=== PATIENT | female | born 1980 | race Caucasian/White ===

== ENCOUNTER 2017-05-11 12:26 | Emergency (ER) | payer OTHER ==
[~2017-05-11] VITALS: Ht 165.1 cm; Wt 47.6 kg
[~2017-05-11 12:26] MED LIST: ACHD5005 PO; AMIT25TA9 PO; CYCL10TA9 PO; DIVA500T PO; FLUO40CA PO; IBP800T PO; LORA0.5T PO; PRD50T PO; PRM25T PO
--- OUTSIDE RECORDS SUMMARY | 2017-05-11 12:32 | XMS REPORT | CCD ---
Author Author JAMES TEE Organization Unknown Address [address] [place] [address] Care Team Providers Care Wellness Guide Name Role Phone [facility], LILY DO Attphys [facility], LILY DO Prisurg Allergies Allergy Code Allergy Type Reaction Status No Known Drug Allergies 0 Drug allergy Active Active Medications Medication Code Dose Units Frequency Route Modification Start Date/Time busPIRone 10MG Oral Tablet 459977 10 MILLIGRAMS THREE TIMES A DAY ORAL 05/04/2014 10:54 Prescription Detail 10 MILLIGRAMS ORAL THREE TIMES A DAY CeleXA 40MG Oral Tablet [id number] 40 MILLIGRAMS DAILY ORAL 05/04/2014 10:54 Prescription Detail 40 MILLIGRAMS ORAL DAILY Coumadin 5MG Oral Tablet [id number] 5 MILLIGRAMS COUMADIN AT 5:00 PM BY MOUTH 05/04/2014 10:54 Prescription Detail 5 MILLIGRAMS BY MOUTH COUMADIN AT 5:00 PM Dicyclomine HCl 10MG Oral Capsule [id number] 10 MILLIGRAMS THREE TIMES A DAY ORAL 05/04/2014 10:54 Prescription Detail 10 MILLIGRAMS ORAL THREE TIMES A DAY HYDROcodone bitartrate-acetaminophen 5MG-325MG Oral Tablet 355550 1 EACH NEEDED EVERY 6 HR BY MOUTH 10:54 Prescription Detail 1 EACH BY MOUTH NEEDED EVERY 6 HR HydrOXYzine HCl 25MG Oral Tablet [id number] 25 MILLIGRAMS FOUR TIMES A DAY ORAL 05/04/2014 10:54 Prescription Detail 25 MILLIGRAMS ORAL FOUR TIMES A DAY Lovenox 60MG/0.6ML Injection Solution 370884 60 MILLIGRAMS EVERY 12 HOURS SUB Q 05/04/2014 10:54 Prescription Detail 60 MILLIGRAMS SUB Q EVERY 12 HOURS Problems Problem Code Start Date Resolved Date Status DVT of leg 779713187 05/03/2014 Active Procedures Unknown or Not Available. Results Unknown or Not Available. 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 History of Immunizations Unknown or Not Available. Social History Smoking Status Code Start Date End Date Current every day smoker [id number] Vital Signs Unknown or Not Available. Function Status Unknown or Not Available. Goals Unknown or Not Available. ASSESSMENTS Unknown or Not Available. Health Concerns Section Unknown or Not Available.
--- OUTSIDE RECORDS SUMMARY | 2017-05-11 12:35 | XMS REPORT ---
Author Author Francisco Javier Patricio [facility] Address [address] [place], [place] [id number] Care Team Providers Care Director Of Sales Name Role Phone Francisco Javier Patricio PCP Unavailable FRANCISCO JAVIER ESPINAL PreferredProvider Unavailable Allergies and Adverse Reactions Name Reaction Notes No known drug allergy Plan of Treatment Not available. Medications Active Name Start Date Estimated Completion Date SIG Comments citalopram 20 mg oral tablet 03/30/2014 take 2 tablets (40 mg) by oral route once daily citalopram 20 mg oral tablet 06/07/2014 take 2 tablets (40 mg) by oral route once daily cyclobenzaprine 10 mg oral tablet 04/14/2015 take 1 tablet (10 mg) by oral route 3 times per day for 30 days citalopram 20 mg oral tablet 05/01/2015 take 2 tablets (40 mg) by oral route once daily hydroxyzine HCl 25 mg oral tablet 05/15/2015 take 1to 2 tablet by oral route QID PRN Xarelto 20 mg oral tablet 05/29/2015 take 1 tablet (20 mg) by oral route once daily with the evening meal hydroxyzine HCl 25 mg oral tablet 06/16/2015 TAKE ONE OR TWO TABLETS BY MOUTH UP TO FOUR TIMES A DAY IF NEEDED Lasix 20 mg oral tablet 07/07/2015 take 1 tablet (20 mg) by oral route once daily atenolol 25 mg oral tablet 07/28/2015 take 1 tablet (25 mg) by oral route 2 times per day for 30 days cyclobenzaprine 10 mg oral tablet 09/19/2015 TAKE ONE TABLET BY MOUTH THREE TIMES DAILY hydroxyzine HCl 25 mg oral tablet 01/08/2016 TAKE ONE OR TWO TABLETS BY MOUTH UP TO FOUR TIMES A DAY IF NEEDED baclofen 10 mg oral tablet 01/08/2016 take 1 tablet (10 mg) by oral route 3 times per day PRN muscle spasm atenolol 25 mg oral tablet 02/09/2016 TAKE ONE TABLET BY MOUTH TWICE DAILY Xarelto 20 mg oral tablet 03/10/2016 TAKE ONE TABLET BY MOUTH ONCE DAILY WITH EVENING MEAL baclofen 10 mg oral tablet 04/06/2016 take 1 tablet (10 mg) by oral route 3 times per day PRN muscle spasm dicyclomine 10 mg oral capsule 04/15/2016 take 1 capsule (10 mg) by oral route 3 times per day for 30 days pantoprazole 40 mg oral tablet,delayed release (DR/EC) 04/30/2016 TAKE ONE TABLET BY MOUTH ONCE DAILY hydroxyzine HCl 25 mg oral tablet 04/30/2016 TAKE ONE OR TWO TABLETS BY MOUTH UP TO FOUR TIMES A DAY IF NEEDED tramadol 50 mg oral tablet 05/24/2016 take 1 tablet by oral route 4 times a day as needed buspirone 10 mg oral tablet 05/25/2016 take 1 tablet (10 mg) by oral route 3 times per day buspirone 10 mg oral tablet 05/25/2016 TAKE ONE TABLET BY MOUTH THREE TIMES DAILY trazodone 100 mg oral tablet take 1.5 tablets by oral route daily Name Start Date Expiration Date SIG Comments Vistaril 25 mg oral capsule 02/26/2009 02/26/2009 take 1 capsule (25 mg) by oral route 3 times per day Zoloft 50 mg oral tablet 03/17/2009 07/15/2009 take 1 tablet (50 mg) by oral route once daily for 30 days Cipro 500 mg oral tablet 04/16/2009 take 1 tablet (500 mg) by oral route 2 times per day Medrol (Vivek) 4 mg oral tablets,dose pack 04/16/2009 take as directed Sprintec (28) 0.25-35 mg-mcg oral tablet 04/01/2014 03/03/2015 take 1 tablet by oral route once daily for 28 days Bentyl 10 mg oral capsule 06/07/2014 10/05/2014 take 1 capsule (10 mg) by oral route 3 times per day for 30 days alprazolam 0.5 mg oral tablet 08/07/2014 1/2 to 1 TID PRN panic attack Cipro 500 mg oral tablet 12/03/2014 1 tablet (500 mg) twice a day for 15 days promethazine-codeine 6.25-10 mg/5 mL oral syrup 12/03/2014 take 5 milliliters by oral route every 4-6 hours as needed, not to exceed 30 mL in 24 hours cyclobenzaprine 10 mg oral tablet 03/17/2015 04/16/2015 take 1 tablet (10 mg) by oral route 3 times per day for 30 days prednisone 20 mg oral tablet 05/08/2015 05/16/2015 4x2 days 3x2 days 2x2 days 1x2 days atenolol 25 mg oral tablet 05/23/2015 07/22/2015 take 1 tablet (25 mg) by oral route 2 times per day for 30 days Macrobid 100 mg oral capsule 11/25/2015 12/02/2015 take 1 capsule (100 mg) by oral route every 12 hours with food for 7 days citalopram 40 mg oral tablet 01/08/2016 06/06/2016 take 1 tablet (40 mg) by oral route once daily for 30 days dicyclomine 10 mg oral capsule 01/08/2016 04/07/2016 take 1 capsule (10 mg) by oral route 3 times per day for 30 days pantoprazole 40 mg oral tablet,delayed release (DR/EC) 01/26/2016 03/26/2016 take 1 tablet (40 mg) by oral route once daily for 30 days Bactrim DS 800-160 mg oral tablet 02/18/2016 02/28/2016 take 1 tablet by oral route 2 times a day for 10 days Cipro 500 mg oral tablet 03/30/2016 04/09/2016 take 1 tablet (500 mg) by oral route 2 times per day for 10 days amoxicillin 500 mg oral capsule 06/02/2016 06/09/2016 take 1 capsule (500 mg) by oral route 3 times per day for 7 days Medrol (Vivek) 4 mg oral tablets,dose pack 06/02/2016 06/07/2016 take as directed for 5 days Discontinued Name Start Date Discontinued Date SIG Comments diclofenac sodium 75 mg oral tablet,delayed release (DR/EC) 03/30/20142014 take 1 tablet (75 mg) by oral route 2 times per day warfarin 5 mg oral tablet 06/05/2014 06/30/2015 one daily as directed ibuprofen 800 mg oral tablet 12/31/2014 06/30/2015 take 1 tablet by oral route Q8H while on your cycle warfarin 4 mg oral tablet 02/24/2015 06/30/2015 take 2 tablet (4 mg) by oral route once daily Keflex 500 mg oral capsule 04/14/2015 05/24/2015 Take one capsule 3 times a day promethazine-codeine 6.25-10 mg/5 mL oral syrup 05/24/2015 06/21/2016 take 5 milliliters by oral route every 4-6 hours as needed, not to exceed 30 mL in 24 hours Lasix 20 mg oral tablet 10/06/2015 06/21/2016 take 1 tablet (20 mg) by oral route once daily cyclobenzaprine 10 mg oral tablet 11/17/2015 01/08/2016 TAKE ONE TABLET BY MOUTH THREE TIMES DAILY Conway 5-325 mg oral tablet 02/20/2016 05/15/2016 take 1 tablet by oral route every 6 hours as needed for pain amoxicillin 500 mg oral capsule 06/03/2016 06/21/2016 take 1 capsule (500 mg) by oral route 3 times per day for 7 days Problem List Description Status Onset Panic attack as reaction to stress Active 02/26/2014 Depressive Disorder Active 02/26/2014 Anxiety Disorder Active 02/26/2014 Mental retardation Active 02/26/2014 Tremor, essential Active 03/30/2014 Urticaria Active 03/30/2014 Hyperlipidemia, unspecified Active 03/30/2014 Restless leg syndrome Active 03/30/2014 DVT (deep venous thrombosis), left Active 05/07/2014 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 06/13/2014 History of DVT (deep vein thrombosis) Active 09/17/2014 Smoker Active 09/04/2015 Gastroesophageal reflux disease without esophagitis Active 01/31/2016 Uses marijuana Active 04/17/2016 Low self esteem Active 05/15/2016 Marijuana smoker, continuous Active 05/15/2016 Stress at home Active 05/15/2016 Thoracic Back Pain Active 05/24/2016 Vital Signs Date Time BP-Sys(mm[Hg] BP-Diana(mm[Hg]) HR(bpm) RR(rpm) Temp WT HT HC BMI BSA BMI Percentile O2 Sat(%) 06/22/2016 3:16:00 PM 132 mmHg 80 mmHg 92 bpm 18 rpm 97.7 F 136 lbs 63 in 24.09 kg/m2 1.66 m2 100 % 06/21/2016 11:11:00 AM 132 mmHg 80 mmHg 92 bpm 18 rpm 97.7 F 136 lbs 64 in 23.3441 kg/m 1.669 m 100 % 06/08/2016 1:11:00 PM 108 mmHg 72 mmHg 70 bpm 18 rpm 97.4 F 146 lbs 64 in 25.06 kg/m2 1.73 m2 96 % 05/24/2016 3:31:00 PM 100 mmHg 72 mmHg 68 bpm 18 rpm 97 F 137 lbs 65 in 22.7978 kg/m 1.6882 m 97 % 05/05/2016 2:40:00 PM 110 mmHg 70 mmHg 76 bpm 16 rpm 98.2 F 146 lbs 62 in 26.70 kg/m2 1.70 m2 98 % 04/14/2016 2:06:00 PM 110 mmHg 78 mmHg 102 bpm 16 rpm 97.4 F 138 lbs 97 % 03/30/2016 11:50:00 AM 110 mmHg 65 mmHg 74 bpm 16 rpm 97.6 F 142 lbs 64 in 24.37 kg/m2 1.71 m2 98 % 03/25/2016 4:07:00 PM 118 mmHg 68 mmHg 77 bpm 16 rpm 98.1 F 143 lbs 64 in 24.5456 kg/m 1.7114 m 99 % 02/24/2016 2:05:00 PM 110 mmHg 70 mmHg 60 bpm 16 rpm 98.2 F 141 lbs 64 in 24.20 kg/m2 1.70 m2 98 % 02/20/2016 11:01:00 AM 120 mmHg 60 mmHg 92 bpm 16 rpm 98.2 F 142 lbs 64 in 24.374 kg/m 1.7054 m 95 % 02/10/2016 11:19:00 AM 126 mmHg 82 mmHg 71 bpm 16 rpm 98.1 F 144 lbs 64 in 24.72 kg/m2 1.72 m2 98 % 01/26/2016 2:19:00 PM 110 mmHg 70 mmHg 70 bpm 16 rpm 97.5 F 144 lbs 64 in 24.7173 kg/m 1.7174 m 98 % 01/08/2016 2:52:00 PM 110 mmHg 70 mmHg 102 bpm 18 rpm 98.3 F 146 lbs 65 in 24.30 kg/m2 1.74 m2 98 % 11/25/2015 3:47:00 PM 110 mmHg 78 mmHg 96 bpm 16 rpm 98.5 F 141 lbs 64 in 24.2023 kg/m 1.6994 m 98 % 10/21/2015 6:44:00 AM 115 mmHg 68 mmHg 96 bpm 18 rpm 98.4 F 141 lbs 65 in 23.46 kg/m2 1.71 m2 96 % 10/17/2015 9:33:00 AM 115 mmHg 68 mmHg 96 bpm 18 rpm 98.4 F 141 lbs 65 in 23.4634 kg/m 1.7126 m 96 % 09/26/2015 9:22:00 AM 98 mmHg 65 mmHg 80 bpm 16 rpm 97.4 F 143 lbs 65 in 23.80 kg/m2 1.72 m2 97 % 09/02/2015 10:44:00 AM 112 mmHg 74 mmHg 135 bpm 18 rpm 98.4 F 142 lbs 64 in 24.374 kg/m 1.7054 m 96 % 07/25/2015 11:53:00 AM 120 mmHg 75 mmHg 96 bpm 16 rpm 98.2 F 141 lbs 64 in 24.20 kg/m2 1.70 m2 97 % 06/27/2015 9:08:00 AM 128 mmHg 70 mmHg 104 bpm 18 rpm 145 lbs 96 % 06/10/2015 11:11:00 AM 128 mmHg 78 mmHg 78 bpm 18 rpm 98.2 F 143 lbs 64 in 24.55 kg/m2 1.71 m2 97 % 05/23/2015 10:50:00 AM 110 mmHg 80 mmHg 94 bpm 97.9 F 143 lbs 64 in 24.5456 kg/m 1.7114 m 97 % 04/23/2015 1:32:00 PM 125 mmHg 80 mmHg 138 bpm 18 rpm 97 F 138 lbs 64 in 23.69 kg/m2 1.68 m2 98 % 04/14/2015 2:02:00 PM 128 mmHg 70 mmHg 128 bpm 18 rpm 98.7 F 146 lbs 64 in 25.0606 kg/m 1.7293 m 98 % 04/09/2015 11:37:00 AM 118 mmHg 70 mmHg 124 bpm 18 rpm 98.6 F 142 lbs 64 in 24.37 kg/m2 1.71 m2 97 % 01/27/2015 10:43:00 AM 130 mmHg 75 mmHg 110 bpm 18 rpm 98.3 F 136 lbs 64 in 23.3441 kg/m 1.669 m 96 % 01/09/2015 11:26:00 AM 109 mmHg 70 mmHg 122 bpm 98.8 F 135 lbs 64 in 23.17 kg/m2 1.66 m2 12/30/2014 9:34:00 AM 12 mmHg 81 mmHg 114 bpm 97.2 F 134.25 lbs 64 in 23.0437 kg/m 1.6582 m 12/27/2014 9:25:00 AM 120 mmHg 80 mmHg 142 bpm 96.8 F 134 lbs 64 in 23.00 kg/m2 1.66 m2 12/27/2014 9:03:00 AM 110 mmHg 68 mmHg 146 bpm 16 rpm 98 F 134 lbs 64 in 23.0008 kg/m 1.6567 m 98 % 12/06/2014 11:20:00 AM 140 mmHg 80 mmHg 130 bpm 16 rpm 98.3 F 134 lbs 64 in 23.00 kg/m2 1.66 m2 99 % 12/02/2014 11:36:00 AM 110 mmHg 70 mmHg 146 bpm 16 rpm 98.8 F 129 lbs 64 in 22.1426 kg/m 1.6255 m 98 % 10/09/2014 8:35:00 AM 110 mmHg 70 mmHg 84 bpm 18 rpm 97.5 F 116 lbs 64 in 19.91 kg/m2 1.54 m2 98 % 09/05/2014 1:06:00 PM 120 mmHg 70 mmHg 92 bpm 18 rpm 97.8 F 123 lbs 64 in 21.1127 kg/m 1.5872 m 98 % 08/06/2014 8:50:00 AM 110 mmHg 64 mmHg 80 bpm 18 rpm 97 F 120 lbs 64 in 20.60 kg/m2 1.57 m2 99 % 07/23/2014 9:44:00 AM 105 mmHg 60 mmHg 90 bpm 18 rpm 97.6 F 122 lbs 64 in 20.941 kg/m 1.5808 m 99 % 06/12/2014 8:29:00 AM 110 mmHg 60 mmHg 80 bpm 18 rpm 98.7 F 121 lbs 64 in 20.77 kg/m2 1.57 m2 98 % 05/20/2014 11:13:00 AM 100 mmHg 60 mmHg 70 bpm 18 rpm 98.6 F 122 lbs 64 in 20.941 kg/m 1.5808 m 98 % 05/16/2014 10:57:00 AM 105 mmHg 60 mmHg 81 bpm 18 rpm 98.6 F 121 lbs 64 in 20.77 kg/m2 1.57 m2 100 % 05/06/2014 1:03:00 PM 110 mmHg 60 mmHg 116 bpm 18 rpm 97.9 F 121 lbs 64 in 20.7694 kg/m 1.5743 m 99 % 04/25/2014 1:05:00 PM 105 mmHg 65 mmHg 97 bpm 18 rpm 97 F 122 lbs 63 in 21.61 kg/m2 1.57 m2 99 % 04/01/2014 1:23:00 PM 101 mmHg 67 mmHg 83 bpm 18 rpm 97.4 F 121 lbs 64 in 20.7694 kg/m 1.5743 m 03/28/2014 10:09:00 AM 108 mmHg 68 mmHg 86 bpm 18 rpm 97.6 F 120.187 lbs 63.75 in 20.79 kg/m2 1.57 m2 98 % 02/26/2014 10:46:00 AM 120 mmHg 60 mmHg 98 bpm 22 rpm 97.9 F 118 lbs 63 in 20.9025 kg/m 1.5425 m 100 % 05/20/2010 9:42:00 AM 116 mmHg 72 mmHg 76 bpm 106 lbs 04/16/2009 10:49:00 AM 104 mmHg 70 mmHg 97.8 F 114 lbs Social History Name Description Comments Tobacco Current every day smoker Alcohol Never Marijuana History of Procedures Date Ordered Description Order Status 10/18/2014 12:00 AM CAPILLARY BLOOD DRAW Reviewed 12/12/2014 12:00 AM CAPILLARY BLOOD DRAW Reviewed 12/27/2014 12:00 AM CHORIONIC GONADOTROPIN TEST Reviewed 12/27/2014 12:00 AM COMPLETE CBC W/AUTO DIFF WBC Reviewed 12/27/2014 12:00 AM COMPREHEN METABOLIC PANEL Reviewed 12/27/2014 12:00 AM ASSAY THYROID STIM HORMONE Reviewed 12/27/2014 12:00 AM Type & Screen Reviewed 12/27/2014 12:00 AM ASSAY OF GONADOTROPIN (FSH) Reviewed 12/27/2014 12:00 AM ASSAY OF GONADOTROPIN (LH) Reviewed 12/27/2014 12:00 AM ASSAY OF PROLACTIN Reviewed 12/27/2014 12:00 AM PROTHROMBIN TIME Reviewed 12/27/2014 12:00 AM THROMBOPLASTIN TIME PARTIAL Reviewed 12/27/2014 12:00 AM SELF-MGMT EDUC & TRAIN 1 PT Reviewed 01/03/2015 12:00 AM US EXAM PELVIC COMPLETE Reviewed 01/03/2015 12:00 AM TRANSVAGINAL US NON-OB Reviewed 12/30/2014 12:00 AM COMPLETE CBC W/AUTO DIFF WBC Reviewed 12/30/2014 12:00 AM US EXAM PELVIC COMPLETE Reviewed 12/30/2014 12:00 AM US EXAM PELVIC LIMITED Reviewed 01/13/2015 12:00 AM CAPILLARY BLOOD DRAW Reviewed 02/03/2015 12:00 AM CAPILLARY BLOOD DRAW Reviewed 04/12/2015 12:00 AM Decadron, Per 1 Mg [facility]# [id number] Reviewed 05/01/2015 12:00 AM CAPILLARY BLOOD DRAW Reviewed 03/06/2015 12:00 AM CAPILLARY BLOOD DRAW Reviewed 05/07/2015 12:00 AM CAPILLARY BLOOD DRAW Reviewed 05/23/2015 12:00 AM Decadron, Per 1 Mg [facility]# [id number] Reviewed 05/29/2015 12:00 AM CAPILLARY BLOOD DRAW Reviewed 06/17/2015 12:00 AM EXTREMITY STUDY Returned 09/02/2015 12:00 AM Decadron, Per 1 Mg [facility]# [id number] Reviewed 09/02/2015 12:00 AM Rocephin 1 gram [facility]#[id number] Reviewed 09/02/2015 12:00 AM Toradol 60 Mg [facility]#[id number] Reviewed 09/26/2015 12:00 AM Decadron, Per 1 Mg [facility]# [id number] Reviewed 09/26/2015 12:00 AM Phenergan, Up to 50 Mg [facility]#[id number] Reviewed 02/20/2016 12:00 AM DRAINAGE OF SKIN ABSCESS Reviewed 02/10/2016 12:00 AM Phenergan 50mg Injection Reviewed 02/10/2016 12:00 AM THER/PROPH/DIAG INJ SC/IM Reviewed 03/25/2016 12:00 AM THERAPEUTIC PROPHYLACTIC/DX INJECTION SUBQ/IM Reviewed 03/25/2016 12:00 AM Decadron 8mg Injection, [facility] Medicaid Reviewed 03/25/2016 12:00 AM Depo-Medrol 80 Mg Injection, [facility] Medicaid Reviewed 03/25/2016 12:00 AM Rocephin 1 gram Injection, [facility] Medicaid Reviewed 03/29/2016 12:00 AM THER/PROPH/DIAG INJ SC/IM Reviewed 03/29/2016 12:00 AM Decadron 8mg Injection Reviewed 03/29/2016 12:00 AM Depo-Medrol 80mg Injection Reviewed 03/29/2016 12:00 AM Rocephin 1 gram Injection Reviewed 03/27/2016 12:00 AM BEHAV CHNG SMOKING 3-10 MIN Reviewed 03/30/2016 12:00 AM Toradol 60 Mg Injection, [facility] Medicaid Reviewed 03/30/2016 12:00 AM Phenergan 50mg Injection, [facility] Medicaid Reviewed 04/17/2016 12:00 AM THERAPEUTIC PROPHYLACTIC/DX INJECTION SUBQ/IM Reviewed 04/20/2016 12:00 AM X-RAY EXAM NECK SPINE 2-3 VW Returned 04/20/2016 12:00 AM X-RAY EXAM L-S SPINE 2/3 VWS Returned 05/05/2016 12:00 AM THER/PROPH/DIAG INJ SC/IM Reviewed 05/05/2016 12:00 AM Decadron 8mg Injection Reviewed 05/15/2016 12:00 AM BEHAV CHNG SMOKING 3-10 MIN Reviewed 05/24/2016 12:00 AM THER/PROPH/DIAG INJ SC/IM Reviewed 05/24/2016 12:00 AM Decadron 8mg Injection Reviewed 05/24/2016 12:00 AM Depo-Medrol 80mg Injection Reviewed 05/24/2016 12:00 AM Rocephin 1 gram Injection Reviewed 05/24/2016 12:00 AM Toradol 60 Mg Injection Reviewed 05/24/2016 12:00 AM BEHAV CHNG SMOKING 3-10 MIN Reviewed 06/21/2016 12:[address] ABD & PELV W/CONTRAST Reviewed 03/28/2014 12:00 AM COMPLETE CBC W/AUTO DIFF WBC Reviewed 03/28/2014 12:00 AM COMPREHEN METABOLIC PANEL Reviewed 03/28/2014 12:00 AM LIPID PANEL Reviewed 04/01/2014 12:00 AM SPECIMEN HANDLING OFFICE-LAB Reviewed 04/01/2014 12:00 AM CHLAMYDIA CULTURE Reviewed 04/01/2014 12:00 AM N.GONORRHOEAE DNA AMP PROB Reviewed 04/01/2014 12:00 AM CYTOPATH C/V THIN LAYER Reviewed 05/27/2014 12:00 AM CAPILLARY BLOOD DRAW Reviewed 06/10/2014 12:00 AM CAPILLARY BLOOD DRAW Reviewed 07/23/2014 12:00 AM THER/PROPH/DIAG INJ SC/IM Reviewed 07/23/2014 12:00 AM Decadron, Per 1 Mg [facility]# [id number] Reviewed 07/23/2014 12:00 AM Depo-Medrol, Per 80 Mg [facility]#[id number] Reviewed 07/23/2014 12:00 AM Rocephin 1 gram [facility]#[id number] Reviewed 08/20/2014 12:00 AM CAPILLARY BLOOD DRAW Reviewed 08/29/2014 12:00 AM CAPILLARY BLOOD DRAW Reviewed 09/05/2014 12:00 AM CAPILLARY BLOOD DRAW Reviewed 09/13/2014 12:00 AM CAPILLARY BLOOD DRAW Reviewed 10/09/2014 12:00 AM Decadron, Per 1 Mg [facility]# [id number] Reviewed 10/09/2014 12:00 AM Toradol 60 Mg [facility]#[id number] Reviewed 10/09/2014 12:00 AM Phenergan, Up to 50 Mg [facility]#[id number] Reviewed 10/30/2014 12:00 AM CAPILLARY BLOOD DRAW Reviewed Results Summary Data and Description Results 03/28/2014 3:47 PM GLUCOSE 76.0 mg/dLSODIUM 145.0 mmol/LPOTASSIUM 4.80 mmol/ LCHLORIDE 105.0 mmol/LCO2 25.0 mmol/LBUN 13.0 mg/dLCREATININE 0.70 mg/dLSGOT/ AST 14.0 IU/LSGPT/ALT 12.0 IU/LALK PHOS 72.0 IU/LTOTAL PROTEIN 7.60 g/dLALBUMIN 4.40 g/dLTOTAL BILI 0.20 mg/dLCALCIUM 10.0 mg/dLAGE 33 GFR NonAA 98 GFR AA 119 eGFR >60 mL/min/1.73 m2eGFR AA* >60 TRIGLYCERIDES 241.0 mg/dLCHOLESTEROL 248.0 mg/dLHDL 51.0 mg/dLTOT CHOL/HDL 4.9 LDL (CALC) 149.0 mg/dLWBC 9.1 RBC 5.46 HGB 16.50 g/dLHCT 49.20 %MCV 90.0 fLMCH 30.20 pgMCHC 33.50 g/dLRDW SD 52 RDW CV 15.90 %MPV 10.60 fLPLT 317 PLTS PLTS CHECKD NRBC# 0.00 NRBC% 0.0 %NEUT 58.60 %%LYMP 35.10 %%MONO 5.10 %%EOS 1.0 %%BASO 0.20 %#NEUT 5.32 #LYMP 3.18 # MONO 0.46 #EOS 0.09 #BASO 0.02 MANUAL DIFF NOT IND 12/27/2014 11:10 AM WBC 10.8 RBC 4.57 HGB 14.40 g/dLHCT 42.60 %MCV 93.0 fLMCH 31.50 pgMCHC 33.80 g/dLRDW SD 54 RDW CV 15.70 %MPV 9.50 fLPLT 337 NRBC# 0.00 NRBC% 0.0 %NEUT 63.70 %%LYMP 30.20 %%MONO 4.80 %%EOS 1.10 %%BASO 0.20 %#NEUT 6.88 #LYMP 3.27 #MONO 0.52 #EOS 0.12 #BASO 0.02 MANUAL DIFF NOT IND GLUCOSE 96.0 mg/dLSODIUM 139.0 mmol/LPOTASSIUM 3.80 mmol/LCHLORIDE 105.0 mmol/LCO2 24.0 mmol/LBUN 11.0 mg/dLCREATININE 0.70 mg/dLSGOT/AST 18.0 IU/LSGPT/ALT 15.0 IU/ LALK PHOS 76.0 IU/LTOTAL PROTEIN 7.40 g/dLALBUMIN 4.40 g/dLTOTAL BILI 0.30 mg/ dLCALCIUM 10.20 mg/dLAGE 34 GFR NonAA 97 GFR AA 118 eGFR >60 mL/min/1.73meGFR AA* >60 TSH 0.880 uIU/mLFSH 7.60 mIU/mLLH 9.60 mIU/mLBETA HCG QUANT <1 mIU/ mLProlactin 5.90 ng/mL 12/27/2014 11:30 AM PROTIME 19.50 secsINR 1.9 PTT 36.80 secsCALLED TO/BY ARUNA [facility] 12/30/2014 10:57 AM WBC 9.4 RBC 4.41 HGB 13.60 g/dLHCT 41.40 %MCV 94.0 fLMCH 30.80 pgMCHC 32.90 g/dLRDW SD 53 RDW CV 15.50 %MPV 9.50 fLPLT 334 NRBC# 0.00 NRBC% 0.0 %NEUT 59.40 %%LYMP 34.40 %%MONO 4.60 %%EOS 1.40 %%BASO 0.20 %#NEUT 5.57 #LYMP 3.22 #MONO 0.43 #EOS 0.13 #BASO 0.02 MANUAL DIFF NOT IND 04/23/2015 12:10 PM WBC 10.2 RBC 5.41 HGB 14.70 g/dLHCT 45.20 %MCV 84.0 fLMCH 27.20 pgMCHC 32.50 g/dLRDW SD 51 RDW CV 16.90 %MPV 10.0 fLPLT 228 NRBC# 0.00 NRBC% 0.0 GLUCOSE 82.0 mg/dLSODIUM 140.0 mmol/LPOTASSIUM 3.80 mmol/LCHLORIDE 109.0 mmol/LCO2 20.0 mmol/LBUN 5.0 mg/dLCREATININE 0.60 mg/dLSGOT/AST 18.0 IU/ LSGPT/ALT 13.0 IU/LALK PHOS 94.0 IU/LTOTAL PROTEIN 6.80 g/dLALBUMIN 4.0 g/ dLTOTAL BILI 0.30 mg/dLCALCIUM 9.40 mg/dLAGE 34 GFR NonAA 116 GFR AA 141 eGFR > 60 mL/min/1.73meGFR AA* >60 FREE T4 1.05 TSH 0.380 uIU/mL History Of Immunizations Not available. 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 06/13/2014 History of DVT (deep vein thrombosis) 09/17/2014 Sebaceous Cyst May 20 2010 9:43AM Smoker 09/04/2015 Gastroesophageal reflux disease without esophagitis 01/31/2016 Uses marijuana 04/17/2016 Low self esteem 05/15/2016 Marijuana smoker, continuous 05/15/2016 Stress at home 05/15/2016 Thoracic Back Pain 05/24/2016 Anxiety Disorder Feb 26 2014 10:47AM Depressive Disorder Feb 26 2014 10:47AM Panic attack as reaction to stress Feb 26 2014 10:47AM Mental retardation Feb 26 2014 10:47AM Anger Feb 26 2014 10:47AM Anxiety Mar 28 2014 10:10AM FPC use of drug Mar 28 2014 10:10AM Tremor, essential Mar 28 2014 10:10AM Mental retardation Mar 28 2014 10:10AM Hyperlipidemia, unspecified Mar 28 2014 10:10AM Panic attack as reaction to stress Mar 28 2014 10:10AM Urticaria Mar 28 2014 10:10AM Restless leg syndrome Mar 28 2014 10:10AM Routine gynecological examination Apr 01 2014 1:34PM Contraceptive management Apr 01 2014 1:34PM Tobacco Abuse Apr 01 2014 1:34PM Vaginal Discharge Apr 01 2014 1:34PM Gastroesophageal Reflux Apr 25 2014 1:05PM Bloating Apr 25 2014 1:05PM DVT (deep venous thrombosis), left May 06 2014 1:03PM DVT (deep venous thrombosis), left May 16 2014 10:57AM Thigh pain May 16 2014 10:57AM Anticoagulation goal of INR 2 to 3 May 16 2014 10:57AM 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 May 20 2014 11:14AM DVT (deep venous thrombosis), left May 20 2014 11:14AM 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 May 30 2014 7:44AM Atrial Fibrillation May 30 2014 7:44AM Deep vein thrombosis:history of May 30 2014 7:44AM FPC 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 Jun 10 2014 9:18AM Atrial Fibrillation Jun 10 2014 9:18AM Deep vein thrombosis:history of Jun 10 2014 9:18AM FPC 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 Jun 12 2014 8:29AM Panic attack as reaction to stress Jun 12 2014 8:29AM History of DVT (deep vein thrombosis) Jun 12 2014 8:29AM 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 Jun 12 2014 8:29AM Cough Jul 23 2014 9:44AM Pharyngitis, Acute Jul 23 2014 9:44AM Post-nasal drainage Jul 23 2014 9:44AM Panic attack as reaction to stress Aug 06 2014 2:55PM Intellectual disability Aug 06 2014 2:55PM FPC 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 Aug 20 2014 1:24PM Atrial Fibrillation Aug 20 2014 1:24PM Deep vein thrombosis:history of Aug 20 2014 1:24PM FPC 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 Aug 29 2014 3:30PM Atrial Fibrillation Aug 29 2014 3:30PM Deep vein thrombosis:history of Aug 29 2014 3:30PM 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 Sep 05 2014 1:08PM Atrial Fibrillation Sep 05 2014 1:08PM Deep vein thrombosis:history of Sep 05 2014 1:08PM FPC 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 Sep 13 2014 12:03PM Atrial Fibrillation Sep 13 2014 12:03PM Deep vein thrombosis:history of Sep 13 2014 12:03PM FPC 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 Sep 05 2014 1:06PM Hip pain Sep 05 2014 1:06PM Neck pain Sep 05 2014 1:06PM History of DVT (deep vein thrombosis) Sep 05 2014 1:06PM Low Back Pain Oct 09 2014 8:35AM Migraine Oct 09 2014 8:35AM Depressive Disorder Oct 09 2014 8:35AM Nausea Oct 09 2014 8:35AM Cervicalgia Oct 09 2014 8:35AM 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 Oct 30 2014 3:06PM Atrial Fibrillation Oct 30 2014 3:06PM Deep vein thrombosis:history of Oct 30 2014 3:06PM 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 Nov 07 2014 3:54PM Atrial Fibrillation Nov 07 2014 3:54PM Deep vein thrombosis:history of Nov 07 2014 3:54PM Cough Dec 02 2014 11:37AM Bronchitis, Acute Dec 02 2014 11:37AM Abdominal Pain, Generalized Dec 06 2014 11:21AM Constipation Dec 06 2014 11:21AM [facility] 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 Dec 12 2014 9:25AM Atrial Fibrillation Dec 12 2014 9:25AM Deep vein thrombosis:history of Dec 12 2014 9:25AM Menorrhagia Dec 27 2014 10:50AM Menorrhagia Dec 27 2014 9:34AM Dysmenorrhea Dec 27 2014 9:34AM Menorrhagia Dec 30 2014 10:23AM Menorrhagia Dec 30 2014 9:38AM 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 Dec 27 2014 9:04AM Menorrhagia Dec 27 2014 9:04AM Dysmenorrhea Dec 27 2014 9:04AM Menorrhagia Jan 09 2015 11:30AM 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 Jan 13 2015 11:28AM Atrial Fibrillation Jan 13 2015 11:28AM Deep vein thrombosis:history of Jan 13 2015 11:28AM Menorrhagia with regular cycle Jan 27 2015 10:44AM Moderate Female pelvic pain Jan 27 2015 10:44AM Moderate Dysmenorrhea Jan 27 2015 10:44AM 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 Feb 03 2015 1:34PM Atrial Fibrillation Feb 03 2015 1:34PM Deep vein thrombosis:history of Feb 03 2015 1:34PM Mild Acute Sprain/Strain Apr 09 2015 11:39AM Hip joint painful on movement, left Apr 09 2015 11:39AM Mild Chronic Cognitive impairment Stable Apr 09 2015 11:39AM Moderate Chronic Periodontal Disease Apr 14 2015 2:02PM Moderate Acute Toothache Apr 14 2015 2:02PM Moderate Chronic Depressive Disorder Apr 23 2015 1:32PM Moderate Chronic Tobacco Abuse Apr 23 2015 1:32PM Fatigue due to depression Apr 23 2015 1:32PM Tachycardia Apr 23 2015 1:32PM 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 Apr 23 2015 1:32PM [facility] 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 May 01 2015 2:57PM Atrial Fibrillation May 01 2015 2:57PM Deep vein thrombosis:history of May 01 2015 2:57PM 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 May 06 2015 3:28PM Atrial Fibrillation May 06 2015 3:28PM Deep vein thrombosis:history of May 06 2015 3:28PM [facility] 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 May 07 2015 9:50AM Atrial Fibrillation May 07 2015 9:50AM Deep vein thrombosis:history of May 07 2015 9:50AM Cough May 23 2015 10:51AM Bronchitis, Acute May 23 2015 10:51AM Post-nasal drainage May 23 2015 10:51AM Smoker unmotivated to quit May 23 2015 10:51AM 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 May 29 2015 2:16PM Atrial Fibrillation May 29 2015 2:16PM Deep vein thrombosis:history of May 29 2015 2:16PM Bilateral low back pain with sciatica, sciatica laterality unspecified Jun 10 2015 11:11AM History of DVT (deep vein thrombosis) Jun 10 2015 11:11AM 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 Jun 10 2015 11:11AM Leg pain Jun 17 2015 1:36PM Edema leg Jun 17 2015 1:36PM History of DVT (deep vein thrombosis) Jun 17 2015 1:36PM Pain of left thigh Jun 27 2015 9:09AM History of DVT (deep vein thrombosis) Jun 27 2015 9:09AM 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 Jun 27 2015 9:09AM Restless leg syndrome Jun 27 2015 9:09AM Edema of left lower extremity Jul 25 2015 11:54AM History of DVT of lower extremity Jul 25 2015 11:54AM Moderate Acute Cough Sep 02 2015 10:44AM Mild Acute Post-nasal drainage Sep 02 2015 10:44AM Upper respiratory tract infection, unspecified type Sep 02 2015 10:44AM Respiratory System And Chest Symptoms Sep 02 2015 10:44AM Nasal congestion Sep 02 2015 10:44AM Anxiety disorder Sep 02 2015 10:44AM Depressive Disorder Sep 02 2015 10:44AM 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 Sep 02 2015 10:44AM Smoker Sep 02 2015 10:44AM Mild Acute Muscle spasm of back Sep 02 2015 10:44AM Mild Respiratory System And Chest Symptoms Sep 26 2015 9:23AM Fever, unspecified fever cause Sep 26 2015 9:23AM Non-intractable vomiting with nausea, vomiting of unspecified type Sep 26 2015 9:23AM Mild Acute Gastroenteritis Sep 26 2015 9:23AM Mild Acute Bartholin's Gland Cyst Improving Oct 21 2015 6:44AM Moderate Acute Gastroenteritis, Viral Improving Nov 25 2015 3:47PM Diarrhea, unspecified type Nov 25 2015 3:47PM Non-intractable cyclical vomiting with nausea Nov 25 2015 3:47PM 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 Nov 25 2015 3:47PM Anxiety Disorder Jan 08 2016 2:59PM Depressive Disorder Jan 08 2016 2:59PM Major depressive disorder, single episode, unspecified Jan 08 2016 2:59PM Other fatigue Jan 08 2016 2:59PM Primary insomnia Jan 08 2016 2:59PM 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 Jan 08 2016 2:59PM Gastroesophageal reflux disease without esophagitis Jan 26 2016 2:19PM Bloating Jan 26 2016 2:19PM 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 Jan 26 2016 2:19PM Smoker Jan 26 2016 2:19PM Anxiety Jan 26 2016 2:19PM Abscess Feb 20 2016 11:02AM Cellulitis of other specified site Feb 20 2016 11:02AM Cellulitis of other specified site Feb 20 2016 11:02AM Moderate Acute Nausea Feb 10 2016 11:23AM Non-intractable cyclical vomiting with nausea Feb 10 2016 11:23AM Stomach flu Feb 10 2016 11:23AM Cellulitis of other specified site Feb 24 2016 2:06PM Moderate Acute Hidradenitis Improving Feb 24 2016 2:06PM Acute pharyngitis, unspecified etiology Mar 25 2016 4:08PM Mild Acute Purulent postnasal drainage Mar 25 2016 4:08PM Smoker Mar 25 2016 4:08PM Moderate Acute Viral gastroenteritis Mar 30 2016 11:51AM Generalized anxiety disorder Mar 30 2016 11:51AM Tobacco Abuse Mar 30 2016 11:51AM Mild Acute Nausea Mar 30 2016 11:51AM Non-intractable cyclical vomiting with nausea Mar 30 2016 11:51AM Resolved Abdominal Pain, Generalized Apr 14 2016 2:09PM Resolved Viral gastroenteritis Apr 14 2016 2:09PM Chronic Recurrent Uses marijuana Apr 14 2016 2:09PM Neck pain Apr 20 2016 4:19PM Lumbar back pain Apr 20 2016 4:19PM Low back pain May 05 2016 2:42PM Other chronic pain May 05 2016 2:42PM Back strain, initial encounter May 05 2016 2:42PM Muscle spasm of back May 05 2016 2:42PM Pain in right hip May 05 2016 2:42PM Pain in left hip May 05 2016 2:42PM Smoker May 05 2016 2:42PM Recurrent major depressive disorder, in partial remission May 05 2016 2:42PM Stress at home May 05 2016 2:42PM 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 May 05 2016 2:42PM Marijuana smoker, continuous May 05 2016 2:42PM Low self esteem May 05 2016 2:42PM History of DVT (deep vein thrombosis) May 05 2016 2:42PM Panic disorder [episodic paroxysmal anxiety] without agoraphobia May 05 2016 2:42PM Acute stress reaction May 05 2016 2:42PM Restless leg syndrome May 05 2016 2:42PM Medication management May 05 2016 2:42PM Chest congestion May 24 2016 3:32PM Smoker May 24 2016 3:32PM Moderate Chronic Thoracic Back Pain Unresponsive to treatment May 24 2016 3: 32PM Depressive Disorder May 24 2016 3:32PM 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 May 24 2016 3:32PM Restless leg syndrome May 24 2016 3:32PM Gastroenteritis, acute May 24 2016 3:32PM Leg pain, anterior, right Jun 08 2016 1:11PM Bruise Jun 08 2016 1:11PM FPC current use of anticoagulant Jun 08 2016 1:11PM Anxiety about health Jun 08 2016 1:11PM Pelvic pain in female Jun 21 2016 11:44AM Incisional hernia without mention of obstruction or gangrene Jun 21 2016 11: 44AM Payers Insurance Name Company Name Plan Name Plan Number Policy Number Policy Group Number Start Date [facility] [id number] N/A History of Encounters Visit Date Visit Type Provider 06/21/2016 Office visit Francisco Javier Patricio MD 06/21/2016 Office visit FRANCISCO JAVIER MORAN 06/08/2016 Office visit FRANCISCO JAVIER MORAN 05/24/2016 Office visit FRANCISCO JAVIER MORAN 05/05/2016 Office visit FRANCISCO JAVIER MORAN 04/13/2016 Office visit FRANCISCO JAVIER MORAN 03/30/2016 Office visit FRANCISCO JAVIER MORAN 03/25/2016 Office visit FRANCISCO JAVIER ESPINAL PA 02/24/2016 Office visit FRANCISCO JAVIER ESPINAL PA 02/20/2016 Office visit FRANCISCO JAVIER ESPINAL PA 02/10/2016 Office visit FRANCISCO JAVIER ESPINAL PA 01/26/2016 Office visit FRANCISCO JAVIER ESPINAL PA 01/08/2016 Office visit FRANCISCO JAVIER ESPINAL PA 11/25/2015 Office visit FRANCISCO JAVIER ESPINAL PA 10/17/2015 Office visit FRANCISCO JAVIER ESPINAL PA 09/26/2015 Office visit FRANCISCO JAVIER ESPINAL PA 09/02/2015 Office visit FRANCISCO JAVIER ESPINAL PA 06/27/2015 Office visit FRANCISCO JAVIER ESPINAL PA 06/17/2015 Office visit FRANCISCO JAVIER ESPINAL PA 06/10/2015 Office visit FRANCISCO JAVIER ESPINAL PA 05/29/2015 Office visit FRANCISCO JAVIER ESPINAL PA 05/23/2015 Office visit FRANCISCO JAVIER ESPINAL PA 05/01/2015 Office visit FRANCISCO JAVIER ESPINAL PA 04/25/2015 Voided FRANCISCO JAVIER ESPINAL PA 04/23/2015 Akosua Chappell MD 04/23/2015 Office visit FRANCISCO JAVIER MORAN 04/14/2015 Office visit FRANCISCO JAVIER ESPINAL PA 04/09/2015 Office visit FRANCISCO JAVIER ESPINAL PA 04/03/2015 Office visit FRANCISCO JAVIER MORAN 03/06/2015 Office visit FRANCISCO JAVIER MORAN 02/03/2015 Office visit FRANCISCO JAVIER ESPINAL PA 01/27/2015 Office visit FRANCISCO JAVIER ESPINAL PA 01/13/2015 Office visit FRANCISCO JAVIER MORAN 01/09/[address] Marielos Rosa MD 12/30/[address] Marielos Rosa MD 12/27/2014 Office visit 12/27/2014 Office visit 12/27/2014 Office visit Aruna Albert APRN 12/27/2014 Office visit FRANCISCO JAVIER MORAN 12/12/2014 Office visit FRANCISCO JAVIER ESPINAL PA 12/06/2014 Office visit FRANCISCO JAVIER ESPINAL PA 12/02/2014 Office visit FRANCISCO JAVIER ESPINAL PA 10/30/2014 Office visit FRANCISCO JAVIER ESPINAL PA 10/18/2014 Office visit FRANCISCO JAVIER ESPINAL PA 10/09/2014 Office visit FRANCISCO JAVIER ESPINAL PA 10/04/2014 Voided FRANCISCO JAVIER ESPINAL PA 09/20/2014 Voided FRANCISCO JAVIER ESPINAL PA 09/13/2014 Office visit FRANCISCO JAVIER ESPINAL PA 09/05/2014 Office visit 09/05/2014 Office visit FRANCISCO JAVIER ESPINAL PA 08/06/2014 Office visit FRANCISCO JAVIER ESPINAL PA 08/03/2014 [facility] Jermaine Chappell MD 07/23/2014 Office visit 07/23/2014 Office visit FRANCISCO JAVIER ESPINAL PA 07/08/2014 Office visit FRANCISCO JAVIER ESPINAL PA 06/24/2014 Office visit FRANCISCO JAVIER ESPINAL PA 06/12/2014 Office visit FRANCISCO JAVIER ESPINAL PA 06/10/2014 Office visit FRANCISCO JAVIER ESPINAL PA 05/27/2014 Office visit FRANCISCO JAVIER ESPINAL PA 05/20/2014 Office visit FRANCISCO JAVIER ESPINAL PA 05/16/2014 Office visit FRANCISCO JAVIER ESPINAL PA 05/13/2014 Voided FRANCISCO JAVIER ESPINAL PA 05/06/2014 Office visit FRANCISCO JAVIER ESPINAL PA 05/03/2014 [facility] Aruna Koehler MD 04/25/2014 Office visit FRANCISCO JAVIER ESPINAL PA 04/01/2014 Office visit Aruna Albert APRN 03/28/2014 Office visit RFANCISCO JAVIER ESPINAL PA 02/26/2014 Office visit FRANCISCO JAVIER ESPINAL PA 05/20/2010 Office visit Francisco Javier Espinal PA-C 04/16/2009 Office visit Francisco Javier Espinal PA-C 01/24/2009 Office visit Tian Basilio MD 12/31/2008 Office visit Tian Basilio MD 12/23/2008 Office visit Tian Basilio MD 12/17/2008 [facility] Tian Basilio MD 12/13/2008 Office visit Tian Basilio MD 12/06/2008 Office visit Tian Basilio MD 11/29/2008 Office visit Tian Basilio MD 11/15/2008 Office visit Tian Basilio MD 11/01/2008 Office visit Tian Basilio MD 10/18/2008 Office visit Tian Basilio MD
--- OUTSIDE RECORDS SUMMARY | 2017-05-11 12:36 | XMS REPORT ---
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 Medications Active Name Start Date Estimated Completion Date SIG Comments citalopram 20 mg oral tablet 03/30/2014 take 2 tablets (40 mg) by oral route once daily hydroxyzine HCl 25 mg oral tablet 03/30/2014 take 1 tablet by oral route 4 times a day as needed diclofenac sodium 75 mg oral tablet,delayed release (DR/EC) 03/30/2014 take 1 tablet (75 mg) by oral route 2 times per day Sprintec (28) 0.25-35 mg-mcg oral tablet 04/01/2014 03/03/2015 take 1 tablet by oral route once daily for 28 days warfarin 5 mg oral tablet 06/05/2014 one daily as directed citalopram 20 mg oral tablet 06/07/2014 take 2 tablets (40 mg) by oral route once daily alprazolam 0.5 mg oral tablet 08/07/2014 1/2 to 1 TID PRN panic attack buspirone 10 mg oral tablet 08/12/2014 take 1 tablet (10 mg) by oral route 3 times per day warfarin 4 mg oral tablet 09/13/2014 take 1 tablet (4 mg) by oral route once daily citalopram 20 mg oral tablet 10/21/2014 take 2 tablets (40 mg) by oral route once daily Name Start Date Expiration Date SIG [...] oral tablets,dose pack 04/16/2009 take as directed Bentyl 10 mg oral capsule 06/07/2014 10/05/2014 take 1 capsule (10 mg) by oral route 3 times per day for 30 days Problem List Description Status Onset Panic [...] of DVT (deep vein thrombosis) Active 09/17/2014 Vital Signs Date Time BP-Sys(mm[Hg] BP-Diana(mm[Hg]) HR(bpm) RR(rpm) Temp WT HT HC BMI BSA BMI Percentile O2 Sat(%) 10/09/2014 8:35:00 AM 110 mmHg 70 mmHg [...] Tobacco Current every day smoker Alcohol Never pot History of Procedures Date Ordered Description Order Status 03/28/2014 12:00 AM COMPLETE CBC W/AUTO DIFF WBC Returned 03/28/2014 12:00 AM COMPREHEN METABOLIC PANEL Returned 03/28/2014 12:00 AM LIPID PANEL Returned 04/01/2014 12:00 AM SPECIMEN HANDLING OFFICE-LAB Reviewed 04/01/2014 12:00 AM CHLAMYDIA CULTURE Returned 04/01/2014 12:00 AM N.GONORRHOEAE DNA AMP PROB Returned 04/01/2014 12:00 AM CYTOPATH C/V THIN LAYER Returned 05/27/2014 12:00 AM CAPILLARY BLOOD DRAW Reviewed 06/10/2014 12:00 AM CAPILLARY BLOOD DRAW Reviewed 07/23/2014 12:00 AM THER/PROPH/DIAG INJ SC/IM Reviewed 07/23/2014 12:00 AM Decadron, Per 1 Mg [facility] [place]# [address]-64 Reviewed 07/23/2014 12:00 AM Depo-Medrol, Per 80 Mg [facility] [place]#5520-7030-80 Reviewed 07/23/2014 12:00 AM Rocephin 1 gram [facility] [place]#6415-3392-80 Reviewed 08/20/2014 12:00 AM CAPILLARY BLOOD DRAW Reviewed 08/29/2014 12:00 AM CAPILLARY BLOOD DRAW Reviewed 09/05/2014 12:00 AM CAPILLARY BLOOD DRAW Reviewed 09/13/2014 12:00 AM CAPILLARY BLOOD DRAW Reviewed 10/09/2014 12:00 AM Decadron, Per 1 Mg [facility] [place]# [address]-00 Reviewed 10/09/2014 12:00 AM Toradol 60 Mg [facility] [place]#5630-8424-65 Reviewed 10/09/2014 12:00 AM Phenergan, Up to 50 Mg [facility] [place]#2147-1572-40 Reviewed 10/30/2014 12:00 AM CAPILLARY BLOOD DRAW Reviewed Results Summary Data and Description Results 03/28/2014 3:47 PM GLUCOSE 76.0 mg/dLSODIUM 145.0 mmol/LPOTASSIUM 4.80 mmol/ LCHLORIDE 105.0 mmol/LCO2 25.0 mmol/LBUN 13.0 mg/dLCREATININE 0.70 mg/dLSGOT/ AST 14.0 IU/LSGPT/ALT 12.0 IU/LALK PHOS 72.0 IU/LTOTAL PROTEIN 7.60 g/dLALBUMIN 4.40 g/dLTOTAL BILI 0.20 mg/dLCALCIUM 10.0 mg/dLeGFR >60 mL/min/1.73 [id number] 241.0 mg/dLCHOLESTEROL 248.0 mg/dLHDL 51.0 mg/dLLDL (CALC) 149.0 mg/dLWBC 9.1 RBC 5.46 HGB 16.50 g/dLHCT 49.20 %MCV 90.0 fLMCH 30.20 pgMCHC 33.50 g/dLRDW CV 15.90 %MPV 10.60 fLPLT 317 %NEUT 58.60 %%LYMP 35.10 %% MONO 5.10 %%EOS 1.0 %%BASO 0.20 %#NEUT 5.32 #LYMP 3.18 #MONO 0.46 #EOS 0.09 # BASO 0.02 History Of Immunizations Not available. 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 Mar 28 2014 10:10AM [...] 2 to 3 May 16 2014 10:57AM prison 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 May 20 2014 11:14AM DVT (deep venous thrombosis), left May 20 2014 11:14AM prison 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 May 30 2014 7:44AM Atrial Fibrillation May 30 2014 7:44AM Deep vein thrombosis:history of May 30 2014 7:44AM prison 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 Jun 10 2014 9:18AM Atrial Fibrillation Jun 10 2014 9:18AM Deep vein thrombosis:history of Jun 10 2014 9:18AM 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 Jun 12 2014 8:29AM [...] 2:55PM Intellectual disability Aug 06 2014 2:55PM 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 Aug 20 2014 1:24PM Atrial Fibrillation Aug 20 2014 1:24PM Deep vein thrombosis:history of Aug 20 2014 1:24PM 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 Aug 29 2014 3:30PM Atrial Fibrillation Aug 29 2014 3:30PM Deep vein thrombosis:history of Aug 29 2014 3:30PM prison 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 Sep 05 2014 1:08PM Atrial Fibrillation Sep 05 2014 1:08PM Deep vein thrombosis:history of Sep 05 2014 1:08PM prison 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 Sep 13 2014 12:03PM Atrial Fibrillation Sep 13 2014 12:03PM Deep vein thrombosis:history of Sep 13 2014 12:03PM prison 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 Sep 05 2014 1:06PM Hip pain Sep 05 2014 1:06PM Neck pain Sep 05 2014 1:06PM History of DVT (deep vein thrombosis) Sep 05 2014 1:06PM Low Back Pain Oct 09 2014 8:35AM Migraine Oct 09 2014 8:35AM Depressive Disorder Oct 09 2014 8:35AM Nausea Oct 09 2014 8:35AM Cervicalgia Oct 09 2014 8:35AM 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 History of Encounters Visit Date Visit Type Provider 10/30/2014 Office visit FRANCISCO JAVIER MORAN 10/18/2014 Office visit FRANCISCO JAVIER MORAN 10/09/2014 Office visit FRANCISCO JAVIER MORAN 10/04/2014 Office visit FRANCISCO JAVIER MORAN 09/20/2014 Office visit FRANCISCO JAVIER MORAN 09/13/2014 Office visit FRANCISCO JAVIER MORAN 09/05/2014 Office visit FRANCISCO JAVIER MORAN 08/06/2014 Office visit FRANCISCO JAVIER MORAN 07/23/2014 Office visit FRANCISCO JAVIER MORAN 07/08/2014 Office visit FRANCISCO JAVIER MORAN 06/24/2014 Office visit FRANCISCO JAVIER MORAN 06/12/2014 Office visit FRANCISCO JAVIER MORAN 06/10/2014 Office visit FRANCISCO JAVIER ESPINAL PA 05/27/2014 Office visit FRANCISCO JAVIER ESPINAL PA 05/20/2014 Office visit FRANCISCO JAVIER ESPINAL PA 05/16/2014 Office visit FRANCISCO JAVIER ESPINAL PA 05/13/2014 Voided FRANCISCO JAVIER ESPINAL PA 05/06/2014 Office visit FRANCISCO JAVIER ESPINAL PA 05/03/2014 [facility] Jessi Koehler MD 04/25/2014 Office visit FRANCISCO JAVIER ESPINAL PA 04/01/2014 Office visit Jessi Blake APRN 03/28/2014 Office visit FRANCISCO JAVIER ESPINAL PA 02/26/2014 Office visit FRANCISCO JAVIER ESPINAL PA 05/20/2010 Office visit Francisco Javier Espinal PA-C 04/16/2009 Office visit Francisco Javier Espinal PA-C 01/24/2009 Office visit Tian Basilio MD 12/31/2008 Office visit Tian Basliio MD 12/23/2008 Office visit Tian Basilio MD 12/17/2008 [facility] Tian Basilio MD 12/13/2008 Office visit Tian Basilio MD 12/06/2008 Office visit Tian Basilio MD 11/29/2008 Office visit Tian Basilio MD 11/15/2008 Office visit Tian Basilio MD 11/01/2008 Office visit Tian Basilio MD 10/18/2008 Office visit Tian Basilio MD
--- OUTSIDE RECORDS SUMMARY | 2017-05-11 12:38 | XMS REPORT ---
Author Author FRANCISCO JAVIER ESPINAL [facility] Address [address] [place], [place] [id number] Care Team Providers Care Boom Supervisor Name Role Phone FRANCISCO JAVIER ESPINAL PCP FRANCISCO JAVIER ESPINAL PreferredProvider Allergies and Adverse Reactions Name Reaction Notes [...] 3 times per day PRN muscle spasm baclofen 10 mg oral tablet 04/06/2016 take 1 tablet (10 mg) by oral route 3 times per day PRN muscle spasm hydroxyzine HCl 25 mg oral tablet 04/30/2016 TAKE ONE OR TWO TABLETS BY MOUTH UP TO FOUR TIMES A DAY IF NEEDED tramadol 50 mg oral tablet 05/24/2016 take 1 tablet by oral route 4 times a day as needed buspirone 10 mg oral tablet 05/25/2016 take 1 tablet (10 mg) by oral route 3 times per day atenolol 25 mg oral tablet 07/22/2016 TAKE ONE TABLET BY MOUTH TWICE DAILY atenolol 25 mg oral tablet 07/22/2016 TAKE ONE TABLET BY MOUTH TWICE DAILY Dulcolax Stool Softener (dss) 100 mg oral capsule 07/28/2016 take 1 capsule (100 mg) by oral route 2 times per day PRN trazodone 300 mg oral tablet 09/08/2016 take 1/2 to 1 tablet at bedtime dicyclomine 10 mg oral capsule 09/27/2016 take 1 capsule (10 mg) by oral route 3 times per day for 30 days trazodone 300 mg oral tablet 10/14/2016 take 1/2 to 1 tablet at bedtime Xanax 0.5 mg oral tablet 12/16/2016 take 1 tablet (0.5 mg) by oral route 3 times per day Bactrim DS 800-160 mg oral tablet 01/31/2017 take 1 tablet by oral route every 12 hours for 10 days triamcinolone acetonide 0.1 % topical cream 01/31/2017 apply a thin layer to the affected area(s) by topical route 2 times per day Name Start Date Expiration Date SIG Comments [...] 12 hours with food for 7 days dicyclomine 10 mg oral capsule 01/08/2016 [...] 06/07/2016 take as directed for 5 days Tylenol-Codeine #3 300-30 mg oral tablet 07/28/2016 07/29/2016 take 2 tablets by oral route every 6 hours as needed for 1 day pantoprazole 40 mg oral tablet,delayed release (DR/EC) 10/29/2016 10/29/2016 TAKE ONE TABLET BY MOUTH ONCE DAILY Xarelto 20 mg oral tablet 12/01/2016 12/01/2016 TAKE ONE TABLET BY MOUTH ONCE DAILY WITH EVENING MEAL Zofran ODT 4 mg oral tablet,disintegrating 12/16/2016 12/16/2016 1 every 4 hrs as needed for nausea not to exceed 4 in 24 hrs buspirone 10 mg oral tablet 01/03/2017 01/03/2017 TAKE ONE TABLET BY MOUTH THREE TIMES DAILY citalopram 40 mg oral tablet 01/31/2017 01/31/2017 TAKE ONE TABLET BY MOUTH ONCE DAILY hydroxyzine HCl 25 mg oral tablet 01/31/2017 01/31/2017 TAKE ONE OR TWO TABLETS BY MOUTH UP TO FOUR TIMES A DAY IF NEEDED Discontinued Name Start Date Discontinued Date SIG [...] ONE TABLET BY MOUTH THREE TIMES DAILY Gipsy 5-325 mg oral tablet 02/20/2016 05/15/2016 take 1 tablet by oral route every 6 hours as needed for pain amoxicillin 500 mg oral capsule 06/03/2016 06/21/2016 take 1 capsule (500 mg) by oral route 3 times per day for 7 days Xanax 0.5 mg oral tablet 10/21/2016 11/08/2016 1/2 to 1 twice daily as needed for anxiety must last 30 days Problem List Description Status Onset Panic attack as reaction to stress Active 02/26/2014 Depressive Disorder Active 02/26/2014 Anxiety disorder Active 02/26/2014 Mental retardation Active 02/26/2014 Tremor, [...] 05/15/2016 Stress at home Active 05/15/2016 Thoracic back pain Active 05/24/2016 Thrombophlebitis Active 06/26/2016 Obstipation Active 08/16/2016 Irritable bowel syndrome with constipation Active 08/16/2016 Anxiety and depression Active 09/13/2016 Relationship problem between partners Active 09/13/2016 Chronic midline low back pain without sciatica Active 10/04/2016 Vital Signs Date Time BP-Sys(mm[Hg] BP-Diana(mm[Hg]) HR(bpm) RR(rpm) Temp WT HT HC BMI BSA BMI Percentile O2 Sat(%) 01/26/2017 1:14:00 PM 118 mmHg 82 mmHg 64 bpm 16 rpm 98.2 F 116 lbs 64 in 19.91 kg/m2 1.54 m2 98 % 09/27/2016 3:41:00 PM 108 mmHg 70 mmHg 70 bpm 16 rpm 98.2 F 122 lbs 64 in 20.941 kg/m 1.5808 m 98 % 09/02/2016 4:06:00 PM 105 mmHg 68 mmHg 70 bpm 16 rpm 16 F 126 lbs 64 in 21.63 kg/m2 1.61 m2 98 % 08/09/2016 11:12:00 AM 110 mmHg 80 mmHg 68 bpm 16 rpm 98.5 F 129 lbs 64 in 22.1426 kg/m 1.6255 m 98 % 07/28/2016 11:19:00 AM 102 mmHg 64 mmHg 70 bpm 16 rpm 98.2 F 132 lbs 64 in 22.66 kg/m2 1.64 m2 98 % 07/01/2016 4:25:00 PM 105 mmHg 62 mmHg 80 bpm 18 rpm 97.5 F 132 lbs 63 in 23.3825 kg/m 1.6314 m 98 % 06/24/2016 3:50:00 PM 118 mmHg 86 mmHg 66 bpm 16 rpm 98.2 F 134 lbs 63 in 23.74 kg/m2 1.64 m2 95 % 06/22/2016 3:16:00 PM 132 mmHg 80 mmHg 92 bpm 18 rpm 97.7 F 136 lbs 63 in 24.0911 kg/m 1.6559 m 100 % 06/21/2016 11:11:00 AM 132 mmHg 80 mmHg 92 bpm 18 rpm 97.7 F 136 lbs 64 in 23.34 kg/m2 1.67 m2 100 % 06/08/2016 1:11:00 PM 108 mmHg 72 mmHg 70 bpm 18 rpm 97.4 F 146 lbs 64 in 25.0606 kg/m 1.7293 m 96 % 05/24/2016 3:31:00 PM 100 mmHg 72 mmHg 68 bpm 18 rpm 97 F 137 lbs 65 in 22.80 kg/m2 1.69 m2 97 % 05/05/2016 2:40:00 PM 110 mmHg 70 mmHg 76 bpm 16 rpm 98.2 F 146 lbs 62 in 26.7035 kg/m 1.702 m 98 % 04/14/2016 2:06:00 PM 110 mmHg 78 mmHg 102 bpm 16 rpm 97.4 F 138 lbs 97 % 03/30/2016 11:50:00 AM 110 mmHg 65 mmHg 74 bpm 16 rpm 97.6 F 142 lbs 64 in 24.374 kg/m 1.7054 m 98 % 03/25/2016 4:07:00 PM 118 mmHg 68 mmHg 77 bpm 16 rpm 98.1 F 143 lbs 64 in 24.55 kg/m2 1.71 m2 99 % 02/24/2016 2:05:00 PM 110 mmHg 70 mmHg 60 bpm 16 rpm 98.2 F 141 lbs 64 in 24.2023 kg/m 1.6994 m 98 % 02/20/2016 11:01:00 AM 120 mmHg 60 mmHg 92 bpm 16 rpm 98.2 F 142 lbs 64 in 24.37 kg/m2 1.71 m2 95 % 02/10/2016 11:19:00 AM 126 mmHg 82 mmHg 71 bpm 16 rpm 98.1 F 144 lbs 64 in 24.7173 kg/m 1.7174 m 98 % 01/26/2016 2:19:00 PM 110 mmHg 70 mmHg 70 bpm 16 rpm 97.5 F 144 lbs 64 in 24.72 kg/m2 1.72 m2 98 % 01/08/2016 2:52:00 PM 110 mmHg 70 mmHg 102 bpm 18 rpm 98.3 F 146 lbs 65 in 24.2954 kg/m 1.7427 m 98 % 11/25/2015 3:47:00 PM 110 mmHg 78 mmHg 96 bpm 16 rpm 98.5 F 141 lbs 64 in 24.20 kg/m2 1.70 m2 98 % 10/21/2015 6:44:00 AM 115 mmHg 68 mmHg 96 bpm 18 rpm 98.4 F 141 lbs 65 in 23.4634 kg/m 1.7126 m 96 % 10/17/2015 9:33:00 AM 115 mmHg 68 mmHg 96 bpm 18 rpm 98.4 F 141 lbs 65 in 23.46 kg/m2 1.71 m2 96 % 09/26/2015 9:22:00 AM 98 mmHg 65 mmHg 80 bpm 16 rpm 97.4 F 143 lbs 65 in 23.7962 kg/m 1.7247 m 97 % 09/02/2015 10:44:00 AM 112 mmHg 74 mmHg 135 bpm 18 rpm 98.4 F 142 lbs 64 in 24.37 kg/m2 1.71 m2 96 % 07/25/2015 11:53:00 AM 120 mmHg 75 mmHg 96 bpm 16 rpm 98.2 F 141 lbs 64 in 24.2023 kg/m 1.6994 m 97 % 06/27/2015 9:08:00 AM 128 mmHg 70 mmHg 104 bpm 18 rpm 145 lbs 96 % 06/10/2015 11:11:00 AM 128 mmHg 78 mmHg 78 bpm 18 rpm 98.2 F 143 lbs 64 in 24.5456 kg/m 1.7114 m 97 % 05/23/2015 10:50:00 AM 110 mmHg 80 mmHg 94 bpm 97.9 F 143 lbs 64 in 24.55 kg/m2 1.71 m2 97 % 04/23/2015 1:32:00 PM 125 mmHg 80 mmHg 138 bpm 18 rpm 97 F 138 lbs 64 in 23.6874 kg/m 1.6812 m 98 % 04/14/2015 2:02:00 PM 128 mmHg 70 mmHg 128 bpm 18 rpm 98.7 F 146 lbs 64 in 25.06 kg/m2 1.73 m2 98 % 04/09/2015 11:37:00 AM 118 mmHg 70 mmHg 124 bpm 18 rpm 98.6 F 142 lbs 64 in 24.374 kg/m 1.7054 m 97 % 01/27/2015 10:43:00 AM 130 mmHg 75 mmHg 110 bpm 18 rpm 98.3 F 136 lbs 64 in 23.34 kg/m2 1.67 m2 96 % 01/09/2015 11:26:00 AM 109 mmHg 70 mmHg 122 bpm 98.8 F 135 lbs 64 in 23.1725 kg/m 1.6629 m 12/30/2014 9:34:00 AM 12 mmHg 81 mmHg 114 bpm 97.2 F 134.25 lbs 64 in 23.04 kg/m2 1.66 m2 12/27/2014 9:25:00 AM 120 mmHg 80 mmHg 142 bpm 96.8 F 134 lbs 64 in 23.0008 kg/m 1.6567 m 12/27/2014 9:03:00 AM 110 mmHg 68 mmHg 146 bpm 16 rpm 98 F 134 lbs 64 in 23.00 kg/m2 1.66 m2 98 % 12/06/2014 11:20:00 AM 140 mmHg 80 mmHg 130 bpm 16 rpm 98.3 F 134 lbs 64 in 23.0008 kg/m 1.6567 m 99 % 12/02/2014 11:36:00 AM 110 mmHg 70 mmHg 146 bpm 16 rpm 98.8 F 129 lbs 64 in 22.14 kg/m2 1.63 m2 98 % 10/09/2014 8:35:00 AM 110 mmHg 70 mmHg 84 bpm 18 rpm 97.5 F 116 lbs 64 in 19.9112 kg/m 1.5414 m 98 % 09/05/2014 1:06:00 PM 120 mmHg 70 mmHg 92 bpm 18 rpm 97.8 F 123 lbs 64 in 21.11 kg/m2 1.59 m2 98 % 08/06/2014 8:50:00 AM 110 mmHg 64 mmHg 80 bpm 18 rpm 97 F 120 lbs 64 in 20.5977 kg/m 1.5678 m 99 % 07/23/2014 9:44:00 AM 105 mmHg 60 mmHg 90 bpm 18 rpm 97.6 F 122 lbs 64 in 20.94 kg/m2 1.58 m2 99 % 06/12/2014 8:29:00 AM 110 mmHg 60 mmHg 80 bpm 18 rpm 98.7 F 121 lbs 64 in 20.7694 kg/m 1.5743 m 98 % 05/20/2014 11:13:00 AM 100 mmHg 60 mmHg 70 bpm 18 rpm 98.6 F 122 lbs 64 in 20.94 kg/m2 1.58 m2 98 % 05/16/2014 10:57:00 AM 105 mmHg 60 mmHg 81 bpm 18 rpm 98.6 F 121 lbs 64 in 20.7694 kg/m 1.5743 m 100 % 05/06/2014 1:03:00 PM 110 mmHg 60 mmHg 116 bpm 18 rpm 97.9 F 121 lbs 64 in 20.77 kg/m2 1.57 m2 99 % 04/25/2014 1:05:00 PM 105 mmHg 65 mmHg 97 bpm 18 rpm 97 F 122 lbs 63 in 21.6111 kg/m 1.5684 m 99 % 04/01/2014 1:23:00 PM 101 mmHg 67 mmHg 83 bpm 18 rpm 97.4 F 121 lbs 64 in 20.77 kg/m2 1.57 m2 03/28/2014 10:09:00 AM 108 mmHg 68 mmHg 86 bpm 18 rpm 97.6 F 120.187 lbs 63.75 in 20.792 kg/m 1.5659 m 98 % 02/26/2014 10:46:00 AM 120 mmHg 60 mmHg 98 bpm 22 rpm 97.9 F 118 lbs 63 in 20.90 kg/m2 1.54 m2 100 % 05/20/2010 9:42:00 AM 116 mmHg [...] 04/12/2015 12:00 AM Decadron, Per 1 Mg [facility]# [address]-98 Reviewed 05/01/2015 12:00 AM CAPILLARY BLOOD DRAW Reviewed 03/06/2015 12:00 AM CAPILLARY BLOOD DRAW Reviewed 05/07/2015 12:00 AM CAPILLARY BLOOD DRAW Reviewed 05/23/2015 12:00 AM Decadron, Per 1 Mg [facility]# [address]-88 Reviewed 05/29/2015 12:00 AM CAPILLARY BLOOD DRAW Reviewed 06/17/2015 12:00 AM EXTREMITY STUDY Returned 09/02/2015 12:00 AM Decadron, Per 1 Mg [facility]# [address]-51 Reviewed 09/02/2015 12:00 AM Rocephin 1 gram [facility]#8963-1747-45 Reviewed 09/02/2015 12:00 AM Toradol 60 Mg [facility]#5073-9270-78 Reviewed 09/26/2015 12:00 AM Decadron, Per 1 Mg [facility]# [address]-65 Reviewed 09/26/2015 12:00 AM Phenergan, Up to 50 Mg [facility]#2488-0545-49 Reviewed 02/20/2016 12:00 AM DRAINAGE OF SKIN ABSCESS Reviewed 02/10/2016 12:00 AM Phenergan 50mg Injection Reviewed 02/10/2016 12:00 AM THER/PROPH/DIAG INJ SC/IM Reviewed 03/25/2016 12:00 AM THERAPEUTIC PROPHYLACTIC/DX INJECTION SUBQ/IM Reviewed 03/25/2016 12:00 AM Decadron 8mg Injection, [facility] Medicaid Reviewed 03/25/2016 12:00 AM Depo-Medrol 80 Mg Injection, [facility] Medicaid Reviewed 03/25/2016 12:00 AM Rocephin 1 gram Injection, [facility] Medicaid Reviewed 03/29/2016 12:00 AM THER/PROPH/DIAG INJ SC/IM Reviewed 03/29/2016 12:00 AM Decadron 8mg Injection Reviewed 03/29/2016 12:00 AM Depo-Medrol 80mg Injection Reviewed 03/29/2016 12:00 AM Rocephin 1 gram Injection Reviewed 03/27/2016 12:00 AM BEHAV CHNG SMOKING 3-10 MIN Reviewed 03/30/2016 12:00 AM Toradol 60 Mg Injection, [facility] Medicaid Reviewed 03/30/2016 12:00 AM Phenergan 50mg Injection, [facility] Medicaid Reviewed 04/17/2016 12:00 AM THERAPEUTIC PROPHYLACTIC/DX [...] AM CT ABD & PELV W/CONTRAST Reviewed 01/26/2017 12:00 AM THER/PROPH/DIAG INJ SC/IM Reviewed 01/26/2017 12:00 AM Decadron 8mg Injection Reviewed 03/28/2014 12:00 AM COMPLETE CBC W/AUTO [...] 07/23/2014 12:00 AM Decadron, Per 1 Mg [facility]# [address]-72 Reviewed 07/23/2014 12:00 AM Depo-Medrol, Per 80 Mg [facility]#5952-9656-81 Reviewed 07/23/2014 12:00 AM Rocephin 1 gram [facility]#7276-6657-69 Reviewed 08/20/2014 12:00 AM CAPILLARY BLOOD DRAW Reviewed 08/29/2014 12:00 AM CAPILLARY BLOOD DRAW Reviewed 09/05/2014 12:00 AM CAPILLARY BLOOD DRAW Reviewed 09/13/2014 12:00 AM CAPILLARY BLOOD DRAW Reviewed 10/09/2014 12:00 AM Decadron, Per 1 Mg [facility]# [address]-66 Reviewed 10/09/2014 12:00 AM Toradol 60 Mg [facility]#4700-8838-00 Reviewed 10/09/2014 12:00 AM Phenergan, Up to 50 Mg [facility]#1277-0505-25 Reviewed 10/30/2014 12:00 AM CAPILLARY BLOOD DRAW Reviewed Results Summary Date and Description Results 03/28/2014 3:47 PM GLUCOSE [...] secsINR 1.9 PTT 36.80 secsCALLED TO/BY ARUNA ALBERT/[facility] 12/30/2014 10:57 AM WBC 9.4 RBC 4.41 HGB 13.60 g/dLHCT 41.40 %MCV 94.0 fLMCH 30.80 pgMCHC 32.90 g/dLRDW SD 53 RDW CV 15.50 %MPV 9.50 fLPLT 334 NRBC# 0.00 NRBC% 0.0 %NEUT 59.40 %%LYMP 34.40 %%MONO 4.60 %%EOS 1.40 %%BASO 0.20 %#NEUT 5.57 #LYMP 3.22 #MONO 0.43 #EOS 0.13 #BASO 0.02 MANUAL DIFF NOT IND History Of Immunizations Not available. History of Past Illness Name Date of Onset Comments Nasopharyngitis, Acute (Common Cold) Apr 16 2009 10:51AM Eustachian Tube Dysfunction Apr 16 2009 10:51AM Bronchitis, Acute Apr 16 2009 10:51AM Panic attack as reaction to stress 02/26/2014 Depressive Disorder 02/26/2014 Anxiety disorder 02/26/2014 Mental retardation 02/26/2014 Tremor, essential 03/30/2014 [...] continuous 05/15/2016 Stress at home 05/15/2016 Thoracic back pain 05/24/2016 Thrombophlebitis 06/26/2016 Obstipation 08/16/2016 Irritable bowel syndrome with constipation 08/16/2016 Anxiety and depression 09/13/2016 Relationship problem between partners 09/13/2016 Chronic midline low back pain without sciatica 10/04/2016 Anxiety Disorder Feb 26 2014 10:47AM Depressive Disorder Feb 26 2014 10:47AM Panic attack as reaction to stress Feb 26 2014 10:47AM Mental retardation Feb 26 2014 10:47AM Anger Feb 26 2014 10:47AM Anxiety Mar 28 2014 10:10AM senior care use of drug Mar 28 2014 10:10AM [...] 2 to 3 May 16 2014 10:57AM senior care 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 May 20 2014 11:14AM DVT (deep venous thrombosis), left May 20 2014 11:14AM senior care 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 May 30 2014 7:44AM Atrial Fibrillation May 30 2014 7:44AM Deep vein thrombosis:history of May 30 2014 7:44AM 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 Jun 10 2014 9:18AM Atrial Fibrillation Jun 10 2014 9:18AM Deep vein thrombosis:history of Jun 10 2014 9:18AM senior care 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 Jun 12 2014 8:29AM [...] 2:55PM Intellectual disability Aug 06 2014 2:55PM senior care 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 Aug 20 2014 1:24PM Atrial Fibrillation Aug 20 2014 1:24PM Deep vein thrombosis:history of Aug 20 2014 1:24PM 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 Aug 29 2014 3:30PM Atrial Fibrillation Aug 29 2014 3:30PM Deep vein thrombosis:history of Aug 29 2014 3:30PM 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 Sep 05 2014 1:08PM Atrial Fibrillation Sep 05 2014 1:08PM Deep vein thrombosis:history of Sep 05 2014 1:08PM senior care 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 Sep 13 2014 12:03PM Atrial Fibrillation Sep 13 2014 12:03PM Deep vein thrombosis:history of Sep 13 2014 12:03PM senior care 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 Sep 05 2014 1:06PM Hip pain Sep 05 2014 1:06PM Neck pain Sep 05 2014 1:06PM History of DVT (deep vein thrombosis) Sep 05 2014 1:06PM Low Back Pain Oct 09 2014 8:35AM Migraine Oct 09 2014 8:35AM Depressive Disorder Oct 09 2014 8:35AM Nausea Oct 09 2014 8:35AM Cervicalgia Oct 09 2014 8:35AM 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 Oct 30 2014 3:06PM Atrial Fibrillation Oct 30 2014 3:06PM Deep vein thrombosis:history of Oct 30 2014 3:06PM senior care 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 Nov 07 2014 3:54PM Atrial Fibrillation Nov 07 2014 3:54PM Deep vein thrombosis:history of Nov 07 2014 3:54PM Cough Dec 02 2014 11:37AM Bronchitis, Acute Dec 02 2014 11:37AM Abdominal Pain, Generalized Dec 06 2014 11:21AM Constipation Dec 06 2014 11:21AM 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 Dec 12 2014 9:25AM [...] 2014 9:04AM Menorrhagia Jan 09 2015 11:30AM 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 Jan 13 2015 11:28AM Atrial Fibrillation Jan 13 2015 11:28AM Deep vein thrombosis:history of Jan 13 2015 11:28AM Menorrhagia with regular cycle Jan 27 2015 10:44AM Moderate Female pelvic pain Jan 27 2015 10:44AM Moderate Dysmenorrhea Jan 27 2015 10:44AM senior care 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 Feb 03 2015 1:34PM [...] to cognitive limitations Apr 23 2015 1:32PM 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 May 01 2015 2:57PM Atrial Fibrillation May 01 2015 2:57PM Deep vein thrombosis:history of May 01 2015 2:57PM senior care 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 May 06 2015 3:28PM Atrial Fibrillation May 06 2015 3:28PM Deep vein thrombosis:history of May 06 2015 3:28PM senior care 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 May 07 2015 9:50AM Atrial Fibrillation May 07 2015 9:50AM Deep vein thrombosis:history of May 07 2015 9:50AM Cough May 23 2015 10:51AM Bronchitis, Acute May 23 2015 10:51AM Post-nasal drainage May 23 2015 10:51AM Smoker unmotivated to quit May 23 2015 10:51AM senior care 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 May 29 2015 2:16PM [...] 2016 1:11PM Bruise Jun 08 2016 1:11PM oysterman current use of anticoagulant Jun 08 2016 1:11PM Anxiety about health Jun 08 2016 1:11PM Pelvic pain in female Jun 21 2016 11:44AM Incisional hernia without mention of obstruction or gangrene Jun 21 2016 11: 44AM Severe Acute Incisional hernia of anterior abdominal wall without obstruction or gangrene Unresponsive to treatment Jun 22 2016 3:16PM Severe Acute Thrombophlebitis Jun 24 2016 3:51PM Stomach flu Jul 01 2016 4:25PM Non-intractable vomiting with nausea, unspecified vomiting type Jul 01 2016 4 :25PM Drug induced constipation Jul 28 2016 11:20AM Moderate Acute Abdominal pain of unknown cause Unresponsive to treatment Jul 28 2016 11:20AM Panic disorder [episodic paroxysmal anxiety] without agoraphobia Jul 28 2016 11:20AM Acute stress reaction Jul 28 2016 11:20AM Moderate Acute Obstipation Aug 09 2016 11:13AM 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 Aug 09 2016 11:13AM Stress at home Aug 09 2016 11:13AM Irritable bowel syndrome with constipation Aug 09 2016 11:13AM Stress at home Sep 02 2016 4:07PM Relationship problem between partners Sep 02 2016 4:07PM Anxiety disorder, unspecified Sep 02 2016 4:07PM Major depressive disorder, single episode, unspecified Sep 02 2016 4:07PM Insomnia, unspecified type Sep 02 2016 4:07PM Low back pain Sep 27 2016 3:42PM Other chronic pain Sep 27 2016 3:42PM Anxiety disorder, unspecified Sep 27 2016 3:42PM Major depressive disorder, single episode, unspecified Sep 27 2016 3:42PM Panic disorder [episodic paroxysmal anxiety] without agoraphobia Sep 27 2016 3:42PM Acute stress reaction Sep 27 2016 3:42PM Relationship problem between partners Sep 27 2016 3:42PM Smoker Sep 27 2016 3:42PM Stress at home Sep 27 2016 3:42PM Gastroenteritis and colitis, viral Sep 27 2016 3:42PM Non-intractable vomiting with nausea, unspecified vomiting type Sep 27 2016 3 :42PM Purulent postnasal drainage Jan 26 2017 1:17PM Chest congestion Jan 26 2017 1:17PM Upper respiratory tract infection, unspecified type Jan 26 2017 1:17PM Sinus pressure Jan 26 2017 1:17PM Payers Insurance Name Company Name Plan Name Plan Number Policy Number Policy Group Number Start Date [facility] [id number] N/A History of Encounters Visit Date Visit Type Provider 01/26/2017 Office visit FRANCISCO JAVIER MORAN 09/27/2016 Office visit FRANCISCO JAVIER MORAN 09/02/2016 Office visit FRANCISCO JAVIER MORAN 08/09/2016 Office visit FRANCISCO JAVIER MORAN 07/28/2016 Office visit FRANCISCO JAVIER MORAN 07/01/2016 Office visit FRANCISCO JAVIER MORAN 06/24/2016 Office visit FRANCISCO JAVIER MORAN 06/21/2016 Office visit Francisco Javier Patricio MD 06/21/2016 Office visit FRANCISCO JAVIER MORAN 06/08/2016 Office visit FRANCISCO JAVIER MORAN 05/24/2016 Office visit FRANCISCO JAVIER ESPINAL PA 05/05/2016 Office visit FRANCISCO JAVIER ESPINAL PA 04/13/2016 Office visit FRANCISCO JAVIER MORAN 03/30/2016 Office visit FRANCISCO JAVIER ESPINAL PA 03/25/2016 Office visit FRANCISCO JAVIER ESPINAL PA [...] ESPINAL PA 05/01/2015 Office visit FRANCISCO JAVIER MORAN 04/25/2015 Voided FRANCISCO JAVIER MORAN 04/23/2015 Voided Jermaine Chappell MD 04/23/2015 Office visit FRANCISCO JAVIER ESPINAL PA 04/14/2015 Office visit FRANCISCO JAVIER ESPINAL PA 04/09/2015 Office visit FRANCISCO JAVIER ESPINAL PA 04/03/2015 Office visit FRANCISCO JAVIER MORAN 03/06/2015 Office visit FRANCISCO JAVIER MORAN 02/03/2015 Office visit FRANCISCO JAVIER MORAN 01/27/2015 Office visit FRANCISCO JAVIER ESPINAL PA 01/13/2015 Office visit FRANCISCO JAVIER MORAN 01/09/[address] Marielos Rosa MD 12/30/[address] Marielos Rosa MD 12/27/2014 Office visit 12/27/2014 Office visit 12/27/2014 Office visit Aruna Albert APRN 12/27/2014 Office visit FRANCISCO JAVIER ESPINAL PA 12/12/2014 Office visit FRANCISCO JAVIER MORAN 12/06/2014 Office visit FRANCISCO JAVIER MORAN 12/02/2014 Office visit FRANCISCO JAVIER ESPINAL PA [...] Office visit FRANCISCO JAVIER ESPINAL PA 08/03/2014 [facility] Jermaine Chappell MD 07/23/2014 Office visit 07/23/2014 Office visit FRANCISCO JAVIER ESPINAL PA 07/08/2014 Office visit FRANCISCO JAVIER ESPINAL PA 06/24/2014 Office visit FRANCISCO JAVIER ESPINAL PA 06/12/2014 Office visit FRNACISCO JAVIER ESPINAL PA 06/10/2014 Office visit FRANCISCO JAVIER ESPINAL PA 05/27/2014 Office visit FRANCISCO JAVIER ESPINAL PA 05/20/2014 Office visit FRANCISCO JAVIER ESPINAL PA 05/16/2014 Office visit FRANCISCO JAVIER MORAN 05/13/2014 Voided FRANCISCO JAVIER ESPINAL PA 05/06/2014 Office visit FRANCISCO JAVIER ESPINAL PA 05/03/2014 [facility] Aruna Koehler MD 04/25/2014 Office visit FRANCISCO JAVIER ESPINAL PA 04/01/2014 Office visit Aruna Albert APRN 03/28/2014 Office visit FRANCISCO JAVIER ESPINAL PA 02/26/2014 Office visit FRANCISCO JAVIER ESPINAL PA 05/20/2010 Office visit Francisco Javier Espinal PA-C 04/16/2009 Office visit Francisco Javier Espinal PA-C 01/24/2009 Office visit Tian Basilio MD 12/31/2008 Office visit Tian Basilio MD 12/23/2008 Office visit Tian Basilio MD 12/17/2008 [facility] Tian Basilio MD 12/13/2008 Office visit Tian Basilio MD 12/06/2008 Office visit Tian Basilio MD 11/29/2008 Office visit Tian Basilio MD 11/15/2008 Office visit Tian Basilio MD 11/01/2008 Office visit Tian Basilio MD 10/18/2008 Office visit Tian Basilio MD
--- OUTSIDE RECORDS SUMMARY | 2017-05-11 12:39 | XMS REPORT ---
Author Author FRANCISCO JAVIER ESPINAL [facility] Address [address] [place], [place] [id number] Care Team Providers Care Attendant Camp[place] Name Role Phone FRANCISCO JAVIER ESPINAL PCP Unavailable FRANCISCO JAVIER ESPINAL PreferredProvider Unavailable [...] 3 times per day PRN muscle spasm Xarelto 20 mg oral tablet 03/10/2016 TAKE [...] take 1.5 tablets by oral route daily atenolol 25 mg oral tablet 07/22/2016 TAKE ONE TABLET BY MOUTH TWICE DAILY atenolol 25 mg oral tablet 07/22/2016 TAKE ONE TABLET BY MOUTH TWICE DAILY Dulcolax Stool Softener (dss) 100 mg oral capsule 07/28/2016 take 1 capsule (100 mg) by oral route 2 times per day PRN Tylenol-Codeine #3 300-30 mg oral tablet 07/28/2016 07/29/2016 take 2 tablets by oral route every 6 hours as needed for 1 day Name Start Date Expiration Date SIG [...] ONE TABLET BY MOUTH THREE TIMES DAILY [place] 5-325 mg oral tablet 02/20/2016 05/15/2016 take [...] Active 05/15/2016 Thoracic Back Pain Active 05/24/2016 Thrombophlebitis Active 06/26/2016 Vital Signs Date Time BP-Sys(mm[Hg] BP-Diana(mm[Hg]) HR(bpm) RR(rpm) Temp WT HT HC BMI BSA BMI Percentile O2 Sat(%) 07/28/2016 11:19:00 AM 102 mmHg 64 mmHg [...] 04/12/2015 12:00 AM Decadron, Per 1 Mg [facility]# [address]-81 Reviewed 05/01/2015 12:00 AM CAPILLARY BLOOD DRAW Reviewed 03/06/2015 12:00 AM CAPILLARY BLOOD DRAW Reviewed 05/07/2015 12:00 AM CAPILLARY BLOOD DRAW Reviewed 05/23/2015 12:00 AM Decadron, Per 1 Mg [facility]# [address]-37 Reviewed 05/29/2015 12:00 AM CAPILLARY BLOOD DRAW Reviewed 06/17/2015 12:00 AM EXTREMITY STUDY Returned 09/02/2015 12:00 AM Decadron, Per 1 Mg [facility]# [address]-10 Reviewed 09/02/2015 12:00 AM Rocephin 1 gram [facility]#6146-9790-10 Reviewed 09/02/2015 12:00 AM Toradol 60 Mg [facility]#2724-6483-72 Reviewed 09/26/2015 12:00 AM Decadron, Per 1 Mg [facility]# [address]-45 Reviewed 09/26/2015 12:00 AM Phenergan, Up to 50 Mg [facility]#0294-9706-21 Reviewed 02/20/2016 12:00 AM DRAINAGE OF SKIN ABSCESS Reviewed 02/10/2016 12:00 AM Phenergan 50mg Injection Reviewed 02/10/2016 12:00 AM THER/PROPH/DIAG INJ SC/IM Reviewed 03/25/2016 12:00 AM THERAPEUTIC PROPHYLACTIC/DX INJECTION SUBQ/IM Reviewed 03/25/2016 12:00 AM Decadron 8mg Injection, [facility] Medicaid Reviewed 03/25/2016 12:00 AM Depo-Medrol 80 Mg Injection, [facility] Medicaid Reviewed 03/25/2016 12:00 AM Rocephin 1 gram Injection, [facility] Medicaid Reviewed 03/29/2016 12:00 AM THER/PROPH/DIAG INJ SC/IM Reviewed 03/29/2016 12:00 AM Decadron 8mg Injection Reviewed 03/29/2016 12:00 AM Depo-Medrol 80mg Injection Reviewed 03/29/2016 12:00 AM Rocephin 1 gram Injection Reviewed 03/27/2016 12:00 AM BEHAV CHNG SMOKING 3-10 MIN Reviewed 03/30/2016 12:00 AM Toradol 60 Mg Injection, [facility] Medicaid Reviewed 03/30/2016 12:00 AM Phenergan 50mg Injection, [facility] Medicaid Reviewed 04/17/2016 12:00 AM THERAPEUTIC PROPHYLACTIC/DX [...] 07/23/2014 12:00 AM Decadron, Per 1 Mg [facility]# [address]-11 Reviewed 07/23/2014 12:00 AM Depo-Medrol, Per 80 Mg [facility]#7833-9716-33 Reviewed 07/23/2014 12:00 AM Rocephin 1 gram [facility]#7012-0216-98 Reviewed 08/20/2014 12:00 AM CAPILLARY BLOOD DRAW Reviewed 08/29/2014 12:00 AM CAPILLARY BLOOD DRAW Reviewed 09/05/2014 12:00 AM CAPILLARY BLOOD DRAW Reviewed 09/13/2014 12:00 AM CAPILLARY BLOOD DRAW Reviewed 10/09/2014 12:00 AM Decadron, Per 1 Mg [facility]# [address]-01 Reviewed 10/09/2014 12:00 AM Toradol 60 Mg [facility]#2696-8854-79 Reviewed 10/09/2014 12:00 AM Phenergan, Up to 50 Mg [facility]#9053-3037-82 Reviewed 10/30/2014 12:00 AM CAPILLARY BLOOD DRAW [...] secsINR 1.9 PTT 36.80 secsCALLED TO/BY ARUNA ALBERT/[facility] 12/30/2014 10:57 AM WBC 9.4 RBC 4.41 [...] at home 05/15/2016 Thoracic Back Pain 05/24/2016 Thrombophlebitis 06/26/2016 Anxiety Disorder Feb 26 2014 10:47AM Depressive Disorder Feb 26 2014 10:47AM Panic attack as reaction to stress Feb 26 2014 10:47AM Mental retardation Feb 26 2014 10:47AM Anger Feb 26 2014 10:47AM Anxiety Mar 28 2014 10:10AM FDC use of drug Mar 28 2014 10:10AM [...] 2 to 3 May 16 2014 10:57AM 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 May 20 2014 11:14AM DVT (deep venous thrombosis), left May 20 2014 11:14AM FDC 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 May 30 2014 7:44AM Atrial Fibrillation May 30 2014 7:44AM Deep vein thrombosis:history of May 30 2014 7:44AM 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 Jun 10 2014 9:18AM Atrial Fibrillation Jun 10 2014 9:18AM Deep vein thrombosis:history of Jun 10 2014 9:18AM 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 Jun 12 2014 8:29AM [...] 2:55PM Intellectual disability Aug 06 2014 2:55PM 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 Aug 20 2014 1:24PM Atrial Fibrillation Aug 20 2014 1:24PM Deep vein thrombosis:history of Aug 20 2014 1:24PM 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 Aug 29 2014 3:30PM Atrial Fibrillation Aug 29 2014 3:30PM Deep vein thrombosis:history of Aug 29 2014 3:30PM FDC 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 Sep 05 2014 1:08PM Atrial Fibrillation Sep 05 2014 1:08PM Deep vein thrombosis:history of Sep 05 2014 1:08PM FDC 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 Sep 13 2014 12:03PM Atrial Fibrillation Sep 13 2014 12:03PM Deep vein thrombosis:history of Sep 13 2014 12:03PM FDC 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 Sep 05 2014 1:06PM Hip pain Sep 05 2014 1:06PM Neck pain Sep 05 2014 1:06PM History of DVT (deep vein thrombosis) Sep 05 2014 1:06PM Low Back Pain Oct 09 2014 8:35AM Migraine Oct 09 2014 8:35AM Depressive Disorder Oct 09 2014 8:35AM Nausea Oct 09 2014 8:35AM Cervicalgia Oct 09 2014 8:35AM FDC 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 Oct 30 2014 3:06PM Atrial Fibrillation Oct 30 2014 3:06PM Deep vein thrombosis:history of Oct 30 2014 3:06PM FDC 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 Nov 07 2014 3:54PM Atrial Fibrillation Nov 07 2014 3:54PM Deep vein thrombosis:history of Nov 07 2014 3:54PM Cough Dec 02 2014 11:37AM Bronchitis, Acute Dec 02 2014 11:37AM Abdominal Pain, Generalized Dec 06 2014 11:21AM Constipation Dec 06 2014 11:21AM FDC 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 Dec 12 2014 9:25AM [...] 2014 9:04AM Menorrhagia Jan 09 2015 11:30AM FDC 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 Jan 13 2015 11:28AM Atrial Fibrillation Jan 13 2015 11:28AM Deep vein thrombosis:history of Jan 13 2015 11:28AM Menorrhagia with regular cycle Jan 27 2015 10:44AM Moderate Female pelvic pain Jan 27 2015 10:44AM Moderate Dysmenorrhea Jan 27 2015 10:44AM 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 Feb 03 2015 1:34PM [...] to cognitive limitations Apr 23 2015 1:32PM 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 May 01 2015 2:57PM Atrial Fibrillation May 01 2015 2:57PM Deep vein thrombosis:history of May 01 2015 2:57PM 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 May 06 2015 3:28PM Atrial Fibrillation May 06 2015 3:28PM Deep vein thrombosis:history of May 06 2015 3:28PM FDC 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 May 07 2015 9:50AM Atrial Fibrillation May 07 2015 9:50AM Deep vein thrombosis:history of May 07 2015 9:50AM Cough May 23 2015 10:51AM Bronchitis, Acute May 23 2015 10:51AM Post-nasal drainage May 23 2015 10:51AM Smoker unmotivated to quit May 23 2015 10:51AM 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 May 29 2015 2:16PM [...] 2016 1:11PM Bruise Jun 08 2016 1:11PM FDC current use of anticoagulant Jun 08 2016 [...] Acute stress reaction Jul 28 2016 11:20AM Payers Insurance Name Company Name Plan Name Plan Number Policy Number Policy Group Number Start Date [facility] [id number] N/A History of Encounters Visit Date Visit Type Provider 07/28/2016 Office visit FRANCISCO JAVIER MORAN 07/01/2016 [...] JAVIER MORAN 03/25/2016 Office visit FRANCISCO JAVIER MORAN 02/24/2016 Office visit FRANCISCO JAVIER MORAN 02/20/2016 Office visit FRANCISCO JAVIER MORAN 02/10/2016 Office visit FRANCISCO JAVIER MORAN 01/26/2016 Office visit FRANCISCO JAVIER MORAN 01/08/2016 Office visit FRANCISCO JAVIER MORAN 11/25/2015 Office visit FRANCISCO JAVIER MORAN 10/17/2015 Office visit FRANCISCO JAVIER MORAN 09/26/2015 Office visit FRANCISCO JAVIER MORAN 09/02/2015 Office visit FRANCISCO JAVIER ESPINAL PA 06/27/2015 Office visit FRANCISCO JAVIER ESPINAL PA 06/17/2015 Office visit FRANCISCO JAVIER ESPINAL PA 06/10/2015 Office visit FRANCISCO JAVIER ESPINAL PA 05/29/2015 Office visit FRANCISCO JAVIER ESPINAL PA 05/23/2015 Office visit FRANCISCO JAVIER ESPINAL PA 05/01/2015 Office visit FRANCISCO JAVIER MORAN 04/25/2015 Voided FRANCISCO JAVIER MORAN 04/23/2015 Hospital Jermaine Chappell MD 04/23/2015 Office visit FRANCISCO JAVIER MORAN 04/14/2015 Office visit FRANCISCO JAVIER ESPINAL PA 04/09/2015 Office visit FRANCISCO JAVIER MORAN 04/03/2015 Office visit FRANCISCO JAVIER MORAN 03/06/2015 Office visit FRANCISCO JAVIER MORAN 02/03/2015 Office visit FRANCISCO JAVIER MORAN 01/27/2015 Office visit FRANCISCO JAVIER MORAN 01/13/2015 Office visit FRANCISCO JAVIER MORAN 01/09/[address] Marielos Roas MD 12/30/[address] Marielos Rosa MD 12/27/2014 Office visit 12/27/2014 Office visit 12/27/2014 Office visit Aruna Albert APRN 12/27/2014 Office visit FRANCISCO JAVIER MORAN 12/12/2014 Office visit FRANCISCO JAVIER MORAN 12/06/2014 Office visit FRANCISCO JAVIER MORAN 12/02/2014 Office visit FRANCISCO JAVIER MORAN 10/30/2014 Office visit FRANCISCO JAVIER MORAN 10/18/2014 Office visit FRANCISCO JAVIER MORAN 10/09/2014 Office visit FRANCISCO JAVIER MORAN 10/04/2014 Voided FRANCISCO JAVIER ESPINAL PA 09/20/2014 Voided FRANCISCO JAVIER ESPINAL PA 09/13/2014 Office visit FRANCISCO JAVIER ESPINAL PA 09/05/2014 Office visit 09/05/2014 Office visit FRANCISCO JAVIER ESPINAL PA 08/06/2014 Office visit FRANCISCO JAVIER ESPINAL PA 08/03/2014 [facility] Jermaine Chappell MD 07/23/2014 Office visit 07/23/2014 Office visit FRANCISCO JAVIER ESPINAL PA 07/08/2014 Office visit FRANCISCO JAVIER ESPINAL PA 06/24/2014 Office visit FRANCISCO JAVIER ESPINAL PA 06/12/2014 Office visit FRANCISCO JAVIER ESPINAL PA 06/10/2014 Office visit FRANCISCO JAVIER ESPINAL PA 05/27/2014 Office visit FRANCISCO JAVIER ESPINAL PA 05/20/2014 Office visit FRANCISCO JAVIER ESPIANL PA 05/16/2014 Office visit FRANCISCO JAVIER ESPINAL PA 05/13/2014 Voided FRANCISCO JAVIER ESPINAL PA 05/06/2014 Office visit FRANCISCO JAVIER MORAN 05/03/2014 [facility] Aruna Koehler MD 04/25/2014 Office visit FRANCISCO JAVIER ESPINAL PA 04/01/2014 Office visit Aruna Albert APRN 03/28/2014 Office visit FRANCISCO JAVIER ESPINAL PA 02/26/2014 Office visit FRANCISCO JAVIER ESPINAL PA 05/20/2010 Office visit Francisco Javier Espinal PA-C 04/16/2009 Office visit Francisco Javier Espinal PA-C 01/24/2009 Office visit Tina Basilio MD 12/31/2008 Office visit Tian Basilio MD 12/23/2008 Office visit Tian Basilio MD 12/17/2008 [facility] Tian Basilio MD 12/13/2008 Office visit Tian Basilio MD 12/06/2008 Office visit Tian Basilio MD 11/29/2008 Office visit Tian Basilio MD 11/15/2008 Office visit Tian Basilio MD 11/01/2008 Office visit Tian Basilio MD 10/18/2008 Office visit Tian Basilio MD
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
--- OUTSIDE RECORDS SUMMARY | 2017-05-11 12:41 | XMS REPORT ---
Author Author [facility] Organization [facility] Address [address] [place], [place] [address] Care Team Providers Care Freelance Court Reporter Name Role Phone PCP Unavailable Allergies and Adverse Reactions Name Reaction Notes codeine sulfate Plan of Treatment Not available. Medications Active Name Start Date Estimated Completion Date SIG Comments citalopram oral tablet 20 mg 03/30/2014 take 2 tablets (40 mg) by oral route once daily hydroxyzine HCl oral tablet 25 mg 03/30/2014 take 1 tablet by oral route 4 times a day as needed diclofenac sodium oral tablet,delayed release (DR/EC) 75 mg 03/30/2014 take 1 tablet (75 mg) by oral route 2 times per day Sprintec (28) oral tablet 0.25-35 mg-mcg 04/01/2014 03/03/2015 take 1 tablet by oral route once daily for 28 days warfarin oral tablet 5 mg 06/05/2014 one daily as directed citalopram oral tablet 20 mg 06/07/2014 take 2 tablets (40 mg) by oral route once daily citalopram oral tablet 20 mg 06/07/2014 take 2 tablets (40 mg) by oral route once daily Bentyl oral capsule 10 mg 06/07/2014 10/05/2014 take 1 capsule (10 mg) by oral route 3 times per day for 30 days alprazolam oral tablet 0.5 mg 08/07/2014 1/2 to 1 TID PRN panic attack buspirone oral tablet 10 mg 08/12/2014 take 1 tablet (10 mg) by oral route 3 times per day warfarin oral tablet 4 mg 09/13/2014 take 1 tablet (4 mg) by oral route once daily Name Start Date Expiration Date SIG Comments Vistaril Oral Capsule 25 mg 02/26/2009 02/26/2009 take 1 capsule (25 mg) by oral route 3 times per day Zoloft Oral Tablet 50 mg 03/17/2009 07/15/2009 take 1 tablet (50 mg) by oral route once daily for 30 days Cipro Oral Tablet 500 mg 04/16/2009 take 1 tablet (500 mg) by oral route 2 times per day Medrol (Vivek) Oral Tablets, Dose Pack 4 mg 04/16/2009 take as directed Problem List Description Status Onset Panic attack as reaction to stress Active 02/26/2014 Depressive Disorder Active 02/26/2014 Anxiety Disorder Active 02/26/2014 Mental retardation Active 02/26/2014 Tremor, essential Active 03/30/2014 Urticaria Active 03/30/2014 Hyperlipidemia, unspecified Active 03/30/2014 Restless leg syndrome Active 03/30/2014 DVT (deep venous thrombosis), left Active 05/07/2014 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 06/13/2014 Vital Signs Date Time BP-Sys(mm[Hg] BP-Diana(mm[Hg]) HR(bpm) RR(rpm) Temp WT HT HC BMI BSA BMI Percentile O2 Sat(%) 09/05/2014 1:06:00 PM 120 mmHg 70 mmHg [...] Comments Tobacco Current every day smoker Alcohol pot History of Procedures Date Ordered Description [...] 07/23/2014 12:00 AM THER/PROPH/DIAG INJ SC/IM Reviewed 08/20/2014 12:00 AM CAPILLARY BLOOD DRAW Reviewed 08/29/2014 12:00 AM CAPILLARY BLOOD DRAW Reviewed 09/05/2014 12:00 AM CAPILLARY BLOOD DRAW Reviewed 09/13/2014 12:00 AM CAPILLARY BLOOD DRAW Reviewed Results Summary Data and Description Results 03/28/2014 3:47 PM GLUCOSE 76.0 mg/dLSODIUM 145.0 mmol/LPOTASSIUM 4.80 mmol/ LCHLORIDE 105.0 mmol/LCO2 25.0 mmol/LBUN 13.0 mg/dLCREATININE 0.70 mg/dLSGOT/ AST 14.0 IU/LSGPT/ALT 12.0 IU/LALK PHOS 72.0 IU/LTOTAL PROTEIN 7.60 g/dLALBUMIN 4.40 g/dLTOTAL BILI 0.20 mg/dLCALCIUM 10.0 mg/dLeGFR >60 mL/min/1.73 [id number] 241.0 mg/dLCHOLESTEROL 248.0 mg/dLHDL 51.0 mg/dLLDL (CALC) [...] 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 06/13/2014 Sebaceous Cyst May 20 2010 9:43AM Anxiety Disorder Feb 26 2014 10:47AM Depressive Disorder Feb 26 2014 10:47AM Panic attack as reaction to stress Feb 26 2014 10:47AM Mental retardation Feb 26 2014 10:47AM Anger Feb 26 2014 10:47AM Anxiety Mar 28 2014 10:10AM long-term use of drug Mar 28 2014 10:10AM [...] 2 to 3 May 16 2014 10:57AM long-term 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 May 20 2014 11:14AM DVT (deep venous thrombosis), left May 20 2014 11:14AM 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 May 30 2014 7:44AM Atrial Fibrillation May 30 2014 7:44AM Deep vein thrombosis:history of May 30 2014 7:44AM 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 Jun 10 2014 9:18AM Atrial Fibrillation Jun 10 2014 9:18AM Deep vein thrombosis:history of Jun 10 2014 9:18AM 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 Jun 12 2014 [...] 2:55PM Intellectual disability Aug 06 2014 2:55PM 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 History of Encounters Visit Date Visit Type Provider 09/13/2014 Office visit FRANCISCO JAVIER MORAN 09/05/2014 Office visit FRANCISCO JAVIER MORAN 08/06/2014 Office visit FRANCISCO JAVIER ESPINAL PA 07/23/2014 Office visit FRANCISCO JAVIER ESPINAL PA [...] Office visit FRANCISCO JAVIER ESPINAL PA 05/03/2014 [facility] Jessi Koehler MD 04/25/2014 Office visit FRANCISCO JAVIER ESPINAL PA 04/01/2014 Office visit Jessi Blake APRN 03/28/2014 Office visit FRANCISCO JAVIER ESPINAL PA 02/26/2014 Office visit FRANCISCO JAVIER ESPINAL PA 05/20/2010 Office visit Francisco Javier Espinal PA-C 04/16/2009 Office visit Francisco Javier Espinal PA-C 01/24/2009 Office visit Tian Basilio MD 12/31/2008 Office visit Tian Basilio MD 12/23/2008 Office visit Tian Basilio MD 12/17/2008 [facility] Tian Basilio MD 12/13/2008 Office visit Tian Basilio MD 12/06/2008 Office visit Tian Basilio MD 11/29/2008 Office visit Tian Basilio MD 11/15/2008 Office visit Tian Basilio MD 11/01/2008 Office visit Tian Basilio MD 10/18/2008 Office visit Tian Basilio MD
--- OUTSIDE RECORDS SUMMARY | 2017-05-11 12:41 | XMS REPORT ---
Author Author FRANCISCO JAVIER ESPINAL [facility] Address [address] [place], [place] [id number] Care Team Providers Care Supply Controller Name Role Phone FRANCISCO JAVIER ESPINAL PCP [...] 2 tablet by oral route QID PRN promethazine-codeine 6.25-10 mg/5 mL oral syrup 05/24/2015 take 5 milliliters by oral route every 4-6 hours as needed, not to exceed 30 mL in 24 hours Xarelto 20 mg oral tablet 05/29/2015 take [...] 2 times per day for 30 days citalopram 20 mg oral tablet 08/08/2015 TAKE TWO TABLETS BY MOUTH ONCE DAILY buspirone 10 mg oral tablet 08/13/2015 take 1 tablet (10 mg) by oral route 3 times per day [place] 5-325 mg oral tablet 09/02/2015 take 1 tablet by oral route every 6 hours as needed for pain cyclobenzaprine 10 mg oral tablet 09/19/2015 TAKE ONE TABLET BY MOUTH THREE TIMES DAILY Name Start Date Expiration Date SIG Comments [...] 2 times per day for 30 days Discontinued Name Start Date Discontinued Date [...] Take one capsule 3 times a day Problem List Description Status Onset Panic attack [...] vein thrombosis) Active 09/17/2014 Smoker Active 09/04/2015 Vital Signs Date Time BP-Sys(mm[Hg] BP-Diana(mm[Hg]) HR(bpm) RR(rpm) Temp WT HT HC BMI BSA BMI Percentile O2 Sat(%) 09/26/2015 9:22:00 AM 98 mmHg 65 mmHg [...] F 134 lbs 64 in 23.00 kg/m2 1.6567 m 98 % 12/06/2014 11:20:00 AM 140 mmHg 80 mmHg 130 bpm 16 rpm 98.3 F 134 lbs 64 in 23.0008 kg/m 1.66 m2 99 % 12/02/2014 11:36:00 AM 110 mmHg 70 mmHg 146 bpm 16 rpm 98.8 F 129 lbs 64 in 22.14 kg/m2 1.6255 m 98 % 10/09/2014 8:35:00 AM 110 mmHg 70 mmHg 84 bpm 18 rpm 97.5 F 116 lbs 64 in 19.9112 kg/m 1.54 m2 98 % 09/05/2014 1:06:00 PM 120 mmHg 70 mmHg 92 bpm 18 rpm 97.8 F 123 lbs 64 in 21.11 kg/m2 1.5872 m 98 % 08/06/2014 8:50:00 AM 110 mmHg 64 mmHg 80 bpm 18 rpm 97 F 120 lbs 64 in 20.5977 kg/m 1.57 m2 99 % 07/23/2014 9:44:00 AM 105 mmHg 60 mmHg 90 bpm 18 rpm 97.6 F 122 lbs 64 in 20.94 kg/m2 1.5808 m 99 % 06/12/2014 8:29:00 AM 110 mmHg 60 mmHg 80 bpm 18 rpm 98.7 F 121 lbs 64 in 20.7694 kg/m 1.57 m2 98 % 05/20/2014 11:13:00 AM 100 mmHg 60 mmHg 70 bpm 18 rpm 98.6 F 122 lbs 64 in 20.94 kg/m2 1.5808 m 98 % 05/16/2014 10:57:00 AM 105 mmHg 60 mmHg 81 bpm 18 rpm 98.6 F 121 lbs 64 in 20.7694 kg/m 1.57 m2 100 % 05/06/2014 1:03:00 PM 110 mmHg 60 mmHg 116 bpm 18 rpm 97.9 F 121 lbs 64 in 20.77 kg/m2 1.5743 m 99 % 04/25/2014 1:05:00 PM 105 mmHg 65 mmHg 97 bpm 18 rpm 97 F 122 lbs 63 in 21.6111 kg/m 1.57 m2 99 % 04/01/2014 1:23:00 PM 101 mmHg 67 mmHg 83 bpm 18 rpm 97.4 F 121 lbs 64 in 20.77 kg/m2 1.5743 m 03/28/2014 10:09:00 AM 108 mmHg 68 mmHg 86 bpm 18 rpm 97.6 F 120.187 lbs 63.75 in 20.792 kg/m 1.57 m2 98 % 02/26/2014 10:46:00 AM 120 mmHg 60 mmHg 98 bpm 22 rpm 97.9 F 118 lbs 63 in 20.90 kg/m2 1.5425 m 100 % 05/20/2010 9:42:00 AM [...] Reviewed 12/27/2014 12:00 AM CHORIONIC GONADOTROPIN TEST Returned 12/27/2014 12:00 AM COMPLETE CBC W/AUTO DIFF WBC Returned 12/27/2014 12:00 AM COMPREHEN METABOLIC PANEL Returned 12/27/2014 12:00 AM ASSAY THYROID STIM HORMONE Returned 12/27/2014 12:00 AM Type & Screen Returned 12/27/2014 12:00 AM ASSAY OF GONADOTROPIN (FSH) Returned 12/27/2014 12:00 AM ASSAY OF GONADOTROPIN (LH) Reviewed 12/27/2014 12:00 AM ASSAY OF PROLACTIN Returned 12/27/2014 12:00 AM PROTHROMBIN TIME Returned 12/27/2014 12:00 AM THROMBOPLASTIN TIME PARTIAL Returned 12/27/2014 12:00 AM SELF-MGMT EDUC & TRAIN 1 PT Reviewed 01/03/2015 12:00 AM US EXAM PELVIC COMPLETE Returned 01/03/2015 12:00 AM TRANSVAGINAL US NON-OB Returned 12/30/2014 12:00 AM COMPLETE CBC W/AUTO DIFF WBC Returned 12/30/2014 12:00 AM US EXAM PELVIC COMPLETE Reviewed 12/30/2014 12:00 AM US EXAM PELVIC LIMITED Reviewed 01/13/2015 12:00 AM CAPILLARY BLOOD DRAW Reviewed 02/03/2015 12:00 AM CAPILLARY BLOOD DRAW Reviewed 04/12/2015 12:00 AM Decadron, Per 1 Mg [facility]# [address]-83 Reviewed 05/01/2015 12:00 AM CAPILLARY BLOOD DRAW Reviewed 03/06/2015 12:00 AM CAPILLARY BLOOD DRAW Reviewed 05/07/2015 12:00 AM CAPILLARY BLOOD DRAW Reviewed 05/23/2015 12:00 AM Decadron, Per 1 Mg [facility]# [address]-50 Reviewed 05/29/2015 12:00 AM CAPILLARY BLOOD DRAW Reviewed 06/17/2015 12:00 AM EXTREMITY STUDY Returned 09/02/2015 12:00 AM Decadron, Per 1 Mg [facility]# [address]-91 Reviewed 09/02/2015 12:00 AM Rocephin 1 gram [facility]#8643-2491-17 Reviewed 09/02/2015 12:00 AM Toradol 60 Mg [facility]#4339-3450-68 Reviewed 03/28/2014 12:00 AM COMPLETE CBC W/AUTO [...] 07/23/2014 12:00 AM Decadron, Per 1 Mg [facility]# [address]-95 Reviewed 07/23/2014 12:00 AM Depo-Medrol, Per 80 Mg [facility]#6810-5990-13 Reviewed 07/23/2014 12:00 AM Rocephin 1 gram [facility]#5788-3707-96 Reviewed 08/20/2014 12:00 AM CAPILLARY BLOOD DRAW Reviewed 08/29/2014 12:00 AM CAPILLARY BLOOD DRAW Reviewed 09/05/2014 12:00 AM CAPILLARY BLOOD DRAW Reviewed 09/13/2014 12:00 AM CAPILLARY BLOOD DRAW Reviewed 10/09/2014 12:00 AM Decadron, Per 1 Mg [facility]# [address]-91 Reviewed 10/09/2014 12:00 AM Toradol 60 Mg [facility]#6397-4000-64 Reviewed 10/09/2014 12:00 AM Phenergan, Up to 50 Mg [facility]#4200-4067-18 Reviewed 10/30/2014 12:00 AM CAPILLARY BLOOD DRAW Reviewed Results Summary Data and Description Results 03/28/2014 3:47 PM GLUCOSE 76.0 mg/dLSODIUM 145.0 mmol/LPOTASSIUM 4.80 mmol/ LCHLORIDE 105.0 mmol/LCO2 25.0 mmol/LBUN 13.0 mg/dLCREATININE 0.70 mg/dLSGOT/ AST 14.0 IU/LSGPT/ALT 12.0 IU/LALK PHOS 72.0 IU/LTOTAL PROTEIN 7.60 g/dLALBUMIN 4.40 g/dLTOTAL BILI 0.20 mg/dLCALCIUM 10.0 mg/dLeGFR >60 mL/min/1.73 [id number] 241.0 mg/dLCHOLESTEROL 248.0 mg/dLHDL 51.0 mg/dLLDL (CALC) 149.0 mg/dLWBC 9.1 RBC 5.46 HGB 16.50 g/dLHCT 49.20 %MCV 90.0 fLMCH 30.20 pgMCHC 33.50 g/dLRDW CV 15.90 %MPV 10.60 fLPLT 317 %NEUT 58.60 %%LYMP 35.10 %% MONO 5.10 %%EOS 1.0 %%BASO 0.20 %#NEUT 5.32 #LYMP 3.18 #MONO 0.46 #EOS 0.09 # BASO 0.02 12/27/2014 11:10 AM WBC 10.8 RBC 4.57 HGB 14.40 g/dLHCT 42.60 %MCV 93.0 fLMCH 31.50 pgMCHC 33.80 g/dLRDW CV 15.70 %MPV 9.50 fLPLT 337 %NEUT 63.70 %%LYMP 30.20 %%MONO 4.80 %%EOS 1.10 %%BASO 0.20 %#NEUT 6.88 #LYMP 3.27 #MONO 0.52 #EOS 0.12 #BASO 0.02 GLUCOSE 96.0 mg/dLSODIUM 139.0 mmol/LPOTASSIUM 3.80 mmol/ LCHLORIDE 105.0 mmol/LCO2 24.0 mmol/LBUN 11.0 mg/dLCREATININE 0.70 mg/dLSGOT/ AST 18.0 IU/LSGPT/ALT 15.0 IU/LALK PHOS 76.0 IU/LTOTAL PROTEIN 7.40 g/dLALBUMIN 4.40 g/dLTOTAL BILI 0.30 mg/dLCALCIUM 10.20 mg/dLeGFR >60 mL/min/1.73mTSH 0.880 uIU/mLFSH 7.60 mIU/mLLH 9.60 mIU/mLBETA HCG QUANT <1 mIU/mLProlactin 5.90 ng/mL 12/27/2014 11:30 AM PROTIME 19.50 secsINR 1.9 PTT 36.80 secs 12/30/2014 10:57 AM WBC 9.4 RBC 4.41 HGB 13.60 g/dLHCT 41.40 %MCV 94.0 fLMCH 30.80 pgMCHC 32.90 g/dLRDW CV 15.50 %MPV 9.50 fLPLT 334 %NEUT 59.40 %%LYMP 34.40 %%MONO 4.60 %%EOS 1.40 %%BASO 0.20 %#NEUT 5.57 #LYMP 3.22 #MONO 0.43 #EOS 0.13 #BASO 0.02 04/23/2015 12:10 PM WBC 10.2 RBC 5.41 HGB 14.70 g/dLHCT 45.20 %MCV 84.0 fLMCH 27.20 pgMCHC 32.50 g/dLRDW CV 16.90 %MPV 10.0 fLPLT 228 GLUCOSE 82.0 mg/ dLSODIUM 140.0 mmol/LPOTASSIUM 3.80 mmol/LCHLORIDE 109.0 mmol/LCO2 20.0 mmol/ LBUN 5.0 mg/dLCREATININE 0.60 mg/dLSGOT/AST 18.0 IU/LSGPT/ALT 13.0 IU/LALK PHOS 94.0 IU/LTOTAL PROTEIN 6.80 g/dLALBUMIN 4.0 g/dLTOTAL BILI 0.30 mg/dLCALCIUM 9.40 mg/dLeGFR >60 mL/min/1.73mTSH 0.380 uIU/mL History Of Immunizations Not available. 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 May 20 2014 11:14AM DVT (deep venous thrombosis), left May 20 2014 11:14AM retirement 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 May 30 2014 7:44AM Atrial Fibrillation May 30 2014 7:44AM Deep vein thrombosis:history of May 30 2014 7:44AM retirement 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 Jun 10 2014 9:18AM Atrial Fibrillation Jun 10 2014 9:18AM Deep vein thrombosis:history of Jun 10 2014 9:18AM 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 Jun 12 2014 8:29AM [...] disability Aug 06 2014 2:55PM 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 Aug 20 2014 1:24PM Atrial Fibrillation Aug 20 2014 1:24PM Deep vein thrombosis:history of Aug 20 2014 1:24PM 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 Aug 29 2014 3:30PM Atrial Fibrillation Aug 29 2014 3:30PM Deep vein thrombosis:history of Aug 29 2014 3:30PM retirement 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 Sep 05 2014 1:08PM Atrial Fibrillation Sep 05 2014 1:08PM Deep vein thrombosis:history of Sep 05 2014 1:08PM retirement 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 Sep 13 2014 12:03PM Atrial Fibrillation Sep 13 2014 12:03PM Deep vein thrombosis:history of Sep 13 2014 12:03PM retirement 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 Sep 05 2014 1:06PM Hip pain Sep 05 2014 1:06PM Neck pain Sep 05 2014 1:06PM History of DVT (deep vein thrombosis) Sep 05 2014 1:06PM Low Back Pain Oct 09 2014 8:35AM Migraine Oct 09 2014 8:35AM Depressive Disorder Oct 09 2014 8:35AM Nausea Oct 09 2014 8:35AM Cervicalgia Oct 09 2014 8:35AM retirement 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 Oct 30 2014 3:06PM Atrial Fibrillation Oct 30 2014 3:06PM Deep vein thrombosis:history of Oct 30 2014 3:06PM 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 Nov 07 2014 3:54PM Atrial Fibrillation Nov 07 2014 3:54PM Deep vein thrombosis:history of Nov 07 2014 3:54PM Cough Dec 02 2014 11:37AM Bronchitis, Acute Dec 02 2014 11:37AM Abdominal Pain, Generalized Dec 06 2014 11:21AM Constipation Dec 06 2014 11:21AM 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 Dec 12 2014 9:25AM [...] 2014 9:04AM Menorrhagia Jan 09 2015 11:30AM 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 Jan 13 2015 11:28AM Atrial Fibrillation Jan 13 2015 11:28AM Deep vein thrombosis:history of Jan 13 2015 11:28AM Menorrhagia with regular cycle Jan 27 2015 10:44AM Moderate Female pelvic pain Jan 27 2015 10:44AM Moderate Dysmenorrhea Jan 27 2015 10:44AM retirement 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 Feb 03 2015 1:34PM [...] to cognitive limitations Apr 23 2015 1:32PM retirement 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 May 01 2015 2:57PM Atrial Fibrillation May 01 2015 2:57PM Deep vein thrombosis:history of May 01 2015 2:57PM 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 May 06 2015 3:28PM Atrial Fibrillation May 06 2015 3:28PM Deep vein thrombosis:history of May 06 2015 3:28PM retirement 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 May 07 2015 9:50AM Atrial Fibrillation May 07 2015 9:50AM Deep vein thrombosis:history of May 07 2015 9:50AM Cough May 23 2015 10:51AM Bronchitis, Acute May 23 2015 10:51AM Post-nasal drainage May 23 2015 10:51AM Smoker unmotivated to quit May 23 2015 10:51AM retirement 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 May 29 2015 2:16PM [...] Mild Acute Gastroenteritis Sep 26 2015 9:23AM Payers Insurance Name Company Name Plan Name Plan Number Policy Number Policy Group Number Start Date [facility] [id number] N/A History of Encounters Visit Date Visit Type Provider 09/26/2015 Office visit FRANCISCO JAVIER MORAN 09/02/2015 Office visit FRANCISCO JAVIER MORAN 06/27/2015 Office visit FRANCISCO JAVIER MORAN 06/17/2015 Office visit FRANCISCO JAVIER MORAN 06/10/2015 Office visit FRANCISCO JAVIER MORAN 05/29/2015 Office visit FRANCISCO JAVIER MORAN 05/23/2015 Office visit FRANCISCO JAVIER MORAN 05/01/2015 Office visit FRANCISCO JAVIER MORAN 04/25/2015 Voided FRANCISCO JAVIER MORAN 04/23/2015 [facility] Mercedes Chappell MD 04/23/2015 Office visit FRANCISCO JAVIER MORAN 04/14/2015 Office visit FRANCISCO JAVIER MORAN 04/09/2015 Office visit FRANCISCO JAVIER MORAN 04/03/2015 Office visit FRANCISCO JAVIER MORAN 03/06/2015 Office visit FRANCISCO JAVIER MORAN 02/03/2015 Office visit FRANCISCO JAVIER MORAN 01/27/2015 Office visit FRANCISCO JAVIER MORAN 01/13/2015 Office visit FRANCISCO JAVIER MORAN 01/09/[address] Marielos Rosa MD 12/30/[address] Marielos Rosa MD 12/27/2014 Office visit 12/27/2014 Office visit 12/27/2014 Office visit Jessi Blake APRN 12/27/2014 Office visit FRANCISCO JAVIER MORAN 12/12/2014 Office visit FRANCISCO JAVIER MORAN 12/06/2014 Office visit FRANCISCO JAVIER MORAN 12/02/2014 Office visit FRANCISCO JAVIER MORAN 10/30/2014 Office visit FRANCISCO JAVIER MORAN 10/18/2014 Office visit FRANCISCO JAVIER MORAN 10/09/2014 Office visit FRANCISCO JAVIER MORAN 10/04/2014 Voided FRANCISCO JAVIER MORAN 09/20/2014 Voided FRANCISCO JAVIER ESPINAL PA 09/13/2014 Office visit FRANCISCO JAVIER MORAN 09/05/2014 Office visit 09/05/2014 Office visit FRANCISCO JAVIER MORAN 08/06/2014 Office visit FRANCISCO JAVIER ESPINAL PA 08/03/2014 Hospital Jermaine Chappell MD 07/23/2014 Office visit 07/23/2014 Office visit FRANCISCO JAVIER ESPINAL PA 07/08/2014 Office visit FRANCISCO JAVIER ESPINAL PA 06/24/2014 Office visit FRANCISCO JAVIER ESPINAL PA 06/12/2014 Office visit FRANCISCO JAVIER ESPINAL PA 06/10/2014 Office visit FRANCISCO JAVIER MORAN 05/27/2014 Office visit FRANCISCO JAVIER ESPINAL PA 05/20/2014 Office visit FRANCISCO JAVIER ESPINAL PA 05/16/2014 Office visit FRANCISCO JAVIER ESPINAL PA 05/13/2014 Voided FRANCISCO JAVIER ESPINAL PA 05/06/2014 Office visit FRANCISCO JAVIER ESPINAL PA 05/03/2014 [facility] Jessi Koehler MD 04/25/2014 Office visit FRANCISCO JAVIER ESPINAL PA 04/01/2014 Office visit Jessi Blake APRN 03/28/2014 Office visit FRANCISCO JVAIER ESPINAL PA 02/26/2014 Office visit FRANCISCO JAVIER ESPINAL PA 05/20/2010 Office visit Francisco Javier Espinal PA-C 04/16/2009 Office visit Francisco Javier Espinal PA-C 01/24/2009 Office visit Tian Basilio MD 12/31/2008 Office visit Tian Basilio MD 12/23/2008 Office visit Tian Basilio MD 12/17/2008 [facility] Tian Basilio MD 12/13/2008 Office visit Tian Basilio MD 12/06/2008 Office visit Tian Basilio MD 11/29/2008 Office visit Tian Basilio MD 11/15/2008 Office visit Tian Basilio MD 11/01/2008 Office visit Tian Basilio MD 10/18/2008 Office visit Tian Basilio MD
--- OUTSIDE RECORDS SUMMARY | 2017-05-11 12:43 | XMS REPORT ---
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 Name Role Phone FRANCISCO JAVIER ESPINAL PCP [...] ONE TABLET BY MOUTH THREE TIMES DAILY Lasix 20 mg oral tablet 10/06/2015 take 1 tablet (20 mg) by oral route once daily buspirone 10 mg oral tablet 01/08/2016 take 1 tablet (10 mg) by oral route 3 times per day citalopram 40 mg oral tablet 01/08/2016 06/06/2016 take 1 tablet (40 mg) by oral route once daily for 30 days hydroxyzine HCl 25 mg oral tablet 01/08/2016 [...] TO FOUR TIMES A DAY IF NEEDED Name Start Date Expiration Date SIG Comments [...] 2 times per day for 10 days Medrol (Vivek) 4 mg oral tablets,dose pack 05/05/2016 05/10/2016 take as directed for 5 days Discontinued [...] Take one capsule 3 times a day cyclobenzaprine 10 mg oral tablet 11/17/2015 01/08/2016 TAKE ONE TABLET BY MOUTH THREE TIMES DAILY [place] 5-325 mg oral tablet 02/20/2016 05/15/2016 take 1 tablet by oral route every 6 hours as needed for pain Problem List Description Status Onset Panic attack [...] Active 05/15/2016 Stress at home Active 05/15/2016 Vital Signs Date Time BP-Sys(mm[Hg] BP-Diana(mm[Hg]) HR(bpm) RR(rpm) Temp WT HT HC BMI BSA BMI Percentile O2 Sat(%) 05/05/2016 2:40:00 PM 110 mmHg 70 mmHg [...] 04/12/2015 12:00 AM Decadron, Per 1 Mg [facility]# [address]-14 Reviewed 05/01/2015 12:00 AM CAPILLARY BLOOD DRAW Reviewed 03/06/2015 12:00 AM CAPILLARY BLOOD DRAW Reviewed 05/07/2015 12:00 AM CAPILLARY BLOOD DRAW Reviewed 05/23/2015 12:00 AM Decadron, Per 1 Mg [facility]# [address]-61 Reviewed 05/29/2015 12:00 AM CAPILLARY BLOOD DRAW Reviewed 06/17/2015 12:00 AM EXTREMITY STUDY Returned 09/02/2015 12:00 AM Decadron, Per 1 Mg [facility]# [address]-72 Reviewed 09/02/2015 12:00 AM Rocephin 1 gram [facility]#3061-2286-12 Reviewed 09/02/2015 12:00 AM Toradol 60 Mg [facility]#5031-1286-31 Reviewed 09/26/2015 12:00 AM Decadron, Per 1 Mg [facility]# [address]-27 Reviewed 09/26/2015 12:00 AM Phenergan, Up to 50 Mg [facility]#9040-6702-63 Reviewed 02/20/2016 12:00 AM DRAINAGE OF SKIN ABSCESS Reviewed 02/10/2016 12:00 AM Phenergan 50mg Injection Reviewed 02/10/2016 12:00 AM THER/PROPH/DIAG INJ SC/IM Reviewed 03/25/2016 12:00 AM THERAPEUTIC PROPHYLACTIC/DX INJECTION SUBQ/IM Reviewed 03/25/2016 12:00 AM Decadron 8mg Injection, [facility] Medicaid Reviewed 03/25/2016 12:00 AM Depo-Medrol 80 Mg Injection, [facility] Medicaid Reviewed 03/25/2016 12:00 AM Rocephin 1 gram Injection, [facility] Medicaid Reviewed 03/29/2016 12:00 AM THER/PROPH/DIAG INJ SC/IM Reviewed 03/29/2016 12:00 AM Decadron 8mg Injection Reviewed 03/29/2016 12:00 AM Depo-Medrol 80mg Injection Reviewed 03/29/2016 12:00 AM Rocephin 1 gram Injection Reviewed 03/27/2016 12:00 AM BEHAV CHNG SMOKING 3-10 MIN Reviewed 03/30/2016 12:00 AM Toradol 60 Mg Injection, [facility] Medicaid Reviewed 03/30/2016 12:00 AM Phenergan 50mg Injection, [facility] Medicaid Reviewed 04/17/2016 12:00 AM THERAPEUTIC PROPHYLACTIC/DX INJECTION SUBQ/IM Reviewed 04/20/2016 12:00 AM X-RAY EXAM NECK SPINE 2-3 VW Returned 04/20/2016 12:00 AM X-RAY EXAM L-S SPINE 2/3 VWS Returned 05/05/2016 12:00 AM THER/PROPH/DIAG INJ SC/IM Reviewed 05/05/2016 12:00 AM Decadron 8mg Injection Reviewed 03/28/2014 [...] 07/23/2014 12:00 AM Decadron, Per 1 Mg [facility]# [address]-79 Reviewed 07/23/2014 12:00 AM Depo-Medrol, Per 80 Mg [facility]#0866-9039-62 Reviewed 07/23/2014 12:00 AM Rocephin 1 gram [facility]#4901-8003-35 Reviewed 08/20/2014 12:00 AM CAPILLARY BLOOD DRAW Reviewed 08/29/2014 12:00 AM CAPILLARY BLOOD DRAW Reviewed 09/05/2014 12:00 AM CAPILLARY BLOOD DRAW Reviewed 09/13/2014 12:00 AM CAPILLARY BLOOD DRAW Reviewed 10/09/2014 12:00 AM Decadron, Per 1 Mg [facility]# [address]-90 Reviewed 10/09/2014 12:00 AM Toradol 60 Mg [facility]#5385-7938-45 Reviewed 10/09/2014 12:00 AM Phenergan, Up to 50 Mg [facility]#4653-4648-37 Reviewed 10/30/2014 12:00 AM CAPILLARY BLOOD DRAW [...] secsINR 1.9 PTT 36.80 secsCALLED TO/BY ARUNA ALBERT/[facility] 12/30/2014 10:57 AM WBC 9.4 RBC [...] smoker, continuous 05/15/2016 Stress at home 05/15/2016 Anxiety Disorder Feb 26 2014 10:47AM Depressive Disorder Feb 26 2014 10:47AM Panic attack as reaction to stress Feb 26 2014 10:47AM Mental retardation Feb 26 2014 10:47AM Anger Feb 26 2014 10:47AM Anxiety Mar 28 2014 10:10AM 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 Mar 28 2014 10:10AM [...] 2 to 3 May 16 2014 10:57AM 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 May 20 2014 11:14AM DVT (deep venous thrombosis), left May 20 2014 11:14AM 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 May 30 2014 7:44AM Atrial Fibrillation May 30 2014 7:44AM Deep vein thrombosis:history of May 30 2014 7:44AM 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 Jun 10 2014 9:18AM Atrial Fibrillation Jun 10 2014 9:18AM Deep vein thrombosis:history of Jun 10 2014 9:18AM 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 Jun 12 2014 8:29AM [...] 2:55PM Intellectual disability Aug 06 2014 2:55PM half-way 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 Aug 20 2014 1:24PM Atrial Fibrillation Aug 20 2014 1:24PM Deep vein thrombosis:history of Aug 20 2014 1:24PM 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 Aug 29 2014 3:30PM Atrial Fibrillation Aug 29 2014 3:30PM Deep vein thrombosis:history of Aug 29 2014 3:30PM half-way 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 Sep 05 2014 1:08PM Atrial Fibrillation Sep 05 2014 1:08PM Deep vein thrombosis:history of Sep 05 2014 1:08PM half-way 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 Sep 13 2014 12:03PM Atrial Fibrillation Sep 13 2014 12:03PM Deep vein thrombosis:history of Sep 13 2014 12:03PM half-way 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 Sep 05 2014 1:06PM Hip pain Sep 05 2014 1:06PM Neck pain Sep 05 2014 1:06PM History of DVT (deep vein thrombosis) Sep 05 2014 1:06PM Low Back Pain Oct 09 2014 8:35AM Migraine Oct 09 2014 8:35AM Depressive Disorder Oct 09 2014 8:35AM Nausea Oct 09 2014 8:35AM Cervicalgia Oct 09 2014 8:35AM half-way 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 Oct 30 2014 3:06PM Atrial Fibrillation Oct 30 2014 3:06PM Deep vein thrombosis:history of Oct 30 2014 3:06PM half-way 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 Nov 07 2014 3:54PM Atrial Fibrillation Nov 07 2014 3:54PM Deep vein thrombosis:history of Nov 07 2014 3:54PM Cough Dec 02 2014 11:37AM Bronchitis, Acute Dec 02 2014 11:37AM Abdominal Pain, Generalized Dec 06 2014 11:21AM Constipation Dec 06 2014 11:21AM 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 Dec 12 2014 9:25AM [...] 2014 9:04AM Menorrhagia Jan 09 2015 11:30AM 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 Jan 13 2015 11:28AM Atrial Fibrillation Jan 13 2015 11:28AM Deep vein thrombosis:history of Jan 13 2015 11:28AM Menorrhagia with regular cycle Jan 27 2015 10:44AM Moderate Female pelvic pain Jan 27 2015 10:44AM Moderate Dysmenorrhea Jan 27 2015 10:44AM 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 Feb 03 2015 1:34PM [...] to cognitive limitations Apr 23 2015 1:32PM half-way 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 May 01 2015 2:57PM Atrial Fibrillation May 01 2015 2:57PM Deep vein thrombosis:history of May 01 2015 2:57PM half-way 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 May 06 2015 3:28PM Atrial Fibrillation May 06 2015 3:28PM Deep vein thrombosis:history of May 06 2015 3:28PM 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 May 07 2015 9:50AM Atrial Fibrillation May 07 2015 9:50AM Deep vein thrombosis:history of May 07 2015 9:50AM Cough May 23 2015 10:51AM Bronchitis, Acute May 23 2015 10:51AM Post-nasal drainage May 23 2015 10:51AM Smoker unmotivated to quit May 23 2015 10:51AM 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 May 29 2015 2:16PM [...] 2:42PM Medication management May 05 2016 2:42PM Payers Insurance Name Company Name Plan Name Plan Number Policy Number Policy Group Number Start Date [facility] [id number] N/A History of Encounters Visit Date Visit Type Provider 05/05/2016 Office visit FRANCISCO JAVIER MORAN 04/13/2016 Office visit FRANCISCO JAVIER MORAN 03/30/2016 Office visit FRANCISCO JAVIER MORAN 03/25/2016 Office visit FRANCISCO JAVIER MORAN 02/24/2016 Office visit FRANCISCO JAVIER MORAN 02/20/2016 Office visit FRANCISCO JAVIER MORAN 02/10/2016 Office visit FRANCISCO JAVIER MORAN 01/26/2016 Office visit FRANCISCO JAVIER OMRAN 01/08/2016 Office visit FRANCISCO JAVIER MORAN 11/25/2015 Office visit FRANCISCO JAVIER MORAN 10/17/2015 Office visit FRANCISCO JAVIER MORAN 09/26/2015 Office visit FRANCISCO JAVIER MORAN 09/02/2015 Office visit FRANCISCO JAVIER MORAN 06/27/2015 Office visit FRANCISCO JAVIER MORAN 06/17/2015 Office visit FRANCISCO JAVIER MORAN 06/10/2015 Office visit FRANCISCO JAVIER MORAN 05/29/2015 Office visit FRANCISCO JAVIER ESPINAL PA 05/23/2015 Office visit FRANCISCO JAVIER ESPINAL PA 05/01/2015 Office visit FRANCISCO JAVIER ESPINAL PA 04/25/2015 Voided FRANCISCO JAVIER ESPINAL PA 04/23/2015 Hospital Jermaine Chappell MD 04/23/2015 Office visit FRANCISCO JAVIER ESPINAL PA 04/14/2015 Office visit FRANCISCO JAVIER ESPINAL PA 04/09/2015 Office visit FRANCISCO JAVIER ESPINAL PA 04/03/2015 Office visit FRANCISCO JAVIER ESPINAL PA 03/06/2015 Office visit FRANCISCO JAVIER ESPINAL PA 02/03/2015 Office visit FRANCISCO JAVIER MORAN 01/27/2015 Office visit FRANCISCO JAVIER ESPINAL PA 01/13/2015 Office visit FRANCISCO JAVIER MORAN 01/09/[address] Marielos Rosa MD 12/30/[address] Marielos Rosa MD 12/27/2014 Office visit 12/27/2014 Office visit 12/27/2014 Office visit Aruna Albert APRN 12/27/2014 Office visit FRANCISCO JAVIER MORAN 12/12/2014 Office visit FRANCISCO JAVIER MORAN 12/06/2014 Office visit FRANCISCO JAVIER ESPINAL PA 12/02/2014 Office visit FRANCISCO JAVIER ESPINAL PA 10/30/2014 Office visit FRANCISCO JAVIER ESPINAL PA 10/18/2014 Office visit FRANCISCO JAVIER MORAN 10/09/2014 Office visit FRANCISCO JAVIER ESPINAL PA [...] JAVIER ESPINAL PA 05/13/2014 Voided FRANCISCO JAVIER MORAN 05/06/2014 Office visit FRANCISCO JAVIER MORAN 05/03/2014 [facility] Aruna Koehler MD 04/25/2014 Office visit [...] 12/23/2008 Office visit Tian Basilio MD 12/17/2008 [facility] Tian Basilio MD 12/13/2008 Office visit Tian Basilio MD 12/06/2008 Office visit Tian Basilio MD 11/29/2008 Office visit Tian Basilio MD 11/15/2008 Office visit Tian Basilio MD 11/01/2008 Office visit Tian Basilio MD 10/18/2008 Office visit Tian Basilio MD
--- OUTSIDE RECORDS SUMMARY | 2017-05-11 12:44 | XMS REPORT ---
Author Author FRANCISCO JAVIER ESPINAL [facility] Address [address] [place], [place] [id number] Care Team Providers Care Tire Changer Name Role Phone FRANCISCO JAVIER ESPINAL PCP [...] by oral route 3 times per day [place] 5-325 mg oral tablet 09/02/2015 take 1 tablet by oral route every 6 hours as needed for pain cyclobenzaprine 10 mg oral tablet 09/19/2015 TAKE ONE TABLET BY MOUTH THREE TIMES DAILY Lasix 20 mg oral tablet 10/06/2015 take 1 tablet (20 mg) by oral route once daily hydroxyzine HCl 25 mg oral tablet 10/16/2015 TAKE ONE OR TWO TABLETS BY MOUTH UP TO FOUR TIMES A DAY IF NEEDED cyclobenzaprine 10 mg oral tablet 11/17/2015 TAKE ONE TABLET BY MOUTH THREE TIMES DAILY Macrobid 100 mg oral capsule 11/25/2015 12/02/2015 take 1 capsule (100 mg) by oral route every 12 hours with food for 7 days Name Start Date Expiration Date SIG Comments [...] HC BMI BSA BMI Percentile O2 Sat(%) 11/25/2015 3:47:00 PM 110 mmHg 78 mmHg [...] 12:00 AM Decadron, Per 1 Mg [facility]# [address]-07 Reviewed 05/01/2015 12:00 AM CAPILLARY BLOOD DRAW Reviewed 03/06/2015 12:00 AM CAPILLARY BLOOD DRAW Reviewed 05/07/2015 12:00 AM CAPILLARY BLOOD DRAW Reviewed 05/23/2015 12:00 AM Decadron, Per 1 Mg [facility]# [address]-79 Reviewed 05/29/2015 12:00 AM CAPILLARY BLOOD DRAW Reviewed 06/17/2015 12:00 AM EXTREMITY STUDY Returned 09/02/2015 12:00 AM Decadron, Per 1 Mg [place]# [address]-32 Reviewed 09/02/2015 12:00 AM Rocephin 1 gram ND#5698-0970-50 Reviewed 09/02/2015 12:00 AM Toradol 60 Mg ND#7239-4394-98 Reviewed 09/26/2015 12:00 AM Decadron, Per 1 Mg ND# [address]-50 Reviewed 09/26/2015 12:00 AM Phenergan, Up to 50 Mg [facility]#7207-2909-16 Reviewed 03/28/2014 12:00 AM COMPLETE CBC W/AUTO [...] 12:00 AM Decadron, Per 1 Mg [facility]# [address]-93 Reviewed 07/23/2014 12:00 AM Depo-Medrol, Per 80 Mg [facility]#0006[address]-47 Reviewed 07/23/2014 12:00 AM Rocephin 1 gram ND#0909-2891-63 Reviewed 08/20/2014 12:00 AM CAPILLARY BLOOD DRAW Reviewed 08/29/2014 12:00 AM CAPILLARY BLOOD DRAW Reviewed 09/05/2014 12:00 AM CAPILLARY BLOOD DRAW Reviewed 09/13/2014 12:00 AM CAPILLARY BLOOD DRAW Reviewed 10/09/2014 12:00 AM Decadron, Per 1 Mg [place]# [address]-56 Reviewed 10/09/2014 12:00 AM Toradol 60 Mg [facility]#2708-6102-32 Reviewed 10/09/2014 12:00 AM Phenergan, Up to 50 Mg [facility]#0270-5242-27 Reviewed 10/30/2014 12:00 AM CAPILLARY BLOOD DRAW Reviewed Results Summary Data and Description Results 03/28/2014 3:47 PM GLUCOSE 76.0 mg/dLSODIUM 145.0 mmol/LPOTASSIUM 4.80 mmol/ LCHLORIDE 105.0 mmol/LCO2 25.0 mmol/LBUN 13.0 mg/dLCREATININE 0.70 mg/dLSGOT/ AST 14.0 IU/LSGPT/ALT 12.0 IU/LALK PHOS 72.0 IU/LTOTAL PROTEIN 7.60 g/dLALBUMIN 4.40 g/dLTOTAL BILI 0.20 mg/dLCALCIUM 10.0 mg/dLeGFR >60 mL/min/1.73 [id number] 241.0 mg/dLCHOLESTEROL 248.0 mg/dLHDL 51.0 mg/dLLDL (CALC) [...] 2014 10:47AM Anxiety Mar 28 2014 10:10AM 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 Mar 28 2014 10:10AM [...] 2 to 3 May 16 2014 10:57AM custodial 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 May 20 2014 11:14AM DVT (deep venous thrombosis), left May 20 2014 11:14AM custodial 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 May 30 2014 7:44AM Atrial Fibrillation May 30 2014 7:44AM Deep vein thrombosis:history of May 30 2014 7:44AM custodial 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 Jun 10 2014 9:18AM Atrial Fibrillation Jun 10 2014 9:18AM Deep vein thrombosis:history of Jun 10 2014 9:18AM custodial 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 Jun 12 2014 8:29AM [...] 2:55PM Intellectual disability Aug 06 2014 2:55PM custodial 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 Aug 20 2014 1:24PM Atrial Fibrillation Aug 20 2014 1:24PM Deep vein thrombosis:history of Aug 20 2014 1:24PM 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 Aug 29 2014 3:30PM Atrial Fibrillation Aug 29 2014 3:30PM Deep vein thrombosis:history of Aug 29 2014 3:30PM 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 Sep 05 2014 1:08PM Atrial Fibrillation Sep 05 2014 1:08PM Deep vein thrombosis:history of Sep 05 2014 1:08PM custodial 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 Sep 13 2014 12:03PM Atrial Fibrillation Sep 13 2014 12:03PM Deep vein thrombosis:history of Sep 13 2014 12:03PM 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 Sep 05 2014 1:06PM Hip pain Sep 05 2014 1:06PM Neck pain Sep 05 2014 1:06PM History of DVT (deep vein thrombosis) Sep 05 2014 1:06PM Low Back Pain Oct 09 2014 8:35AM Migraine Oct 09 2014 8:35AM Depressive Disorder Oct 09 2014 8:35AM Nausea Oct 09 2014 8:35AM Cervicalgia Oct 09 2014 8:35AM 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 Oct 30 2014 3:06PM Atrial Fibrillation Oct 30 2014 3:06PM Deep vein thrombosis:history of Oct 30 2014 3:06PM custodial 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 Nov 07 2014 3:54PM Atrial Fibrillation Nov 07 2014 3:54PM Deep vein thrombosis:history of Nov 07 2014 3:54PM Cough Dec 02 2014 11:37AM Bronchitis, Acute Dec 02 2014 11:37AM Abdominal Pain, Generalized Dec 06 2014 11:21AM Constipation Dec 06 2014 11:21AM custodial 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 Dec 12 2014 9:25AM [...] 2014 9:04AM Menorrhagia Jan 09 2015 11:30AM custodial 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 Jan 13 2015 11:28AM Atrial Fibrillation Jan 13 2015 11:28AM Deep vein thrombosis:history of Jan 13 2015 11:28AM Menorrhagia with regular cycle Jan 27 2015 10:44AM Moderate Female pelvic pain Jan 27 2015 10:44AM Moderate Dysmenorrhea Jan 27 2015 10:44AM 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 Feb 03 2015 1:34PM [...] to cognitive limitations Apr 23 2015 1:32PM custodial 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 May 01 2015 2:57PM Atrial Fibrillation May 01 2015 2:57PM Deep vein thrombosis:history of May 01 2015 2:57PM 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 May 06 2015 3:28PM Atrial Fibrillation May 06 2015 3:28PM Deep vein thrombosis:history of May 06 2015 3:28PM 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 May 07 2015 9:50AM Atrial Fibrillation May 07 2015 9:50AM Deep vein thrombosis:history of May 07 2015 9:50AM Cough May 23 2015 10:51AM Bronchitis, Acute May 23 2015 10:51AM Post-nasal drainage May 23 2015 10:51AM Smoker unmotivated to quit May 23 2015 10:51AM 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 Marielos Rosa MD 12/30/[address] Marielos Rosa MD 12/27/2014 Office visit 12/27/2014 Office visit 12/27/2014 Office visit Jessi Blake APRN 12/27/2014 Office visit FRANCISCO JAVIER ESPINAL PA 12/12/2014 Office visit FRANCISCO JAVIER MORAN 12/06/2014 Office visit FRANCISCO JAVIER ESPINAL PA 12/02/2014 Office visit FRANCISCO JAVIER ESPINAL PA 10/30/2014 Office visit FRANCISCO JAVIER ESPINAL PA 10/18/2014 Office visit FRANCISCO JAVIER ESPINAL PA 10/09/2014 Office visit FRANCISCO JAVIER MORAN 10/04/2014 Voided FRANCISCO JAVIER ESPINAL PA 09/20/2014 Voided FRANCISCO JAVIER ESPINAL PA 09/13/2014 Office visit FRANCISCO JAVIER ESPINAL PA 09/05/2014 Office visit 09/05/2014 Office visit FRANCISCO JAVIER ESPINAL PA 08/06/2014 Office visit FRANCISCO JAVIER ESPINAL PA 08/03/2014 [facility] Jermaine Chappell MD 07/23/2014 Office visit 07/23/2014 Office visit FRANCISCO JAVIER ESPINAL PA 07/08/2014 Office visit FRANCISCO JAVIER ESPINAL PA 06/24/2014 Office visit FRANCISCO JAVIER ESPINAL PA 06/12/2014 Office visit FRANCISCO JAVIER ESPINAL PA 06/10/2014 Office visit FRANCISCO JAVIER ESPINAL PA 05/27/2014 Office visit FRANCISCO JAVIER ESPINAL PA 05/20/2014 Office visit FRANCISCO JAVIER MORAN 05/16/2014 Office visit FRANCISCO JAVIER MORAN 05/13/2014 Voided FRANCISCO JAVIER MORAN 05/06/2014 Office visit FRANCISCO JAVIER MORAN 05/03/2014 [facility] Jessi Koehler MD 04/25/2014 Office visit FRANCISCO JAVIER MORAN 04/01/2014 Office visit Jessi Blake APRN 03/28/2014 Office visit FRANCISCO JAVIER MORAN 02/26/2014 Office visit FRANCISCO JAVIER MORAN 05/20/2010 Office visit Francisco Javier Espinal PA-C 04/16/2009 Office visit Francisco Javier Espinal PA-C 01/24/2009 Office visit Tian Basilio MD 12/31/2008 Office visit Tian Basiilo MD 12/23/2008 Office visit Tian Basilio MD 12/17/2008 [facility] Tian Basilio MD 12/13/2008 Office visit Tian Basilio MD 12/06/2008 Office visit Tian Basilio MD 11/29/2008 Office visit Tian Basilio MD 11/15/2008 Office visit Tian Basilio MD 11/01/2008 Office visit Tian Basilio MD 10/18/2008 Office visit Tian Basilio MD
[2017-05-11] MEDS ORDERED: fentaNYL INJECTION 100 MCG/2 ML AMP IVP ONE (12:45)
--- OUTSIDE RECORDS SUMMARY | 2017-05-11 12:45 | XMS REPORT ---
Author FRANCISCO JAVIER Bateman [facility] Address [address] [place], [place] [id number] Care Team Providers Care Gasket Former Name Role Phone FRANCISCO JAVIER ESPINAL PCP Unavailable Allergies and Adverse Reactions Name Reaction Notes No known drug allergy Plan of Treatment Planned Activity Comments Planned Date Planned Time Plan/Goal Injection, Subcutaneous/IM 03/29/2016 12:00 AM Injection,Subcutaneous/Intramuscul, [facility] Medicaid 04/17/2016 12:00 AM XR cervical spine, 2-3 views 04/20/2016 12:00 AM Lumbar Spine 2-3 Views - Main 04/20/2016 12:00 AM Medications Active Name Start Date Estimated Completion [...] TAKE ONE TABLET BY MOUTH TWICE DAILY Magness 5-325 mg oral tablet 02/20/2016 take 1 tablet by oral route every 6 hours as needed for pain Xarelto 20 mg oral tablet 03/10/2016 TAKE ONE TABLET BY MOUTH ONCE DAILY WITH EVENING MEAL baclofen 10 mg oral tablet 04/06/2016 take 1 tablet (10 mg) by oral route 3 times per day PRN muscle spasm dicyclomine 10 mg oral capsule 04/15/2016 take 1 capsule (10 mg) by oral route 3 times per day for 30 days Name Start Date Expiration Date SIG [...] 30 days alprazolam 0.5 mg oral tablet 08/07/201402/22 to 1 TID PRN panic attack Cipro [...] 2 times per day for 10 days Discontinued Name Start Date Discontinued Date [...] ONE TABLET BY MOUTH THREE TIMES DAILY Problem List Description Status Onset Panic attack [...] esophagitis Active 01/31/2016 Uses marijuana Active 04/17/2016 Vital Signs Date Time BP-Sys(mm[Hg] BP-Diana(mm[Hg]) HR(bpm) RR(rpm) Temp WT HT HC BMI BSA BMI Percentile O2 Sat(%) 04/14/2016 2:06:00 PM 110 mmHg 78 mmHg [...] 04/12/2015 12:00 AM Decadron, Per 1 Mg [facility]# [address]-76 Reviewed 05/01/2015 12:00 AM CAPILLARY BLOOD DRAW Reviewed 03/06/2015 12:00 AM CAPILLARY BLOOD DRAW Reviewed 05/07/2015 12:00 AM CAPILLARY BLOOD DRAW Reviewed 05/23/2015 12:00 AM Decadron, Per 1 Mg [facility]# [address]-97 Reviewed 05/29/2015 12:00 AM CAPILLARY BLOOD DRAW Reviewed 06/17/2015 12:00 AM EXTREMITY STUDY Returned 09/02/2015 12:00 AM Decadron, Per 1 Mg [facility]# [address]-66 Reviewed 09/02/2015 12:00 AM Rocephin 1 gram [facility]#6536-9327-69 Reviewed 09/02/2015 12:00 AM Toradol 60 Mg [facility]#5947-8292-63 Reviewed 09/26/2015 12:00 AM Decadron, Per 1 Mg [facility]# [address]-30 Reviewed 09/26/2015 12:00 AM Phenergan, Up to 50 Mg [facility]#9208-2846-44 Reviewed 02/20/2016 12:00 AM DRAINAGE OF SKIN ABSCESS Reviewed 02/10/2016 12:00 AM Phenergan 50mg Injection Reviewed 02/10/2016 12:00 AM THER/PROPH/DIAG INJ SC/IM Reviewed 03/25/2016 12:00 AM THERAPEUTIC PROPHYLACTIC/DX INJECTION SUBQ/IM Reviewed 03/25/2016 12:00 AM Decadron 8mg Injection, [facility] Medicaid Reviewed 03/25/2016 12:00 AM Depo-Medrol 80 Mg Injection, [facility] Medicaid Reviewed 03/25/2016 12:00 AM Rocephin 1 gram Injection, [facility] Medicaid Reviewed 03/28/2014 12:00 AM COMPLETE CBC W/AUTO [...] 07/23/2014 12:00 AM Decadron, Per 1 Mg [facility]# [address]-69 Reviewed 07/23/2014 12:00 AM Depo-Medrol, Per 80 Mg [facility]#8422-6104-25 Reviewed 07/23/2014 12:00 AM Rocephin 1 gram [facility]#1476-9418-98 Reviewed 08/20/2014 12:00 AM CAPILLARY BLOOD DRAW Reviewed 08/29/2014 12:00 AM CAPILLARY BLOOD DRAW Reviewed 09/05/2014 12:00 AM CAPILLARY BLOOD DRAW Reviewed 09/13/2014 12:00 AM CAPILLARY BLOOD DRAW Reviewed 10/09/2014 12:00 AM Decadron, Per 1 Mg [facility]# [address]-55 Reviewed 10/09/2014 12:00 AM Toradol 60 Mg [facility]#9095-7510-69 Reviewed 10/09/2014 12:00 AM Phenergan, Up to 50 Mg [facility]#3432-9277-75 Reviewed 10/30/2014 12:00 AM CAPILLARY BLOOD DRAW [...] secsINR 1.9 PTT 36.80 secsCALLED TO/BY ARUNA ALBERT/[facility] 12/30/2014 10:57 AM WBC 9.4 RBC [...] disease without esophagitis 01/31/2016 Uses marijuana 04/17/2016 Anxiety Disorder Feb 26 2014 10:47AM Depressive Disorder Feb 26 2014 10:47AM Panic attack as reaction to stress Feb 26 2014 10:47AM Mental retardation Feb 26 2014 10:47AM Anger Feb 26 2014 10:47AM Anxiety Mar 28 2014 10:10AM manager terminal use of drug Mar 28 2014 10:10AM [...] 2 to 3 May 16 2014 10:57AM manager terminal 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 May 20 2014 11:14AM DVT (deep venous thrombosis), left May 20 2014 11:14AM [facility] 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 May 30 2014 7:44AM Atrial Fibrillation May 30 2014 7:44AM Deep vein thrombosis:history of May 30 2014 7:44AM manager terminal 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 Jun 10 2014 9:18AM Atrial Fibrillation Jun 10 2014 9:18AM Deep vein thrombosis:history of Jun 10 2014 9:18AM manager terminal 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 Jun 12 2014 8:29AM [...] 2:55PM Intellectual disability Aug 06 2014 2:55PM [facility] 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 Aug 20 2014 1:24PM Atrial Fibrillation Aug 20 2014 1:24PM Deep vein thrombosis:history of Aug 20 2014 1:24PM manager terminal 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 Aug 29 2014 3:30PM Atrial Fibrillation Aug 29 2014 3:30PM Deep vein thrombosis:history of Aug 29 2014 3:30PM manager terminal 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 Sep 05 2014 1:08PM Atrial Fibrillation Sep 05 2014 1:08PM Deep vein thrombosis:history of Sep 05 2014 1:08PM [facility] 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 Sep 13 2014 12:03PM Atrial Fibrillation Sep 13 2014 12:03PM Deep vein thrombosis:history of Sep 13 2014 12:03PM manager terminal 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 Sep 05 2014 1:06PM Hip pain Sep 05 2014 1:06PM Neck pain Sep 05 2014 1:06PM History of DVT (deep vein thrombosis) Sep 05 2014 1:06PM Low Back Pain Oct 09 2014 8:35AM Migraine Oct 09 2014 8:35AM Depressive Disorder Oct 09 2014 8:35AM Nausea Oct 09 2014 8:35AM Cervicalgia Oct 09 2014 8:35AM manager terminal 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 Oct 30 2014 3:06PM Atrial Fibrillation Oct 30 2014 3:06PM Deep vein thrombosis:history of Oct 30 2014 3:06PM [facility] 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 Nov 07 2014 3:54PM Atrial Fibrillation Nov 07 2014 3:54PM Deep vein thrombosis:history of Nov 07 2014 3:54PM Cough Dec 02 2014 11:37AM Bronchitis, Acute Dec 02 2014 11:37AM Abdominal Pain, Generalized Dec 06 2014 11:21AM Constipation Dec 06 2014 11:21AM manager terminal 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 Dec 12 2014 9:25AM [...] 2014 9:04AM Menorrhagia Jan 09 2015 11:30AM manager terminal 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 Jan 13 2015 11:28AM Atrial Fibrillation Jan 13 2015 11:28AM Deep vein thrombosis:history of Jan 13 2015 11:28AM Menorrhagia with regular cycle Jan 27 2015 10:44AM Moderate Female pelvic pain Jan 27 2015 10:44AM Moderate Dysmenorrhea Jan 27 2015 10:44AM manager terminal 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 Feb 03 2015 1:34PM [...] to cognitive limitations Apr 23 2015 1:32PM [facility] 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 May 01 2015 2:57PM Atrial Fibrillation May 01 2015 2:57PM Deep vein thrombosis:history of May 01 2015 2:57PM manager terminal 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 May 06 2015 3:28PM Atrial Fibrillation May 06 2015 3:28PM Deep vein thrombosis:history of May 06 2015 3:28PM manager terminal 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 May 07 2015 9:50AM Atrial Fibrillation May 07 2015 9:50AM Deep vein thrombosis:history of May 07 2015 9:50AM Cough May 23 2015 10:51AM Bronchitis, Acute May 23 2015 10:51AM Post-nasal drainage May 23 2015 10:51AM Smoker unmotivated to quit May 23 2015 10:51AM [facility] 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 May 29 2015 2:16PM [...] Lumbar back pain Apr 20 2016 4:19PM Payers Insurance Name Company Name Plan Name Plan Number Policy Number Policy Group Number Start Date [facility] [id number] N/A History of Encounters Visit Date Visit Type Provider 04/13/2016 Office visit FRANCISCO JAVIER MORAN 03/30/2016 [...] FRANCISCO JAVIER MORAN 04/25/2015 Voided FRANCISCO JAVIER ESPINAL PA 04/23/2015 [...] Office visit 09/05/2014 Office visit FRANCISCO JAVIER SEPINAL PA 08/06/2014 Office visit FRANCISCO JAVIER ESPINAL PA 08/03/2014 [facility] Jermaine Chappell MD 07/23/2014 Office visit 07/23/2014 Office visit FRANCISCO JAVIER ESPINAL PA 07/08/2014 Office visit FRANCISCO JAVIER ESPINAL PA 06/24/2014 Office visit FRANCISCO JAVIER ESPINAL PA 06/12/2014 Office visit FRANCISCO JAVIER ESPINLA PA 06/10/2014 Office visit FRANCISCO JAVIER ESPINAL PA 05/27/2014 Office visit FRANCISCO JAVIER ESPINAL PA 05/20/2014 Office visit FRANCISCO JAVIER ESPINAL PA 05/16/2014 Office visit FRANCISCO JAVIER ESPINAL PA 05/13/2014 Voided FRANCISCO JAVIER ESPINAL PA 05/06/2014 Office visit FRANCISCO JAVIER MORAN 05/03/2014 Hospital Aruna Koehler MD 04/25/2014 Office visit FRANCISCO JAVIER ESPINAL PA 04/01/2014 Office visit Aruna Albert APRN 03/28/2014 Office visit FRANCISCO JAVIER MORAN 02/26/2014 Office visit FRANCISCO JAVIER MORAN 05/20/2010 Office visit Francisco Javier Espinal PA-C 04/16/2009 Office visit Francisco Javier Espinal PA-C 01/24/2009 Office visit Tian Basilio MD 12/31/2008 Office visit Tian Basilio MD 12/23/2008 Office visit Tian Basilio MD 12/17/2008 [facility] Tian Basilio MD 12/13/2008 Office visit Tian Basilio MD 12/06/2008 Office visit Tian Basilio MD 11/29/2008 Office visit Tian Basilio MD 11/15/2008 Office visit Tian Basilio MD 11/01/2008 Office visit Tian Basilio MD 10/18/2008 Office visit Tian Basilio MD
--- OUTSIDE RECORDS SUMMARY | 2017-05-11 12:46 | XMS REPORT ---
Author Author Jessi Blake [facility] Address [address] [place], [place] [id number] Care Team Providers Care Dental Aide Name Role Phone Jessi Blake PCP Unavailable Allergies and Adverse Reactions Name Reaction Notes codeine sulfate Plan of Treatment Planned Activity Comments Planned Date Planned Time Plan/Goal ASSAY OF GONADOTROPIN (LH) 12/27/2014 12:00 AM ASSAY OF PROLACTIN 12/27/2014 12:00 AM PROTHROMBIN TIME 12/27/2014 12:00 AM THROMBOPLASTIN TIME PARTIAL 12/27/2014 12:00 AM SELF-MGMT EDUC & TRAIN 1 PT 12/27/2014 12:00 AM Medications Active Name Start Date [...] day warfarin 5 mg oral tablet 06/05/2014 one daily as directed citalopram 20 mg oral tablet 06/07/2014 take 2 tablets (40 mg) by oral route once daily buspirone 10 mg oral tablet 08/12/2014 take 1 tablet (10 mg) by oral route 3 times per day citalopram 20 mg oral tablet 10/21/2014 take 2 tablets (40 mg) by oral route once daily warfarin 4 mg oral tablet 11/25/2014 take 1 tablet (4 mg) by oral route once daily cyclobenzaprine 10 mg oral tablet 12/12/2014 01/11/2015 take 1 tablet (10 mg ) by oral route 3 times per day [...] to exceed 30 mL in 24 hours Problem List Description Status Onset Panic attack [...] HC BMI BSA BMI Percentile O2 Sat(%) 12/27/2014 9:25:00 AM 120 mmHg 80 mmHg [...] THYROID STIM HORMONE Returned 12/27/2014 12:00 AM ASSAY OF GONADOTROPIN ([facility]) Returned 03/28/2014 12:00 AM COMPLETE CBC W/AUTO DIFF [...] 07/23/2014 12:00 AM Decadron, Per 1 Mg [facility]# [address]-35 Reviewed 07/23/2014 12:00 AM Depo-Medrol, Per 80 Mg [facility]#8253-3412-13 Reviewed 07/23/2014 12:00 AM Rocephin 1 gram [facility]#6239-9277-75 Reviewed 08/20/2014 12:00 AM CAPILLARY BLOOD DRAW Reviewed 08/29/2014 12:00 AM CAPILLARY BLOOD DRAW Reviewed 09/05/2014 12:00 AM CAPILLARY BLOOD DRAW Reviewed 09/13/2014 12:00 AM CAPILLARY BLOOD DRAW Reviewed 10/09/2014 12:00 AM Decadron, Per 1 Mg [facility]# [address]-91 Reviewed 10/09/2014 12:00 AM Toradol 60 Mg [facility]#1298-3450-68 Reviewed 10/09/2014 12:00 AM Phenergan, Up to 50 Mg [facility]#2228-7510-79 Reviewed 10/30/2014 12:00 AM CAPILLARY BLOOD DRAW Reviewed Results Summary Data and Description Results 03/28/2014 3:47 PM GLUCOSE 76.0 mg/dLSODIUM 145.0 mmol/LPOTASSIUM 4.80 mmol/ LCHLORIDE 105.0 mmol/LCO2 25.0 mmol/LBUN 13.0 mg/dLCREATININE 0.70 mg/dLSGOT/ AST 14.0 IU/LSGPT/ALT 12.0 IU/LALK PHOS 72.0 IU/LTOTAL PROTEIN 7.60 g/dLALBUMIN 4.40 g/dLTOTAL BILI 0.20 mg/dLCALCIUM 10.0 mg/dLeGFR >60 mL/min/1.73 [id number] 241.0 mg/dLCHOLESTEROL 248.0 mg/dLHDL 51.0 mg/dLLDL (CALC) [...] 2014 10:47AM Anxiety Mar 28 2014 10:10AM rn long term care use of drug Mar 28 2014 [...] 2 to 3 May 16 2014 10:57AM intermediate 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 May 20 2014 11:14AM DVT (deep venous thrombosis), left May 20 2014 11:14AM rn long 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 May 30 2014 7:44AM Atrial Fibrillation May 30 2014 7:44AM Deep vein thrombosis:history of May 30 2014 7:44AM intermediate 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 Jun 10 2014 9:18AM Atrial Fibrillation Jun 10 2014 9:18AM Deep vein thrombosis:history of Jun 10 2014 9:18AM intermediate 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 Jun 12 2014 8:29AM [...] 2:55PM Intellectual disability Aug 06 2014 2:55PM intermediate 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 Aug 20 2014 1:24PM Atrial Fibrillation Aug 20 2014 1:24PM Deep vein thrombosis:history of Aug 20 2014 1:24PM intermediate 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 Aug 29 2014 3:30PM Atrial Fibrillation Aug 29 2014 3:30PM Deep vein thrombosis:history of Aug 29 2014 3:30PM rn long 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 Sep 05 2014 1:08PM Atrial Fibrillation Sep 05 2014 1:08PM Deep vein thrombosis:history of Sep 05 2014 1:08PM intermediate 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 Sep 13 2014 12:03PM Atrial Fibrillation Sep 13 2014 12:03PM Deep vein thrombosis:history of Sep 13 2014 12:03PM intermediate 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 Sep 05 2014 1:06PM Hip pain Sep 05 2014 1:06PM Neck pain Sep 05 2014 1:06PM History of DVT (deep vein thrombosis) Sep 05 2014 1:06PM Low Back Pain Oct 09 2014 8:35AM Migraine Oct 09 2014 8:35AM Depressive Disorder Oct 09 2014 8:35AM Nausea Oct 09 2014 8:35AM Cervicalgia Oct 09 2014 8:35AM rn long 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 Oct 30 2014 3:06PM Atrial Fibrillation Oct 30 2014 3:06PM Deep vein thrombosis:history of Oct 30 2014 3:06PM intermediate 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 Nov 07 2014 3:54PM Atrial Fibrillation Nov 07 2014 3:54PM Deep vein thrombosis:history of Nov 07 2014 3:54PM Cough Dec 02 2014 11:37AM Bronchitis, Acute Dec 02 2014 11:37AM Abdominal Pain, Generalized Dec 06 2014 11:21AM Constipation Dec 06 2014 11:21AM intermediate 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 Dec 12 2014 9:25AM Atrial Fibrillation Dec 12 2014 9:25AM Deep vein thrombosis:history of Dec 12 2014 9:25AM Menorrhagia Dec 27 2014 10:50AM Menorrhagia Dec 27 2014 9:34AM Dysmenorrhea Dec 27 2014 9:34AM Payers Insurance Name Company Name Plan Name Plan Number Policy Number Policy Group Number Start Date [facility] [id number] N/A History of Encounters Visit Date Visit Type Provider 12/27/2014 Office visit Jessi Blake MAIL ORDER BILLER 12/27/2014 Office visit FRANCISCO JAVIER MORAN 12/12/2014 [...] FRANCISCO JAVIER ESPINAL PA 09/05/2014 Office visit FRANCISCO JAVIER ESPINAL PA 08/06/2014 Office visit FRANCISCO JAVIER ESPINAL PA 08/03/2014 [facility] Jermaine Chappell MD 07/23/2014 Office visit FRANCISCO JAVIER ESPINAL PA [...] Office visit FRANCISCO JAVIER ESPINAL PA 05/03/2014 [facility] Jessi Koehler MD 04/25/2014 Office visit FRANCISCO JAVIER ESPINAL PA 04/01/2014 Office visit Jessi Blake APRN 03/28/2014 Office visit FRANCISCO JAVIER ESPINAL PA 02/26/2014 Office visit FRANCISCO JAVIER ESPINAL PA 05/20/2010 Office visit Francisco Javier Espinal PA-C 04/16/2009 Office visit Francisco Javier Espinal PA-C 01/24/2009 Office visit Tian Basilio MD 12/31/2008 Office visit Tian Basilio MD 12/23/2008 Office visit Tian Basilio MD 12/17/2008 [facility] Tian Basilio MD 12/13/2008 Office visit Tian Basilio MD 12/06/2008 Office visit Tian Basilio MD 11/29/2008 Office visit Tian Basilio MD 11/15/2008 Office visit Tian Basilio MD 11/01/2008 Office visit Tian Basilio MD 10/18/2008 Office visit Tian Basilio MD
--- OUTSIDE RECORDS SUMMARY | 2017-05-11 12:46 | XMS REPORT ---
Author LENORE Yu [facility] eClinicalWorks Address Unknown Phone Unavailable Care Team Providers Care Air Liaison And Special Staff Name Role Phone LEONRE ALBERT Unavailable Allergies, Adverse Reactions, Alerts Substance Reaction Event Type N.K.D.A. Info Not Available Non Drug Allergy Problems Problem Type Condition ICD-9 Code Onset Dates Condition Status Problem Dysmenorrhea 625.3 Active Problem Persistent disorder of initiating or maintaining sleep 307.42 Active Problem Excessive or frequent menstruation 626.2 Active Problem Neck sprain and strain 847.[address] of occurrence, home E849.0 Active Problem Lumbago 724.2 Active Problem Abnormal involuntary movements 781.0 Active Problem Leukorrhea, not specified as infective 623.5 Active Problem Diarrhea 787.91 Active Problem Migraine, unspecified without mention of intractable migraine without mention of status migrainosus 346.90 Active Assessment Neck pain 723.1 Active Assessment Sciatica 724.3 Active Problem Unspecified contraceptive management V25.9 Active Medications Medication Code System Code Instructions Start Date End Date Status Dosage Bentyl [facility] [address]-09 10 MG Orally Four times a day 1 capsule Warfarin Sodium [facility] [address]-88 4 MG Orally Once a day 1 tablet Cyclobenzaprine HCl [facility] [address]-44 10 MG Orally Three times a day Oct 24, 2014 Nov 23, 2014 1 tablet HydrOXYzine HCl [facility] [address]-09 25 MG Orally every 8 hrs 1 tablet as needed BusPIRone HCl [facility] [address]-73 10 MG Orally Twice a day 1 tablet Xanax [facility] [address]-58 0.5 MG Orally Three times a day 1 tablet Citalopram Hydrobromide [facility] [address]-89 20 MG Orally Once a day 1 tablet Procedures Procedure Coding System Code Date Office Visit, Est Pt., Level 3 CPT-4 31280 Oct 24, 2014 Vital Signs Date/Time: Oct 24, 2014 Temperature 98.8 F Weight 122.2 lbs Height 65 in BMI 20.33 Index Blood Pressure Diastolic 60 mmHg Blood Pressure Systolic 98 mmHg Cardiac Monitoring Heart Rate 80 bpm Results No Known Results Summary Purpose eClinicalWorks Submission
--- OUTSIDE RECORDS SUMMARY | 2017-05-11 12:46 | XMS REPORT ---
Author Author [employer] [facility] Medical Staff Organization [facility] Address [address] [place], [place] [address] Phone [phone] Summary purpose TRANSITION OF CARE AUTO GENERATION Chief Complaint and Reason for Visit No authorized Reason for Visit (Admitting Diagnosis) is available for this visit. Problem list No authorized problems tracked for continuity of care are available for this visit. Encounters No authorized problems tracked for encounter diagnoses are available for this visit. Medications No medications recorded for this patient visit Allergies, adverse reactions, alerts Allergen Category Ingredient Status Reaction Severity Onset Codeine Drug Allergy Codeine Confirmed or Verified Immunizations No immunizations recorded for this patient visit Relevant diagnostic tests and/or laboratory data RESULTS Reference Lab (Sendout) [id number]:00 Result Normal Range Units Trichomonas NOT DETECTED NOT DETECTED Gardnerella NOT DETECTED NOT DETECTED Vivian NOT DETECTED NOT DETECTED TEST PERFORMED AT: [email or web address] [place] [address] [place] [address] XIMENA MATOS DO,MPH History of procedures Procedure Code Code Type Description Date Performed Performing Physician 09511 CPT-4 VIVIAN, DNA, DIR PROBE 03-03-2015 CANDELARIA CASEY 46453 CPT-4 GUZMAN VAG, DNA, DIR PROBE 03-03-2015 CANDELARIA CASEY 55812 CPT-4 TRICHOMONAS VAGIN, DIR PROBE 03-03-2015 CANDELARIA CASEY Functional status No functional or cognitive status observations are available for this visit. Vital signs No authorized vital signs are available for this visit. Social history No Social History or smoking status observations were recorded for this visit. ( Unknown if ever smoked.) Treatment Plan No treatment plan text is available for this visit. Hospital discharge instructions No discharge instruction text is available for this visit.
--- OUTSIDE RECORDS SUMMARY | 2017-05-11 12:47 | XMS REPORT ---
Author Author [facility] Organization [facility] Address [address] [place], [place] [address] Care Team Providers Care Tubing Supervisor Name Role Phone PCP Unavailable Allergies and [...] oral route once daily for 28 days buspirone oral tablet 10 mg 05/06/2014 take 1 tablet (10 mg) by oral route 3 times per day warfarin oral tablet 5 mg 06/05/2014 one [...] HC BMI BSA BMI Percentile O2 Sat(%) 06/12/2014 8:29:00 AM 110 mmHg 60 mmHg [...] 06/10/2014 12:00 AM CAPILLARY BLOOD DRAW Reviewed Results Summary Data and Description Results 03/28/2014 3:47 PM GLUCOSE 76.0 mg/dLSODIUM 145.0 mmol/LPOTASSIUM 4.80 mmol/ LCHLORIDE 105.0 mmol/LCO2 25.0 mmol/LBUN 13.0 mg/dLCREATININE 0.70 mg/dLSGOT/ AST 14.0 IU/LSGPT/ALT 12.0 IU/LALK PHOS 72.0 IU/LTOTAL PROTEIN 7.60 g/dLALBUMIN 4.40 g/dLTOTAL BILI 0.20 mg/dLCALCIUM 10.0 mg/dLeGFR >60 mL/min/1.73 [id number] 241.0 mg/dLCHOLESTEROL 248.0 mg/dLHDL 51.0 mg/dLLDL (CAL[facility]) [...] 2014 10:47AM Anxiety Mar 28 2014 10:10AM assistant terminal manager use of drug Mar 28 2014 10:10AM [...] 2 to 3 May 16 2014 10:57AM 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 May 20 2014 11:14AM DVT (deep venous thrombosis), left May 20 2014 11:14AM long-term 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 May 30 2014 7:44AM Atrial Fibrillation May 30 2014 7:44AM Deep vein thrombosis:history of May 30 2014 7:44AM 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 Jun 10 2014 9:18AM Atrial Fibrillation Jun 10 2014 9:18AM Deep vein thrombosis:history of Jun 10 2014 9:18AM long-term 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 Jun 12 2014 8:29AM Panic attack as reaction to stress Jun 12 2014 8:29AM History of DVT (deep vein thrombosis) Jun 12 2014 8:29AM 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 History of Encounters Visit Date Visit Type Provider 06/12/2014 Office visit FRANCISCO JAVIER MORAN 06/10/2014 Office visit FRANCISCO JAVIER MORAN 05/27/2014 Office visit FRANCISCO JAVIER MORAN 05/20/2014 Office visit FRANCISCO JAVIER MORAN 05/16/2014 Office visit FRANCISCO JAVIER MORAN 05/13/2014 Voided FRANCISCO JAVIER MORAN 05/06/2014 Office visit FRANCISCO JAVIER MORAN 05/03/2014 [facility] Jessi Koehler MD 04/25/2014 Office visit FRANCISCO JAVIER MORAN 04/01/2014 Office visit Jessi Blake APRN 03/28/2014 Office visit FRANCISCO JAVIER MORAN 02/26/2014 Office visit FRANCISCO JAVIER MORAN 05/20/2010 Office visit Francisco Javier DARLINGC 04/16/2009 Office visit Francisco Javier DARLINGC 01/24/2009 Office visit Tian Basilio MD 12/31/2008 Office visit Tian Basilio MD 12/23/2008 Office visit Tian Basilio MD 12/17/2008 [facility] Tian Basilio MD 12/13/2008 Office visit Tian Basilio MD 12/06/2008 Office visit Tian Basilio MD 11/29/2008 Office visit Tian Basilio MD 11/15/2008 Office visit Tian Basilio MD 11/01/2008 Office visit Tian Basilio MD 10/18/2008 Office visit Tian Basilio MD
--- OUTSIDE RECORDS SUMMARY | 2017-05-11 12:48 | XMS REPORT ---
Author Author FRANCISCO JAVIER ESPINAL [facility] Address [address] [place], [place] [address] Care Team Providers Care Computer Systems Architect Name Role Phone FRANCISCO JAVIER ESPINAL PCP [...] route 4 times a day as needed warfarin 5 mg oral tablet 06/05/2014 one daily as directed citalopram 20 mg oral tablet 06/07/2014 take 2 tablets (40 mg) by oral route once daily buspirone 10 mg oral tablet 08/12/2014 take 1 tablet (10 mg) by oral route 3 times per day ibuprofen 800 mg oral tablet 12/31/2014 take 1 tablet by oral route Q8H while on your cycle warfarin 4 mg oral tablet 02/24/2015 take 2 tablet (4 mg) by oral route once daily [place] 5-325 mg oral tablet 04/14/2015 take 1 tablet by oral route every 6 hours as needed for pain cyclobenzaprine 10 mg oral tablet 04/14/2015 take 1 tablet (10 mg) by oral route 3 times per day for 30 days Keflex 500 mg oral capsule 04/14/2015 Take one capsule 3 times a day atenolol 25 mg oral tablet 04/24/2015 05/24/2015 take 1 tablet (25 mg) by oral [...] 30 days prednisone 20 mg oral tablet 04/09/2015 04/17/2015 4x2 days 3x2 days 2x2 days 1x2 days Discontinued Name Start Date Discontinued Date SIG Comments diclofenac sodium 75 mg oral tablet,delayed release (DR/EC) 03/30/20142014 take 1 tablet (75 mg) by oral route 2 times per day Problem List Description Status Onset Panic [...] HC BMI BSA BMI Percentile O2 Sat(%) 04/23/2015 1:32:00 PM 125 mmHg 80 mmHg [...] 04/12/2015 12:00 AM Decadron, Per 1 Mg ND# [address]-29 Reviewed 05/01/2015 12:00 AM CAPILLARY BLOOD DRAW Reviewed 03/06/2015 12:00 AM CAPILLARY BLOOD DRAW Reviewed 05/07/2015 12:00 AM CAPILLARY BLOOD DRAW Reviewed 03/28/2014 12:00 AM COMPLETE CBC W/AUTO [...] 07/23/2014 12:00 AM Decadron, Per 1 Mg NDC# [address]-44 Reviewed 07/23/2014 12:00 AM Depo-Medrol, Per 80 Mg [facility]#2443-2969-30 Reviewed 07/23/2014 12:00 AM Rocephin 1 gram [facility]#4229-7313-61 Reviewed 08/20/2014 12:00 AM CAPILLARY BLOOD DRAW Reviewed 08/29/2014 12:00 AM CAPILLARY BLOOD DRAW Reviewed 09/05/2014 12:00 AM CAPILLARY BLOOD DRAW Reviewed 09/13/2014 12:00 AM CAPILLARY BLOOD DRAW Reviewed 10/09/2014 12:00 AM Decadron, Per 1 Mg [facility]# [address]-13 Reviewed 10/09/2014 12:00 AM Toradol 60 Mg [facility]#3457-6238-67 Reviewed 10/09/2014 12:00 AM Phenergan, Up to 50 Mg [facility]#8364-0671-74 Reviewed 10/30/2014 12:00 AM CAPILLARY BLOOD DRAW Reviewed Results Summary Data and Description Results 03/28/2014 3:47 PM GLUCOSE 76.0 mg/dLSODIUM 145.0 mmol/LPOTASSIUM 4.80 mmol/ LCHLORIDE 105.0 mmol/LCO2 25.0 mmol/LBUN 13.0 mg/dLCREATININE 0.70 mg/dLSGOT/ AST 14.0 IU/LSGPT/ALT 12.0 IU/LALK PHOS 72.0 IU/LTOTAL PROTEIN 7.60 g/dLALBUMIN 4.40 g/dLTOTAL BILI 0.20 mg/dLCALCIUM 10.0 mg/dLeGFR >60 mL/min/1.73 [id number] 241.0 mg/dLCHOLESTEROL 248.0 mg/dLHDL 51.0 mg/dLLDL (CALC) [...] 2014 10:47AM Anxiety Mar 28 2014 10:10AM 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 Mar 28 2014 10:10AM [...] 2 to 3 May 16 2014 10:57AM [facility] 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 May 20 2014 11:14AM DVT (deep venous thrombosis), left May 20 2014 11:14AM [facility] 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 May 30 2014 7:44AM Atrial Fibrillation May 30 2014 7:44AM Deep vein thrombosis:history of May 30 2014 7:44AM lobsterman 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 Jun 10 2014 9:18AM Atrial Fibrillation Jun 10 2014 9:18AM Deep vein thrombosis:history of Jun 10 2014 9:18AM [facility] 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 Jun 12 2014 8:29AM [...] 2:55PM Intellectual disability Aug 06 2014 2:55PM [facility] 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 Aug 20 2014 1:24PM Atrial Fibrillation Aug 20 2014 1:24PM Deep vein thrombosis:history of Aug 20 2014 1:24PM [facility] 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 Aug 29 2014 3:30PM Atrial Fibrillation Aug 29 2014 3:30PM Deep vein thrombosis:history of Aug 29 2014 3:30PM [facility] 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 Sep 05 2014 1:08PM Atrial Fibrillation Sep 05 2014 1:08PM Deep vein thrombosis:history of Sep 05 2014 1:08PM lobsterman 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 Sep 13 2014 12:03PM Atrial Fibrillation Sep 13 2014 12:03PM Deep vein thrombosis:history of Sep 13 2014 12:03PM lobsterman 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 Sep 05 2014 1:06PM Hip pain Sep 05 2014 1:06PM Neck pain Sep 05 2014 1:06PM History of DVT (deep vein thrombosis) Sep 05 2014 1:06PM Low Back Pain Oct 09 2014 8:35AM Migraine Oct 09 2014 8:35AM Depressive Disorder Oct 09 2014 8:35AM Nausea Oct 09 2014 8:35AM Cervicalgia Oct 09 2014 8:35AM [facility] 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 Oct 30 2014 3:06PM Atrial Fibrillation Oct 30 2014 3:06PM Deep vein thrombosis:history of Oct 30 2014 3:06PM lobsterman 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 Nov 07 2014 3:54PM Atrial Fibrillation Nov 07 2014 3:54PM Deep vein thrombosis:history of Nov 07 2014 3:54PM Cough Dec 02 2014 11:37AM Bronchitis, Acute Dec 02 2014 11:37AM Abdominal Pain, Generalized Dec 06 2014 11:21AM Constipation Dec 06 2014 11:21AM lobsterman 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 Dec 12 2014 9:25AM [...] 2014 9:04AM Menorrhagia Jan 09 2015 11:30AM lobsterman 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 Jan 13 2015 11:28AM Atrial Fibrillation Jan 13 2015 11:28AM Deep vein thrombosis:history of Jan 13 2015 11:28AM Menorrhagia with regular cycle Jan 27 2015 10:44AM Moderate Female pelvic pain Jan 27 2015 10:44AM Moderate Dysmenorrhea Jan 27 2015 10:44AM lobsterman 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 Feb 03 2015 1:34PM [...] to cognitive limitations Apr 23 2015 1:32PM lobsterman 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 May 01 2015 2:57PM Atrial Fibrillation May 01 2015 2:57PM Deep vein thrombosis:history of May 01 2015 2:57PM lobsterman 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 May 06 2015 3:28PM Atrial Fibrillation May 06 2015 3:28PM Deep vein thrombosis:history of May 06 2015 3:28PM lobsterman 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 May 07 2015 9:50AM Atrial Fibrillation May 07 2015 9:50AM Deep vein thrombosis:history of May 07 2015 9:50AM Payers Insurance Name Company Name Plan Name Plan Number Policy Number Policy Group Number Start Date [facility] [id number] N/A History of Encounters Visit Date Visit Type Provider 05/01/2015 Office visit FRANCISCO JAVIER MORAN 04/25/2015 Voided FRANCISCO JAVIER MORAN 04/23/2015 Office visit FRANCISCO JAVIER MORAN 04/14/2015 [...] FRANCISCO JAVIER MORAN 09/20/2014 Voided FRANCISCO JAVIER MORAN 09/13/2014 Office visit FRANCISCO JAVIER MORAN 09/05/2014 Office visit 09/05/2014 Office visit FRANCISCO JAVIER MORAN 08/06/2014 Office visit FRANCISCO JAVIER MORAN 08/03/2014 Akosua Chappell MD 07/23/2014 Office visit 07/23/2014 Office visit FRANCISCO JAVIER MORAN 07/08/2014 [...] Office visit FRANCISCO JAVIER ESPINAL PA 05/03/2014 [facility] Jessi Koehler MD 04/25/2014 Office visit FRANCISCO JAVIER ESPINAL PA 04/01/2014 Office visit Jessi Blkae APRN 03/28/2014 Office visit FRANCISCO JAVIER ESPINAL PA 02/26/2014 Office visit FRANCISCO JAVIER ESPINAL PA 05/20/2010 Office visit Francisco Javier Espinal PA-C 04/16/2009 Office visit Francisco Javier Espinal PA-C 01/24/2009 Office visit Tian Basilio MD 12/31/2008 Office visit Tian Basilio MD 12/23/2008 Office visit Tian Basilio MD 12/17/2008 [facility] Tian Basilio MD 12/13/2008 Office visit Tian Basilio MD 12/06/2008 Office visit Tian Basilio MD 11/29/2008 Office visit Tian Basilio MD 11/15/2008 Office visit Tian Basilio MD 11/01/2008 Office visit Tian Basilio MD 10/18/2008 Office visit Tian Basilio MD
--- OUTSIDE RECORDS SUMMARY | 2017-05-11 12:49 | XMS REPORT ---
Author Author Francisco Javier Patricio [facility] Address [address] [place], [place] [address] Care Team Providers Care Advocacy Director Name Role Phone Francisco Javier Patricio PCP [...] ONE TABLET BY MOUTH THREE TIMES DAILY [place] 5-325 mg oral tablet 02/20/2016 05/15/2016 take [...] 04/12/2015 12:00 AM Decadron, Per 1 Mg [facility]# [address]-55 Reviewed 05/01/2015 12:00 AM CAPILLARY BLOOD DRAW Reviewed 03/06/2015 12:00 AM CAPILLARY BLOOD DRAW Reviewed 05/07/2015 12:00 AM CAPILLARY BLOOD DRAW Reviewed 05/23/2015 12:00 AM Decadron, Per 1 Mg [facility]# [address]-97 Reviewed 05/29/2015 12:00 AM CAPILLARY BLOOD DRAW Reviewed 06/17/2015 12:00 AM EXTREMITY STUDY Returned 09/02/2015 12:00 AM Decadron, Per 1 Mg [facility]# [address]-29 Reviewed 09/02/2015 12:00 AM Rocephin 1 gram [facility]#7191-4063-07 Reviewed 09/02/2015 12:00 AM Toradol 60 Mg [facility]#1430-2600-39 Reviewed 09/26/2015 12:00 AM Decadron, Per 1 Mg [facility]# [address]-94 Reviewed 09/26/2015 12:00 AM Phenergan, Up to 50 Mg [facility]#6754-7569-54 Reviewed 02/20/2016 12:00 AM DRAINAGE OF SKIN ABSCESS Reviewed 02/10/2016 12:00 AM Phenergan 50mg Injection Reviewed 02/10/2016 12:00 AM THER/PROPH/DIAG INJ SC/IM Reviewed 03/25/2016 12:00 AM THERAPEUTIC PROPHYLACTIC/DX INJECTION SUBQ/IM Reviewed 03/25/2016 12:00 AM Decadron 8mg Injection, [facility] Medicaid Reviewed 03/25/2016 12:00 AM Depo-Medrol 80 Mg Injection, [facility] Medicaid Reviewed 03/25/2016 12:00 AM Rocephin 1 gram Injection, [facility] Medicaid Reviewed 03/29/2016 12:00 AM THER/PROPH/DIAG INJ SC/IM Reviewed 03/29/2016 12:00 AM Decadron 8mg Injection Reviewed 03/29/2016 12:00 AM Depo-Medrol 80mg Injection Reviewed 03/29/2016 12:00 AM Rocephin 1 gram Injection Reviewed 03/27/2016 12:00 AM BEHAV CHNG SMOKING 3-10 MIN Reviewed 03/30/2016 12:00 AM Toradol 60 Mg Injection, [facility] Medicaid Reviewed 03/30/2016 12:00 AM Phenergan 50mg Injection, [facility] Medicaid Reviewed 04/17/2016 12:00 AM THERAPEUTIC PROPHYLACTIC/DX [...] 07/23/2014 12:00 AM Decadron, Per 1 Mg [facility]# [address]-52 Reviewed 07/23/2014 12:00 AM Depo-Medrol, Per 80 Mg [facility]#6424-7588-25 Reviewed 07/23/2014 12:00 AM Rocephin 1 gram [facility]#1037-6587-96 Reviewed 08/20/2014 12:00 AM CAPILLARY BLOOD DRAW Reviewed 08/29/2014 12:00 AM CAPILLARY BLOOD DRAW Reviewed 09/05/2014 12:00 AM CAPILLARY BLOOD DRAW Reviewed 09/13/2014 12:00 AM CAPILLARY BLOOD DRAW Reviewed 10/09/2014 12:00 AM Decadron, Per 1 Mg [facility]# [address]-74 Reviewed 10/09/2014 12:00 AM Toradol 60 Mg [facility]#5491-6784-88 Reviewed 10/09/2014 12:00 AM Phenergan, Up to 50 Mg [facility]#8765-0841-83 Reviewed 10/30/2014 12:00 AM CAPILLARY BLOOD DRAW [...] secsINR 1.9 PTT 36.80 secsCALLED TO/BY [facility] 12/30/2014 10:57 AM WBC 9.4 RBC [...] 2014 10:47AM Anxiety Mar 28 2014 10:10AM 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 Mar 28 2014 10:10AM [...] 2 to 3 May 16 2014 10:57AM 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 May 20 2014 11:14AM DVT (deep venous thrombosis), left May 20 2014 11:14AM 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 May 30 2014 7:44AM Atrial Fibrillation May 30 2014 7:44AM Deep vein thrombosis:history of May 30 2014 7:44AM care home 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 Jun 10 2014 9:18AM Atrial Fibrillation Jun 10 2014 9:18AM Deep vein thrombosis:history of Jun 10 2014 9:18AM care home 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 Jun 12 2014 8:29AM [...] 2:55PM Intellectual disability Aug 06 2014 2:55PM care home 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 Aug 20 2014 1:24PM Atrial Fibrillation Aug 20 2014 1:24PM Deep vein thrombosis:history of Aug 20 2014 1:24PM care home 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 Aug 29 2014 3:30PM Atrial Fibrillation Aug 29 2014 3:30PM Deep vein thrombosis:history of Aug 29 2014 3:30PM 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 Sep 05 2014 1:08PM Atrial Fibrillation Sep 05 2014 1:08PM Deep vein thrombosis:history of Sep 05 2014 1:08PM care home 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 Sep 13 2014 12:03PM Atrial Fibrillation Sep 13 2014 12:03PM Deep vein thrombosis:history of Sep 13 2014 12:03PM care home 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 Sep 05 2014 1:06PM Hip pain Sep 05 2014 1:06PM Neck pain Sep 05 2014 1:06PM History of DVT (deep vein thrombosis) Sep 05 2014 1:06PM Low Back Pain Oct 09 2014 8:35AM Migraine Oct 09 2014 8:35AM Depressive Disorder Oct 09 2014 8:35AM Nausea Oct 09 2014 8:35AM Cervicalgia Oct 09 2014 8:35AM 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 Oct 30 2014 3:06PM Atrial Fibrillation Oct 30 2014 3:06PM Deep vein thrombosis:history of Oct 30 2014 3:06PM 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 Nov 07 2014 3:54PM Atrial Fibrillation Nov 07 2014 3:54PM Deep vein thrombosis:history of Nov 07 2014 3:54PM Cough Dec 02 2014 11:37AM Bronchitis, Acute Dec 02 2014 11:37AM Abdominal Pain, Generalized Dec 06 2014 11:21AM Constipation Dec 06 2014 11:21AM care home 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 Dec 12 2014 9:25AM [...] 2014 9:04AM Menorrhagia Jan 09 2015 11:30AM 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 Jan 13 2015 11:28AM Atrial Fibrillation Jan 13 2015 11:28AM Deep vein thrombosis:history of Jan 13 2015 11:28AM Menorrhagia with regular cycle Jan 27 2015 10:44AM Moderate Female pelvic pain Jan 27 2015 10:44AM Moderate Dysmenorrhea Jan 27 2015 10:44AM 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 Feb 03 2015 1:34PM [...] to cognitive limitations Apr 23 2015 1:32PM care home 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 May 01 2015 2:57PM Atrial Fibrillation May 01 2015 2:57PM Deep vein thrombosis:history of May 01 2015 2:57PM 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 May 06 2015 3:28PM Atrial Fibrillation May 06 2015 3:28PM Deep vein thrombosis:history of May 06 2015 3:28PM care home 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 May 07 2015 9:50AM Atrial Fibrillation May 07 2015 9:50AM Deep vein thrombosis:history of May 07 2015 9:50AM Cough May 23 2015 10:51AM Bronchitis, Acute May 23 2015 10:51AM Post-nasal drainage May 23 2015 10:51AM Smoker unmotivated to quit May 23 2015 10:51AM 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 May 29 2015 2:16PM [...] 2016 1:11PM Bruise Jun 08 2016 1:11PM care home current use of anticoagulant Jun 08 2016 1:11PM Anxiety about health Jun 08 2016 1:11PM Pelvic pain in female Jun 21 2016 11:44AM Incisional hernia without mention of obstruction or gangrene Jun 21 2016 11: 44AM Severe Acute Incisional hernia of anterior abdominal wall without obstruction or gangrene Unresponsive to treatment Jun 22 2016 3:16PM Payers Insurance Name Company Name Plan Name Plan Number Policy Number Policy Group Number Start Date [facility] [id number] N/A History of Encounters Visit Date Visit Type Provider 06/21/2016 Office visit Francisco Javier Patricio MD 06/21/2016 Office visit FRANCISCO JAVIER MORAN 06/08/2016 Office visit FRANCISCO JAVIER MORAN 05/24/2016 Office visit FRANCISCO JAVIER MORAN 05/05/2016 Office visit FRANCISCO JAVIER MORAN 04/13/2016 Office visit FRANCISCO JAVIER MOARN 03/30/2016 Office visit FRANCISCO JAVIER ESPINAL PA [...] ESPINAL PA 06/10/2015 Office visit FRANCISCO JAVIER MORAN 05/29/2015 Office visit FRANCISCO JAVIER ESPINAL PA 05/23/2015 Office visit FRANCISCO JAVIER MORAN 05/01/2015 Office visit FRANCISCO JAVIER MORAN 04/25/2015 Voided FRANCISCO JAVIER ESPINAL PA 04/23/2015 [facility] Jermaine Chappell MD 04/23/2015 Office visit FRANCISCO [...] 12/27/2014 Office visit 12/27/2014 Office visit Aruna Alebrt APRN 12/27/2014 Office visit FRANCISCO JAVIER MORAN 12/12/2014 Office visit FRANCISCO JAVIER MORAN 12/06/2014 Office visit FRANCISCO JAVIER MORAN 12/02/2014 Office visit FRANCISCO JAVIER MORAN 10/30/2014 Office visit FRANCISCO JAVIER ESPINAL PA 10/18/2014 Office visit FRANCISCO JAVIER MORAN 10/09/2014 Office visit FRANCISCO JAVIER ESPINAL PA 10/04/2014 Voided FRANCISCO JAVIER ESPINAL PA 09/20/2014 Voided FRANCISCO JAVIER ESPINAL PA 09/13/2014 Office visit FRANCISCO JAVIER ESPINAL PA 09/05/2014 Office visit 09/05/2014 Office visit FRANCISCO JAVIER ESPINAL PA 08/06/2014 Office visit FRANCISCO JAVIER ESPINAL PA 08/03/2014 [facility] Jermaine Chappell MD 07/23/2014 Office visit 07/23/2014 Office visit FRANCISCO JAVIER ESPINAL PA 07/08/2014 Office visit FRANCISCO JAVIER ESPINAL PA 06/24/2014 Office visit FRANCISCO JAVIER ESPINAL PA 06/12/2014 Office visit FRANCISCO JAVIER ESPINAL PA 06/10/2014 Office visit FRANCISCO JAVIER ESPINAL PA 05/27/2014 Office visit FRANCISCO JAVIER ESPINAL PA 05/20/2014 Office visit FRANCISCO JAVIER ESIPNAL PA 05/16/2014 Office visit FRANCISCO JAVIER ESPINAL PA 05/13/2014 Voided FRANCISCO JAVIER ESPINAL PA 05/06/2014 Office visit FRANCISCO JAVIER ESPINAL PA 05/03/2014 [facility] Aruna Koehler MD 04/25/2014 Office visit FRANCISCO JAVIER ESPINAL PA 04/01/2014 Office visit Aruna Albert APRN 03/28/2014 Office visit FRANCISCO JAVIER ESPINAL PA 02/26/2014 Office visit FRANCISCO JAVIER EPSINAL PA 05/20/2010 Office visit Francisco Javier Espinal PA-C 04/16/2009 Office visit Francisco Javier Espinal PA-C 01/24/2009 Office visit Tian Baislio MD 12/31/2008 Office visit Tian Basilio MD [...]
--- OUTSIDE RECORDS SUMMARY | 2017-05-11 12:50 | XMS REPORT ---
Author Author Marielos Rosa Organization [facility] Address [address] [place], [place] [address] Care Team Providers Care Book Binder Name Role Phone Marielos Rosa PCP Unavailable Allergies and Adverse Reactions Name Reaction Notes No known drug allergy Plan of Treatment Planned Activity Comments Planned Date Planned Time Plan/Goal ASSAY OF GONADOTROPIN (LH) 12/27/2014 12:00 AM SELF-MGMT EDUC & TRAIN 1 PT 12/27/2014 12:00 AM US EXAM PELVIC COMPLETE 01/03/2015 12:00 AM TRANSVAGINAL US NON-OB 01/03/2015 12:00 AM Medications Active Name Start Date [...] per day warfarin 4 mg oral tablet 11/25/2014 take 1 tablet (4 mg) by oral route once daily cyclobenzaprine 10 mg oral tablet 12/12/2014 01/11/2015 take 1 tablet (10 mg ) by oral route 3 times per day for 30 days citalopram 20 mg oral tablet 12/30/2014 take 2 tablets (40 mg) by oral [...] to exceed 30 mL in 24 hours Discontinued Name Start Date Discontinued Date SIG [...] HC BMI BSA BMI Percentile O2 Sat(%) 12/30/2014 9:34:00 AM 12 mmHg 81 mmHg [...] (FSH) Returned 12/27/2014 12:00 AM ASSAY OF PROLACTIN Returned 12/27/2014 12:00 AM PROTHROMBIN TIME Returned 12/27/2014 12:00 AM THROMBOPLASTIN TIME PARTIAL Returned 03/28/2014 12:00 AM COMPLETE CBC W/AUTO [...] THER/PROPH/DIAG INJ SC/IM Reviewed 07/23/2014 12:00 AM Decadarmando, Per 1 Mg [facility]# [address]-09 Reviewed 07/23/2014 12:00 AM Depo-Medrol, Per 80 Mg [facility]#6109-9731-18 Reviewed 07/23/2014 12:00 AM Rocephin 1 gram [facility]#1706-6895-78 Reviewed 08/20/2014 12:00 AM CAPILLARY BLOOD DRAW Reviewed 08/29/2014 12:00 AM CAPILLARY BLOOD DRAW Reviewed 09/05/2014 12:00 AM CAPILLARY BLOOD DRAW Reviewed 09/13/2014 12:00 AM CAPILLARY BLOOD DRAW Reviewed 10/09/2014 12:00 AM Decadron, Per 1 Mg [facility]# [address]-60 Reviewed 10/09/2014 12:00 AM Toradol 60 Mg [facility]#7485-5884-58 Reviewed 10/09/2014 12:00 AM Phenergan, Up to 50 Mg [facility]#8968-1085-16 Reviewed 10/30/2014 12:00 AM CAPILLARY BLOOD DRAW Reviewed Results Summary Data and Description Results 03/28/2014 3:47 PM GLUCOSE 76.0 mg/dLSODIUM 145.0 mmol/LPOTASSIUM 4.80 mmol/ LCHLORIDE 105.0 mmol/LCO2 25.0 mmol/LBUN 13.0 mg/dLCREATININE 0.70 mg/dLSGOT/ AST 14.0 IU/LSGPT/ALT 12.0 IU/LALK PHOS 72.0 IU/LTOTAL PROTEIN 7.60 g/dLALBUMIN 4.40 g/dLTOTAL BILI 0.20 mg/dLCALCIUM 10.0 mg/dLeGFR >60 mL/min/1.73 [id number] 241.0 mg/dLCHOLESTEROL 248.0 mg/dLHDL 51.0 mg/dLLDL (CALC) [...] 2014 10:47AM Anxiety Mar 28 2014 10:10AM 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 Mar 28 2014 10:10AM [...] venous thrombosis), left May 20 2014 11:14AM 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 May 30 2014 7:44AM Atrial Fibrillation May 30 2014 7:44AM Deep vein thrombosis:history of May 30 2014 7:44AM [facility] 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 Jun 10 2014 9:18AM [...] 2:55PM Intellectual disability Aug 06 2014 2:55PM 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 Aug 20 2014 1:24PM [...] vein thrombosis:history of Sep 05 2014 1:08PM [facility] 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 Sep 13 2014 12:03PM Atrial Fibrillation Sep 13 2014 12:03PM Deep vein thrombosis:history of Sep 13 2014 12:03PM [facility] use of anticoagulants Sep 05 2014 1:06PM Hip pain Sep 05 2014 1:06PM Neck pain Sep 05 2014 1:06PM History of DVT (deep vein thrombosis) Sep 05 2014 1:06PM Low Back Pain Oct 09 2014 8:35AM Migraine Oct 09 2014 8:35AM Depressive Disorder Oct 09 2014 8:35AM Nausea Oct 09 2014 8:35AM Cervicalgia Oct 09 2014 8:35AM 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 Oct 30 2014 3:06PM Atrial Fibrillation Oct 30 2014 3:06PM Deep vein thrombosis:history of Oct 30 2014 3:06PM 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 Nov 07 2014 3:54PM Atrial Fibrillation Nov 07 2014 3:54PM Deep vein thrombosis:history of Nov 07 2014 3:54PM Cough Dec 02 2014 11:37AM Bronchitis, Acute Dec 02 2014 11:37AM Abdominal Pain, Generalized Dec 06 2014 11:21AM Constipation Dec 06 2014 11:21AM [facility] use of anticoagulants Dec 12 2014 9:25AM Atrial Fibrillation Dec 12 2014 9:25AM Deep vein thrombosis:history of Dec 12 2014 9:25AM Menorrhagia Dec 27 2014 10:50AM Menorrhagia Dec 27 2014 9:34AM Dysmenorrhea Dec 27 2014 9:34AM Menorrhagia Dec 30 2014 10:23AM Payers Insurance Name Company Name Plan Name Plan Number Policy Number Policy Group Number Start Date [facility] [id number] N/A History of Encounters Visit Date Visit Type Provider 12/30/[address] Marielos Rosa MD 12/27/2014 Office visit Jessi Blake DIGITAL IMAGING TECHNICIAN 12/27/2014 Office visit FRANCISCO JAVIER ESPINAL PA [...] 08/06/2014 Office visit FRANCISCO JAVIER MORAN 08/03/2014 [facility] Jermaine Chappell MD 07/23/2014 Office visit FRANCISCO JAVIER MORAN 07/08/2014 Office visit FRANCISCO JAVIER MORAN 06/24/2014 Office visit FRANCISCO JAVIER MORAN 06/12/2014 Office visit FRANCISCO JAVIER MORAN 06/10/2014 Office visit FRANCISCO JAVIER ESPINAL PA 05/27/2014 Office visit FRANCISCO JAVIER ESPINAL PA 05/20/2014 Office visit FRANCISCO JAVIER MORAN 05/16/2014 Office visit FRANCISCO JAVIER ESPINAL PA 05/13/2014 Voided FRANCISCO JAVIER ESPINAL PA 05/06/2014 Office visit FRANCISCO JAVIER ESPINAL PA 05/03/2014 [facility] Jessi Koehler MD 04/25/2014 Office visit FRANCISCO JAVIER ESPINAL PA 04/01/2014 Office visit Jessi Blake DIGITAL IMAGING TECHNICIAN 03/28/2014 Office visit FRANCISCO JAVIER ESPINAL PA 02/26/2014 Office visit FRANCISCO JAVIER ESPINAL PA 05/20/2010 Office visit Francisco Javier Espinal PA-C 04/16/2009 Office visit Francisco Javier Espinal PA-C 01/24/2009 Office visit Tian Basilio MD 12/31/2008 Office visit Tian Basilio MD 12/23/2008 Office visit Tian Basilio MD 12/17/2008 [facility] Tian Basilio MD 12/13/2008 Office visit Tian Basilio MD 12/06/2008 Office visit Tian Basilio MD 11/29/2008 Office visit Tian Basilio MD 11/15/2008 Office visit Tian Basilio MD 11/01/2008 Office visit Tian Basilio MD 10/18/2008 Office visit Tian Basilio MD
--- OUTSIDE RECORDS SUMMARY | 2017-05-11 12:51 | XMS REPORT ---
Author Author [facility] Organization [facility] Address [address] [place], [place] [address] Phone [phone] Summary purpose TRANSITION OF CARE AUTO GENERATION [...] Severity Onset Codeine Drug Allergy Codeine Confirmed but Inactive No known drug allergies No known drug allergies No known drug allergies Confirmed or Verified Immunizations No immunizations recorded for this patient visit Relevant diagnostic tests and/or laboratory data RESULTS Radiology Results [id number] Endovaginal Sono PACs Image DATE OF EXAM: Mar 17 2015 [id number] SONO COMPLETE : HISTORY: \\ IMPRESSION: \\ DATE OF EXAM: Mar 17 2015 [id number] PELVIC SONO : RADIOLOGY REPORT DATE OF SERVICE: 03/17/15 HISTORY: Excessive and frequent menstrual periods. TRANSABDOMINAL PELVIC ULTRASOUND 0945 HOURS Transabdominal imaging shows normal sized uterus. Endometrial echo is normal with bilayer thickness measuring 5 mm. There are no fibroids. There is a small left ovarian cyst. The right ovary appears normal. ENDOVAGINAL PELVIC ULTRASOUND 0945 HOURS The uterus is normal in size. The endometrium shows bilayer thickness of 6 mm. Tiny amount of endometrial fluid content is present. No dominant mass is seen. There are no fibroids. The left ovary is mildly enlarged. It contains an 18 x 24 mm hypoechoic process at its caudal aspect. This shows low level echoes. It is predominantly cystic. The right ovary is normal and contains normal small follicles. IMPRESSION: 1. Atypical left ovarian cyst possibly functional hemorrhagic cyst. Endometrioma is not excluded. 2. Normal uterus. Minimal endometrial fluid content present. No endometrial thickening or mass. 3. Normal right ovary. MD LAURIE Beach/tx03/17/2015 10:14: / 03/17/2015 10:21:16 cc:Dr. Candelaria Baumann This document has been electronically Signed by: On: THIS DOCUMENT CONTAINED ACC-ITN [id number] IN THE IMPRESSION CHRISTIANSON WHICH WAS NOT FOUND TO BELONG TO THIS DOCUMENT.THE FOLLOWING RESULT MAY NOT BE CORRECT FOR THIS PATIENT/EXAM|| Result Amended on 2015-03-17 at 13:25:25. Previous status was [place]. Pelvic Sono Complete PACs Image DATE OF EXAM: Mar 17 2015 [id number] SONO COMPLETE : HISTORY: \\ IMPRESSION: \\ DATE OF EXAM: Mar 17 2015 [id number] PELVIC SONO : RADIOLOGY REPORT DATE OF SERVICE: 03/17/15 HISTORY: Excessive and frequent menstrual periods. TRANSABDOMINAL PELVIC ULTRASOUND 0945 HOURS Transabdominal imaging shows normal sized uterus. Endometrial echo is normal with bilayer thickness measuring 5 mm. There are no fibroids. There is a small left ovarian cyst. The right ovary appears normal. ENDOVAGINAL PELVIC ULTRASOUND 0945 HOURS The uterus is normal in size. The endometrium shows bilayer thickness of 6 mm. Tiny amount of endometrial fluid content is present. No dominant mass is seen. There are no fibroids. The left ovary is mildly enlarged. It contains an 18 x 24 mm hypoechoic process at its caudal aspect. This shows low level echoes. It is predominantly cystic. The right ovary is normal and contains normal small follicles. IMPRESSION: 1. Atypical left ovarian cyst possibly functional hemorrhagic cyst. Endometrioma is not excluded. 2. Normal uterus. Minimal endometrial fluid content present. No endometrial thickening or mass. 3. Normal right ovary. MD LAURIE Beach/tx03/17/2015 10:14:03/17/2015 10:21:16 cc:Dr. Candelaria Baumann This document has been electronically Signed by: On: DATE OF EXAM: Mar 17 2015 [id number] SONO COMPLETE : RADIOLOGY REPORT DATE OF SERVICE: 03/17/15 HISTORY: Excessive and frequent menstrual periods. TRANSABDOMINAL PELVIC ULTRASOUND 0945 HOURS Transabdominal imaging shows normal sized uterus. Endometrial echo is normal with bilayer thickness measuring 5 mm. There are no fibroids. There is a small left ovarian cyst. The right ovary appears normal. ENDOVAGINAL PELVIC ULTRASOUND 0945 HOURS The uterus is normal in size. The endometrium shows bilayer thickness of 6 mm. Tiny amount of endometrial fluid content is present. No dominant mass is seen. There are no fibroids. The left ovary is mildly enlarged. It contains an 18 x 24 mm hypoechoic process at its caudal aspect. This shows low level echoes. It is predominantly cystic. The right ovary is normal and contains normal small follicles. IMPRESSION: 1. Atypical left ovarian cyst possibly functional hemorrhagic cyst. Endometrioma is not excluded. 2. Normal uterus. Minimal endometrial fluid content present. No endometrial thickening or mass. 3. Normal right ovary. MD LAURIE Beach/darrell03/17/2015 10:14:03/17/2015 10:18:56 cc: This document has been electronically Signed by: On: DATE OF EXAM: Mar 17 2015 [id number] SONO COMPLETE : RADIOLOGY REPORT DATE OF SERVICE: 03/17/15 HISTORY: Excessive and frequent menstrual periods. TRANSABDOMINAL PELVIC ULTRASOUND 0945 HOURS Transabdominal imaging shows normal sized uterus. Endometrial echo is normal with bilayer thickness measuring 5 mm. There are no fibroids. There is a small left ovarian cyst. The right ovary appears normal. ENDOVAGINAL PELVIC ULTRASOUND 0945 HOURS The uterus is normal in size. The endometrium shows bilayer thickness of 6 mm. Tiny amount of endometrial fluid content is present. No dominant mass is seen. There are no fibroids. The left ovary is mildly enlarged. It contains an 18 x 24 mm hypoechoic process at its caudal aspect. This shows low level echoes. It is predominantly cystic. The right ovary is normal and contains normal small follicles. IMPRESSION: 1. Atypical left ovarian cyst possibly functional hemorrhagic cyst. Endometrioma is not excluded. 2. Normal uterus. Minimal endometrial fluid content present. No endometrial thickening or mass. 3. Normal right ovary. MD LAURIE Beach/darrell03/17/2015 10:14: / 03/17/2015 10:18:56 cc: This document has been electronically Signed by: NOELLE ZAMORA MD On: Mar 17:25P Result Amended on 2015-03-17 at 10:32:11. Previous status was [place]. Result Amended on 2015-03-17 at 13:25:31. Previous status was [place]. History of procedures Procedure Code Code Type Description Date Performed Performing Physician 96085 CPT-4 TRANSVAGINAL US NON-OB 03-17-2015 CANDELARIA CASEY 48593 CPT-4 US EXAM PELVIC COMPLETE 03-17-2015 CANDELARIA CASEY Functional status No functional or [...] discharge instruction text is available for this visit."
--- OUTSIDE RECORDS SUMMARY | 2017-05-11 12:51 | XMS REPORT ---
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 Medications Active Name Start Date Estimated Completion Date SIG Comments citalopram 20 mg oral tablet 03/30/2014 take 2 tablets (40 mg) by oral route once daily warfarin 5 mg oral tablet 06/05/2014 one [...] (4 mg) by oral route once daily Ruby 5-325 mg oral tablet 04/14/2015 take 1 [...] 2 tablet by oral route QID PRN atenolol 25 mg oral tablet 05/23/2015 07/22/2015 take 1 tablet (25 mg) by oral route 2 times per day for 30 days promethazine-codeine 6.25-10 mg/5 mL oral syrup 05/24/2015 take 5 milliliters by oral route every 4-6 hours as needed, not to exceed 30 mL in 24 hours Name Start Date Expiration Date SIG Comments [...] days alprazolam 0.5 mg oral tablet 08/07/2014 1 to 1 TID PRN panic attack Cipro [...] by oral route 2 times per day Keflex 500 mg oral capsule 04/14/2015 05/24/2015 [...] HC BMI BSA BMI Percentile O2 Sat(%) 05/23/2015 10:50:00 AM 110 mmHg 80 mmHg [...] 04/12/2015 12:00 AM Decadron, Per 1 Mg [facility]# [address]-93 Reviewed 05/01/2015 12:00 AM CAPILLARY BLOOD DRAW [...] 07/23/2014 12:00 AM Decadron, Per 1 Mg [facility]# [address]-84 Reviewed 07/23/2014 12:00 AM Depo-Medrol, Per 80 Mg [facility]#2139-4660-14 Reviewed 07/23/2014 12:00 AM Rocephin 1 gram [facility]#1648-0768-42 Reviewed 08/20/2014 12:00 AM CAPILLARY BLOOD DRAW Reviewed 08/29/2014 12:00 AM CAPILLARY BLOOD DRAW Reviewed 09/05/2014 12:00 AM CAPILLARY BLOOD DRAW Reviewed 09/13/2014 12:00 AM CAPILLARY BLOOD DRAW Reviewed 10/09/2014 12:00 AM Decadron, Per 1 Mg [facility]# [address]-13 Reviewed 10/09/2014 12:00 AM Toradol 60 Mg [facility]#6262-9143-25 Reviewed 10/09/2014 12:00 AM Phenergan, Up to 50 Mg [facility]#0175-5194-62 Reviewed 10/30/2014 12:00 AM CAPILLARY BLOOD DRAW Reviewed Results Summary Data and Description Results 03/28/2014 3:47 PM GLUCOSE 76.0 mg/dLSODIUM 145.0 mmol/LPOTASSIUM 4.80 mmol/ LCHLORIDE 105.0 mmol/LCO2 25.0 mmol/LBUN 13.0 mg/dLCREATININE 0.70 mg/dLSGOT/ AST 14.0 IU/LSGPT/ALT 12.0 IU/LALK PHOS 72.0 IU/LTOTAL PROTEIN 7.60 g/dLALBUMIN 4.40 g/dLTOTAL BILI 0.20 mg/dLCALCIUM 10.0 mg/dLeGFR >60 mL/min/1.73 [id number] 241.0 mg/dLCHOLESTEROL 248.0 mg/dLHDL 51.0 mg/dLLDL (CALC) [...] 2014 10:47AM Anxiety Mar 28 2014 10:10AM residential use of drug Mar 28 2014 10:10AM [...] 2 to 3 May 16 2014 10:57AM residential use of anticoagulants May 20 2014 11:14AM DVT (deep venous thrombosis), left May 20 2014 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 May 30 2014 7:44AM Atrial Fibrillation May 30 2014 7:44AM Deep vein thrombosis:history of May 30 2014 7:44AM 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 Jun 10 2014 9:18AM Atrial Fibrillation Jun 10 2014 9:18AM Deep vein thrombosis:history of Jun 10 2014 9:18AM residential use of anticoagulants Jun 12 2014 8:29AM [...] 2:55PM Intellectual disability Aug 06 2014 2:55PM 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 Aug 20 2014 1:24PM Atrial Fibrillation Aug 20 2014 1:24PM Deep vein thrombosis:history of Aug 20 2014 1:24PM 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 Aug 29 2014 3:30PM Atrial Fibrillation Aug 29 2014 3:30PM Deep vein thrombosis:history of Aug 29 2014 3:30PM residential use of anticoagulants Sep 05 2014 1:08PM Atrial Fibrillation Sep 05 2014 1:08PM Deep vein thrombosis:history of Sep 05 2014 1:08PM residential use of anticoagulants Sep 13 2014 12:03PM Atrial Fibrillation Sep 13 2014 12:03PM Deep vein thrombosis:history of Sep 13 2014 12:03PM residential use of anticoagulants Sep 05 2014 1:06PM Hip pain Sep 05 2014 1:06PM Neck pain Sep 05 2014 1:06PM History of DVT (deep vein thrombosis) Sep 05 2014 1:06PM Low Back Pain Oct 09 2014 8:35AM Migraine Oct 09 2014 8:35AM Depressive Disorder Oct 09 2014 8:35AM Nausea Oct 09 2014 8:35AM Cervicalgia Oct 09 2014 8:35AM residential use of anticoagulants Oct 30 2014 3:06PM Atrial Fibrillation Oct 30 2014 3:06PM Deep vein thrombosis:history of Oct 30 2014 3:06PM residential use of anticoagulants Nov 07 2014 3:54PM Atrial Fibrillation Nov 07 2014 3:54PM Deep vein thrombosis:history of Nov 07 2014 3:54PM Cough Dec 02 2014 11:37AM Bronchitis, Acute Dec 02 2014 11:37AM Abdominal Pain, Generalized Dec 06 2014 11:21AM Constipation Dec 06 2014 11:21AM residential use of anticoagulants Dec 12 2014 9:25AM [...] 2014 9:04AM Menorrhagia Jan 09 2015 11:30AM 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 Jan 13 2015 11:28AM Atrial Fibrillation Jan 13 2015 11:28AM Deep vein thrombosis:history of Jan 13 2015 11:28AM Menorrhagia with regular cycle Jan 27 2015 10:44AM Moderate Female pelvic pain Jan 27 2015 10:44AM Moderate Dysmenorrhea Jan 27 2015 10:44AM 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 Feb 03 2015 1:34PM [...] to cognitive limitations Apr 23 2015 1:32PM residential use of anticoagulants May 01 2015 2:57PM Atrial Fibrillation May 01 2015 2:57PM Deep vein thrombosis:history of May 01 2015 2:57PM residential use of anticoagulants May 06 2015 3:28PM Atrial Fibrillation May 06 2015 3:28PM Deep vein thrombosis:history of May 06 2015 3:28PM 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 May 07 2015 9:50AM Atrial Fibrillation May 07 2015 9:50AM Deep vein thrombosis:history of May 07 2015 9:50AM Cough May 23 2015 10:51AM Bronchitis, Acute May 23 2015 10:51AM Post-nasal drainage May 23 2015 10:51AM Smoker unmotivated to quit May 23 2015 10:51AM Payers Insurance Name Company Name Plan Name Plan Number Policy Number Policy Group Number Start Date [facility] [id number] N/A History of Encounters Visit Date Visit Type Provider 05/23/2015 Office visit FRANCISCO JAVIER MORAN 05/01/2015 Office visit FRANCISCO JAVIER MORAN 04/25/2015 Voided FRANCISCO JAVIER MORAN 04/23/2015 [facility] Jermaine Chappell MD 04/23/2015 Office [...] Office visit FRANCISCO JAVIER ESPINAL PA 08/03/2014 [facility] Jermaine Chappell MD 07/23/2014 Office [...] Office visit FRANCISCO JAVIER ESPINAL PA 05/03/2014 [facility] Jessi Koehler MD 04/25/2014 Office [...] 12/23/2008 Office visit Tian Basilio MD 12/17/2008 [facility] Tian Basilio MD 12/13/2008 Office visit Tian Basilio MD 12/06/2008 Office visit Tian Basilio MD 11/29/2008 Office visit Tian Basilio MD 11/15/2008 Office visit Tian Basilio MD 11/01/2008 Office visit Tian Basilio MD 10/18/2008 Office visit Tian Basilio MD
--- OUTSIDE RECORDS SUMMARY | 2017-05-11 12:52 | XMS REPORT | CCD ---
Author Author JAMES TEE Organization Unknown Address [address] [facility] [address] [place] [address] Care Team Providers Care Head Loft Worker Name Role Phone ADDIS CONTRERAS MD Attphys ADDIS CONTRERAS MD Prisurg Allergies Allergy Code Allergy Type Reaction Status No Known Drug Allergies 0 Drug allergy Active Active Medications Medication Code Dose Units Frequency Route Modification Start Date/Time busPIRone 10MG Oral Tablet 603917 10 MILLIGRAMS THREE TIMES A DAY ORAL 05/04/2014 10:54 Prescription Detail 10 MILLIGRAMS ORAL THREE TIMES A DAY CeleXA 40MG Oral Tablet 680746 40 MILLIGRAMS DAILY ORAL 05/04/2014 10:54 Prescription Detail 40 MILLIGRAMS ORAL DAILY Coumadin 5MG Oral Tablet 840897 5 MILLIGRAMS COUMADIN AT 5:00 PM BY MOUTH 05/04/2014 10:54 Prescription Detail 5 MILLIGRAMS BY MOUTH COUMADIN AT 5:00 PM Dicyclomine HCl 10MG Oral Capsule 223682 10 MILLIGRAMS THREE TIMES A DAY ORAL 05/04/2014 10:54 Prescription Detail 10 MILLIGRAMS ORAL THREE TIMES A DAY HYDROcodone bitartrate-acetaminophen 5MG-325MG Oral Tablet 908687 1 EACH NEEDED EVERY 6 HR BY MOUTH 10:54 Prescription Detail 1 EACH BY MOUTH NEEDED EVERY 6 HR HydrOXYzine HCl 25MG Oral Tablet 357992 25 MILLIGRAMS FOUR TIMES A DAY ORAL 05/04/2014 10:54 Prescription Detail 25 MILLIGRAMS ORAL FOUR TIMES A DAY Lovenox 60MG/0.6ML Injection Solution 723829 60 MILLIGRAMS EVERY 12 HOURS SUB Q 05/04/2014 10:54 Prescription Detail 60 MILLIGRAMS SUB Q EVERY 12 HOURS Problems Problem Code Start Date Resolved Date Status DVT of leg [id number] 05/03/2014 Active Procedures Procedure Code Procedure Type Date ABDOMEN ONE VIEW [id number] [facility] 04/02/2016 CX CHEST 1 VIEW [id number] [facility] 04/02/2016 RAPID DRUG SCREEN [id number] [facility] 04/02/2016 UA ROUTINE C&S IF IND [id number] [facility] 04/02/2016 C REACTIVE PROTEIN [id number] [facility] 04/02/2016 COMPREHENSIVE METABOLIC PANEL [id number] [facility] 2016 CBC W/ AUTO DIFF (RFLX MAN DIFF IF IND) [id number] [facility] 04/02/2016 TEST URINE [id number] [facility] 04/02/2016 ^UA AUTO DIPSTICK ONLY [id number] [facility] 04/02/2016 ^CBC W/AUTO DIFF [id number] [facility] 04/02/2016 Results COMPREHENSIVE METABOLIC PANEL - Collect Date/Time: 04/02/2016 16:04 Test Name Code Test Result Test Units Test Ref Range GLUCOSE 2345-7 89 MG/DL L=70 H=100 SODIUM 2951-2 137 MEQ/L L=135 H=148 POTASSIUM 2823-3 3.6 MEQ/L L=3.5 H=5.3 CHLORIDE 2075-0 108 MEQ/L L=96 H=110 CO2 2028-9 19 MEQ/L L=22 H=29 BUN 3094-0 9 MG/DL L=8 H=22 CREATININE 2160-0 0.7 MG/DL L=0.6 H=1.6 SGOT/AST 1920-8 13 IU/L L=10 H=40 SGPT/ALT 1742-6 10 IU/L L=8 H=54 ALK PHOS 6768-6 69 IU/L L=35 H=115 TOTAL PROTEIN 2885-2 7.0 G/DL L=5.5 H=8.5 ALBUMIN 1751-7 4.1 G/DL L=3.1 H=5.4 TOTAL BILI 1975-2 0.6 MG/DL L=0.0 H=1.5 CALCIUM 85363-9 9.6 MG/DL L=8.2 H=10.6 AGE 35 yrs GFR NonAA 96 GFR AA 116 eGFR >60 N/A eGFR AA* >60 N/A RAPID DRUG SCREEN - Collect Date/Time: 04/02/2016 16:50 Test Name Code Test Result Test Units Test Ref Range Cannabinoids (THC) NON-NEGATIVE N/A NEG: < 50 ng/ml Phencyclidine (PCP) NEGATIVE N/A NEG: < 25 ng/ ml Cocaine NEGATIVE N/A NEG: < 300 ng/ml Methamphetamine NEGATIVE N/A NEG: < 1000 ng/ml Opiates NEGATIVE N/A NEG: < 300 ng/ml Amphetamine NEGATIVE N/A NEG: < 1000 ng/ml Benzodiazepines NON-NEGATIVE N/A NEG: < 300 ng/ ml Tricyclic Antidepres NON-NEGATIVE N/A NEG: < 300 ng/ml Methadone NEGATIVE N/A NEG: < 300 ng/ml Barbiturates NEGATIVE N/A NEG: < 200 ng/ml Oxycodone NEGATIVE N/A NEG: < 100 ng/ml Propoxyphene (PPX) NEGATIVE N/A NEG: < 300 ng/ ml CBC W/ AUTO DIFF (RFLX MAN DIFF IF IND) - Collect Date/Time: 04/02/2016 16:04 Test Name Code Test Result Test Units Test Ref Range WBC 39990-6 7.0 TH/CMM L=4.5 H=10.8 RBC 789-8 4.82 ML/CMM L=4.20 H=5.40 HGB 718-7 14.7 G/DL L=12.0 H=16.0 HCT 4544-3 43.9 % L=37.0 H=47.0 MCV 91 FL L=81 H=99 MCH 30.5 PG L=27.0 H=33.0 MCHC 33.5 G/DL L=31.0 H=36.0 RDW SD 49 FL L=36 H=50 RDW CV 14.6 % L=0.0 H=14.8 MPV 9.1 FL L=9.3 H=12.5 PLT 777-3 276 TH/CMM L=130 H=440 NRBC# 0.00 TH/CMM L=0.00 H=0.00 NRBC% 0.0 /100WBC L=0.0 H=2.0 %NEUT 48.2 % %LYMP 41.5 % %MONO 7.0 % %EOS 2.6 % %BASO 0.6 % #NEUT 3.36 TH/CMM L=2.10 H=8.20 #LYMP 2.89 TH/CMM L=0.90 H=5.20 #MONO 0.49 TH/CMM L=0.16 H=1.00 #EOS 0.18 TH/CMM L=0.00 H=0.80 #BASO 0.04 TH/CMM L=0.00 H=0.20 MANUAL DIFF NOT IND N/A UA ROUTINE C&S IF IND - Collect Date/Time: 04/02/2016 15:55 Test Name Code Test Result Test Units Test Ref Range COLOR YELLOW N/A NL: YELLOW APPEARANCE HAZY N/A NL: CLEAR SPEC GRAV >=1.030 N/A NL: 1.002 - 1.022 pH 5.5 N/A NL: 5 - 9 PROTEIN NEGATIVE N/A NL: NEGATIVE mg/dl GLUCOSE NEGATIVE N/A NL: NEGATIVE mg/dl KETONE NEGATIVE N/A NL: NEGATIVE mg/dl BILIRUBIN NEGATIVE N/A NL: NEGATIVE BLOOD NEGATIVE N/A NL: NEGATIVE NITRITE NEGATIVE N/A NL: NEGATIVE LEUK SCREEN NEGATIVE N/A NL: NEGATIVE MICRO INDICATED? NOT INDICATED N/A C REACTIVE PROTEIN - Collect Date/Time: 04/02/2016 16:04 Test Name Code Test Result Test Units Test Ref Range C REACTIVE PROTEIN 1988-5 0.7 MG/DL L=0.0 H= 1.0 TEST URINE - Collect Date/Time: 04/02/2016 16:50 Test Name Code Test Result Test Units Test Ref Range TEST UR 2106-3 NEGATIVE N/A Function Status Unknown or Not Available. History of Immunizations Unknown or Not Available. Plan of Treatment Unknown or Not Available. Social History Smoking Status Code Start Date End Date Current every day smoker [id number] Vital Signs Unknown or Not Available. Function Status Unknown or Not Available. Goals Unknown or Not Available. ASSESSMENTS Unknown or Not Available. Health Concerns Section Unknown or Not Available.
--- OUTSIDE RECORDS SUMMARY | 2017-05-11 12:52 | XMS REPORT ---
Author Author FRANCISCO JAVIER ESPINAL [facility] Address [address] [place], [place] [address] Care Team Providers Care Field Specialist Name Role Phone FRANCISCO JAVIER ESPINAL PCP [...] (4 mg) by oral route once daily Cipro 500 mg oral tablet 12/03/2014 1 [...] HC BMI BSA BMI Percentile O2 Sat(%) 12/02/2014 11:36:00 AM 110 mmHg 70 mmHg [...] 10/18/2014 12:00 AM CAPILLARY BLOOD DRAW Reviewed 03/28/2014 [...] 12:00 AM Decadron, Per 1 Mg [facility]# [address]-40 Reviewed 07/23/2014 12:00 AM Depo-Medrol, Per 80 Mg [facility]#4358-1254-75 Reviewed 07/23/2014 12:00 AM Rocephin 1 gram [facility]#5228-0115-19 Reviewed 08/20/2014 12:00 AM CAPILLARY BLOOD DRAW Reviewed 08/29/2014 12:00 AM CAPILLARY BLOOD DRAW Reviewed 09/05/2014 12:00 AM CAPILLARY BLOOD DRAW Reviewed 09/13/2014 12:00 AM CAPILLARY BLOOD DRAW Reviewed 10/09/2014 12:00 AM Decadron, Per 1 Mg [facility]# [address]-43 Reviewed 10/09/2014 12:00 AM Toradol 60 Mg [facility]#8262-2381-05 Reviewed 10/09/2014 12:00 AM Phenergan, Up to 50 Mg [facility]#4022-5549-55 Reviewed 10/30/2014 12:00 AM CAPILLARY BLOOD DRAW Reviewed Results Summary Data and Description Results 03/28/2014 3:47 PM GLUCOSE 76.0 mg/dLSODIUM 145.0 mmol/LPOTASSIUM 4.80 mmol/ LCHLORIDE 105.0 mmol/LCO2 25.0 mmol/LBUN 13.0 mg/dLCREATININE 0.70 mg/dLSGOT/ AST 14.0 IU/LSGPT/ALT 12.0 IU/LALK PHOS 72.0 IU/LTOTAL PROTEIN 7.60 g/dLALBUMIN 4.40 g/dLTOTAL BILI 0.20 mg/dLCALCIUM 10.0 mg/dLeGFR >60 mL/min/1.73 [id number] 241.0 mg/dLCHOLESTEROL 248.0 mg/dLHDL 51.0 mg/dLLDL (CALC) [...] 2 to 3 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 May 20 2014 11:14AM DVT (deep venous thrombosis), left May 20 2014 11:14AM [facility] use of anticoagulants May 30 2014 7:44AM Atrial Fibrillation May 30 2014 7:44AM Deep vein thrombosis:history of May 30 2014 7:44AM [facility] use of anticoagulants Jun 10 2014 9:18AM Atrial Fibrillation Jun 10 2014 9:18AM Deep vein thrombosis:history of Jun 10 2014 9:18AM [facility] use of anticoagulants Jun 12 2014 8:29AM [...] 2:55PM Intellectual disability Aug 06 2014 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 History of Encounters Visit Date Visit Type Provider 12/02/2014 Office visit FRANCISCO JAVIER MORAN 10/30/2014 Office visit FRANCISCO JAVIER ESPINAL PA 10/18/2014 Office visit FRANCISCO JAVIER ESPINAL PA 10/09/2014 Office visit FRANCISCO JAVIER ESPINAL PA 10/04/2014 Voided FRANCISCO JAVIER ESPINAL PA 09/20/2014 Voided FRANCISCO JAVIER ESPINAL PA 09/13/2014 Office visit FRANCISCO JAVIER MORAN 09/05/2014 Office visit FRANCISCO JAVIER MORAN 08/06/2014 Office visit FRANCISCO JAVIER MORAN 08/03/2014 [facility] Jermaine Chappell MD 07/23/2014 Office visit FRANCISCO JAVIER MORAN 07/08/2014 Office visit FRANCISCO JAVIER MORAN 06/24/2014 Office visit FRANCISCO JAVIER MORAN 06/12/2014 Office visit FRANCISCO JAVIER ESPINAL PA 06/10/2014 Office visit FRANCISCO JAVIER MORAN 05/27/2014 Office visit FRANCISCO JAVIER MORAN 05/20/2014 Office visit FRANCISCO JAVIER MORAN 05/16/2014 Office visit FRANCISCO JAVIER MORAN 05/13/2014 Voided FRANCISCO JAVIER ESPINAL PA 05/06/2014 Office visit FRANCISCO JAVIER MORAN 05/03/2014 [facility] Jessi Koehler MD 04/25/2014 Office visit FRANCISCO JAVIER MORAN 04/01/2014 Office visit Jessi Blake APRN 03/28/2014 Office visit FRANCISCO JAVIER ESPINAL PA 02/26/2014 Office visit FRANCISCO JAVIER MORAN 05/20/2010 Office visit Francisco Javier Espinal PA-C 04/16/2009 Office visit Francisco Javier Espinal PA-C 01/24/2009 Office visit Tian Basilio MD 12/31/2008 Office visit Tian Basilio MD 12/23/2008 Office visit Tian Basilio MD 12/17/2008 [facility] Tian Basilio MD 12/13/2008 Office visit Tian Basilio MD 12/06/2008 Office visit Tian Basilio MD 11/29/2008 Office visit Tian Basilio MD 11/15/2008 Office visit Tian Basilio MD 11/01/2008 Office visit Tian Basilio MD 10/18/2008 Office visit Tian Basilio MD
--- OUTSIDE RECORDS SUMMARY | 2017-05-11 12:52 | XMS REPORT ---
Author Author [facility] Organization [facility] Address [address] [place], [place] [id number] Care Team Providers Care Bar Host/Hostess Name Role Phone PCP Unavailable Allergies and [...] 3 times per day for 30 days warfarin oral tablet 4 mg 07/12/2014 take 1 tablet (4 mg) by oral [...] HC BMI BSA BMI Percentile O2 Sat(%) 07/23/2014 9:44:00 AM 105 mmHg 60 mmHg [...] 07/23/2014 12:00 AM THER/PROPH/DIAG INJ SC/IM Reviewed Results Summary Data and Description Results 03/28/2014 3:47 PM GLUCOSE 76.0 mg/dLSODIUM 145.0 mmol/LPOTASSIUM 4.80 mmol/ LCHLORIDE 105.0 mmol/LCO2 25.0 mmol/LBUN 13.0 mg/dLCREATININE 0.70 mg/dLSGOT/ AST 14.0 IU/LSGPT/ALT 12.0 IU/LALK PHOS 72.0 IU/LTOTAL PROTEIN 7.60 g/dLALBUMIN 4.40 g/dLTOTAL BILI 0.20 mg/dLCALCIUM 10.0 mg/dLeGFR >60 mL/min/1.73 [id number] 241.0 mg/dLCHOLESTEROL 248.0 mg/dLHDL 51.0 mg/dLLDL (CALC) [...] vein thrombosis:history of May 30 2014 7:44AM 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 History of Encounters Visit Date Visit Type Provider 08/06/2014 Office visit FRANCISCO JAVIER MORAN 07/23/2014 [...] 05/06/2014 Office visit FRANCISCO JAVIER MORAN 05/03/2014 [facility] Jessi Koehler MD 04/25/2014 Office visit FRANCISCO JAVIER MORAN 04/01/2014 Office visit Jessi Blake APRN 03/28/2014 Office visit FRANCISCO JAVIER MORAN 02/26/2014 Office visit FRANCISCO JAVIER MORAN 05/20/2010 Office visit Francisco Javier MORAN-C 04/16/2009 Office visit Francisco Javier MORAN-C 01/24/2009 Office visit Tian Basilio MD 12/31/2008 Office visit Tian Basilio MD 12/23/2008 Office visit Tian Basilio MD 12/17/2008 [facility] Tian Basilio MD 12/13/2008 Office visit Tian Basilio MD 12/06/2008 Office visit Tian Basilio MD 11/29/2008 Office visit Tian Basilio MD 11/15/2008 Office visit Tian Basilio MD 11/01/2008 Office visit Tian Basilio MD 10/18/2008 Office visit Tian Basilio MD
--- OUTSIDE RECORDS SUMMARY | 2017-05-11 12:54 | XMS REPORT ---
Author Author FRANCISCO JAVIER ESPINAL [facility] Address [address] [place], [place] [id number] Care Team Providers Care Diagnostic Technologist Name Role Phone FRANCISCO JAVIER ESPINAL PCP [...] ONE TABLET BY MOUTH THREE TIMES DAILY [place] 5-325 mg oral tablet 02/20/2016 05/15/2016 take [...] HC BMI BSA BMI Percentile O2 Sat(%) 07/01/2016 4:25:00 PM 105 mmHg 62 mmHg 80 bpm 18 rpm 97.5 F 132 lbs 63 in 23.38 kg/m2 1.63 m2 98 % 06/24/2016 3:50:00 PM 118 mmHg 86 mmHg 66 bpm 16 rpm 98.2 F 134 lbs 63 in 23.7368 kg/m 1.6437 m 95 % 06/22/2016 3:16:00 PM 132 mmHg [...] 04/12/2015 12:00 AM Decadron, Per 1 Mg [facility]# [address]-42 Reviewed 05/01/2015 12:00 AM CAPILLARY BLOOD DRAW Reviewed 03/06/2015 12:00 AM CAPILLARY BLOOD DRAW Reviewed 05/07/2015 12:00 AM CAPILLARY BLOOD DRAW Reviewed 05/23/2015 12:00 AM Decadron, Per 1 Mg [facility]# [address]-62 Reviewed 05/29/2015 12:00 AM CAPILLARY BLOOD DRAW Reviewed 06/17/2015 12:00 AM EXTREMITY STUDY Returned 09/02/2015 12:00 AM Decadron, Per 1 Mg [facility]# [address]-56 Reviewed 09/02/2015 12:00 AM Rocephin 1 gram [facility]#9222-7070-62 Reviewed 09/02/2015 12:00 AM Toradol 60 Mg [facility]#4227-0205-25 Reviewed 09/26/2015 12:00 AM Decadron, Per 1 Mg [facility]# [address]-67 Reviewed 09/26/2015 12:00 AM Phenergan, Up to 50 Mg [facility]#6813-5854-62 Reviewed 02/20/2016 12:00 AM DRAINAGE OF SKIN ABSCESS Reviewed 02/10/2016 12:00 AM Phenergan 50mg Injection Reviewed 02/10/2016 12:00 AM THER/PROPH/DIAG INJ SC/IM Reviewed 03/25/2016 12:00 AM THERAPEUTIC PROPHYLACTIC/DX INJECTION SUBQ/IM Reviewed 03/25/2016 12:00 AM Decadron 8mg Injection, [facility] Medicaid Reviewed 03/25/2016 12:00 AM Depo-Medrol 80 Mg Injection, [facility] Medicaid Reviewed 03/25/2016 12:00 AM Rocephin 1 gram Injection, [facility] Medicaid Reviewed 03/29/2016 12:00 AM THER/PROPH/DIAG INJ SC/IM Reviewed 03/29/2016 12:00 AM Decadron 8mg Injection Reviewed 03/29/2016 12:00 AM Depo-Medrol 80mg Injection Reviewed 03/29/2016 12:00 AM Rocephin 1 gram Injection Reviewed 03/27/2016 12:00 AM BEHAV CHNG SMOKING 3-10 MIN Reviewed 03/30/2016 12:00 AM Toradol 60 Mg Injection, [facility] Medicaid Reviewed 03/30/2016 12:00 AM Phenergan 50mg Injection, [facility] Medicaid Reviewed 04/17/2016 12:00 AM THERAPEUTIC [...] 07/23/2014 12:00 AM Decadron, Per 1 Mg [facility]# [address]-49 Reviewed 07/23/2014 12:00 AM Depo-Medrol, Per 80 Mg [facility]#1965-0900-33 Reviewed 07/23/2014 12:00 AM Rocephin 1 gram [facility]#4462-1424-68 Reviewed 08/20/2014 12:00 AM CAPILLARY BLOOD DRAW Reviewed 08/29/2014 12:00 AM CAPILLARY BLOOD DRAW Reviewed 09/05/2014 12:00 AM CAPILLARY BLOOD DRAW Reviewed 09/13/2014 12:00 AM CAPILLARY BLOOD DRAW Reviewed 10/09/2014 12:00 AM Decadron, Per 1 Mg [facility]# [address]-58 Reviewed 10/09/2014 12:00 AM Toradol 60 Mg [facility]#1926-5939-80 Reviewed 10/09/2014 12:00 AM Phenergan, Up to 50 Mg [facility]#6940-9923-38 Reviewed 10/30/2014 12:00 AM CAPILLARY BLOOD DRAW [...] secsINR 1.9 PTT 36.80 secsCALLED TO/BY ARUNA ALBERT/[facility] 12/30/2014 10:57 AM WBC 9.4 [...] 2014 10:47AM Anxiety Mar 28 2014 10:10AM 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 Mar 28 2014 10:10AM [...] 2 to 3 May 16 2014 10:57AM 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 May 20 2014 11:14AM DVT (deep venous thrombosis), left May 20 2014 11:14AM senior living use of anticoagulants May 30 2014 7:44AM Atrial Fibrillation May 30 2014 7:44AM Deep vein thrombosis:history of May 30 2014 7:44AM 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 Jun 10 2014 9:18AM Atrial Fibrillation Jun 10 2014 9:18AM Deep vein thrombosis:history of Jun 10 2014 9:18AM senior living use of anticoagulants Jun 12 2014 8:29AM [...] Intellectual disability Aug 06 2014 2:55PM senior living use of anticoagulants Aug 20 2014 1:24PM Atrial Fibrillation Aug 20 2014 1:24PM Deep vein thrombosis:history of Aug 20 2014 1:24PM 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 Aug 29 2014 3:30PM Atrial Fibrillation Aug 29 2014 3:30PM Deep vein thrombosis:history of Aug 29 2014 3:30PM senior living use of anticoagulants Sep 05 2014 1:08PM Atrial Fibrillation Sep 05 2014 1:08PM Deep vein thrombosis:history of Sep 05 2014 1:08PM 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 Sep 13 2014 12:03PM Atrial Fibrillation Sep 13 2014 12:03PM Deep vein thrombosis:history of Sep 13 2014 12:03PM 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 Sep 05 2014 1:06PM Hip pain Sep 05 2014 1:06PM Neck pain Sep 05 2014 1:06PM History of DVT (deep vein thrombosis) Sep 05 2014 1:06PM Low Back Pain Oct 09 2014 8:35AM Migraine Oct 09 2014 8:35AM Depressive Disorder Oct 09 2014 8:35AM Nausea Oct 09 2014 8:35AM Cervicalgia Oct 09 2014 8:35AM senior living use of anticoagulants Oct 30 2014 3:06PM Atrial Fibrillation Oct 30 2014 3:06PM Deep vein thrombosis:history of Oct 30 2014 3:06PM 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 Nov 07 2014 3:54PM Atrial Fibrillation Nov 07 2014 3:54PM Deep vein thrombosis:history of Nov 07 2014 3:54PM Cough Dec 02 2014 11:37AM Bronchitis, Acute Dec 02 2014 11:37AM Abdominal Pain, Generalized Dec 06 2014 11:21AM Constipation Dec 06 2014 11:21AM 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 Dec 12 2014 9:25AM [...] 2014 9:04AM Menorrhagia Jan 09 2015 11:30AM senior living use of anticoagulants Jan 13 2015 11:28AM Atrial Fibrillation Jan 13 2015 11:28AM Deep vein thrombosis:history of Jan 13 2015 11:28AM Menorrhagia with regular cycle Jan 27 2015 10:44AM Moderate Female pelvic pain Jan 27 2015 10:44AM Moderate Dysmenorrhea Jan 27 2015 10:44AM 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 Feb 03 2015 [...] to cognitive limitations Apr 23 2015 1:32PM senior living use of anticoagulants May 01 2015 2:57PM Atrial Fibrillation May 01 2015 2:57PM Deep vein thrombosis:history of May 01 2015 2:57PM 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 May 06 2015 3:28PM Atrial Fibrillation May 06 2015 3:28PM Deep vein thrombosis:history of May 06 2015 3:28PM 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 May 07 2015 9:50AM Atrial Fibrillation May 07 2015 9:50AM Deep vein thrombosis:history of May 07 2015 9:50AM Cough May 23 2015 10:51AM Bronchitis, Acute May 23 2015 10:51AM Post-nasal drainage May 23 2015 10:51AM Smoker unmotivated to quit May 23 2015 10:51AM senior living use of anticoagulants May 29 2015 2:16PM [...] 2016 1:11PM Bruise Jun 08 2016 1:11PM senior living current use of anticoagulant Jun 08 2016 [...] vomiting type Jul 01 2016 4 :25PM Payers Insurance Name Company Name Plan Name Plan Number Policy Number Policy Group Number Start Date [facility] [id number] N/A History of Encounters Visit Date Visit Type Provider 07/01/2016 Office visit FRANCISCO JAVIER MORAN 06/24/2016 [...] MORAN 04/25/2015 Voided FRANCISCO JAVIER MORAN 04/23/2015 [place] Mercedes Chappell MD 04/23/2015 Office visit FRANCISCO [...] Office visit 12/27/2014 Office visit Aruna Albert SPECTROGRAPHIC ANALYST 12/27/2014 Office visit FRANCISCO JAVIER ESPINAL PA 12/12/2014 Office visit FRANCISCO JAVIER ESPINAL PA [...] Office visit FRANCISCO JAVIER ESPINAL PA 05/03/2014 Hospital Aruna Koehler MD 04/25/2014 Office visit FRANCISCO JAVIER ESPINAL PA 04/01/2014 Office visit Aruna Albert SPECTROGRAPHIC ANALYST 03/28/2014 Office visit FRANCISCO JAVIER ESPINAL PA [...]
--- OUTSIDE RECORDS SUMMARY | 2017-05-11 12:56 | XMS REPORT | CCD ---
Author Author JAMES TEE Organization Unknown Address [address] [place] [address] Care Team Providers Care Grey Iron Molder Name Role Phone JUDY FRANCIS MD Attphys JUDY FRANCIS MD Prisurg Allergies Allergy Code Allergy Type Reaction Status No Known Drug Allergies 0 Drug allergy Active Active Medications Medication Code Dose Units Frequency Route Modification Start Date/Time busPIRone 10MG Oral Tablet 127077 10 MILLIGRAMS THREE TIMES A DAY ORAL 05/04/2014 10:54 Prescription Detail 10 MILLIGRAMS ORAL THREE TIMES A DAY CeleXA 40MG Oral Tablet 135997 40 MILLIGRAMS DAILY ORAL 05/04/2014 10:54 Prescription Detail 40 MILLIGRAMS ORAL DAILY Coumadin 5MG Oral Tablet 323913 5 MILLIGRAMS COUMADIN AT 5:00 PM BY MOUTH 05/04/2014 10:54 Prescription Detail 5 MILLIGRAMS BY MOUTH COUMADIN AT 5:00 PM Dicyclomine HCl 10MG Oral Capsule 937693 10 MILLIGRAMS THREE TIMES A DAY ORAL 05/04/2014 10:54 Prescription Detail 10 MILLIGRAMS ORAL THREE TIMES A DAY HYDROcodone bitartrate-acetaminophen 5MG-325MG Oral Tablet 679694 1 EACH NEEDED EVERY 6 HR BY MOUTH 10:54 Prescription Detail 1 EACH BY MOUTH NEEDED EVERY 6 HR HydrOXYzine HCl 25MG Oral Tablet 927669 25 MILLIGRAMS FOUR TIMES A DAY ORAL 05/04/2014 10:54 Prescription Detail 25 MILLIGRAMS ORAL FOUR TIMES A DAY Lovenox 60MG/0.6ML Injection Solution 925137 60 MILLIGRAMS EVERY 12 HOURS SUB Q 05/04/2014 10:54 Prescription Detail 60 MILLIGRAMS SUB Q EVERY 12 HOURS Problems Problem Code Start Date Resolved Date Status DVT of leg 662285329 05/03/2014 Active Procedures Procedure Code Procedure Type Date ABDOMEN ONE VIEW 212675085 SNOMED CT 07/27/2016 UA ROUTINE C&S IF IND [id number] [facility] 07/27/2016 TEST URINE [id number] [facility] 07/27/2016 LIPASE [id number] [facility] 07/27/2016 CBC W/ AUTO DIFF (RFLX MAN DIFF IF IND) [id number] [facility] 07/27/2016 COMPREHENSIVE METABOLIC PANEL [id number] [facility] 2016 AMYLASE [id number] [facility] 07/27/2016 ^UA AUTO DIPSTICK ONLY [id number] [facility] 07/27/2016 ^CBC W/AUTO DIFF [id number] [facility] 07/27/2016 Results AMYLASE - Collect Date/Time: 07/27/2016 02:30 Test Name Code Test Result Test Units Test Ref Range AMYLASE 1798-8 29 IU/L L=25 H=125 COMPREHENSIVE METABOLIC PANEL - Collect Date/Time: 07/27/2016 02:30 Test Name Code Test Result Test Units Test Ref Range GLUCOSE 2345-7 109 MG/DL L=70 H=100 SODIUM 2951-2 141 MEQ/L L=135 H=148 POTASSIUM 2823-3 3.5 MEQ/L L=3.5 H=5.3 CHLORIDE 2075-0 108 MEQ/L L=96 H=110 CO2 2028-9 23 MEQ/L L=22 H=29 BUN 3094-0 6 MG/DL L=8 H=22 CREATININE 2160-0 0.8 MG/DL L=0.6 H=1.6 SGOT/AST 1920-8 14 IU/L L=10 H=40 SGPT/ALT 1742-6 7 IU/L L=8 H=54 ALK PHOS 6768-6 73 IU/L L=35 H=115 TOTAL PROTEIN 2885-2 7.7 G/DL L=5.5 H=8.5 ALBUMIN 1751-7 4.2 G/DL L=3.1 H=5.4 TOTAL BILI 1975-2 0.3 MG/DL L=0.0 H=1.5 CALCIUM 39262-6 10.3 MG/DL L=8.2 H=10.6 AGE 35 yrs GFR NonAA 83 GFR AA 101 eGFR >60 N/A eGFR AA* >60 N/A LIPASE - Collect Date/Time: 07/27/2016 02:30 Test Name Code Test Result Test Units Test Ref Range LIPASE 3040-3 9 U/L L=8 H=78 CBC W/ AUTO DIFF (RFLX MAN DIFF IF IND) - Collect Date/Time: 07/27/2016 02:30 Test Name Code Test Result Test Units Test Ref Range WBC 04506-0 11.5 TH/CMM L=4.5 H=10.8 RBC 789-8 5.29 ML/CMM L=4.20 H=5.40 HGB 718-7 15.7 G/DL L=12.0 H=16.0 HCT 4544-3 47.3 % L=37.0 H=47.0 MCV 89 FL L=81 H=99 MCH 29.7 PG L=27.0 H=33.0 MCHC 33.2 G/DL L=31.0 H=36.0 RDW SD 51 FL L=36 H=50 RDW CV 15.4 % L=0.0 H=14.8 MPV 9.8 FL L=9.3 H=12.5 PLT 777-3 327 TH/CMM L=130 H=440 NRBC# 0.00 TH/CMM L=0.00 H=0.00 NRBC% 0.0 /100WBC L=0.0 H=2.0 %NEUT 67.5 % %LYMP 26.6 % %MONO 4.3 % %EOS 1.0 % %BASO 0.3 % #NEUT 7.75 TH/CMM L=2.10 H=8.20 #LYMP 3.07 TH/CMM L=0.90 H=5.20 #MONO 0.50 TH/CMM L=0.16 H=1.00 #EOS 0.12 TH/CMM L=0.00 H=0.80 #BASO 0.04 TH/CMM L=0.00 H=0.20 MANUAL DIFF NOT IND N/A UA ROUTINE C&S IF IND - Collect Date/Time: 07/27/2016 02:40 Test Name Code Test Result Test Units Test Ref Range COLOR YELLOW N/A NL: YELLOW APPEARANCE CLEAR N/A NL: CLEAR SPEC GRAV <=1.005 N/A NL: 1.002 - 1.022 pH 6.0 N/A NL: 5 - 9 PROTEIN NEGATIVE N/A NL: NEGATIVE mg/dl GLUCOSE NEGATIVE N/A NL: NEGATIVE mg/dl KETONE NEGATIVE N/A NL: NEGATIVE mg/dl BILIRUBIN NEGATIVE N/A NL: NEGATIVE BLOOD NEGATIVE N/A NL: NEGATIVE NITRITE NEGATIVE N/A NL: NEGATIVE LEUK SCREEN NEGATIVE N/A NL: NEGATIVE MICRO INDICATED? NOT INDICATED N/A TEST URINE - Collect Date/Time: 07/27/2016 02:40 Test Name Code Test Result Test Units Test Ref Range TEST UR 2106-3 NEGATIVE N/A Function Status Unknown or Not Available. History of Immunizations Unknown or Not Available. Plan of Treatment Unknown or Not Available. Social History Smoking Status Code Start Date End Date Current every day smoker [id number] Vital Signs Unknown or Not Available. Function Status Unknown or Not Available. Goals Unknown or Not Available. ASSESSMENTS Unknown or Not Available. Health Concerns Section Unknown or Not Available.
--- OUTSIDE RECORDS SUMMARY | 2017-05-11 12:56 | XMS REPORT ---
Author Author FRANCISCO JAVIER ESPINAL [facility] Address [address] [place], [place] [id number] Care Team Providers Care Certified Medical Coder Name Role Phone FRANCISCO JAVIER ESPINAL PCP [...] ONE TABLET BY MOUTH THREE TIMES DAILY atenolol 25 mg oral tablet 07/22/2016 TAKE ONE TABLET BY MOUTH TWICE DAILY atenolol 25 mg oral tablet 07/22/2016 TAKE ONE TABLET BY MOUTH TWICE DAILY Dulcolax Stool Softener (dss) 100 mg oral capsule 07/28/2016 take 1 capsule (100 mg) by oral route 2 times per day PRN citalopram 40 mg oral tablet 08/04/2016 01/31/2017 take 1 tablet (40 mg) by oral route once daily for 30 days trazodone 100 mg oral tablet 08/13/2016 take 1.5 tablets by oral route daily [...] 6 hours as needed for 1 day Discontinued Name Start Date Discontinued Date SIG [...] ONE TABLET BY MOUTH THREE TIMES DAILY Ponder 5-325 mg oral tablet 02/20/2016 05/15/2016 take [...] Back Pain Active 05/24/2016 Thrombophlebitis Active 06/26/2016 Obstipation Active 08/16/2016 Irritable bowel syndrome with constipation Active 08/16/2016 Vital Signs Date Time BP-Sys(mm[Hg] BP-Diana(mm[Hg]) HR(bpm) RR(rpm) Temp WT HT HC BMI BSA BMI Percentile O2 Sat(%) 08/09/2016 11:12:00 AM 110 mmHg 80 mmHg 68 bpm 16 rpm 98.5 F 129 lbs 64 in 22.14 kg/m2 1.63 m2 98 % 07/28/2016 11:19:00 AM 102 mmHg 64 mmHg 70 bpm 16 rpm 98.2 F 132 lbs 64 in 22.6575 kg/m 1.6443 m 98 % 07/01/2016 4:25:00 PM 105 mmHg [...] F 142 lbs 64 in 24.374 kg/m 1.71 m2 98 % 03/25/2016 4:07:00 PM 118 mmHg 68 mmHg 77 bpm 16 rpm 98.1 F 143 lbs 64 in 24.55 kg/m2 1.7114 m 99 % 02/24/2016 2:05:00 PM 110 mmHg 70 mmHg 60 bpm 16 rpm 98.2 F 141 lbs 64 in 24.2023 kg/m 1.70 m2 98 % 02/20/2016 11:01:00 AM 120 mmHg 60 mmHg 92 bpm 16 rpm 98.2 F 142 lbs 64 in 24.37 kg/m2 1.7054 m 95 % 02/10/2016 11:19:00 AM 126 mmHg 82 mmHg 71 bpm 16 rpm 98.1 F 144 lbs 64 in 24.7173 kg/m 1.72 m2 98 % 01/26/2016 2:19:00 PM 110 mmHg 70 mmHg 70 bpm 16 rpm 97.5 F 144 lbs 64 in 24.72 kg/m2 1.7174 m 98 % 01/08/2016 2:52:00 PM 110 mmHg 70 mmHg 102 bpm 18 rpm 98.3 F 146 lbs 65 in 24.2954 kg/m 1.74 m2 98 % 11/25/2015 3:47:00 PM 110 mmHg 78 mmHg 96 bpm 16 rpm 98.5 F 141 lbs 64 in 24.20 kg/m2 1.6994 m 98 % 10/21/2015 6:44:00 AM 115 mmHg 68 mmHg 96 bpm 18 rpm 98.4 F 141 lbs 65 in 23.4634 kg/m 1.71 m2 96 % 10/17/2015 9:33:00 AM 115 mmHg 68 mmHg 96 bpm 18 rpm 98.4 F 141 lbs 65 in 23.46 kg/m2 1.7126 m 96 % 09/26/2015 9:22:00 AM 98 mmHg 65 mmHg 80 bpm 16 rpm 97.4 F 143 lbs 65 in 23.7962 kg/m 1.72 m2 97 % 09/02/2015 10:44:00 AM 112 mmHg 74 mmHg 135 bpm 18 rpm 98.4 F 142 lbs 64 in 24.37 kg/m2 1.7054 m 96 % 07/25/2015 11:53:00 AM 120 mmHg 75 mmHg 96 bpm 16 rpm 98.2 F 141 lbs 64 in 24.2023 kg/m 1.70 m2 97 % 06/27/2015 9:08:00 AM 128 mmHg 70 mmHg 104 bpm 18 rpm 145 lbs 96 % 06/10/2015 11:11:00 AM 128 mmHg 78 mmHg 78 bpm 18 rpm 98.2 F 143 lbs 64 in 24.5456 kg/m 1.71 m2 97 % 05/23/2015 10:50:00 AM 110 mmHg 80 mmHg 94 bpm 97.9 F 143 lbs 64 in 24.55 kg/m2 1.7114 m 97 % 04/23/2015 1:32:00 PM 125 mmHg 80 mmHg 138 bpm 18 rpm 97 F 138 lbs 64 in 23.6874 kg/m 1.68 m2 98 % 04/14/2015 2:02:00 PM 128 mmHg 70 mmHg 128 bpm 18 rpm 98.7 F 146 lbs 64 in 25.06 kg/m2 1.7293 m 98 % 04/09/2015 11:37:00 AM 118 mmHg 70 mmHg 124 bpm 18 rpm 98.6 F 142 lbs 64 in 24.374 kg/m 1.71 m2 97 % 01/27/2015 10:43:00 AM [...] AM Decadron, Per 1 Mg [facility]# [address]-43 Reviewed 05/01/2015 12:00 AM CAPILLARY BLOOD DRAW Reviewed 03/06/2015 12:00 AM CAPILLARY BLOOD DRAW Reviewed 05/07/2015 12:00 AM CAPILLARY BLOOD DRAW Reviewed 05/23/2015 12:00 AM Decadron, Per 1 Mg [facility]# [address]-84 Reviewed 05/29/2015 12:00 AM CAPILLARY BLOOD DRAW Reviewed 06/17/2015 12:00 AM EXTREMITY STUDY Returned 09/02/2015 12:00 AM Decadron, Per 1 Mg [facility]# [address]-20 Reviewed 09/02/2015 12:00 AM Rocephin 1 gram [facility]#1389-9785-98 Reviewed 09/02/2015 12:00 AM Toradol 60 Mg [facility]#3655-1843-24 Reviewed 09/26/2015 12:00 AM Decadron, Per 1 Mg [facility]# [address]-78 Reviewed 09/26/2015 12:00 AM Phenergan, Up to 50 Mg [facility]#3776-0802-06 Reviewed 02/20/2016 12:00 AM DRAINAGE OF SKIN ABSCESS Reviewed 02/10/2016 12:00 AM Phenergan 50mg Injection Reviewed 02/10/2016 12:00 AM THER/PROPH/DIAG INJ SC/IM Reviewed 03/25/2016 12:00 AM THERAPEUTIC PROPHYLACTIC/DX INJECTION SUBQ/IM Reviewed 03/25/2016 12:00 AM Decadron 8mg Injection, [facility] Reviewed 03/25/2016 12:00 AM Depo-Medrol 80 Mg Injection, [facility] Reviewed 03/25/2016 12:00 AM Rocephin 1 gram Injection, [facility] Reviewed 03/29/2016 12:00 AM THER/PROPH/DIAG INJ [...] AM Decadron, Per 1 Mg [facility]# [address]-98 Reviewed 07/23/2014 12:00 AM Depo-Medrol, Per 80 Mg [facility]#5273-4377-12 Reviewed 07/23/2014 12:00 AM Rocephin 1 gram [facility]#9629-5886-53 Reviewed 08/20/2014 12:00 AM CAPILLARY BLOOD DRAW Reviewed 08/29/2014 12:00 AM CAPILLARY BLOOD DRAW Reviewed 09/05/2014 12:00 AM CAPILLARY BLOOD DRAW Reviewed 09/13/2014 12:00 AM CAPILLARY BLOOD DRAW Reviewed 10/09/2014 12:00 AM Decadron, Per 1 Mg [facility]# [address]-79 Reviewed 10/09/2014 12:00 AM Toradol 60 Mg [facility]#6525-4272-43 Reviewed 10/09/2014 12:00 AM Phenergan, Up to 50 Mg [facility]#6922-2676-47 Reviewed 10/30/2014 12:00 AM CAPILLARY BLOOD DRAW [...] secsINR 1.9 PTT 36.80 secsCALLED TO/BY ARUNA ALBERT/[facility] 12/30/2014 10:57 AM WBC 9.4 RBC 4.41 [...] 05/15/2016 Thoracic Back Pain 05/24/2016 Thrombophlebitis 06/26/2016 Obstipation 08/16/2016 Irritable bowel syndrome with constipation 08/16/2016 Anxiety Disorder Feb 26 2014 10:47AM Depressive Disorder Feb 26 2014 10:47AM Panic attack as reaction to stress Feb 26 2014 10:47AM Mental retardation Feb 26 2014 10:47AM Anger Feb 26 2014 10:47AM Anxiety Mar 28 2014 10:10AM skilled nursing use of drug Mar 28 2014 10:10AM [...] 2 to 3 May 16 2014 10:57AM skilled nursing use of anticoagulants May 20 2014 11:14AM DVT (deep venous thrombosis), left May 20 2014 11:14AM skilled nursing use of anticoagulants May 30 2014 7:44AM Atrial Fibrillation May 30 2014 7:44AM Deep vein thrombosis:history of May 30 2014 7:44AM 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 Jun 10 2014 9:18AM Atrial Fibrillation Jun 10 2014 9:18AM Deep vein thrombosis:history of Jun 10 2014 9:18AM skilled nursing use of anticoagulants Jun 12 2014 8:29AM [...] 2:55PM Intellectual disability Aug 06 2014 2:55PM 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 Aug 20 2014 1:24PM Atrial Fibrillation Aug 20 2014 1:24PM Deep vein thrombosis:history of Aug 20 2014 1:24PM 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 Aug 29 2014 3:30PM Atrial Fibrillation Aug 29 2014 3:30PM Deep vein thrombosis:history of Aug 29 2014 3:30PM skilled nursing use of anticoagulants Sep 05 2014 1:08PM Atrial Fibrillation Sep 05 2014 1:08PM Deep vein thrombosis:history of Sep 05 2014 1:08PM 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 Sep 13 2014 12:03PM Atrial Fibrillation Sep 13 2014 12:03PM Deep vein thrombosis:history of Sep 13 2014 12:03PM 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 Sep 05 2014 1:06PM Hip pain Sep 05 2014 1:06PM Neck pain Sep 05 2014 1:06PM History of DVT (deep vein thrombosis) Sep 05 2014 1:06PM Low Back Pain Oct 09 2014 8:35AM Migraine Oct 09 2014 8:35AM Depressive Disorder Oct 09 2014 8:35AM Nausea Oct 09 2014 8:35AM Cervicalgia Oct 09 2014 8:35AM skilled nursing use of anticoagulants Oct 30 2014 3:06PM Atrial Fibrillation Oct 30 2014 3:06PM Deep vein thrombosis:history of Oct 30 2014 3:06PM skilled nursing use of anticoagulants Nov 07 2014 3:54PM Atrial Fibrillation Nov 07 2014 3:54PM Deep vein thrombosis:history of Nov 07 2014 3:54PM Cough Dec 02 2014 11:37AM Bronchitis, Acute Dec 02 2014 11:37AM Abdominal Pain, Generalized Dec 06 2014 11:21AM Constipation Dec 06 2014 11:21AM skilled nursing use of anticoagulants Dec 12 2014 9:25AM [...] 2014 9:04AM Menorrhagia Jan 09 2015 11:30AM 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 Jan 13 2015 11:28AM Atrial Fibrillation Jan 13 2015 11:28AM Deep vein thrombosis:history of Jan 13 2015 11:28AM Menorrhagia with regular cycle Jan 27 2015 10:44AM Moderate Female pelvic pain Jan 27 2015 10:44AM Moderate Dysmenorrhea Jan 27 2015 10:44AM skilled nursing use of anticoagulants Feb 03 2015 1:34PM [...] to cognitive limitations Apr 23 2015 1:32PM skilled nursing use of anticoagulants May 01 2015 2:57PM Atrial Fibrillation May 01 2015 2:57PM Deep vein thrombosis:history of May 01 2015 2:57PM 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 May 06 2015 3:28PM Atrial Fibrillation May 06 2015 3:28PM Deep vein thrombosis:history of May 06 2015 3:28PM skilled nursing use of anticoagulants May 07 2015 9:50AM Atrial Fibrillation May 07 2015 9:50AM Deep vein thrombosis:history of May 07 2015 9:50AM Cough May 23 2015 10:51AM Bronchitis, Acute May 23 2015 10:51AM Post-nasal drainage May 23 2015 10:51AM Smoker unmotivated to quit May 23 2015 10:51AM 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 May 29 2015 2:16PM [...] 2016 1:11PM Bruise Jun 08 2016 1:11PM skilled nursing current use of anticoagulant Jun 08 2016 [...] syndrome with constipation Aug 09 2016 11:13AM Payers Insurance Name Company Name Plan Name Plan Number Policy Number Policy Group Number Start Date [facility] [id number] N/A History of Encounters Visit Date Visit Type Provider 08/09/2016 Office visit FRANCISCO JAVIER MORAN 07/28/2016 [...] ESPINAL PA 05/29/2015 Office visit FRANCISCO JAVIER ESPIANL PA 05/23/2015 Office visit FRANCISCO JAVIER MORAN [...] 05/06/2014 Office visit FRANCISCO JAVIER MORAN 05/03/2014 [facility] Aruna Koehler MD 04/25/2014 Office visit [...] 12/23/2008 Office visit Tian Basilio MD 12/17/2008 Hospital Tian Basilio MD 12/13/2008 Office visit Tian Basilio MD 12/06/2008 Office visit Tian Basilio MD 11/29/2008 Office visit Tian Basilio MD 11/15/2008 Office visit Tian Basilio MD 11/01/2008 Office visit Tian Basilio MD 10/18/2008 Office visit Tian Basilio MD
--- OUTSIDE RECORDS SUMMARY | 2017-05-11 12:57 | XMS REPORT ---
Author Author FRANCISCO JAVIER ESPINAL [facility] Address [address] [place], [place] [id number] Care Team Providers Care Air Twister Winder Name Role Phone FRANCISCO JAVIER ESPINAL PCP [...] 2 times per day for 30 days Deer 5-325 mg oral tablet 09/02/2015 take 1 tablet by oral route every 6 hours as needed for pain cyclobenzaprine 10 mg oral tablet 09/19/2015 TAKE ONE TABLET BY MOUTH THREE TIMES DAILY Lasix 20 mg oral tablet 10/06/2015 take 1 tablet (20 mg) by oral route once daily Xarelto 20 mg oral tablet 12/08/2015 TAKE ONE TABLET BY MOUTH ONCE DAILY WITH EVENING MEAL buspirone 10 mg oral tablet 01/08/2016 take [...] muscle spasm dicyclomine 10 mg oral capsule 01/08/2016 04/07/2016 take 1 capsule (10 mg) by oral route 3 times per day for 30 days pantoprazole 40 mg oral tablet,delayed release (DR/EC) 01/26/2016 03/26/2016 take 1 tablet (40 mg) by oral route once daily for 30 days Name Start Date Expiration [...] 12 hours with food for 7 days Discontinued Name Start Date Discontinued Date [...] Gastroesophageal reflux disease without esophagitis Active 01/31/2016 Vital Signs Date Time BP-Sys(mm[Hg] BP-Diana(mm[Hg]) HR(bpm) RR(rpm) Temp WT HT HC BMI BSA BMI Percentile O2 Sat(%) 01/26/2016 2:19:00 PM 110 mmHg 70 mmHg [...] 04/12/2015 12:00 AM Decadron, Per 1 Mg [facility]# [address]-72 Reviewed 05/01/2015 12:00 AM CAPILLARY BLOOD DRAW Reviewed 03/06/2015 12:00 AM CAPILLARY BLOOD DRAW Reviewed 05/07/2015 12:00 AM CAPILLARY BLOOD DRAW Reviewed 05/23/2015 12:00 AM Decadron, Per 1 Mg [facility]# [address]-93 Reviewed 05/29/2015 12:00 AM CAPILLARY BLOOD DRAW Reviewed 06/17/2015 12:00 AM EXTREMITY STUDY Returned 09/02/2015 12:00 AM Decadron, Per 1 Mg [facility]# [address]-51 Reviewed 09/02/2015 12:00 AM Rocephin 1 gram [facility]#9889-4821-89 Reviewed 09/02/2015 12:00 AM Toradol 60 Mg [facility]#7248-6686-64 Reviewed 09/26/2015 12:00 AM Decadron, Per 1 Mg [facility]# [address]-83 Reviewed 09/26/2015 12:00 AM Phenergan, Up to 50 Mg [facility]#1629-0544-86 Reviewed 03/28/2014 12:00 AM COMPLETE CBC W/AUTO [...] 07/23/2014 12:00 AM Decadron, Per 1 Mg [facility]# [address]-87 Reviewed 07/23/2014 12:00 AM Depo-Medrol, Per 80 Mg [facility]#3577-9147-18 Reviewed 07/23/2014 12:00 AM Rocephin 1 gram [facility]#4806-5788-03 Reviewed 08/20/2014 12:00 AM CAPILLARY BLOOD DRAW Reviewed 08/29/2014 12:00 AM CAPILLARY BLOOD DRAW Reviewed 09/05/2014 12:00 AM CAPILLARY BLOOD DRAW Reviewed 09/13/2014 12:00 AM CAPILLARY BLOOD DRAW Reviewed 10/09/2014 12:00 AM Decadron, Per 1 Mg [facility]# [address]-19 Reviewed 10/09/2014 12:00 AM Toradol 60 Mg [facility]#5828-4176-89 Reviewed 10/09/2014 12:00 AM Phenergan, Up to 50 Mg [facility]#3324-2317-02 Reviewed 10/30/2014 12:00 AM CAPILLARY BLOOD DRAW [...] secsINR 1.9 PTT 36.80 secsCALLED TO/BY ARUNA ALBERT/[facility] 12/30/2014 10:57 AM WBC 9.4 RBC 4.41 [...] 09/04/2015 Gastroesophageal reflux disease without esophagitis 01/31/2016 Anxiety Disorder Feb 26 2014 10:47AM Depressive Disorder Feb 26 2014 10:47AM Panic attack as reaction to stress Feb 26 2014 10:47AM Mental retardation Feb 26 2014 10:47AM Anger Feb 26 2014 10:47AM Anxiety Mar 28 2014 10:10AM 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 Mar 28 2014 [...] 2 to 3 May 16 2014 10:57AM 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 May 20 2014 11:14AM DVT (deep venous thrombosis), left May 20 2014 11:14AM shelter use of anticoagulants May 30 2014 7:44AM Atrial Fibrillation May 30 2014 7:44AM Deep vein thrombosis:history of May 30 2014 7:44AM shelter use of anticoagulants Jun 10 2014 9:18AM Atrial Fibrillation Jun 10 2014 9:18AM Deep vein thrombosis:history of Jun 10 2014 9:18AM 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 Jun 12 2014 8:29AM [...] Intellectual disability Aug 06 2014 2:55PM 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 Aug 20 2014 1:24PM Atrial Fibrillation Aug 20 2014 1:24PM Deep vein thrombosis:history of Aug 20 2014 1:24PM 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 Aug 29 2014 3:30PM Atrial Fibrillation Aug 29 2014 3:30PM Deep vein thrombosis:history of Aug 29 2014 3:30PM 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 Sep 05 2014 1:08PM Atrial Fibrillation Sep 05 2014 1:08PM Deep vein thrombosis:history of Sep 05 2014 1:08PM shelter use of anticoagulants Sep 13 2014 12:03PM Atrial Fibrillation Sep 13 2014 12:03PM Deep vein thrombosis:history of Sep 13 2014 12:03PM shelter use of anticoagulants Sep 05 2014 1:06PM Hip pain Sep 05 2014 1:06PM Neck pain Sep 05 2014 1:06PM History of DVT (deep vein thrombosis) Sep 05 2014 1:06PM Low Back Pain Oct 09 2014 8:35AM Migraine Oct 09 2014 8:35AM Depressive Disorder Oct 09 2014 8:35AM Nausea Oct 09 2014 8:35AM Cervicalgia Oct 09 2014 8:35AM shelter use of anticoagulants Oct 30 2014 3:06PM Atrial Fibrillation Oct 30 2014 3:06PM Deep vein thrombosis:history of Oct 30 2014 3:06PM 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 Nov 07 2014 3:54PM Atrial Fibrillation Nov 07 2014 3:54PM Deep vein thrombosis:history of Nov 07 2014 3:54PM Cough Dec 02 2014 11:37AM Bronchitis, Acute Dec 02 2014 11:37AM Abdominal Pain, Generalized Dec 06 2014 11:21AM Constipation Dec 06 2014 11:21AM 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 Dec 12 2014 [...] 2014 9:04AM Menorrhagia Jan 09 2015 11:30AM 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 Jan 13 2015 11:28AM Atrial Fibrillation Jan 13 2015 11:28AM Deep vein thrombosis:history of Jan 13 2015 11:28AM Menorrhagia with regular cycle Jan 27 2015 10:44AM Moderate Female pelvic pain Jan 27 2015 10:44AM Moderate Dysmenorrhea Jan 27 2015 10:44AM shelter use of anticoagulants Feb 03 2015 1:34PM [...] to cognitive limitations Apr 23 2015 1:32PM shelter use of anticoagulants May 01 2015 2:57PM Atrial Fibrillation May 01 2015 2:57PM Deep vein thrombosis:history of May 01 2015 2:57PM shelter use of anticoagulants May 06 2015 3:28PM Atrial Fibrillation May 06 2015 3:28PM Deep vein thrombosis:history of May 06 2015 3:28PM 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 May 07 2015 9:50AM Atrial Fibrillation May 07 2015 9:50AM Deep vein thrombosis:history of May 07 2015 9:50AM Cough May 23 2015 10:51AM Bronchitis, Acute May 23 2015 10:51AM Post-nasal drainage May 23 2015 10:51AM Smoker unmotivated to quit May 23 2015 10:51AM 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 May 29 2015 2:16PM [...] 2016 2:19PM Anxiety Jan 26 2016 2:19PM Payers Insurance Name Company Name Plan Name Plan Number Policy Number Policy Group Number Start Date [facility] [id number] N/A History of Encounters Visit Date Visit Type Provider 01/26/2016 Office visit FRANCISCO JAVIER MORAN 01/08/2016 Office visit FRANCISCO JAVIER MORAN 11/25/2015 Office visit FRANCISCO JAVIER MORAN 10/17/2015 Office visit FRANCISCO JAVIER MORAN 09/26/2015 Office visit FRANCISCO JAVIER MORAN 09/02/2015 Office visit FRANCISCO JAVIER MORAN 06/27/2015 Office visit FRANCISCO JAVIER ESPINAL PA [...] ESPINAL PA 02/03/2015 Office visit FRANCISCO JAVIER ESPINAL PA 01/27/2015 Office visit FRANCISCO JAVIER ESPINAL PA 01/13/2015 Office visit FRANCISCO JAVIER ESPINAL PA 01/09/[address] Marielos Rosa MD [...] Office visit FRANCISCO JAVIER ESPINAL PA 08/03/2014 [facility] Jermaine Chappell MD 07/23/2014 Office visit 07/23/2014 [...] Office visit FRANCISCO JAVIER ESPINAL PA 05/03/2014 [facility] Aruna Koehler MD 04/25/2014 Office visit FRANCISCO JAVIER ESPINAL PA 04/01/2014 Office visit Aruna Albert APRN 03/28/2014 Office visit FRANCISCO JAVIER ESPINAL PA 02/26/2014 Office visit FRANCISCO JAVIER ESPINAL PA 05/20/2010 Office visit Francisco Javier Espinal PA-C 04/16/2009 Office visit Francisco Javier Espinal PA-C 01/24/2009 Office visit Tian Basilio MD 12/31/2008 Office visit Tian Basilio MD 12/23/2008 Office visit Tian Basilio MD 12/17/2008 [facility] Tian Basilio MD 12/13/2008 Office visit Tian Basilio MD 12/06/2008 Office visit Tian Basilio MD 11/29/2008 Office visit Tian Basilio MD 11/15/2008 Office visit Tian Basilio MD 11/01/2008 Office visit Tian Basilio MD 10/18/2008 Office visit Tian Basilio MD
--- OUTSIDE RECORDS SUMMARY | 2017-05-11 12:59 | XMS REPORT ---
Author Author FRANCISCO JAVIER ESPINAL [facility] Address [address] [place], [place] [address] Care Team Providers Care Freight Adjuster Name Role Phone FRANCISCO JAVIER ESPINAL PCP [...] 3 times per day for 30 days atenolol 25 mg oral tablet 02/09/2016 TAKE ONE TABLET BY MOUTH TWICE DAILY [place] 5-325 mg oral tablet 02/20/2016 take 1 tablet by oral route every 6 hours as needed for pain Xarelto 20 mg oral tablet 03/10/2016 TAKE ONE TABLET BY MOUTH ONCE DAILY WITH EVENING MEAL Name Start Date Expiration Date SIG Comments [...] 12 hours with food for 7 days pantoprazole 40 mg oral tablet,delayed release (DR/EC) 01/26/2016 03/26/2016 take 1 tablet (40 mg) by oral route once daily for 30 days Bactrim DS 800-160 mg oral tablet 02/18/2016 02/28/2016 take 1 tablet by oral route 2 times a day for 10 days Discontinued Name Start [...] HC BMI BSA BMI Percentile O2 Sat(%) 03/25/2016 4:07:00 PM 118 mmHg 68 mmHg [...] 04/12/2015 12:00 AM Decadron, Per 1 Mg [facility]# [address]-85 Reviewed 05/01/2015 12:00 AM CAPILLARY BLOOD DRAW Reviewed 03/06/2015 12:00 AM CAPILLARY BLOOD DRAW Reviewed 05/07/2015 12:00 AM CAPILLARY BLOOD DRAW Reviewed 05/23/2015 12:00 AM Decadron, Per 1 Mg [facility]# [address]-25 Reviewed 05/29/2015 12:00 AM CAPILLARY BLOOD DRAW Reviewed 06/17/2015 12:00 AM EXTREMITY STUDY Returned 09/02/2015 12:00 AM Decadron, Per 1 Mg [facility]# [address]-49 Reviewed 09/02/2015 12:00 AM Rocephin 1 gram [facility]#4052-7812-25 Reviewed 09/02/2015 12:00 AM Toradol 60 Mg [facility]#3884-0926-73 Reviewed 09/26/2015 12:00 AM Decadron, Per 1 Mg [facility]# [address]-47 Reviewed 09/26/2015 12:00 AM Phenergan, Up to 50 Mg [facility]#8883-9859-51 Reviewed 02/20/2016 12:00 AM DRAINAGE OF SKIN ABSCESS Reviewed 02/10/2016 12:00 AM Phenergan 50mg Injection Reviewed 02/10/2016 12:00 AM THER/PROPH/DIAG INJ SC/IM Reviewed 03/25/2016 12:00 AM THERAPEUTIC PROPHYLACTIC/DX INJECTION SUBQ/IM Reviewed 03/25/2016 12:00 AM Decadron 8mg Injection, [facility] Medicaid Reviewed 03/25/2016 12:00 AM Depo-Medrol 80 Mg Injection, [facility] Medicaid Reviewed 03/25/2016 12:00 AM Rocephin 1 gram Injection, [facility] Medicaid Reviewed 03/28/2014 12:00 AM COMPLETE CBC [...] 07/23/2014 12:00 AM Decadron, Per 1 Mg [facility]# [address]-36 Reviewed 07/23/2014 12:00 AM Depo-Medrol, Per 80 Mg [facility]#2824-4988-67 Reviewed 07/23/2014 12:00 AM Rocephin 1 gram [facility]#5524-4822-04 Reviewed 08/20/2014 12:00 AM CAPILLARY BLOOD DRAW Reviewed 08/29/2014 12:00 AM CAPILLARY BLOOD DRAW Reviewed 09/05/2014 12:00 AM CAPILLARY BLOOD DRAW Reviewed 09/13/2014 12:00 AM CAPILLARY BLOOD DRAW Reviewed 10/09/2014 12:00 AM Decadron, Per 1 Mg [facility]# [address]-61 Reviewed 10/09/2014 12:00 AM Toradol 60 Mg [facility]#1779-7786-29 Reviewed 10/09/2014 12:00 AM Phenergan, Up to 50 Mg 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 May 30 2014 7:44AM Atrial Fibrillation May 30 2014 7:44AM Deep vein thrombosis:history of May 30 2014 7:44AM skilled nursing use of anticoagulants Jun 10 2014 9:18AM [...] 2:55PM Intellectual disability Aug 06 2014 2:55PM skilled nursing use of anticoagulants Aug 20 2014 1:24PM Atrial Fibrillation Aug 20 2014 1:24PM Deep vein thrombosis:history of Aug 20 2014 1:24PM 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 Aug 29 2014 3:30PM Atrial Fibrillation Aug 29 2014 3:30PM Deep vein thrombosis:history of Aug 29 2014 3:30PM 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 Sep 05 2014 1:08PM Atrial Fibrillation Sep 05 2014 1:08PM Deep vein thrombosis:history of Sep 05 2014 1:08PM 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 Sep 13 2014 12:03PM Atrial Fibrillation Sep 13 2014 12:03PM Deep vein thrombosis:history of Sep 13 2014 12:03PM skilled nursing use of anticoagulants Sep 05 2014 1:06PM Hip pain Sep 05 2014 1:06PM Neck pain Sep 05 2014 1:06PM History of DVT (deep vein thrombosis) Sep 05 2014 1:06PM Low Back Pain Oct 09 2014 8:35AM Migraine Oct 09 2014 8:35AM Depressive Disorder Oct 09 2014 8:35AM Nausea Oct 09 2014 8:35AM Cervicalgia Oct 09 2014 8:35AM 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 30 2014 [...] 2014 9:04AM Menorrhagia Jan 09 2015 11:30AM 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 Jan 13 2015 [...] to cognitive limitations Apr 23 2015 1:32PM 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 May 01 2015 2:57PM Atrial Fibrillation May 01 2015 2:57PM Deep vein thrombosis:history of May 01 2015 2:57PM skilled nursing use of anticoagulants May 06 2015 3:28PM [...] unmotivated to quit May 23 2015 10:51AM skilled nursing use of anticoagulants May 29 2015 2:16PM [...] 2016 4:08PM Smoker Mar 25 2016 4:08PM Payers Insurance Name Company Name Plan Name Plan Number Policy Number Policy Group Number Start Date [facility] [id number] N/A History of Encounters Visit Date Visit Type Provider 03/25/2016 Office visit FRANCISCO JAVIER MORAN 02/24/2016 Office visit FRANCISCO JAVIER MORAN 02/20/2016 Office visit FRANCISCO JAVIER MORAN 02/10/2016 Office visit FRANCISCO JAVIER MORAN 01/26/2016 Office visit FRANCISCO JAVIER MORAN 01/08/2016 Office visit FRANCISCO JAVIER MORAN 11/25/2015 Office visit FRANCISCO JAVIER MORAN 10/17/2015 Office visit FRANCISCO JAVIER ESPINAL PA 09/26/2015 Office visit FRANCISCO JAVIER MORAN 09/02/2015 Office visit FRANCISCO JAVIER ESPINAL PA 06/27/2015 Office visit FRANCISCO JAVIER ESPINAL PA 06/17/2015 Office visit FRANCISCO JAVIER ESPINAL PA 06/10/2015 Office visit FRANCISCO JAVIER ESPINAL PA 05/29/2015 Office visit FRANCISCO JAVIER ESPINAL PA 05/23/2015 Office visit FRANCISCO JAVIER ESPINAL PA 05/01/2015 Office visit FRANCISCO JAVIER ESPINAL PA 04/25/2015 Voided FRANCISCO JAVIER ESPINAL PA 04/23/2015 [facility] Jermaine Chappell MD 04/23/2015 Office visit FRANCISCO JAVIER MORAN 04/14/2015 Office visit FRANCISCO JAVIER MORAN 04/09/2015 Office visit FRANCISCO JAVIER MORAN 04/03/2015 Office visit FRANCISCO JAVIER ESPINAL PA [...] Office visit FRANCISCO JAVIER ESPINAL PA 08/03/2014 [facility] Jermaine Chappell MD 07/23/2014 Office visit 07/23/2014 Office visit FRANCISCO JAVIER ESPINAL PA 07/08/2014 Office visit FRANCISCO JAVIER ESPINAL PA 06/24/2014 Office visit FRANCISCO JAVIER ESPINAL PA 06/12/2014 Office visit FRANCISCO JAVIER SEPINAL PA 06/10/2014 Office visit FRANCISCO JAVIER ESPINAL PA 05/27/2014 Office visit FRANCISCO JAVIER ESPINAL PA 05/20/2014 Office visit FRANCISCO JAVIER ESPINAL PA 05/16/2014 Office visit FRANCISCO JAVIER MORAN 05/13/2014 Voided FRANCISCO JAVIER ESPINAL PA 05/06/2014 Office visit FRANCISCO JAVIER ESPINAL PA 05/03/2014 [facility] Aruna Koehler MD 04/25/2014 Office visit FRANCISCO [...]
[2017-05-11] MEDS ORDERED: CATHETER FLUSH 10 ML SYR IV PRN (13:00)
[2017-05-11] MEDS ORDERED: NS 250 ML (IVPB) BAG IV ONE (13:00)
[2017-05-11] MEDS ORDERED: IOHEXOL 350 MG/ML 100 ML (OMNIPAQUE 350) VIAL IV ONE (13:00)
--- OUTSIDE RECORDS SUMMARY | 2017-05-11 13:00 | XMS REPORT ---
Author FRANCISCO JAVIER Bateman [facility] Address [address] [place], [place] [address] Care Team Providers Care Ice Grinder Name Role Phone FRANCISCO JAVIER ESPINAL PCP [...] daily hydroxyzine HCl 25 mg oral tablet 01/08/2016 [...] ONE TABLET BY MOUTH THREE TIMES DAILY amoxicillin 500 mg oral capsule 06/03/2016 take 1 capsule (500 mg) by oral route 3 times per day for 7 days Name Start Date Expiration [...] 30 days alprazolam 0.5 mg oral tablet 08/07/20142 to 1 TID PRN panic attack Cipro [...] ONE TABLET BY MOUTH THREE TIMES DAILY [place] 5-325 mg oral tablet 02/20/2016 05/15/2016 take [...] HC BMI BSA BMI Percentile O2 Sat(%) 06/08/2016 1:11:00 PM 108 mmHg 72 mmHg [...] 04/12/2015 12:00 AM Decadron, Per 1 Mg [facility]# [address]-81 Reviewed 05/01/2015 12:00 AM CAPILLARY BLOOD DRAW Reviewed 03/06/2015 12:00 AM CAPILLARY BLOOD DRAW Reviewed 05/07/2015 12:00 AM CAPILLARY BLOOD DRAW Reviewed 05/23/2015 12:00 AM Decadron, Per 1 Mg [facility]# [address]-92 Reviewed 05/29/2015 12:00 AM CAPILLARY BLOOD DRAW Reviewed 06/17/2015 12:00 AM EXTREMITY STUDY Returned 09/02/2015 12:00 AM Decadron, Per 1 Mg [facility]# [address]-07 Reviewed 09/02/2015 12:00 AM Rocephin 1 gram [facility]#0172-4928-34 Reviewed 09/02/2015 12:00 AM Toradol 60 Mg [facility]#8446-6588-00 Reviewed 09/26/2015 12:00 AM Decadron, Per 1 Mg [facility]# [address]-36 Reviewed 09/26/2015 12:00 AM Phenergan, Up to 50 Mg [facility]#2506-6322-40 Reviewed 02/20/2016 12:00 AM DRAINAGE OF SKIN ABSCESS Reviewed 02/10/2016 12:00 AM Phenergan 50mg Injection Reviewed 02/10/2016 12:00 AM THER/PROPH/DIAG INJ SC/IM Reviewed 03/25/2016 12:00 AM THERAPEUTIC PROPHYLACTIC/DX INJECTION SUBQ/IM Reviewed 03/25/2016 12:00 AM Decadron 8mg Injection, [facility] Medicaid Reviewed 03/25/2016 12:00 AM Depo-Medrol 80 Mg Injection, [facility] Medicaid Reviewed 03/25/2016 12:00 AM Rocephin 1 gram Injection, [facility] Medicaid Reviewed 03/29/2016 12:00 AM THER/PROPH/DIAG INJ SC/IM Reviewed 03/29/2016 12:00 AM Decadron 8mg Injection Reviewed 03/29/2016 12:00 AM Depo-Medrol 80mg Injection Reviewed 03/29/2016 12:00 AM Rocephin 1 gram Injection Reviewed 03/27/2016 12:00 AM BEHAV CHNG SMOKING 3-10 MIN Reviewed 03/30/2016 12:00 AM Toradol 60 Mg Injection, [facility] Medicaid Reviewed 03/30/2016 12:00 AM Phenergan 50mg Injection, [facility] Medicaid Reviewed 04/17/2016 12:00 AM THERAPEUTIC PROPHYLACTIC/DX [...] AM BEHAV CHNG SMOKING 3-10 MIN Reviewed 03/28/2014 12:00 AM COMPLETE CBC W/AUTO [...] 07/23/2014 12:00 AM Decadron, Per 1 Mg [facility]# [address]-21 Reviewed 07/23/2014 12:00 AM Depo-Medrol, Per 80 Mg [facility]#1218-0653-29 Reviewed 07/23/2014 12:00 AM Rocephin 1 gram [facility]#9780-2886-98 Reviewed 08/20/2014 12:00 AM CAPILLARY BLOOD DRAW Reviewed 08/29/2014 12:00 AM CAPILLARY BLOOD DRAW Reviewed 09/05/2014 12:00 AM CAPILLARY BLOOD DRAW Reviewed 09/13/2014 12:00 AM CAPILLARY BLOOD DRAW Reviewed 10/09/2014 12:00 AM Decadron, Per 1 Mg [facility]# [address]-17 Reviewed 10/09/2014 12:00 AM Toradol 60 Mg [facility]#5030-8773-44 Reviewed 10/09/2014 12:00 AM Phenergan, Up to 50 Mg [facility]#8544-6093-75 Reviewed 10/30/2014 12:00 AM CAPILLARY BLOOD DRAW [...] PTT 36.80 secsCALLED TO/BY ARUNA ALBERT/[facility] 12/30/2014 10:57 AM WBC 9.4 [...] 2014 10:47AM Anxiety Mar 28 2014 10:10AM prison use of drug Mar 28 2014 10:10AM [...] vein thrombosis:history of Jun 10 2014 9:18AM prison use of anticoagulants Jun 12 2014 8:29AM [...] 2:55PM Intellectual disability Aug 06 2014 2:55PM 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 Aug 20 2014 1:24PM Atrial Fibrillation Aug 20 2014 1:24PM Deep vein thrombosis:history of Aug 20 2014 1:24PM 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 Aug 29 2014 3:30PM Atrial Fibrillation Aug 29 2014 3:30PM Deep vein thrombosis:history of Aug 29 2014 3:30PM 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 Sep 05 2014 1:08PM [...] 2014 8:35AM Cervicalgia Oct 09 2014 8:35AM 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 Oct 30 2014 3:06PM Atrial Fibrillation Oct 30 2014 3:06PM Deep vein thrombosis:history of Oct 30 2014 3:06PM 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 Nov 07 2014 3:54PM Atrial Fibrillation Nov 07 2014 3:54PM Deep vein thrombosis:history of Nov 07 2014 3:54PM Cough Dec 02 2014 11:37AM Bronchitis, Acute Dec 02 2014 11:37AM Abdominal Pain, Generalized Dec 06 2014 11:21AM Constipation Dec 06 2014 11:21AM prison use of anticoagulants Dec 12 2014 9:25AM [...] 2014 9:04AM Menorrhagia Jan 09 2015 11:30AM 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 Jan 13 2015 11:28AM Atrial Fibrillation Jan 13 2015 11:28AM Deep vein thrombosis:history of Jan 13 2015 11:28AM Menorrhagia with regular cycle Jan 27 2015 10:44AM Moderate Female pelvic pain Jan 27 2015 10:44AM Moderate Dysmenorrhea Jan 27 2015 10:44AM 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 Feb 03 2015 1:34PM [...] to cognitive limitations Apr 23 2015 1:32PM 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 May 01 2015 2:57PM Atrial Fibrillation May 01 2015 2:57PM Deep vein thrombosis:history of May 01 2015 2:57PM 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 May 06 2015 3:28PM Atrial Fibrillation May 06 2015 3:28PM Deep vein thrombosis:history of May 06 2015 3:28PM 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 May 07 2015 9:50AM Atrial Fibrillation May 07 2015 9:50AM Deep vein thrombosis:history of May 07 2015 9:50AM Cough May 23 2015 10:51AM Bronchitis, Acute May 23 2015 10:51AM Post-nasal drainage May 23 2015 10:51AM Smoker unmotivated to quit May 23 2015 10:51AM 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 May 29 2015 2:16PM [...] 2016 1:11PM Bruise Jun 08 2016 1:11PM prison current use of anticoagulant Jun 08 2016 1:11PM Anxiety about health Jun 08 2016 1:11PM Payers Insurance Name Company Name Plan Name Plan Number Policy Number Policy Group Number Start Date [facility] [id number] N/A History of Encounters Visit Date Visit Type Provider 06/08/2016 Office visit FRANCISCO JAVIER MORAN 05/24/2016 [...] JAVIER MORAN 05/23/2015 Office visit FRANCISCO JAVIER ESPINAL PA [...] Office visit FRANCISCO JAVIER ESPINAL PA 08/03/2014 [facility] Jermaine Chappell MD 07/23/2014 Office visit [...] visit FRANCISCO JAVIER MORAN 04/01/2014 Office visit Aruna Albert APRN 03/28/2014 Office visit FRANCISCO JAVIER MORAN 02/26/2014 Office visit FRANCISCO JAVIER MORAN 05/20/2010 Office visit Francisco Javier Espinal PA-C 04/16/2009 Office visit Francisco Javier Espinal PA-C 01/24/2009 Office visit Tian Basilio MD 12/31/2008 Office visit Tian Basilio MD 12/23/2008 Office visit Tian Basilio MD 12/17/2008 [facility] Tian Basilio MD 12/13/2008 Office visit Tian Basilio MD 12/06/2008 Office visit Tian Basilio MD 11/29/2008 Office visit Tian Basilio MD 11/15/2008 Office visit Tian Basilio MD 11/01/2008 Office visit Tian Basilio MD 10/18/2008 Office visit Tian Basilio MD
--- OUTSIDE RECORDS SUMMARY | 2017-05-11 13:01 | XMS REPORT ---
Author Author [facility] Organization [facility] Address [address] [facility] [address] [place], [place] [address] Care Team Providers Care Licensed Physical Therapist Name Role Phone PCP Unavailable Allergies and [...] BILI 0.20 mg/dLCALCIUM 10.0 mg/dLeGFR >60 mL/min/1.73 [id number] 241.0 mg/dLCHOLESTEROL 248.0 mg/dLHDL 51.0 mg/dLLDL ([facility]) [...] 2014 10:47AM Anxiety Mar 28 2014 10:10AM 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 use of drug Mar 28 2014 10:10AM [...] 2 to 3 May 16 2014 10:57AM 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 use of anticoagulants May 20 2014 11:14AM DVT (deep venous thrombosis), left May 20 2014 11:14AM 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 use of anticoagulants May 30 2014 7:44AM Atrial Fibrillation May 30 2014 7:44AM Deep vein thrombosis:history of May 30 2014 7:44AM 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 10 2014 9:18AM Atrial Fibrillation Jun 10 2014 9:18AM Deep vein thrombosis:history of Jun 10 2014 9:18AM 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 use of anticoagulants Jun 12 2014 8:29AM [...] of Encounters Visit Date Visit Type Provider 07/23/2014 Office visit FRANCISCO JAVIER MORAN 07/08/2014 Office visit FRANCISCO JAVIER MORAN 06/24/2014 Office visit FRANCISCO JAVIER MORAN 06/12/2014 Office visit FRANCISCO JAVIER MORAN 06/10/2014 Office visit FRANCISCO JAVIER MORAN 05/27/2014 Office visit FRANCISCO JAVIER MORAN 05/20/2014 Office visit FRANCISCO JAVIER MORAN 05/16/2014 Office visit FRANCISCO JAVIER MORAN 05/13/2014 Voided FRANCISCO JAVIER MORAN 05/06/2014 Office visit FRANCISCO JAVIER MORAN 05/03/2014 [facility] Jessi Koehler MD [...]
--- OUTSIDE RECORDS SUMMARY | 2017-05-11 13:01 | XMS REPORT ---
Author Author [facility] Organization [facility] Address [address] [place], [place] [address] Care Team Providers Care Chimney Repairer Name Role Phone PCP Unavailable Allergies and [...] mg) by oral route once daily alprazolam oral tablet 0.5 mg 08/07/2014 1/2 [...] Pack 4 mg 04/16/2009 take as directed Bentyl oral capsule 10 mg 06/07/2014 10/05/2014 [...] 12:00 AM Decadron, Per 1 Mg [facility]# [address]-79 Reviewed 07/23/2014 12:00 AM Depo-Medrol, Per 80 Mg [facility]#0843-9925-72 Reviewed 07/23/2014 12:00 AM Rocephin 1 gram [facility]#5847-9211-33 Reviewed 08/20/2014 12:00 AM CAPILLARY BLOOD DRAW Reviewed 08/29/2014 12:00 AM CAPILLARY BLOOD DRAW Reviewed 09/05/2014 12:00 AM CAPILLARY BLOOD DRAW Reviewed 09/13/2014 12:00 AM CAPILLARY BLOOD DRAW Reviewed 10/09/2014 12:00 AM Decadron, Per 1 Mg [facility]# [address]-08 Ordered 10/09/2014 12:00 AM Toradol 60 Mg [facility]#6988-5926-86 Ordered 10/09/2014 12:00 AM Phenergan, Up to 50 Mg [facility]#8360-3661-04 Ordered Results Summary Data and Description Results 03/28/2014 3:47 PM GLUCOSE 76.0 mg/dLSODIUM 145.0 mmol/LPOTASSIUM 4.80 mmol/ LCHLORIDE 105.0 mmol/LCO2 25.0 mmol/LBUN 13.0 mg/dLCREATININE 0.70 mg/dLSGOT/ AST 14.0 IU/LSGPT/ALT 12.0 IU/LALK PHOS 72.0 IU/LTOTAL PROTEIN 7.60 g/dLALBUMIN 4.40 g/dLTOTAL BILI 0.20 mg/dLCALCIUM 10.0 mg/dLeGFR >60 mL/min/1.73 [id number] 241.0 mg/dLCHOLESTEROL 248.0 mg/dLHDL 51.0 mg/dLLDL ([facility]) [...] 2 to 3 May 16 2014 10:57AM retirement use of anticoagulants May 20 2014 11:14AM DVT (deep venous thrombosis), left May 20 2014 11:14AM retirement use of anticoagulants May 30 2014 7:44AM Atrial Fibrillation May 30 2014 7:44AM Deep vein thrombosis:history of May 30 2014 7:44AM 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 Jun 10 2014 9:18AM Atrial Fibrillation Jun 10 2014 9:18AM Deep vein thrombosis:history of Jun 10 2014 9:18AM retirement use of anticoagulants Jun 12 2014 8:29AM [...] Intellectual disability Aug 06 2014 2:55PM 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 History of Encounters Visit Date Visit Type Provider 10/09/2014 Office visit FRANCISCO JAVIER MORAN 10/04/2014 [...] 05/06/2014 Office visit FRANCISCO JAVIER MORAN 05/03/2014 [facility] Jessi Koehler MD 04/25/2014 Office visit FRANCISCO JAVIER MORAN 04/01/2014 Office visit Jessi Blake APRN 03/28/2014 Office visit FRANCISCO JAVIER MORAN 02/26/2014 Office visit FRANCISCO JAVIER MORAN 05/20/2010 Office visit Francisco Javier Rogers PA-C 04/16/2009 Office visit Francisco Javier MORAN-C 01/24/2009 Office visit Tian Basilio MD 12/31/2008 Office visit Tian Basilio MD 12/23/2008 Office visit Tian Basilio MD 12/17/2008 [facility] Tian Basilio MD 12/13/2008 Office visit Tian Basilio MD 12/06/2008 Office visit Tian Basilio MD 11/29/2008 Office visit Tian Basilio MD 11/15/2008 Office visit Tian Basilio MD 11/01/2008 Office visit Tian Basilio MD 10/18/2008 Office visit Tian Basilio MD
--- OUTSIDE RECORDS SUMMARY | 2017-05-11 13:02 | XMS REPORT ---
Author Author [facility] Organization [facility] Address [address] [place], [place] [address] Care Team Providers Care Copy Preparer Name Role Phone PCP Unavailable Allergies and [...] BILI 0.20 mg/dLCALCIUM 10.0 mg/dLeGFR >60 mL/min/1.73 [id number] 241.0 mg/dLCHOLESTEROL 248.0 mg/dLHDL 51.0 mg/dLLDL ([facility]) [...] 2014 10:47AM Anxiety Mar 28 2014 10:10AM group home use of drug Mar 28 2014 [...] 2 to 3 May 16 2014 10:57AM group home use of anticoagulants May 20 2014 11:14AM DVT (deep venous thrombosis), left May 20 2014 11:14AM group home use of anticoagulants May 30 2014 7:44AM Atrial Fibrillation May 30 2014 7:44AM Deep vein thrombosis:history of May 30 2014 7:44AM rn long 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 Jun 10 2014 9:18AM Atrial Fibrillation Jun 10 2014 9:18AM Deep vein thrombosis:history of Jun 10 2014 9:18AM group home use of anticoagulants Jun 12 2014 [...] JAVIER MORAN 05/06/2014 Office visit FRANCISCO JAVIER MOARN 05/03/2014 [facility] Jessi Koehler MD [...]
--- OUTSIDE RECORDS SUMMARY | 2017-05-11 13:02 | XMS REPORT ---
Author Author FRANCISCO JAVIER ESPINAL [facility] Address [address] [facility] [address] [place], [place] [id number] Care Team Providers Care Letter Carrier Name Role Phone FRANCISCO JAVIER ESPINAL PCP [...] HC BMI BSA BMI Percentile O2 Sat(%) 12/06/2014 11:20:00 AM 140 mmHg 80 mmHg [...] Decadron, Per 1 Mg [facility]# [address]-26 Reviewed 07/23/2014 12:00 AM Depo-Medrol, Per 80 Mg [facility]#7637-9274-45 Reviewed 07/23/2014 12:00 AM Rocephin 1 gram [facility]#8136-7561-91 Reviewed 08/20/2014 12:00 AM CAPILLARY BLOOD DRAW Reviewed 08/29/2014 12:00 AM CAPILLARY BLOOD DRAW Reviewed 09/05/2014 12:00 AM CAPILLARY BLOOD DRAW Reviewed 09/13/2014 12:00 AM CAPILLARY BLOOD DRAW Reviewed 10/09/2014 12:00 AM Decadron, Per 1 Mg [facility]# [address]-86 Reviewed 10/09/2014 12:00 AM Toradol 60 Mg [facility]#1793-6609-21 Reviewed 10/09/2014 12:00 AM Phenergan, Up to 50 Mg [facility]#0233-0452-71 Reviewed 10/30/2014 12:00 AM CAPILLARY BLOOD DRAW Reviewed Results Summary Data and Description Results 03/28/2014 3:47 PM GLUCOSE 76.0 mg/dLSODIUM 145.0 mmol/LPOTASSIUM 4.80 mmol/ LCHLORIDE 105.0 mmol/LCO2 25.0 mmol/LBUN 13.0 mg/dLCREATININE 0.70 mg/dLSGOT/ AST 14.0 IU/LSGPT/ALT 12.0 IU/LALK PHOS 72.0 IU/LTOTAL PROTEIN 7.60 g/dLALBUMIN 4.40 g/dLTOTAL BILI 0.20 mg/dLCALCIUM 10.0 mg/dLeGFR >60 mL/min/1.73 [id number] 241.0 mg/dLCHOLESTEROL 248.0 mg/dLHDL 51.0 mg/dLLDL (CALC) [...] 2014 10:47AM Anxiety Mar 28 2014 10:10AM [facility] use of drug Mar 28 2014 10:10AM [...] 2 to 3 May 16 2014 10: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 May 20 2014 11:14AM DVT (deep venous thrombosis), left May 20 2014 11:14AM 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 May 30 2014 7:44AM Atrial Fibrillation May 30 2014 7:44AM Deep vein thrombosis:history of May 30 2014 7:44AM 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 Jun 10 2014 9:18AM Atrial Fibrillation Jun 10 2014 9:18AM Deep vein thrombosis:history of Jun 10 2014 9:18AM [facility] use of anticoagulants Jun 12 2014 8:29AM [...] Intellectual disability Aug 06 2014 2:55PM 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 Aug 20 2014 1:24PM Atrial Fibrillation Aug 20 2014 1:24PM Deep vein thrombosis:history of Aug 20 2014 1:24PM [facility] use of anticoagulants Aug 29 2014 3:30PM Atrial Fibrillation Aug 29 2014 3:30PM Deep vein thrombosis:history of Aug 29 2014 3:30PM 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 Sep 05 2014 1:08PM Atrial Fibrillation Sep 05 2014 1:08PM Deep vein thrombosis:history of Sep 05 2014 1:08PM [facility] use of anticoagulants Sep 13 2014 12:03PM Atrial Fibrillation Sep 13 2014 12:03PM Deep vein thrombosis:history of Sep 13 2014 12:03PM [facility] use of anticoagulants Sep 05 2014 1:06PM Hip pain Sep 05 2014 1:06PM Neck pain Sep 05 2014 1:06PM History of DVT (deep vein thrombosis) Sep 05 2014 1:06PM Low Back Pain Oct 09 2014 8:35AM Migraine Oct 09 2014 8:35AM Depressive Disorder Oct 09 2014 8:35AM Nausea Oct 09 2014 8:35AM Cervicalgia Oct 09 2014 8:35AM [facility] use of anticoagulants Oct 30 2014 3:06PM Atrial Fibrillation Oct 30 2014 3:06PM Deep vein thrombosis:history of Oct 30 2014 3:06PM [facility] use of anticoagulants Nov 07 2014 3:54PM Atrial Fibrillation Nov 07 2014 3:54PM Deep vein thrombosis:history of Nov 07 2014 3:54PM Cough Dec 02 2014 11:37AM Bronchitis, Acute Dec 02 2014 11:37AM Abdominal Pain, Generalized Dec 06 2014 11:21AM Constipation Dec 06 2014 11:21AM Payers Not available. History of Encounters Visit Date Visit Type Provider 12/06/2014 Office visit FRANCISCO JAVIER MORAN 12/02/2014 Office visit FRANCISCO JAVIER MORAN 10/30/2014 Office visit FRANCISCO JAVIER MORAN 10/18/2014 Office visit FRANCISCO JAVIER MORAN 10/09/2014 Office visit FRANCISCO JAVIER MORAN 10/04/2014 Voided FRANCISCO JAVIER MORAN 09/20/2014 Voided FRANCISCO JAVIER MORAN 09/13/2014 Office visit FRANCISCO JAVIER MORAN 09/05/2014 Office visit FRANCISCO JAVIER MORAN 08/06/2014 Office visit FRANCISCO JAVIER MORAN 08/03/2014 [facility] Jermaine Chappell MD 07/23/2014 Office visit [...] 05/06/2014 Office visit FRANCISCO JAVIER MORAN 05/03/2014 [facility] Jessi Koehler MD 04/25/2014 Office visit FRANCISCO JAVIER MORAN 04/01/2014 Office visit Jessi Blake APRN 03/28/2014 Office visit FRANCISCO JAVIER MORAN 02/26/2014 Office visit FRANCISCO JAVIER MORAN 05/20/2010 Office visit Francisco Javier Espinal PA-C 04/16/2009 Office visit Francisco Javier MORAN-C 01/24/2009 Office visit Tian Basilio MD 12/31/2008 Office visit Tian Basilio MD 12/23/2008 Office visit Tian Basilio MD 12/17/2008 [facility] Tian Basilio MD 12/13/2008 Office visit Tian Basilio MD 12/06/2008 Office visit Tian Basilio MD 11/29/2008 Office visit Tian Basilio MD 11/15/2008 Office visit Tian Basilio MD 11/01/2008 Office visit Tian Basilio MD 10/18/2008 Office visit Tian Basilio MD
--- OUTSIDE RECORDS SUMMARY | 2017-05-11 13:03 | XMS REPORT ---
Author Author FRANCISCO JAVIER ESPINAL [facility] Address [address] [facility] [address] [place], [place] [id number] Care Team Providers Care Machine Trimmer Name Role Phone FRANCISCO JAVIER ESPINAL PCP [...] (4 mg) by oral route once daily [place] 5-325 mg oral tablet 04/14/2015 take 1 [...] 12:00 AM Decadron, Per 1 Mg [facility]# [address]-72 Reviewed 05/01/2015 12:00 AM CAPILLARY BLOOD DRAW Reviewed 03/06/2015 12:00 AM CAPILLARY BLOOD DRAW Reviewed 03/28/2014 [...] 12:00 AM Decadron, Per 1 Mg [facility]# [address]-78 Reviewed 07/23/2014 12:00 AM Depo-Medrol, Per 80 Mg [facility]#9666-5270-14 Reviewed 07/23/2014 12:00 AM Rocephin 1 gram [facility]#1589-8216-81 Reviewed 08/20/2014 12:00 AM CAPILLARY BLOOD DRAW Reviewed 08/29/2014 12:00 AM CAPILLARY BLOOD DRAW Reviewed 09/05/2014 12:00 AM CAPILLARY BLOOD DRAW Reviewed 09/13/2014 12:00 AM CAPILLARY BLOOD DRAW Reviewed 10/09/2014 12:00 AM Decadron, Per 1 Mg [facility]# [address]-12 Reviewed 10/09/2014 12:00 AM Toradol 60 Mg [facility]#7983-2576-46 Reviewed 10/09/2014 12:00 AM Phenergan, Up to 50 Mg [facility]#1484-8675-43 Reviewed 10/30/2014 12:00 AM CAPILLARY BLOOD DRAW Reviewed Results Summary Data and Description Results 03/28/2014 3:47 PM GLUCOSE 76.0 mg/dLSODIUM 145.0 mmol/LPOTASSIUM 4.80 mmol/ LCHLORIDE 105.0 mmol/LCO2 25.0 mmol/LBUN 13.0 mg/dLCREATININE 0.70 mg/dLSGOT/ AST 14.0 IU/LSGPT/ALT 12.0 IU/LALK PHOS 72.0 IU/LTOTAL PROTEIN 7.60 g/dLALBUMIN 4.40 g/dLTOTAL BILI 0.20 mg/dLCALCIUM 10.0 mg/dLeGFR >60 mL/min/1.73 [id number] 241.0 mg/dLCHOLESTEROL 248.0 mg/dLHDL 51.0 mg/dLLDL (CALC) [...] 10:47AM Anxiety Mar 28 2014 10:10AM 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 Mar [...] 2 to 3 May 16 2014 10:57AM alf use of anticoagulants May 20 2014 11:14AM DVT (deep venous thrombosis), left May 20 2014 11:14AM alf use of anticoagulants May 30 2014 7:44AM Atrial Fibrillation May 30 2014 7:44AM Deep vein thrombosis:history of May 30 2014 7:44AM 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 Jun 10 2014 9:18AM Atrial Fibrillation Jun 10 2014 9:18AM Deep vein thrombosis:history of Jun 10 2014 9:18AM alf use of anticoagulants Jun 12 2014 8:29AM [...] 2:55PM Intellectual disability Aug 06 2014 2:55PM alf use of anticoagulants Aug 20 2014 1:24PM Atrial Fibrillation Aug 20 2014 1:24PM Deep vein thrombosis:history of Aug 20 2014 1:24PM alf use of anticoagulants Aug 29 2014 3:30PM Atrial Fibrillation Aug 29 2014 3:30PM Deep vein thrombosis:history of Aug 29 2014 3:30PM alf use of anticoagulants Sep 05 2014 1:08PM Atrial Fibrillation Sep 05 2014 1:08PM Deep vein thrombosis:history of Sep 05 2014 1:08PM 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 Sep [...] 8:35AM Cervicalgia Oct 09 2014 8:35AM 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 Oct 30 2014 3:06PM Atrial Fibrillation Oct 30 2014 3:06PM Deep vein thrombosis:history of Oct 30 2014 3:06PM alf use of anticoagulants Nov 07 2014 3:54PM Atrial Fibrillation Nov 07 2014 3:54PM Deep vein thrombosis:history of Nov 07 2014 3:54PM Cough Dec 02 2014 11:37AM Bronchitis, Acute Dec 02 2014 11:37AM Abdominal Pain, Generalized Dec 06 2014 11:21AM Constipation Dec 06 2014 11:21AM 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 Dec [...] 9:04AM Menorrhagia Jan 09 2015 11:30AM 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 Jan 13 2015 11:28AM Atrial Fibrillation Jan 13 2015 11:28AM Deep vein thrombosis:history of Jan 13 2015 11:28AM Menorrhagia with regular cycle Jan 27 2015 10:44AM Moderate Female pelvic pain Jan 27 2015 10:44AM Moderate Dysmenorrhea Jan 27 2015 10:44AM 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 Feb [...] to cognitive limitations Apr 23 2015 1:32PM alf use of anticoagulants May 01 2015 2:57PM Atrial Fibrillation May 01 2015 2:57PM Deep vein thrombosis:history of May 01 2015 2:57PM 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 May 06 2015 3:28PM Atrial Fibrillation May 06 2015 3:28PM Deep vein thrombosis:history of May 06 2015 3:28PM Payers Insurance Name Company Name Plan Name Plan Number Policy Number Policy Group Number Start Date [facility] [id number] N/A History of Encounters Visit Date Visit [...] ESPINAL PA 10/30/2014 Office visit FRANCISCO JAVIER MORAN 10/18/2014 Office visit FRANCISCO JAVIER MORAN 10/09/2014 Office visit FRANCISCO JAVIER MORAN 10/04/2014 Voided FRANCISCO JAVIER ESPINAL PA 09/20/2014 Voided FRANCISCO JAVIER ESPINAL PA 09/13/2014 Office visit FRANCISCO JAVIER MORAN 09/05/2014 Office visit 09/05/2014 Office visit FRANCISCO JAVIER ESPINAL PA 08/06/2014 Office visit FRANCISCO JAVIER ESPINAL PA 08/03/2014 Akosua Chappell MD 07/23/2014 Office visit [...] Office visit FRANCISCO JAVIER MORAN 05/03/2014 [facility] Jessi Koehler MD 04/25/2014 Office visit FRANCISCO JAVIER MORAN 04/01/2014 Office visit Jessi Blake APRN 03/28/2014 Office visit FRANCISCO JAVIER MORAN 02/26/2014 Office visit FRANCISCO JAVIER MORAN 05/20/2010 Office visit Francisco Javier Espinal PA-C 04/16/2009 Office visit Francisco Javier Espinal PA-C 01/24/2009 Office visit Tian Basilio MD 12/31/2008 Office visit Tian Basilio MD 12/23/2008 Office visit Tian Basilio MD 12/17/2008 [facility] Tian Basilio MD 12/13/2008 Office visit Tian Basilio MD 12/06/2008 Office visit Tian Basilio MD 11/29/2008 Office visit Tian Basilio MD 11/15/2008 Office visit Tian Basilio MD 11/01/2008 Office visit Tian Basilio MD 10/18/2008 Office visit Tian Basilio MD
--- OUTSIDE RECORDS SUMMARY | 2017-05-11 13:05 | XMS REPORT ---
Author Author FRANCISCO JAVIER ESPINAL [facility] Address [address] [place], [place] [address] Care Team Providers Care Terrazzo Polisher Helper Name Role Phone FRANCISCO JAVIER ESPINAL PCP [...] by oral route 3 times per day [place] 5-325 mg oral tablet 09/02/2015 take 1 [...] days alprazolam 0.5 mg oral tablet 08/07/2014 1/ to 1 TID PRN panic attack Cipro [...] HC BMI BSA BMI Percentile O2 Sat(%) 10/21/2015 6:44:00 AM 115 mmHg 68 mmHg [...] 04/12/2015 12:00 AM Decadron, Per 1 Mg [facility]# [address]-11 Reviewed 05/01/2015 12:00 AM CAPILLARY BLOOD DRAW Reviewed 03/06/2015 12:00 AM CAPILLARY BLOOD DRAW Reviewed 05/07/2015 12:00 AM CAPILLARY BLOOD DRAW Reviewed 05/23/2015 12:00 AM Decadron, Per 1 Mg [facility]# [address]-86 Reviewed 05/29/2015 12:00 AM CAPILLARY BLOOD DRAW Reviewed 06/17/2015 12:00 AM EXTREMITY STUDY Returned 09/02/2015 12:00 AM Decadron, Per 1 Mg [facility]# [address]-25 Reviewed 09/02/2015 12:00 AM Rocephin 1 gram [facility]#1543-5633-67 Reviewed 09/02/2015 12:00 AM Toradol 60 Mg [facility]#0887-3167-11 Reviewed 09/26/2015 12:00 AM Decadron, Per 1 Mg [facility]# [address]-77 Reviewed 09/26/2015 12:00 AM Phenergan, Up to 50 Mg [facility]#1570-7016-65 Reviewed 03/28/2014 12:00 AM COMPLETE CBC W/AUTO [...] 07/23/2014 12:00 AM Decadron, Per 1 Mg [facility]# [address]-70 Reviewed 07/23/2014 12:00 AM Depo-Medrol, Per 80 Mg [facility]#2508-9413-29 Reviewed 07/23/2014 12:00 AM Rocephin 1 gram [facility]#5123-4378-71 Reviewed 08/20/2014 12:00 AM CAPILLARY BLOOD DRAW Reviewed 08/29/2014 12:00 AM CAPILLARY BLOOD DRAW Reviewed 09/05/2014 12:00 AM CAPILLARY BLOOD DRAW Reviewed 09/13/2014 12:00 AM CAPILLARY BLOOD DRAW Reviewed 10/09/2014 12:00 AM Decadron, Per 1 Mg [facility]# [address]-96 Reviewed 10/09/2014 12:00 AM Toradol 60 Mg [facility]#7885-[address]-51 Reviewed 10/09/2014 12:00 AM Phenergan, Up to 50 Mg [facility]#8399-6603-21 Reviewed 10/30/2014 12:00 AM CAPILLARY BLOOD DRAW Reviewed Results Summary Data and Description Results 03/28/2014 3:47 PM GLUCOSE 76.0 mg/dLSODIUM 145.0 mmol/LPOTASSIUM 4.80 mmol/ LCHLORIDE 105.0 mmol/LCO2 25.0 mmol/LBUN 13.0 mg/dLCREATININE 0.70 mg/dLSGOT/ AST 14.0 IU/LSGPT/ALT 12.0 IU/LALK PHOS 72.0 IU/LTOTAL PROTEIN 7.60 g/dLALBUMIN 4.40 g/dLTOTAL BILI 0.20 mg/dLCALCIUM 10.0 mg/dLeGFR >60 mL/min/1.73 [id number] 241.0 mg/dLCHOLESTEROL 248.0 mg/dLHDL 51.0 mg/dLLDL (CALC) [...] 2014 10:47AM Anxiety Mar 28 2014 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 28 2014 10:10AM [...] 2 to 3 May 16 2014 10:57AM half-way use of anticoagulants May 20 2014 11:14AM DVT (deep venous thrombosis), left May 20 2014 11:14AM half-way use of anticoagulants May 30 2014 7:44AM Atrial Fibrillation May 30 2014 7:44AM Deep vein thrombosis:history of May 30 2014 7:44AM half-way use of anticoagulants Jun 10 2014 9:18AM Atrial Fibrillation Jun 10 2014 9:18AM Deep vein thrombosis:history of Jun 10 2014 9:18AM 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 Jun 12 2014 8:29AM [...] disability Aug 06 2014 2:55PM 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 Aug 20 2014 1:24PM Atrial Fibrillation Aug 20 2014 1:24PM Deep vein thrombosis:history of Aug 20 2014 1:24PM 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 Aug 29 2014 3:30PM [...] vein thrombosis:history of Oct 30 2014 3:06PM 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 Nov 07 2014 3:54PM Atrial Fibrillation Nov 07 2014 3:54PM Deep vein thrombosis:history of Nov 07 2014 3:54PM Cough Dec 02 2014 11:37AM Bronchitis, Acute Dec 02 2014 11:37AM Abdominal Pain, Generalized Dec 06 2014 11:21AM Constipation Dec 06 2014 11:21AM 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 Dec 12 2014 9:25AM [...] 2014 9:04AM Menorrhagia Jan 09 2015 11:30AM 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 Jan 13 2015 11:28AM Atrial Fibrillation Jan 13 2015 11:28AM Deep vein thrombosis:history of Jan 13 2015 11:28AM Menorrhagia with regular cycle Jan 27 2015 10:44AM Moderate Female pelvic pain Jan 27 2015 10:44AM Moderate Dysmenorrhea Jan 27 2015 10:44AM 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 Feb 03 2015 1:34PM [...] vein thrombosis:history of May 06 2015 3:28PM 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 May 07 2015 9:50AM Atrial Fibrillation May 07 2015 9:50AM Deep vein thrombosis:history of May 07 2015 9:50AM Cough May 23 2015 10:51AM Bronchitis, Acute May 23 2015 10:51AM Post-nasal drainage May 23 2015 10:51AM Smoker unmotivated to quit May 23 2015 10:51AM 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 Jermaine Chappell MD 07/23/2014 Office visit [...] Office visit FRANCISCO JAVIER ESPINAL PA 05/03/2014 [facility] Jessi Koehler MD 04/25/2014 Office visit FRANCISCO JAVIER ESPINAL PA 04/01/2014 Office visit Jessi Blake MEDICAL AFFAIRS DIRECTOR 03/28/2014 Office visit FRANCISCO JAVIER ESPINAL PA 02/26/2014 Office visit FRANCISCO JAVIER ESPINAL PA 05/20/2010 Office visit Francisco Javier Espinal PA-C 04/16/2009 Office visit Francisco Javier Espinal PA-C 01/24/2009 Office visit Tian Basilio MD 12/31/2008 Office visit Tian Basilio MD 12/23/2008 Office visit Tian Basilio MD 12/17/2008 [facility] Tian Basilio MD 12/13/2008 Office visit Tian Basilio MD 12/06/2008 Office visit Tian Basilio MD 11/29/2008 Office visit Tian Basilio MD 11/15/2008 Office visit Tian Basilio MD 11/01/2008 Office visit Tian Basilio MD 10/18/2008 Office visit Tina Basilio MD
--- OUTSIDE RECORDS SUMMARY | 2017-05-11 13:06 | XMS REPORT ---
Author Author FRANCISCO JAVIER ESPINAL [facility] Address [address] [place], [place] [address] Care Team Providers Care Embroidery Patternmaker Name Role Phone FRANCISCO JAVIER ESPINAL PCP [...] oral route once daily for 30 days atenolol 25 mg oral tablet 02/09/2016 TAKE ONE TABLET BY MOUTH TWICE DAILY Bactrim DS 800-160 mg oral tablet 02/18/2016 02/28/2016 take 1 tablet by oral route 2 times a day for 10 days [place] 5-325 mg oral tablet 02/20/2016 take 1 tablet by oral route every 6 hours as needed for pain Name Start Date Expiration Date SIG Comments [...] HC BMI BSA BMI Percentile O2 Sat(%) 02/20/2016 11:01:00 AM 120 mmHg 60 mmHg [...] 04/12/2015 12:00 AM Decadron, Per 1 Mg [facility]# [address]-73 Reviewed 05/01/2015 12:00 AM CAPILLARY BLOOD DRAW Reviewed 03/06/2015 12:00 AM CAPILLARY BLOOD DRAW Reviewed 05/07/2015 12:00 AM CAPILLARY BLOOD DRAW Reviewed 05/23/2015 12:00 AM Decadron, Per 1 Mg [facility]# [address]-00 Reviewed 05/29/2015 12:00 AM CAPILLARY BLOOD DRAW Reviewed 06/17/2015 12:00 AM EXTREMITY STUDY Returned 09/02/2015 12:00 AM Decadron, Per 1 Mg [facility]# [address]-18 Reviewed 09/02/2015 12:00 AM Rocephin 1 gram [facility]#1116-2101-75 Reviewed 09/02/2015 12:00 AM Toradol 60 Mg [facility]#6174-5991-37 Reviewed 09/26/2015 12:00 AM Decadron, Per 1 Mg [facility]# [address]-23 Reviewed 09/26/2015 12:00 AM Phenergan, Up to 50 Mg [facility]#0949-1373-73 Reviewed 02/10/2016 12:00 AM Phenergan 50mg Injection Reviewed 02/10/2016 12:00 AM THER/PROPH/DIAG INJ SC/IM Reviewed 03/28/2014 12:00 AM COMPLETE CBC W/AUTO [...] Decadron, Per 1 Mg [facility]# [address]-78 Reviewed 07/23/2014 12:00 AM Depo-Medrol, Per 80 Mg [facility]#3769-8410-45 Reviewed 07/23/2014 12:00 AM Rocephin 1 gram [facility]#0715-7007-91 Reviewed 08/20/2014 12:00 AM CAPILLARY BLOOD DRAW Reviewed 08/29/2014 12:00 AM CAPILLARY BLOOD DRAW Reviewed 09/05/2014 12:00 AM CAPILLARY BLOOD DRAW Reviewed 09/13/2014 12:00 AM CAPILLARY BLOOD DRAW Reviewed 10/09/2014 12:00 AM Decadron, Per 1 Mg [facility]# [address]-21 Reviewed 10/09/2014 12:00 AM Toradol 60 Mg [facility]#0222[address]-64 Reviewed 10/09/2014 12:00 AM Phenergan, Up to 50 Mg [facility]#0120-4980-18 Reviewed 10/30/2014 12:00 AM CAPILLARY BLOOD DRAW [...] secsINR 1.9 PTT 36.80 secsCALLED TO/BY ARUNA ALBERT/[facility] 12/30/2014 10:57 AM WBC 9.4 RBC [...] 2 to 3 May 16 2014 10:57AM 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 May 20 2014 11:14AM DVT (deep venous thrombosis), left May 20 2014 11:14AM 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 May 30 2014 7:44AM Atrial Fibrillation May 30 2014 7:44AM Deep vein thrombosis:history of May 30 2014 7:44AM 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 use of anticoagulants Jun 10 2014 9:18AM [...] 2:55PM Intellectual disability Aug 06 2014 2:55PM 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 Aug 20 2014 1:24PM Atrial Fibrillation Aug 20 2014 1:24PM Deep vein thrombosis:history of Aug 20 2014 1:24PM 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 Aug 29 2014 3:30PM Atrial Fibrillation Aug 29 2014 3:30PM Deep vein thrombosis:history of Aug 29 2014 3:30PM 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 Sep 05 2014 1:08PM Atrial Fibrillation Sep 05 2014 1:08PM Deep vein thrombosis:history of Sep 05 2014 1:08PM 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 use of anticoagulants Sep 13 2014 12:03PM Atrial Fibrillation Sep 13 2014 12:03PM Deep vein thrombosis:history of Sep 13 2014 12:03PM 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 use of anticoagulants Sep 05 2014 1:06PM Hip pain Sep 05 2014 1:06PM Neck pain Sep 05 2014 1:06PM History of DVT (deep vein thrombosis) Sep 05 2014 1:06PM Low Back Pain Oct 09 2014 8:35AM Migraine Oct 09 2014 8:35AM Depressive Disorder Oct 09 2014 8:35AM Nausea Oct 09 2014 8:35AM Cervicalgia Oct 09 2014 8:35AM 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 Oct 30 2014 3:06PM Atrial Fibrillation Oct 30 2014 3:06PM Deep vein thrombosis:history of Oct 30 2014 3:06PM 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 Nov 07 2014 3:54PM Atrial Fibrillation Nov 07 2014 3:54PM Deep vein thrombosis:history of Nov 07 2014 3:54PM Cough Dec 02 2014 11:37AM Bronchitis, Acute Dec 02 2014 11:37AM Abdominal Pain, Generalized Dec 06 2014 11:21AM Constipation Dec 06 2014 11:21AM 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 Dec 12 2014 9:25AM [...] 2014 9:04AM Menorrhagia Jan 09 2015 11:30AM 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 use of anticoagulants Jan 13 2015 11:28AM Atrial Fibrillation Jan 13 2015 11:28AM Deep vein thrombosis:history of Jan 13 2015 11:28AM Menorrhagia with regular cycle Jan 27 2015 10:44AM Moderate Female pelvic pain Jan 27 2015 10:44AM Moderate Dysmenorrhea Jan 27 2015 10:44AM 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 Feb 03 2015 1:34PM [...] to cognitive limitations Apr 23 2015 1:32PM 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 use of anticoagulants May 01 2015 2:57PM Atrial Fibrillation May 01 2015 2:57PM Deep vein thrombosis:history of May 01 2015 2:57PM 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 May 06 2015 3:28PM Atrial Fibrillation May 06 2015 3:28PM Deep vein thrombosis:history of May 06 2015 3:28PM 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 May 07 2015 9:50AM Atrial Fibrillation May 07 2015 9:50AM Deep vein thrombosis:history of May 07 2015 9:50AM Cough May 23 2015 10:51AM Bronchitis, Acute May 23 2015 10:51AM Post-nasal drainage May 23 2015 10:51AM Smoker unmotivated to quit May 23 2015 10:51AM 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 use of anticoagulants May 29 2015 2:16PM [...] 11:23AM Stomach flu Feb 10 2016 11:23AM Payers Insurance Name Company Name Plan Name Plan Number Policy Number Policy Group Number Start Date [facility] [id number] N/A History of Encounters Visit Date Visit Type Provider 02/20/2016 Office visit FRANCISCO JAVIER MORAN 02/10/2016 [...] Office visit 12/27/2014 Office visit Aruna Albert WEBBING WEAVER 12/27/2014 Office visit FRANCISCO JAVIER ESPINAL PA [...] ESPINAL PA 05/03/2014 [facility] Aruna Koehler MD 04/25/2014 Office visit FRANCISCO JAVIER ESPINAL PA 04/01/2014 Office visit Aruna Albert WEBBING WEAVER 03/28/2014 Office visit FRANCISCO JVAIER ESPINAL PA [...]
--- OUTSIDE RECORDS SUMMARY | 2017-05-11 13:07 | XMS REPORT ---
Author Author FRANCISCO JAVIER ESPINAL [facility] Address [address] [place], [place] [address] Care Team Providers Care Magnetic Observer Name Role Phone FRANCISCO JAVIER ESPINAL PCP Unavailable Allergies and Adverse Reactions Name Reaction Notes No known drug allergy Plan of Treatment Planned Activity Comments Planned Date Planned Time Plan/Goal Injection, Subcutaneous/IM 03/29/2016 12:00 AM Injection,Subcutaneous/Intramuscul, [facility] Medicaid 04/17/2016 12:00 AM Medications Active Name Start Date [...] TAKE ONE TABLET BY MOUTH TWICE DAILY Starks 5-325 mg oral tablet 02/20/2016 take 1 [...] 04/12/2015 12:00 AM Decadron, Per 1 Mg [facility]# [address]-90 Reviewed 05/01/2015 12:00 AM CAPILLARY BLOOD DRAW Reviewed 03/06/2015 12:00 AM CAPILLARY BLOOD DRAW Reviewed 05/07/2015 12:00 AM CAPILLARY BLOOD DRAW Reviewed 05/23/2015 12:00 AM Decadron, Per 1 Mg [facility]# [address]-82 Reviewed 05/29/2015 12:00 AM CAPILLARY BLOOD DRAW Reviewed 06/17/2015 12:00 AM EXTREMITY STUDY Returned 09/02/2015 12:00 AM Decadron, Per 1 Mg [facility]# [address]-54 Reviewed 09/02/2015 12:00 AM Rocephin 1 gram [facility]#9131-6442-48 Reviewed 09/02/2015 12:00 AM Toradol 60 Mg [facility]#4133-7995-82 Reviewed 09/26/2015 12:00 AM Decadron, Per 1 Mg [facility]# [address]-31 Reviewed 09/26/2015 12:00 AM Phenergan, Up to 50 Mg [facility]#3319-5805-75 Reviewed 02/20/2016 12:00 AM DRAINAGE OF SKIN ABSCESS Reviewed 02/10/2016 12:00 AM Phenergan 50mg Injection Reviewed 02/10/2016 12:00 AM THER/PROPH/DIAG INJ SC/IM Reviewed 03/25/2016 12:00 AM THERAPEUTIC PROPHYLACTIC/DX INJECTION SUBQ/IM Reviewed 03/25/2016 12:00 AM Decadron 8mg Injection, [facility] Medicaid Reviewed 03/25/2016 12:00 AM Depo-Medrol 80 Mg Injection, [facility] Medicaid Reviewed 03/25/2016 12:00 AM Rocephin 1 gram Injection, [facility] Medicaid Reviewed 03/28/2014 12:00 AM COMPLETE [...] 07/23/2014 12:00 AM Decadron, Per 1 Mg [facility]# [address]-59 Reviewed 07/23/2014 12:00 AM Depo-Medrol, Per 80 Mg [facility]#3987-4642-31 Reviewed 07/23/2014 12:00 AM Rocephin 1 gram [facility]#5675-9776-81 Reviewed 08/20/2014 12:00 AM CAPILLARY BLOOD DRAW Reviewed 08/29/2014 12:00 AM CAPILLARY BLOOD DRAW Reviewed 09/05/2014 12:00 AM CAPILLARY BLOOD DRAW Reviewed 09/13/2014 12:00 AM CAPILLARY BLOOD DRAW Reviewed 10/09/2014 12:00 AM Decadron, Per 1 Mg [facility]# [address]-41 Reviewed 10/09/2014 12:00 AM Toradol 60 Mg [facility]#8524-7711-45 Reviewed 10/09/2014 12:00 AM Phenergan, Up to 50 Mg [facility]#7740-5461-68 Reviewed 10/30/2014 12:00 AM CAPILLARY BLOOD DRAW [...] secsINR 1.9 PTT 36.80 secsCALLED TO/BY ARUNA ALBERT/[facility] 12/30/2014 10:57 AM WBC 9.4 [...] 2014 10:47AM Anxiety Mar 28 2014 10:10AM 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 Mar 28 2014 10:10AM [...] 2 to 3 May 16 2014 10:57AM 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 May 20 2014 11:14AM DVT (deep venous thrombosis), left May 20 2014 11:14AM 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 May 30 2014 7:44AM Atrial Fibrillation May 30 2014 7:44AM Deep vein thrombosis:history of May 30 2014 7:44AM 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 Jun 10 2014 9:18AM Atrial Fibrillation Jun 10 2014 9:18AM Deep vein thrombosis:history of Jun 10 2014 9:18AM 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 Jun 12 2014 8:29AM [...] 2:55PM Intellectual disability Aug 06 2014 2:55PM 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 Aug 20 2014 1:24PM Atrial Fibrillation Aug 20 2014 1:24PM Deep vein thrombosis:history of Aug 20 2014 1:24PM retirement use of anticoagulants Aug 29 2014 3:30PM Atrial Fibrillation Aug 29 2014 3:30PM Deep vein thrombosis:history of Aug 29 2014 3:30PM retirement use of anticoagulants Sep 05 2014 1:08PM Atrial Fibrillation Sep 05 2014 1:08PM Deep vein thrombosis:history of Sep 05 2014 1:08PM 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 Sep 13 2014 12:03PM Atrial Fibrillation Sep 13 2014 12:03PM Deep vein thrombosis:history of Sep 13 2014 12:03PM 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 Sep 05 2014 1:06PM Hip pain Sep 05 2014 1:06PM Neck pain Sep 05 2014 1:06PM History of DVT (deep vein thrombosis) Sep 05 2014 1:06PM Low Back Pain Oct 09 2014 8:35AM Migraine Oct 09 2014 8:35AM Depressive Disorder Oct 09 2014 8:35AM Nausea Oct 09 2014 8:35AM Cervicalgia Oct 09 2014 8:35AM 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 Oct 30 2014 3:06PM Atrial Fibrillation Oct 30 2014 3:06PM Deep vein thrombosis:history of Oct 30 2014 3:06PM retirement use of anticoagulants Nov 07 2014 3:54PM Atrial Fibrillation Nov 07 2014 3:54PM Deep vein thrombosis:history of Nov 07 2014 3:54PM Cough Dec 02 2014 11:37AM Bronchitis, Acute Dec 02 2014 11:37AM Abdominal Pain, Generalized Dec 06 2014 11:21AM Constipation Dec 06 2014 11:21AM 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 Dec 12 2014 9:25AM [...] 2014 9:04AM Menorrhagia Jan 09 2015 11:30AM retirement use of anticoagulants Jan 13 2015 11:28AM Atrial Fibrillation Jan 13 2015 11:28AM Deep vein thrombosis:history of Jan 13 2015 11:28AM Menorrhagia with regular cycle Jan 27 2015 10:44AM Moderate Female pelvic pain Jan 27 2015 10:44AM Moderate Dysmenorrhea Jan 27 2015 10:44AM 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 Feb [...] vein thrombosis:history of May 01 2015 2:57PM 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 May 06 2015 3:28PM Atrial Fibrillation May 06 2015 3:28PM Deep vein thrombosis:history of May 06 2015 3:28PM 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 May 07 2015 9:50AM [...] Recurrent Uses marijuana Apr 14 2016 2:09PM Payers Insurance Name Company Name Plan Name Plan Number Policy Number Policy Group Number Start Date [facility] [id number] N/A History of Encounters Visit Date Visit [...] 04/25/2015 Voided FRANCISCO JAVIER MORAN 04/23/2015 Akosua Chappell MD 04/23/2015 Office visit FRANCISCO JAVIER MORAN 04/14/2015 Office visit FRANCISCO JAVIER MORAN 04/09/2015 Office visit FRANCISCO JAVIER ESPINAL PA [...] Office visit 12/27/2014 Office visit Aruna Albert CIVIL ATTORNEY 12/27/2014 Office visit FRANCISCO JAVIER ESPINAL PA [...] Office visit FRANCISCO JAVIER ESPINAL PA 08/03/2014 [facility] Jermaine Chappell MD 07/23/2014 Office visit [...] Office visit FRANCISCO JAVIER ESPINAL PA 05/03/2014 [facility] Aruna Koehler MD 04/25/2014 Office visit FRANCISCO JAVIER ESPINAL PA 04/01/2014 Office visit Aruna Albert CIVIL ATTORNEY 03/28/2014 Office visit FRANCISCO JAVIER MORAN 02/26/2014 Office visit FRANCISCO JAVIER MORAN 05/20/2010 Office visit Francisco Javier DARLINGC 04/16/2009 Office visit Francisco Javier Espinal PA-C 01/24/2009 Office visit Tian Basilio MD 12/31/2008 Office visit Tian Basilio MD 12/23/2008 Office visit Tian Basilio MD 12/17/2008 [facility] Tian Basilio MD 12/13/2008 Office visit Tian Basilio MD 12/06/2008 Office visit Tian Basilio MD 11/29/2008 Office visit Tian Basilio MD 11/15/2008 Office visit Tian Basilio MD 11/01/2008 Office visit Tian Basilio MD 10/18/2008 Office visit Tian Basilio MD
--- OUTSIDE RECORDS SUMMARY | 2017-05-11 13:08 | XMS REPORT ---
Author Author [facility] Organization [facility] Address [address] [place], [place] [address] Phone [phone] Summary purpose TRANSITION OF CARE AUTO GENERATION [...] tests and/or laboratory data RESULTS Radiology Results [id number] Endovaginal Sono PACs Image DATE OF EXAM: Mar 17 2015 [id number] SONO COMPLETE : HISTORY: \\ IMPRESSION: \\ DATE OF EXAM: Mar 17 2015 [id number] PELVIC SONO : RADIOLOGY REPORT DATE OF [...] mass. 3. Normal right ovary. MD LAURIE Beach/wa03/17/2015 10:14:00 / 03/17/2015 10:21:16 cc:Dr. Katey Baumann This document has been electronically Signed by: On: THIS DOCUMENT CONTAINED ACC-ITN [id number] IN THE IMPRESSION CHRISTIANSON WHICH WAS NOT FOUND TO BELONG TO THIS DOCUMENT.THE FOLLOWING RESULT MAY NOT BE CORRECT FOR THIS PATIENT/EXAM|| Result Amended on 2015-03-17 at 13:25:25. Previous status was IA. Pelvic Sono Complete PACs Image DATE OF EXAM: Mar 17 2015 [id number] SONO COMPLETE : HISTORY: \\ IMPRESSION: \\ DATE OF EXAM: Mar 17 2015 [id number] PELVIC SONO : RADIOLOGY REPORT DATE OF [...] mass. 3. Normal right ovary. MD LAURIE Beach/wa03/17/2015 10:14: / 03/17/2015 10:21:16 cc:Dr. Katey Baumann This document has been electronically Signed by: On: DATE OF EXAM: Mar 17 2015 [id number] SONO COMPLETE : RADIOLOGY REPORT DATE OF [...] mass. 3. Normal right ovary. MD LAURIE Beach/wa03/17/2015 10:14: / 03/17/2015 10:18:56 cc: This document has been electronically Signed by: On: DATE OF EXAM: Mar 17 2015 [id number] SONO COMPLETE : RADIOLOGY REPORT DATE OF [...] on 2015-03-17 at 10:32:11. Previous status was IA. Result Amended on 2015-03-17 at 13:25:31. Previous status was IA. History of procedures No procedures recorded for this patient visit. Functional status No functional or cognitive status [...]
--- OUTSIDE RECORDS SUMMARY | 2017-05-11 13:08 | XMS REPORT ---
Author Author FRANCISCO JAVIER ESPINAL [facility] Address [address] [place], [place] [address] Care Team Providers Care Academic Advisement Director Name Role Phone FRANCISCO JAVIER ESPINAL PCP [...] 12/12/2014 12:00 AM CAPILLARY BLOOD DRAW Reviewed 03/28/2014 [...] Decadron, Per 1 Mg [facility]# [address]-52 Reviewed 07/23/2014 12:00 AM Depo-Medrol, Per 80 Mg [facility]#2765-2957-43 Reviewed 07/23/2014 12:00 AM Rocephin 1 gram [facility]#8876-7690-93 Reviewed 08/20/2014 12:00 AM CAPILLARY BLOOD DRAW Reviewed 08/29/2014 12:00 AM CAPILLARY BLOOD DRAW Reviewed 09/05/2014 12:00 AM CAPILLARY BLOOD DRAW Reviewed 09/13/2014 12:00 AM CAPILLARY BLOOD DRAW Reviewed 10/09/2014 12:00 AM Decadron, Per 1 Mg [facility]# [address]-28 Reviewed 10/09/2014 12:00 AM Toradol 60 Mg [facility]#8566-2122-50 Reviewed 10/09/2014 12:00 AM Phenergan, Up to 50 Mg [facility]#8076-2259-58 Reviewed 10/30/2014 12:00 AM CAPILLARY BLOOD DRAW Reviewed Results Summary Data and Description Results 03/28/2014 3:47 PM GLUCOSE 76.0 mg/dLSODIUM 145.0 mmol/LPOTASSIUM 4.80 mmol/ LCHLORIDE 105.0 mmol/LCO2 25.0 mmol/LBUN 13.0 mg/dLCREATININE 0.70 mg/dLSGOT/ AST 14.0 IU/LSGPT/ALT 12.0 IU/LALK PHOS 72.0 IU/LTOTAL PROTEIN 7.60 g/dLALBUMIN 4.40 g/dLTOTAL BILI 0.20 mg/dLCALCIUM 10.0 mg/dLeGFR >60 mL/min/1.73 [id number] 241.0 mg/dLCHOLESTEROL 248.0 mg/dLHDL 51.0 mg/dLLDL ([facility]) [...] 2014 10:47AM Anxiety Mar 28 2014 10:10AM [facility] use of drug Mar 28 2014 10:10AM [...] May 16 2014 10:57AM 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 May 20 2014 11:14AM DVT (deep venous thrombosis), left May 20 2014 11:14AM 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 May 30 2014 7:44AM Atrial Fibrillation May 30 2014 7:44AM Deep vein thrombosis:history of May 30 2014 7:44AM 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 Jun 10 2014 9:18AM Atrial Fibrillation Jun 10 2014 9:18AM Deep vein thrombosis:history of Jun 10 2014 9:18AM 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 Jun 12 2014 8:29AM [...] 2:55PM Intellectual disability Aug 06 2014 2:55PM 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 Aug 20 2014 1:24PM Atrial Fibrillation Aug 20 2014 1:24PM Deep vein thrombosis:history of Aug 20 2014 1:24PM 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 Aug 29 2014 3:30PM Atrial Fibrillation Aug 29 2014 3:30PM Deep vein thrombosis:history of Aug 29 2014 3:30PM 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 Sep 05 2014 1:08PM Atrial Fibrillation Sep 05 2014 1:08PM Deep vein thrombosis:history of Sep 05 2014 1:08PM [facility] use of anticoagulants Sep 13 2014 12:03PM Atrial Fibrillation Sep 13 2014 12:03PM Deep vein thrombosis:history of Sep 13 2014 12:03PM 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 Sep 05 2014 1:06PM Hip pain Sep 05 2014 1:06PM Neck pain Sep 05 2014 1:06PM History of DVT (deep vein thrombosis) Sep 05 2014 1:06PM Low Back Pain Oct 09 2014 8:35AM Migraine Oct 09 2014 8:35AM Depressive Disorder Oct 09 2014 8:35AM Nausea Oct 09 2014 8:35AM Cervicalgia Oct 09 2014 8:35AM 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 History of Encounters Visit Date Visit Type Provider 12/12/2014 Office visit FRANCISCO JAVIER MORAN 12/06/2014 [...] 08/06/2014 Office visit FRANCISCO JAVIER MORAN 08/03/2014 Hospital Jermaine Chappell MD 07/23/2014 Office [...]
[2017-05-11 13:09] LABS: BASOPHILS # (AUTO) 0.1 10^3/uL (0.0-0.1); BASOPHILS % (AUTO) 1 % (0-10); EOSINOPHILS % (AUTO) 0 % (0-10); HEMATOCRIT 47 % (35-52); HEMOGLOBIN 15.9 G/DL (11.5-16.0); LYMPHOCYTES # (AUTO) 2.8 X 10^3 (1.0-4.0); LYMPHOCYTES % (AUTO) 36 % (12-44); MEAN CORPUSCULAR HEMOGLOBIN 30 PG (25-34); MEAN CORPUSCULAR HGB CONC 34 G/DL (32-36); MEAN CORPUSCULAR VOLUME 89 FL (80-99); MEAN PLATELET VOLUME 9.9 FL (7.4-10.4); MONOCYTES # (AUTO) 0.4 X 10^3 (0.0-1.0); MONOCYTES % (AUTO) 5 % (0-12); NEUTROPHILS # (AUTO) 4.5 X 10^3 (1.8-7.8); NEUTROPHILS % (AUTO) 58 % (42-75); PLATELET COUNT 230 10^3/uL (130-400); RED CELL DISTRIBUTION WIDTH 15.9 % (10.0-14.5); WHITE BLOOD COUNT 7.7 10^3/uL (4.3-11.0)
--- OUTSIDE RECORDS SUMMARY | 2017-05-11 13:09 | XMS REPORT ---
Author Author [facility] Organization [facility] Address [address] [place], [place] [address] Care Team Providers Care Tacking Stitch Remover Name Role Phone PCP Unavailable Allergies and [...] (4 mg) by oral route once daily alprazolam oral tablet 0.5 mg 08/07/2014 1/2 to 1 TID PRN panic attack Name Start Date Expiration Date SIG Comments [...] HC BMI BSA BMI Percentile O2 Sat(%) 08/06/2014 8:50:00 AM 110 mmHg 64 mmHg [...] BILI 0.20 mg/dLCALCIUM 10.0 mg/dLeGFR >60 mL/min/1.73 [id number] 241.0 mg/dLCHOLESTEROL 248.0 mg/dLHDL 51.0 mg/dLLDL (CALC) [...] 2 to 3 May 16 2014 10:57AM [facility] use of anticoagulants May 20 2014 11:14AM DVT (deep venous thrombosis), left May 20 2014 11:14AM [facility] use of anticoagulants May 30 2014 7:44AM Atrial Fibrillation May 30 2014 7:44AM Deep vein thrombosis:history of May 30 2014 7:44AM 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 History of Encounters Visit [...] Rogers PA-C 04/16/2009 Office visit Francisco Javier Rogers PA-C 01/24/2009 Office visit Tian Basilio MD [...]
--- OUTSIDE RECORDS SUMMARY | 2017-05-11 13:10 | XMS REPORT ---
Author Author Marielos Rosa [facility] Address [address] [place], [place] [address] Care Team Providers Care Stogie Packer Name Role Phone Marielos Rosa PCP Unavailable Allergies and Adverse Reactions Name Reaction Notes No known drug allergy Plan of Treatment Planned Activity Comments Planned Date Planned Time Plan/Goal US EXAM PELVIC COMPLETE 12/30/2014 12:00 AM US EXAM PELVIC LIMITED 12/30/2014 12:00 AM Medications Active Name Start Date [...] (40 mg) by oral route once daily ibuprofen 800 mg oral tablet 12/31/2014 take 1 tablet by oral route Q8H while on your cycle Name Start Date Expiration Date SIG Comments [...] HC BMI BSA BMI Percentile O2 Sat(%) 01/09/2015 11:26:00 AM 109 mmHg 70 mmHg [...] W/AUTO DIFF WBC Returned 03/28/2014 12:00 AM COMPLETE CBC W/AUTO [...] 07/23/2014 12:00 AM Decadron, Per 1 Mg [facility]# [address]-58 Reviewed 07/23/2014 12:00 AM Depo-Medrol, Per 80 Mg [facility]#9716-5524-12 Reviewed 07/23/2014 12:00 AM Rocephin 1 gram [facility]#5114-6443-97 Reviewed 08/20/2014 12:00 AM CAPILLARY BLOOD DRAW Reviewed 08/29/2014 12:00 AM CAPILLARY BLOOD DRAW Reviewed 09/05/2014 12:00 AM CAPILLARY BLOOD DRAW Reviewed 09/13/2014 12:00 AM CAPILLARY BLOOD DRAW Reviewed 10/09/2014 12:00 AM Decadron, Per 1 Mg [facility]# [address]-93 Reviewed 10/09/2014 12:00 AM Toradol 60 Mg [facility]#1965-6036-82 Reviewed 10/09/2014 12:00 AM Phenergan, Up to 50 Mg [facility]#4948-2530-15 Reviewed 10/30/2014 12:00 AM CAPILLARY BLOOD DRAW Reviewed Results Summary Data and Description Results 03/28/2014 3:47 PM GLUCOSE 76.0 mg/dLSODIUM 145.0 mmol/LPOTASSIUM 4.80 mmol/ LCHLORIDE 105.0 mmol/LCO2 25.0 mmol/LBUN 13.0 mg/dLCREATININE 0.70 mg/dLSGOT/ AST 14.0 IU/LSGPT/ALT 12.0 IU/LALK PHOS 72.0 IU/LTOTAL PROTEIN 7.60 g/dLALBUMIN 4.40 g/dLTOTAL BILI 0.20 mg/dLCALCIUM 10.0 mg/dLeGFR >60 mL/min/1.73 [id number] 241.0 mg/dLCHOLESTEROL 248.0 mg/dLHDL 51.0 mg/dLLDL ([facility]) [...] 3.22 #MONO 0.43 #EOS 0.13 #BASO 0.02 History Of Immunizations Not available. 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 Jun 12 2014 8:29AM [...] vein thrombosis:history of Aug 29 2014 3:30PM [facility] use of anticoagulants Sep 05 2014 1:08PM Atrial Fibrillation Sep 05 2014 1:08PM Deep vein thrombosis:history of Sep 05 2014 1:08PM [facility] use of anticoagulants Sep 13 2014 12:03PM Atrial Fibrillation Sep 13 2014 12:03PM Deep vein thrombosis:history of Sep 13 2014 12:03PM 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 Sep 05 2014 1:06PM Hip pain Sep 05 2014 1:06PM Neck pain Sep 05 2014 1:06PM History of DVT (deep vein thrombosis) Sep 05 2014 1:06PM Low Back Pain Oct 09 2014 8:35AM Migraine Oct 09 2014 8:35AM Depressive Disorder Oct 09 2014 8:35AM Nausea Oct 09 2014 8:35AM Cervicalgia Oct 09 2014 8:35AM [facility] use of anticoagulants Oct 30 2014 3:06PM Atrial Fibrillation Oct 30 2014 3:06PM Deep vein thrombosis:history of Oct 30 2014 3:06PM [facility] use of anticoagulants Nov 07 2014 3:54PM Atrial Fibrillation Nov 07 2014 3:54PM Deep vein thrombosis:history of Nov 07 2014 3:54PM Cough Dec 02 2014 11:37AM Bronchitis, Acute Dec 02 2014 11:37AM Abdominal Pain, Generalized Dec 06 2014 11:21AM Constipation Dec 06 2014 11:21AM 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 Marielos Rosa MD 12/30/[address] Marielos Rosa MD 12/27/2014 Office visit Jessi Blake APRN 12/27/2014 [...] 08/06/2014 Office visit FRANCISCO JAVIER MORAN 08/03/2014 [facility] Jermaine Chappell MD 07/23/2014 Office visit [...] 12/23/2008 Office visit Tian Basilio MD 12/17/2008 [facility] Tian Basilio MD 12/13/2008 Office visit Tian Basilio MD 12/06/2008 Office visit Tian Basilio MD 11/29/2008 Office visit Tian Basilio MD 11/15/2008 Office visit Tian Basilio MD 11/01/2008 Office visit Tian Basilio MD 10/18/2008 Office visit Tian Basilio MD
--- OUTSIDE RECORDS SUMMARY | 2017-05-11 13:10 | XMS REPORT ---
Author Author HELGA TOLEDO [facility] eClinicalWorks Address Unknown Phone Unavailable Care Team Providers Care Real Estate Loan Officer Name Role Phone HELGA TOLEDO CP Unavailable Allergies, Adverse Reactions, Alerts Substance Reaction Event Type N.K.D.A. Info Not Available Non Drug Allergy Problems Problem Type Condition Code Onset Dates Condition Status Problem Dysmenorrhea [...] mention of status migrainosus 346.90 Active Assessment Sore throat (viral) J02.9 Active Assessment Post-nasal drip R09.82 Active Assessment Cough R05 Active Problem Unspecified contraceptive management V25.9 Active Medications Medication Code System Code Instructions Start Date End Date Status Dosage Citalopram Hydrobromide [facility] [address]-97 20 MG Orally Once a day 1 tablet Bentyl [facility] [address]-61 10 MG Orally Four times a day 1 capsule BusPIRone HCl [facility] [address]-99 10 MG Orally Twice a day 1 tablet Warfarin Sodium [facility] [address]-00 4 MG Orally Once a day 1 tablet PredniSONE [facility] [address]-66 20 MG Orally Once a day Nov 26, 2014 Dec 01, 2014 1 tablet with food or milk HydrOXYzine HCl [facility] [address]-94 25 MG Orally every 8 hrs 1 tablet as needed Xanax [facility] [address]-16 0.5 MG Orally PRN 1 tablet Procedures Procedure Coding System Code Date Office Visit, Est Pt., Level 3 CPT-4 24987 Nov 26, 2014 Vital Signs Date/Time: Nov 26, 2014 Temperature 98.7 F Weight 127.2 lbs Height 64 in BMI 21.83 Index Blood Pressure Diastolic 65 mmHg Blood Pressure Systolic 100 mmHg Cardiac Monitoring Heart Rate 90 bpm Results No Known Results Summary Purpose eClinicalWorks Submission
--- OUTSIDE RECORDS SUMMARY | 2017-05-11 13:11 | XMS REPORT ---
Author LENORE Yu [facility] eClinicalWorks Address Unknown Phone Unavailable Care Team Providers Care Assistant Professor Of Physics Name Role Phone LENORE ALBERT CP Unavailable Allergies No Known Allergies Problems Problem Type Condition Code Onset Dates Condition Status Problem Dysmenorrhea 625.3 Active Problem Persistent disorder of initiating or maintaining sleep 307.42 Active Problem Excessive or frequent menstruation 626.2 Active Assessment Anticoagulant long-term use Z79.01 Active Problem Unspecified contraceptive management V25.9 Active Problem Neck sprain and strain 847.[address] of occurrence, home E849.0 Active Problem Lumbago 724.2 Active Problem Abnormal involuntary movements 781.0 Active Problem Leukorrhea, not specified as infective 623.5 Active Problem Diarrhea 787.91 Active Problem Migraine, unspecified without mention of intractable migraine without mention of status migrainosus 346.90 Active Medications Medication Code System Code Instructions Start Date End Date Status Dosage Warfarin Sodium [facility] [address]-05 4 MG Orally Once a day 1 tablet Procedures Procedure Coding System Code Date PROTHROMBIN TIME CPT-4 70472 Nov 28, 2014 Results Name Result Date Reference Range Unit Abnormality Flag INR (IN HOUSE) Summary Purpose eClinicalWorks Submission
--- OUTSIDE RECORDS SUMMARY | 2017-05-11 13:11 | XMS REPORT ---
Author Author FRANCISCO JAVIER ESPINAL [facility] Address [address] [place], [place] [id number] Care Team Providers [facility] Director Name Role Phone FRANCISCO JAVIER ESPINAL [...] by oral route 3 times per day [place] 5-325 mg oral tablet 09/02/2015 take 1 [...] HC BMI BSA BMI Percentile O2 Sat(%) 09/02/2015 10:44:00 AM 112 mmHg 74 mmHg [...] 04/12/2015 12:00 AM Decadron, Per 1 Mg [facility]# [address]-61 Reviewed 05/01/2015 12:00 AM CAPILLARY BLOOD DRAW Reviewed 03/06/2015 12:00 AM CAPILLARY BLOOD DRAW Reviewed 05/07/2015 12:00 AM CAPILLARY BLOOD DRAW Reviewed 05/23/2015 12:00 AM Decadron, Per 1 Mg [facility]# [address]-08 Reviewed 05/29/2015 12:00 AM CAPILLARY BLOOD DRAW Reviewed 06/17/2015 12:00 AM EXTREMITY STUDY Returned 03/28/2014 12:00 AM COMPLETE CBC W/AUTO [...] 07/23/2014 12:00 AM Decadron, Per 1 Mg [facility]# [address]-31 Reviewed 07/23/2014 12:00 AM Depo-Medrol, Per 80 Mg [facility]#4169-1628-68 Reviewed 07/23/2014 12:00 AM Rocephin 1 gram [facility]#9903-5004-40 Reviewed 08/20/2014 12:00 AM CAPILLARY BLOOD DRAW Reviewed 08/29/2014 12:00 AM CAPILLARY BLOOD DRAW Reviewed 09/05/2014 12:00 AM CAPILLARY BLOOD DRAW Reviewed 09/13/2014 12:00 AM CAPILLARY BLOOD DRAW Reviewed 10/09/2014 12:00 AM Decadron, Per 1 Mg [facility]# [address]-30 Reviewed 10/09/2014 12:00 AM Toradol 60 Mg [facility]#2995-6810-52 Reviewed 10/09/2014 12:00 AM Phenergan, Up to 50 Mg [facility]#9822-5065-19 Reviewed 10/30/2014 12:00 AM CAPILLARY BLOOD DRAW Reviewed Results Summary Data and Description Results 03/28/2014 3:47 PM GLUCOSE 76.0 mg/dLSODIUM 145.0 mmol/LPOTASSIUM 4.80 mmol/ LCHLORIDE 105.0 mmol/LCO2 25.0 mmol/LBUN 13.0 mg/dLCREATININE 0.70 mg/dLSGOT/ AST 14.0 IU/LSGPT/ALT 12.0 IU/LALK PHOS 72.0 IU/LTOTAL PROTEIN 7.60 g/dLALBUMIN 4.40 g/dLTOTAL BILI 0.20 mg/dLCALCIUM 10.0 mg/dLeGFR >60 mL/min/1.73 [id number] 241.0 mg/dLCHOLESTEROL 248.0 mg/dLHDL 51.0 mg/dLLDL (CALC) [...] 2014 10:47AM Anxiety Mar 28 2014 10:10AM 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 Mar 28 2014 10:10AM [...] 2 to 3 May 16 2014 10:57AM 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 May 20 2014 11:14AM DVT (deep venous thrombosis), left May 20 2014 11:14AM [facility] use of anticoagulants May 30 2014 7:44AM Atrial Fibrillation May 30 2014 7:44AM Deep vein thrombosis:history of May 30 2014 7:44AM [facility] use of anticoagulants Jun 10 2014 9:18AM Atrial Fibrillation Jun 10 2014 9:18AM Deep vein thrombosis:history of Jun 10 2014 9:18AM [facility] use of anticoagulants Jun 12 2014 8:29AM [...] 2:55PM Intellectual disability Aug 06 2014 2:55PM [facility] use of anticoagulants Aug 20 2014 1:24PM Atrial Fibrillation Aug 20 2014 1:24PM Deep vein thrombosis:history of Aug 20 2014 1:24PM 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 Aug 29 2014 3:30PM Atrial Fibrillation Aug 29 2014 3:30PM Deep vein thrombosis:history of Aug 29 2014 3:30PM [facility] use of anticoagulants Sep 05 2014 1:08PM Atrial Fibrillation Sep 05 2014 1:08PM Deep vein thrombosis:history of Sep 05 2014 1:08PM [facility] use of anticoagulants Sep 13 2014 12:03PM Atrial Fibrillation Sep 13 2014 12:03PM Deep vein thrombosis:history of Sep 13 2014 12:03PM [facility] use of anticoagulants Sep 05 2014 1:06PM Hip pain Sep 05 2014 1:06PM Neck pain Sep 05 2014 1:06PM History of DVT (deep vein thrombosis) Sep 05 2014 1:06PM Low Back Pain Oct 09 2014 8:35AM Migraine Oct 09 2014 8:35AM Depressive Disorder Oct 09 2014 8:35AM Nausea Oct 09 2014 8:35AM Cervicalgia Oct 09 2014 8:35AM 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 Oct 30 2014 3:06PM Atrial Fibrillation Oct 30 2014 3:06PM Deep vein thrombosis:history of Oct 30 2014 3:06PM [facility] use of anticoagulants Nov 07 2014 3:54PM Atrial Fibrillation Nov 07 2014 3:54PM Deep vein thrombosis:history of Nov 07 2014 3:54PM Cough Dec 02 2014 11:37AM Bronchitis, Acute Dec 02 2014 11:37AM Abdominal Pain, Generalized Dec 06 2014 11:21AM Constipation Dec 06 2014 11:21AM 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 Dec 12 2014 9:25AM [...] 2014 9:04AM Menorrhagia Jan 09 2015 11:30AM 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 Jan 13 2015 11:28AM Atrial Fibrillation Jan 13 2015 11:28AM Deep vein thrombosis:history of Jan 13 2015 11:28AM Menorrhagia with regular cycle Jan 27 2015 10:44AM Moderate Female pelvic pain Jan 27 2015 10:44AM Moderate Dysmenorrhea Jan 27 2015 10:44AM 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 Feb 03 2015 1:34PM [...] depression Apr 23 2015 1:32PM Tachycardia Apr 22 2016 1:32PM 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 Apr 23 2015 1:32PM 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 May 01 2015 2:57PM Atrial Fibrillation May 01 2015 2:57PM Deep vein thrombosis:history of May 01 2015 2:57PM [facility] use of anticoagulants May 06 2015 3:28PM Atrial Fibrillation May 06 2015 3:28PM Deep vein thrombosis:history of May 06 2015 3:28PM 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 May 07 2015 9:50AM Atrial Fibrillation May 07 2015 9:50AM Deep vein thrombosis:history of May 07 2015 9:50AM Cough May 23 2015 10:51AM Bronchitis, Acute May 23 2015 10:51AM Post-nasal drainage May 23 2015 10:51AM Smoker unmotivated to quit May 23 2015 10:51AM 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 May 29 2015 2:16PM [...] spasm of back Sep 02 2015 10:44AM Payers Insurance Name Company Name Plan Name Plan Number Policy Number Policy Group Number Start Date [facility] [id number] N/A History of Encounters Visit Date Visit Type Provider 09/02/2015 Office visit FRANCISCO JAVIER MORAN 06/27/2015 [...] Office visit 12/27/2014 Office visit Jessi Blake CHEST PAINTING AND SEALING SUPERVISOR 12/27/2014 Office visit FRANCISCO JAVIER ESPINAL PA 12/12/2014 Office visit FRANCISCO JAVIER ESPINAL PA 12/06/2014 Office visit FRANCISCO JAVIER ESPINAL PA 12/02/2014 Office visit FRANCISCO JAVIER ESPINAL PA 10/30/2014 Office visit FRANCISCO JAVIER ESPINAL PA 10/18/2014 Office visit FRANCISCO JAVIER ESPINAL PA 10/09/2014 Office visit FRANCISCO JAVIER ESPINAL PA 10/04/2014 Voided FRANCISCO JAVIER ESPINAL PA 09/20/2014 Voided FARNCISCO JAVIER ESPINAL PA 09/13/2014 Office visit FRANCISCO [...] ESPINAL PA 04/01/2014 Office visit Jessi Blake CHEST PAINTING AND SEALING SUPERVISOR 03/28/2014 Office visit FRANCISCO JAVIER MORAN 02/26/2014 [...]
--- OUTSIDE RECORDS SUMMARY | 2017-05-11 13:12 | XMS REPORT ---
Author Author FRANCISCO JAVIER ESPINAL [facility] Address [address] [place], [place] [id number] Care Team Providers Care Belt Measurer Name Role Phone FRANCISCO JAVIER ESPINAL PCP Unavailable Allergies and Adverse Reactions Name Reaction Notes No known drug allergy Plan of Treatment Planned Activity Comments Planned Date Planned Time Plan/Goal Injection, Subcutaneous/IM 03/29/2016 12:00 AM Medications Active Name Start Date [...] TAKE ONE TABLET BY MOUTH TWICE DAILY [place] 5-325 mg oral tablet 02/20/2016 take 1 [...] 04/12/2015 12:00 AM Decadron, Per 1 Mg [facility]# [address]-19 Reviewed 05/01/2015 12:00 AM CAPILLARY BLOOD DRAW Reviewed 03/06/2015 12:00 AM CAPILLARY BLOOD DRAW Reviewed 05/07/2015 12:00 AM CAPILLARY BLOOD DRAW Reviewed 05/23/2015 12:00 AM Decadron, Per 1 Mg [facility]# [address]-43 Reviewed 05/29/2015 12:00 AM CAPILLARY BLOOD DRAW Reviewed 06/17/2015 12:00 AM EXTREMITY STUDY Returned 09/02/2015 12:00 AM Decadron, Per 1 Mg [facility]# [address]-14 Reviewed 09/02/2015 12:00 AM Rocephin 1 gram [facility]#0694-4616-17 Reviewed 09/02/2015 12:00 AM Toradol 60 Mg [facility]#6552-3409-53 Reviewed 09/26/2015 12:00 AM Decadron, Per 1 Mg [facility]# [address]-42 Reviewed 09/26/2015 12:00 AM Phenergan, Up to 50 Mg [facility]#6899-8998-30 Reviewed 02/20/2016 12:00 AM DRAINAGE OF SKIN [...] [facility] Medicaid Reviewed 03/28/2014 12:00 AM COMPLETE CBC [...] 07/23/2014 12:00 AM Decadron, Per 1 Mg [facility]# [address]-21 Reviewed 07/23/2014 12:00 AM Depo-Medrol, Per 80 Mg [facility]#4307-5798-83 Reviewed 07/23/2014 12:00 AM Rocephin 1 gram [facility]#4013-5803-03 Reviewed 08/20/2014 12:00 AM CAPILLARY BLOOD DRAW Reviewed 08/29/2014 12:00 AM CAPILLARY BLOOD DRAW Reviewed 09/05/2014 12:00 AM CAPILLARY BLOOD DRAW Reviewed 09/13/2014 12:00 AM CAPILLARY BLOOD DRAW Reviewed 10/09/2014 12:00 AM Decadron, Per 1 Mg [facility]# [address]-48 Reviewed 10/09/2014 12:00 AM Toradol 60 Mg [facility]#7790-6063-02 Reviewed 10/09/2014 12:00 AM Phenergan, Up to 50 Mg 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 Jun 10 2014 9:18AM [...] 2:55PM Intellectual disability Aug 06 2014 2:55PM prison use of anticoagulants Aug 20 2014 1:24PM Atrial Fibrillation Aug 20 2014 1:24PM Deep vein thrombosis:history of Aug 20 2014 1:24PM prison use of anticoagulants Aug 29 2014 3:30PM [...] vein thrombosis:history of Sep 13 2014 12:03PM 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 Sep 05 2014 1:06PM Hip pain Sep 05 2014 1:06PM Neck pain Sep 05 2014 1:06PM History of DVT (deep vein thrombosis) Sep 05 2014 1:06PM Low Back Pain Oct 09 2014 8:35AM Migraine Oct 09 2014 8:35AM Depressive Disorder Oct 09 2014 8:35AM Nausea Oct 09 2014 8:35AM Cervicalgia Oct 09 2014 8:35AM prison use of anticoagulants Oct 30 2014 3:06PM Atrial Fibrillation Oct 30 2014 3:06PM Deep vein thrombosis:history of Oct 30 2014 3:06PM 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 Nov 07 2014 3:54PM Atrial Fibrillation Nov 07 2014 3:54PM Deep vein thrombosis:history of Nov 07 2014 3:54PM Cough Dec 02 2014 11:37AM Bronchitis, Acute Dec 02 2014 11:37AM Abdominal Pain, Generalized Dec 06 2014 11:21AM Constipation Dec 06 2014 11:21AM 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 Dec 12 2014 9:25AM [...] 2014 9:04AM Menorrhagia Jan 09 2015 11:30AM 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 Jan 13 2015 11:28AM Atrial Fibrillation Jan 13 2015 11:28AM Deep vein thrombosis:history of Jan 13 2015 11:28AM Menorrhagia with regular cycle Jan 27 2015 10:44AM Moderate Female pelvic pain Jan 27 2015 10:44AM Moderate Dysmenorrhea Jan 27 2015 10:44AM 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 Feb 03 2015 1:34PM [...] to cognitive limitations Apr 23 2015 1:32PM prison use of anticoagulants May 01 2015 2:57PM Atrial Fibrillation May 01 2015 2:57PM Deep vein thrombosis:history of May 01 2015 2:57PM prison use of anticoagulants May 06 2015 3:28PM Atrial Fibrillation May 06 2015 3:28PM Deep vein thrombosis:history of May 06 2015 3:28PM prison use of anticoagulants May 07 2015 9:50AM Atrial Fibrillation May 07 2015 9:50AM Deep vein thrombosis:history of May 07 2015 9:50AM Cough May 23 2015 10:51AM Bronchitis, Acute May 23 2015 10:51AM Post-nasal drainage May 23 2015 10:51AM Smoker unmotivated to quit May 23 2015 10:51AM 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 May 29 2015 2:16PM [...] Number Policy Group Number Start Date [facility] [id number] N/A History of Encounters Visit Date Visit Type Provider 03/25/2016 Office visit FRANCISCO JAVIER MORAN 02/24/2016 Office visit FRANCISCO JAVIER MORAN 02/20/2016 Office visit FRANCISCO JAVIER MORAN 02/10/2016 Office visit FRANCISCO JAVIER MORAN 01/26/2016 Office visit FRANCISCO JAVIER MORAN 01/08/2016 Office visit FRANCISCO JAVIER MORAN 11/25/2015 Office visit FRANCISCO JAVIER ESPINAL PA [...] ESPINAL PA 10/30/2014 Office visit FRANCISCO JAVIER ESIPNAL PA 10/18/2014 Office visit FRANCISCO JAVIER ESPINAL [...] Office visit FRANCISCO JAVIER ESPINAL PA 05/03/2014 [facility] Aruna Koehler MD [...]
--- OUTSIDE RECORDS SUMMARY | 2017-05-11 13:14 | XMS REPORT ---
Author Author FRANCISCO JAVIER ESPINAL [facility] Address [address] [place], [place] [address] Care Team Providers Care Loan Interviewer Name Role Phone FRANCISCO JAVIER ESPINAL PCP [...] TAKE ONE TABLET BY MOUTH TWICE DAILY [place] 5-325 mg oral tablet 02/20/2016 take 1 [...] 04/12/2015 12:00 AM Decadron, Per 1 Mg [facility]# [address]-59 Reviewed 05/01/2015 12:00 AM CAPILLARY BLOOD DRAW Reviewed 03/06/2015 12:00 AM CAPILLARY BLOOD DRAW Reviewed 05/07/2015 12:00 AM CAPILLARY BLOOD DRAW Reviewed 05/23/2015 12:00 AM Decadron, Per 1 Mg [facility]# [address]-83 Reviewed 05/29/2015 12:00 AM CAPILLARY BLOOD DRAW Reviewed 06/17/2015 12:00 AM EXTREMITY STUDY Returned 09/02/2015 12:00 AM Decadron, Per 1 Mg [facility]# [address]-12 Reviewed 09/02/2015 12:00 AM Rocephin 1 gram [facility]#7033-0725-28 Reviewed 09/02/2015 12:00 AM Toradol 60 Mg [facility]#4889-9813-34 Reviewed 09/26/2015 12:00 AM Decadron, Per 1 Mg [facility]# [address]-62 Reviewed 09/26/2015 12:00 AM Phenergan, Up to 50 Mg [facility]#7258-7107-95 Reviewed 02/20/2016 12:00 AM DRAINAGE OF SKIN ABSCESS Reviewed 02/10/2016 12:00 AM Phenergan 50mg Injection Reviewed 02/10/2016 12:00 AM THER/PROPH/DIAG INJ SC/IM Reviewed 03/25/2016 12:00 AM THERAPEUTIC PROPHYLACTIC/DX INJECTION SUBQ/IM Reviewed 03/25/2016 12:00 AM Decadron 8mg Injection, [facility] Medicaid Reviewed 03/25/2016 12:00 AM Depo-Medrol 80 Mg Injection, [facility] Medicaid Reviewed 03/25/2016 12:00 AM Rocephin 1 gram Injection, [facility] Medicaid Reviewed 03/28/2014 12:00 AM COMPLETE CBC [...] 07/23/2014 12:00 AM Decadron, Per 1 Mg [facility]# [address]-37 Reviewed 07/23/2014 12:00 AM Depo-Medrol, Per 80 Mg [facility]#4047-7990-19 Reviewed 07/23/2014 12:00 AM Rocephin 1 gram [facility]#7599-0303-23 Reviewed 08/20/2014 12:00 AM CAPILLARY BLOOD DRAW Reviewed 08/29/2014 12:00 AM CAPILLARY BLOOD DRAW Reviewed 09/05/2014 12:00 AM CAPILLARY BLOOD DRAW Reviewed 09/13/2014 12:00 AM CAPILLARY BLOOD DRAW Reviewed 10/09/2014 12:00 AM Decadron, Per 1 Mg [facility]# [address]-37 Reviewed 10/09/2014 12:00 AM Toradol 60 Mg [facility]#8438-1289-69 Reviewed 10/09/2014 12:00 AM Phenergan, Up to 50 Mg [facility]#1500-18[address]-68 Reviewed 10/30/2014 12:00 AM CAPILLARY BLOOD DRAW [...] secsINR 1.9 PTT 36.80 secsCALLED TO/BY ARUNA ALBERT/[facility] 12/30/2014 10:57 AM WBC 9.4 [...] 2014 10:47AM Anxiety Mar 28 2014 10:10AM 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 Mar 28 2014 10:10AM [...] 2 to 3 May 16 2014 10:57AM 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 May 20 2014 11:14AM DVT (deep venous thrombosis), left May 20 2014 11:14AM 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 May 30 2014 7:44AM Atrial Fibrillation May 30 2014 7:44AM Deep vein thrombosis:history of May 30 2014 7:44AM 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 Jun 10 2014 9:18AM Atrial Fibrillation Jun 10 2014 9:18AM Deep vein thrombosis:history of Jun 10 2014 9:18AM 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 Jun 12 2014 8:29AM [...] 2:55PM Intellectual disability Aug 06 2014 2:55PM 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 Aug 20 2014 1:24PM Atrial Fibrillation Aug 20 2014 1:24PM Deep vein thrombosis:history of Aug 20 2014 1:24PM nursing home use of anticoagulants Aug 29 2014 3:30PM Atrial Fibrillation Aug 29 2014 3:30PM Deep vein thrombosis:history of Aug 29 2014 3:30PM nursing home use of anticoagulants Sep 05 2014 1:08PM Atrial Fibrillation Sep 05 2014 1:08PM Deep vein thrombosis:history of Sep 05 2014 1:08PM 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 Sep 13 2014 12:03PM Atrial Fibrillation Sep 13 2014 12:03PM Deep vein thrombosis:history of Sep 13 2014 12:03PM 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 Sep 05 2014 1:06PM Hip pain Sep 05 2014 1:06PM Neck pain Sep 05 2014 1:06PM History of DVT (deep vein thrombosis) Sep 05 2014 1:06PM Low Back Pain Oct 09 2014 8:35AM Migraine Oct 09 2014 8:35AM Depressive Disorder Oct 09 2014 8:35AM Nausea Oct 09 2014 8:35AM Cervicalgia Oct 09 2014 8:35AM 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 Oct 30 2014 3:06PM Atrial Fibrillation Oct 30 2014 3:06PM Deep vein thrombosis:history of Oct 30 2014 3:06PM nursing home use of anticoagulants Nov 07 2014 3:54PM Atrial Fibrillation Nov 07 2014 3:54PM Deep vein thrombosis:history of Nov 07 2014 3:54PM Cough Dec 02 2014 11:37AM Bronchitis, Acute Dec 02 2014 11:37AM Abdominal Pain, Generalized Dec 06 2014 11:21AM Constipation Dec 06 2014 11:21AM 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 Dec 12 2014 9:25AM [...] 2014 9:04AM Menorrhagia Jan 09 2015 11:30AM nursing home use of anticoagulants Jan 13 2015 11:28AM Atrial Fibrillation Jan 13 2015 11:28AM Deep vein thrombosis:history of Jan 13 2015 11:28AM Menorrhagia with regular cycle Jan 27 2015 10:44AM Moderate Female pelvic pain Jan 27 2015 10:44AM Moderate Dysmenorrhea Jan 27 2015 10:44AM 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 Feb 03 2015 1:34PM [...] to cognitive limitations Apr 23 2015 1:32PM nursing home use of anticoagulants May 01 2015 2:57PM Atrial Fibrillation May 01 2015 2:57PM Deep vein thrombosis:history of May 01 2015 2:57PM 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 May 06 2015 3:28PM Atrial Fibrillation May 06 2015 3:28PM Deep vein thrombosis:history of May 06 2015 3:28PM 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 May 07 2015 9:50AM Atrial Fibrillation May 07 2015 9:50AM Deep vein thrombosis:history of May 07 2015 9:50AM Cough May 23 2015 10:51AM Bronchitis, Acute May 23 2015 10:51AM Post-nasal drainage May 23 2015 10:51AM Smoker unmotivated to quit May 23 2015 10:51AM nursing home use of anticoagulants May 29 2015 2:16PM [...] Policy Number Policy Group Number Start Date [facility] [id number] N/A History of Encounters Visit Date Visit [...] visit FRANCISCO JAVIER MORAN 06/27/2015 Office visit FRANCSICO JAVIER MORAN 06/17/2015 Office visit FRANCISCO JAVIER [...] Office visit 12/27/2014 Office visit Aruna Albert WASHER ENGINEER 12/27/2014 Office visit FRANCISCO JAVIER ESPINAL PA [...] Office visit FRANCISCO JAVIER ESPINAL PA 08/03/2014 [facility] Jermaine Chappell MD 07/23/2014 Office visit [...] Office visit FRANCISCO JAVIER ESPINAL PA 05/03/2014 [facility] Aruna Koehler MD 04/25/2014 Office visit FRANCISCO JAVIER ESPINAL PA 04/01/2014 Office visit Aruna Albert WASHER ENGINEER 03/28/2014 Office visit FRANCISCO JAVIER MORAN 02/26/2014 Office visit FRANCISCO JAVIER MORAN 05/20/2010 Office visit Francisco Javier DARLINGC 04/16/2009 Office visit Francisco Javier Espinal PA-C 01/24/2009 Office visit Tian Basilio MD 12/31/2008 Office visit Tian Basilio MD 12/23/2008 Office visit Tian Basilio MD 12/17/2008 [facility] Tian Basilio MD 12/13/2008 Office visit Tian Basilio MD 12/06/2008 Office visit Tian Basilio MD 11/29/2008 Office visit Tian Basilio MD 11/15/2008 Office visit Tian Basilio MD 11/01/2008 Office visit Tian Basilio MD 10/18/2008 Office visit Tian Basilio MD
--- OUTSIDE RECORDS SUMMARY | 2017-05-11 13:15 | XMS REPORT ---
Author Author FRANCISCO JAVIER ESPINAL [facility] Address [address] [place], [place] [address] Care Team Providers Care District Administrative Assistant Name Role Phone FRANCISCO JAVIER ESPINAL PCP [...] by oral route 3 times per day cyclobenzaprine 10 mg oral tablet 04/14/2015 take [...] TO FOUR TIMES A DAY IF NEEDED [place] 5-325 mg oral tablet 06/27/2015 take 1 tablet by oral route every 6 hours as needed for pain Lasix 20 mg oral tablet 07/07/2015 take 1 tablet (20 mg) by oral route once daily Name [...] HC BMI BSA BMI Percentile O2 Sat(%) 07/25/2015 11:53:00 AM 120 mmHg 75 mmHg [...] F 136 lbs 64 in 23.34 kg/m2 1.669 m 96 % 01/09/2015 11:26:00 AM 109 mmHg 70 mmHg 122 bpm 98.8 F 135 lbs 64 in 23.1725 kg/m 1.66 m2 12/30/2014 9:34:00 AM 12 mmHg 81 mmHg 114 bpm 97.2 F 134.25 lbs 64 in 23.04 kg/m2 1.6582 m 12/27/2014 9:25:00 AM 120 mmHg 80 mmHg 142 bpm 96.8 F 134 lbs 64 in 23.0008 kg/m 1.66 m2 12/27/2014 9:03:00 AM 110 mmHg [...] 12:00 AM Decadron, Per [address] [facility]# [address]-65 Reviewed 05/01/2015 12:00 AM CAPILLARY BLOOD DRAW Reviewed 03/06/2015 12:00 AM CAPILLARY BLOOD DRAW Reviewed 05/07/2015 12:00 AM CAPILLARY BLOOD DRAW Reviewed 05/23/2015 12:00 AM Decadron, Per [address] [facility]# [address]-12 Reviewed 05/29/2015 12:00 AM CAPILLARY BLOOD DRAW [...] 12:00 AM Decadron, Per [address] [facility]# [address]-53 Reviewed 07/23/2014 12:00 AM Depo-Medrol, Per [address] [facility]#8617-8690-54 Reviewed 07/23/2014 12:00 AM Rocephin [address] [facility]#0197-2200-72 Reviewed 08/20/2014 12:00 AM CAPILLARY BLOOD DRAW Reviewed 08/29/2014 12:00 AM CAPILLARY BLOOD DRAW Reviewed 09/05/2014 12:00 AM CAPILLARY BLOOD DRAW Reviewed 09/13/2014 12:00 AM CAPILLARY BLOOD DRAW Reviewed 10/09/2014 12:00 AM Decadron, Per [address] [facility]# [address]-03 Reviewed 10/09/2014 12:00 AM Toradol [address] [facility]#9337-1327-96 Reviewed 10/09/2014 12:00 AM Phenergan, Up to [address] [facility]#6082-7461-80 Reviewed 10/30/2014 12:00 AM CAPILLARY BLOOD DRAW Reviewed Results Summary Data and Description Results 03/28/2014 3:47 PM GLUCOSE 76.0 mg/dLSODIUM 145.0 mmol/LPOTASSIUM 4.80 mmol/ LCHLORIDE 105.0 mmol/LCO2 25.0 mmol/LBUN 13.0 mg/dLCREATININE 0.70 mg/dLSGOT/ AST 14.0 IU/LSGPT/ALT 12.0 IU/LALK PHOS 72.0 IU/LTOTAL PROTEIN 7.60 g/dLALBUMIN 4.40 g/dLTOTAL BILI 0.20 mg/dLCALCIUM 10.0 mg/dLeGFR >60 mL/min/1.73 [id number] 241.0 mg/dLCHOLESTEROL 248.0 mg/dLHDL 51.0 mg/dLLDL (CALC) [...] 2014 10:47AM Anxiety Mar 28 2014 10:10AM jail use of drug Mar 28 2014 10:10AM [...] 3 May 16 2014 10:57AM 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 May 20 2014 11:14AM DVT (deep venous thrombosis), left May 20 2014 11:14AM 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 May 30 2014 7:44AM Atrial Fibrillation May 30 2014 7:44AM Deep vein thrombosis:history of May 30 2014 7:44AM 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 Jun 10 2014 9:18AM Atrial Fibrillation Jun 10 2014 9:18AM Deep vein thrombosis:history of Jun 10 2014 9:18AM jail use of anticoagulants Jun 12 2014 8:29AM [...] 2:55PM Intellectual disability Aug 06 2014 2:55PM jail use of anticoagulants Aug 20 2014 1:24PM Atrial Fibrillation Aug 20 2014 1:24PM Deep vein thrombosis:history of Aug 20 2014 1:24PM 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 Aug 29 2014 3:30PM Atrial Fibrillation Aug 29 2014 3:30PM Deep vein thrombosis:history of Aug 29 2014 3:30PM jail use of anticoagulants Sep 05 2014 1:08PM Atrial Fibrillation Sep 05 2014 1:08PM Deep vein thrombosis:history of Sep 05 2014 1:08PM jail use of anticoagulants Sep 13 2014 12:03PM Atrial Fibrillation Sep 13 2014 12:03PM Deep vein thrombosis:history of Sep 13 2014 12:03PM jail use of anticoagulants Sep 05 2014 1:06PM Hip pain Sep 05 2014 1:06PM Neck pain Sep 05 2014 1:06PM History of DVT (deep vein thrombosis) Sep 05 2014 1:06PM Low Back Pain Oct 09 2014 8:35AM Migraine Oct 09 2014 8:35AM Depressive Disorder Oct 09 2014 8:35AM Nausea Oct 09 2014 8:35AM Cervicalgia Oct 09 2014 8:35AM 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 Oct 30 2014 3:06PM [...] 2014 11:21AM Constipation Dec 06 2014 11:21AM jail use of anticoagulants Dec 12 2014 9:25AM [...] 2014 9:04AM Menorrhagia Jan 09 2015 11:30AM jail use of anticoagulants Jan 13 2015 11:28AM [...] to cognitive limitations Apr 23 2015 1:32PM 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 May 01 2015 2:57PM Atrial Fibrillation May 01 2015 2:57PM Deep vein thrombosis:history of May 01 2015 2:57PM jail use of anticoagulants May 06 2015 3:28PM [...] of lower extremity Jul 25 2015 11:54AM Payers Insurance Name Company Name Plan Name Plan Number Policy Number Policy Group Number Start Date [facility] [id number] N/A History of Encounters Visit Date Visit Type Provider 06/27/2015 Office visit FRANCISCO JAVIER MORAN 06/17/2015 Office visit FRANCISCO JAVIER MORAN 06/10/2015 Office visit FRANCISCO JAVIER MORAN 05/29/2015 Office visit FRANCISCO JAVIER MORAN 05/23/2015 Office visit FRANCISCO JAVIER MORAN 05/01/2015 Office visit FRANCISCO JAVIER MORNA 04/25/2015 Voided FRANCISCO JAVIER MORAN 04/23/2015 [facility] Mercedes Chappell MD 04/23/2015 Office visit [...] FRANCISCO JAVIER ESPINAL PA 09/13/2014 Office visit FRANCISC OJAVIER ESPINAL PA 09/05/2014 Office visit 09/05/2014 Office [...] ESPINAL PA 05/03/2014 [facility] Jessi Koehler MD 04/25/2014 Office [...]
--- OUTSIDE RECORDS SUMMARY | 2017-05-11 13:17 | XMS REPORT | CCD ---
Author Author TRISTA CARTER Organization Unknown Address [address] [place], [place] [address] Care Team Providers Care It Quality Assurance Analyst Name Role Phone JOVON PHYS, JB ER Attphys JOVON PHYS, JB ER Prisurg Vital Signs Unknown or Not Available. Allergies Allergy Code Allergy Type Reaction Status No Known Drug Allergies 0 No known drug allergies Active Procedures Procedure Code Procedure Type Date CBC W/ AUTO DIFF (RFLX MAN DIFF IF IND) 6919205 SNOMED CT 01/22/2015 COMPREHENSIVE METABOLIC PANEL 209145167 SNOMED CT [address] 01/22/[address] 01/22/2015 ^CBC W/AUTO DIFF 4486131 SNOMED CT 01/22/2015 History of Immunizations Unknown or Not Available. Problems Problem Code Start Date Resolved Date Status DVT of leg 958079731 05/03/2014 Active Results COMPREHENSIVE METABOLIC PANEL - Collect Date/Time: 01/22/2015 11:53 Test Name Code Test Result Test Units Test Ref Range GLUCOSE 2345-7 82 MG/DL L=70 H=100 SODIUM 2951-2 143 MEQ/L L=135 H=148 POTASSIUM 2823-3 4.0 MEQ/L L=3.5 H=5.3 CHLORIDE 2075-0 109 MEQ/L L=96 H=110 CO2 2028-9 26 MEQ/L L=22 H=29 BUN 3094-0 6 MG/DL L=8 H=22 CREATININE 2160-0 0.6 MG/DL L=0.6 H=1.6 SGOT/AST 1920-8 16 IU/L L=10 H=40 SGPT/ALT 1742-6 12 IU/L L=8 H=54 ALK PHOS 6768-6 85 IU/L L=35 H=115 TOTAL PROTEIN 2885-2 7.0 G/DL L=5.5 H=8.5 ALBUMIN 1751-7 4.1 G/DL L=3.1 H=5.4 TOTAL BILI 1975-2 0.2 MG/DL L=0.0 H=1.5 CALCIUM 04290-6 9.2 MG/DL L=8.2 H=10.6 AGE 34 yrs GFR NonAA 116 GFR AA 141 eGFR >60 N/A eGFR AA* >60 N/A CBC W/ AUTO DIFF (RFLX MAN DIFF IF IND) - Collect Date/Time: 01/22/2015 11:35 Test Name Code Test Result Test Units Test Ref Range WBC 70612-6 7.1 TH/CMM L=4.5 H=10.8 RBC 789-8 4.79 ML/CMM L=4.20 H=5.40 HGB 718-7 14.6 G/DL L=12.0 H=16.0 HCT 4544-3 44.3 % L=37.0 H=47.0 MCV 93 FL L=81 H=99 MCH 30.5 PG L=27.0 H=33.0 MCHC 33.0 G/DL L=31.0 H=36.0 RDW SD 50 FL L=36 H=50 RDW CV 14.7 % L=0.0 H=14.8 MPV 10.0 FL L=9.3 H=12.5 PLT 777-3 370 TH/CMM L=130 H=440 NRBC# 0.00 TH/CMM L=0.00 H=0.00 NRBC% 0.0 /100WBC L=0.0 H=2.0 %NEUT 50.9 % %LYMP 40.7 % %MONO 6.5 % %EOS 1.6 % %BASO 0.3 % #NEUT 3.60 TH/CMM L=2.10 H=8.20 #LYMP 2.88 TH/CMM L=0.90 H=5.20 #MONO 0.46 TH/CMM L=0.16 H=1.00 #EOS 0.11 TH/CMM L=0.00 H=0.80 #BASO 0.02 TH/CMM L=0.00 H=0.20 MANUAL DIFF NOT IND N/A PROTIME - Collect Date/Time: 01/22/2015 11:35 Test Name Code Test Result Test Units Test Ref Range PROTIME 66967-7 22.2 SEC L=9.9 H=11.9 INR 2.2 TEST - Collect Date/Time: 01/22/2015 11:35 Test Name Code Test Result Test Units Test Ref Range TEST 2118-8 NEGATIVE N/A Active Medications Medication Code Dose Units Frequency Route Modification Start Date/Time busPIRone 10MG Oral Tablet 060534 10 MILLIGRAMS THREE TIMES A DAY ORAL 05/04/2014 10:54 Prescription Detail 10 MILLIGRAMS ORAL THREE TIMES A DAY CeleXA 40MG Oral Tablet 272789 40 MILLIGRAMS DAILY ORAL 05/04/2014 10:54 Prescription Detail 40 MILLIGRAMS ORAL DAILY Coumadin 5MG Oral Tablet 159242 5 MILLIGRAMS COUMADIN AT 5:00 PM BY MOUTH 05/04/2014 10:54 Prescription Detail 5 MILLIGRAMS BY MOUTH COUMADIN AT 5:00 PM Dicyclomine HCl 10MG Oral Capsule 711846 10 MILLIGRAMS THREE TIMES A DAY ORAL 05/04/2014 10:54 Prescription Detail 10 MILLIGRAMS ORAL THREE TIMES A DAY HYDROcodone bitartrate-acetaminophen 5MG-325MG Oral Tablet 559882 1 EACH NEEDED EVERY 6 HR BY MOUTH 10:54 Prescription Detail 1 EACH BY MOUTH NEEDED EVERY 6 HR HydrOXYzine HCl 25MG Oral Tablet 430844 25 MILLIGRAMS FOUR TIMES A DAY ORAL 05/04/2014 10:54 Prescription Detail 25 MILLIGRAMS ORAL FOUR TIMES A DAY Lovenox 60MG/0.6ML Injection Solution 318562 60 MILLIGRAMS EVERY 12 HOURS SUB Q 05/04/2014 10:54 Prescription Detail 60 MILLIGRAMS SUB Q EVERY 12 HOURS Medications Administered During Visit Unknown or Not Available. Encounters Encounter Diagnosis Diagnosis Code Start Date Dysmenorrhea [id number] 01/22/2015 Social History Smoking Status Code Start Date End Date Current every day smoker [id number] Patient Decision Aids Unknown or Not Available. Discharge Instructions You were admitted to [facility] on 01/22/2015 with a principal diagnosis of Dysmenorrhea . You were discharged from [facility] on 01/22/2015. Should you have any questions prior to discharge, please contact a member of your healthcare team. If you have left the hospital and have any questions, please contact your primary care physician. Chief Complaint and Reason For Visit Chief Complaint Date of Onset VAG BLEEDING Function Status Unknown or Not Available. Plan of Care Unknown or Not Available. Referral/Transition of Care Unknown or Not Available.
--- OUTSIDE RECORDS SUMMARY | 2017-05-11 13:17 | XMS REPORT ---
Author Author FRANCISCO JAVIER ESPINAL [facility] Address [address] [place], [place] [address] Care Team Providers Care Licensed Funeral Director And Embalmer Name Role Phone FRANCISCO JAVIER ESPINAL PCP [...] route once daily for 30 days trazodone 300 mg oral tablet 09/08/2016 take 1/2 to 1 tablet at bedtime Xanax 0.5 mg oral tablet 09/02/2016 10/02/2016 1/2 to 1 twice daily as needed for anxiety must last 30 days Name Start Date Expiration Date [...] ONE TABLET BY MOUTH THREE TIMES DAILY [place] 5-325 mg oral tablet 02/20/2016 05/15/2016 take [...] 09/13/2016 Relationship problem between partners Active 09/13/2016 Vital Signs Date Time BP-Sys(mm[Hg] BP-Diana(mm[Hg]) HR(bpm) RR(rpm) Temp WT HT HC BMI BSA BMI Percentile O2 Sat(%) 09/02/2016 4:06:00 PM 105 mmHg 68 mmHg [...] [facility]# [address]-18 Reviewed 05/01/2015 12:00 AM CAPILLARY BLOOD DRAW Reviewed 03/06/2015 12:00 AM CAPILLARY BLOOD DRAW Reviewed 05/07/2015 12:00 AM CAPILLARY BLOOD DRAW Reviewed 05/23/2015 12:00 AM Decadron, Per 1 Mg [facility]# [address]-09 Reviewed 05/29/2015 12:00 AM CAPILLARY BLOOD DRAW Reviewed 06/17/2015 12:00 AM EXTREMITY STUDY Returned 09/02/2015 12:00 AM Decadron, Per 1 Mg [facility]# [address]-58 Reviewed 09/02/2015 12:00 AM Rocephin 1 gram [facility]#6666-2936-12 Reviewed 09/02/2015 12:00 AM Toradol 60 Mg [facility]#9320-1142-57 Reviewed 09/26/2015 12:00 AM Decadron, Per 1 Mg [facility]# [address]-93 Reviewed 09/26/2015 12:00 AM Phenergan, Up to 50 Mg [facility]#5983-2456-69 Reviewed 02/20/2016 12:00 AM DRAINAGE OF SKIN [...] Reviewed 03/30/2016 12:00 AM Phenergan 50mg Injection, [facility] Medicaid Reviewed 04/17/2016 12:00 AM THERAPEUTIC [...] [facility]# [address]-27 Reviewed 07/23/2014 12:00 AM Depo-Medrol, Per 80 Mg [facility]#8242-0807-21 Reviewed 07/23/2014 12:00 AM Rocephin 1 gram [facility]#2843-4392-69 Reviewed 08/20/2014 12:00 AM CAPILLARY BLOOD DRAW Reviewed 08/29/2014 12:00 AM CAPILLARY BLOOD DRAW Reviewed 09/05/2014 12:00 AM CAPILLARY BLOOD DRAW Reviewed 09/13/2014 12:00 AM CAPILLARY BLOOD DRAW Reviewed 10/09/2014 12:00 AM Decadron, Per 1 Mg [facility]# [address]-99 Reviewed 10/09/2014 12:00 AM Toradol 60 Mg [facility]#4037-4139-01 Reviewed 10/09/2014 12:00 AM Phenergan, Up to 50 Mg 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 Mar 28 2014 10:10AM [...] to 3 May 16 2014 10:57AM 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 May 20 2014 11:14AM DVT (deep venous thrombosis), left May 20 2014 11:14AM 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 May 30 2014 7:44AM [...] thrombosis:history of Aug 29 2014 3:30PM 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 Sep 05 2014 1:08PM Atrial Fibrillation Sep 05 2014 1:08PM Deep vein thrombosis:history of Sep 05 2014 1:08PM 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 Sep 13 2014 12:03PM Atrial Fibrillation Sep 13 2014 12:03PM Deep vein thrombosis:history of Sep 13 2014 12:03PM 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 Sep 05 2014 1:06PM Hip pain Sep 05 2014 1:06PM Neck pain Sep 05 2014 1:06PM History of DVT (deep vein thrombosis) Sep 05 2014 1:06PM Low Back Pain Oct 09 2014 8:35AM Migraine Oct 09 2014 8:35AM Depressive Disorder Oct 09 2014 8:35AM Nausea Oct 09 2014 8:35AM Cervicalgia Oct 09 2014 8:35AM 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 Oct 30 2014 3:06PM Atrial Fibrillation Oct 30 2014 3:06PM Deep vein thrombosis:history of Oct 30 2014 3:06PM 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] 2016 1:11PM Bruise Jun 08 2016 1:11PM 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 current use of anticoagulant Jun 08 2016 [...] Insomnia, unspecified type Sep 02 2016 4:07PM Payers Insurance Name Company Name Plan Name Plan Number Policy Number Policy Group Number Start Date [facility] [id number] N/A History of Encounters Visit Date Visit Type Provider 09/02/2016 Office visit FRANCISCO JAVIER MORAN 08/09/2016 Office visit FRANCISCO JAVIER ESPINAL PA 07/28/2016 Office visit FRANCISCO JAVIER MORAN 07/01/2016 Office visit FRANCISCO JAVIER MORAN 06/24/2016 Office visit FRANCISCO JAVIER MORAN 06/21/2016 Office visit Francisco Javier Patricio MD 06/21/2016 Office visit FRANCISCO JAVIER ESPINAL PA 06/08/2016 Office visit FRANCISCO JAVIER ESPINAL PA 05/24/2016 Office visit FRANCISCO JAVIER MORAN 05/05/2016 Office visit FRANCISCO JAVIER ESPINAL PA 04/13/2016 Office visit FRANCISCO JAVIER ESPINLA PA 03/30/2016 Office visit FRANCISCO JAVIER ESPINAL PA 03/25/2016 Office visit FRANCISCO JAVIER ESPINAL PA 02/24/2016 Office visit FRANCISCO JAVIER MORAN 02/20/2016 Office visit FRANCISCO JAVIER ESPINAL PA 02/10/2016 Office visit FRANCISCO JAVIER MORAN 01/26/2016 Office visit FRANCISCO JAVIER ESPINAL PA 01/08/2016 Office visit FRANCISCO JAVIER MORAN 11/25/2015 [...] 04/25/2015 Voided FRANCISCO JAVIER ESPINAL PA 04/23/2015 Voided Jermaine Chappell MD 04/23/2015 Office [...] Office visit 12/27/2014 Office visit Aruna Albert RADIOLOGY ADMINISTRATOR 12/27/2014 Office visit FRANCISCO JAVIER ESPINAL PA [...] Office visit FRANCISCO JAVIER ESPINAL PA 08/03/2014 [facility] Jermaine Chappell MD 07/23/2014 Office [...] Office visit FRANCISCO JAVIER ESPINAL PA 05/03/2014 [facility] Aruna Koehler MD 04/25/2014 Office visit FRANCISCO JAVIER ESPINAL PA 04/01/2014 Office visit Aruna Albert RADIOLOGY ADMINISTRATOR 03/28/2014 Office visit FRANCISCO JAVIER ESPINAL PA 02/26/2014 Office visit FRANCISCO JAVIER MORAN 05/20/2010 Office visit Francisco Javier DARLINGC 04/16/2009 Office visit Francisco Javier Espinal PA-C 01/24/2009 Office visit Tian Basilio MD 12/31/2008 Office visit Tian Basilio MD 12/23/2008 Office visit Tian Basilio MD 12/17/2008 [facility] Tian Basilio MD 12/13/2008 Office visit Tian Basilio MD 12/06/2008 Office visit Tian Basilio MD 11/29/2008 Office visit Tian Basilio MD 11/15/2008 Office visit Tian Basilio MD 11/01/2008 Office visit Tian Basilio MD 10/18/2008 Office visit Tian Basilio MD
--- OUTSIDE RECORDS SUMMARY | 2017-05-11 13:17 | XMS REPORT | CCD ---
Author Author JAMES TEE Organization Unknown Address [address] [place], [place] [address] Care Team Providers Care Car Ferrier Name Role Phone ANAMARIA ER, LILY DO Attphys MULVANE ER, LLIY DO Prisurg Vital Signs Unknown or Not Available. Allergies Allergy Code Allergy Type Reaction Status No Known Drug Allergies 0 No known drug allergies Active Procedures Procedure Code Procedure Type Date PROTIME 100242027 SNOMED CT 08/03/2014 History of Immunizations Unknown or Not Available. Problems Problem Code Start Date Resolved Date Status DVT of leg 150296662 05/03/2014 Active Results PROTIME - Collect Date/Time: 08/03/2014 01:10 Test Name Code Test Result Test Units Test Ref Range PROTIME 47298-2 17.1 SEC L=9.9 H=11.9 INR 1.7 Active Medications Medication Code Dose Units Frequency Route Modification Start Date/Time busPIRone 10MG Oral Tablet 267452 10 MILLIGRAMS THREE TIMES A DAY ORAL 05/04/2014 10:54 CeleXA 40MG Oral Tablet 370114 40 MILLIGRAMS DAILY ORAL 05/04/2014 10:54 Coumadin 5MG Oral Tablet 283678 5 MILLIGRAMS COUMADIN AT 5:00 PM BY MOUTH 05/04/2014 10:54 Dicyclomine HCl 10MG Oral Capsule 064795 10 MILLIGRAMS THREE TIMES A DAY ORAL 05/04/2014 10:54 HYDROcodone bitartrate-acetaminophen 5MG-325MG Oral Tablet 561086 1 EACH NEEDED EVERY 6 HR BY MOUTH 10:54 HydrOXYzine HCl 25MG Oral Tablet 776460 25 MILLIGRAMS FOUR TIMES A DAY ORAL 05/04/2014 10:54 Lovenox 60MG/0.6ML Injection Solution 243218 60 MILLIGRAMS EVERY 12 HOURS SUB Q 05/04/2014 10:54 Medications Administered During Visit Unknown or Not Available. Encounters Encounter Diagnosis Diagnosis Code Start Date ANXIETY STATE NOS 42038 08/03/2014 Social History Smoking Status Code Start Date End Date Current every day smoker [id number] Patient Decision Aids Unknown or Not Available. Discharge Instructions You were admitted to [facility] on 08/03/2014 with a principal diagnosis of ANXIETY STATE NOS. You were discharged from [facility] on 08/03/2014. Should you have any questions prior to discharge, please contact a member of your healthcare team. If you have left the hospital and have any questions, please contact your primary care physician. Chief Complaint and Reason For Visit Chief Complaint Date of Onset PANIC ATTACK Function Status Unknown or Not Available. Referral/Transition of Care Unknown or Not Available.
--- OUTSIDE RECORDS SUMMARY | 2017-05-11 13:19 | XMS REPORT ---
Author Author FRANCISCO JAVIER ESPINAL [facility] Address [address] [place], [place] [id number] Care Team Providers Care Employee Relations Advisor Name Role Phone FRANCISCO JAVIER ESPINAL PCP Unavailable Allergies and Adverse Reactions Name Reaction Notes No known drug allergy Plan of Treatment Planned Activity Comments Planned Date Planned Time Plan/Goal Injection, Subcutaneous/IM 05/24/2016 12:00 AM Medications Active Name Start Date [...] route 4 times a day as needed Name Start Date Expiration Date SIG Comments [...] Medrol (Vivek) 4 mg oral tablets,dose pack 05/17/2016 05/22/2016 take as directed for 5 days Discontinued [...] ONE TABLET BY MOUTH THREE TIMES DAILY [place] 5-325 mg oral tablet 02/20/2016 05/15/2016 take [...] HC BMI BSA BMI Percentile O2 Sat(%) 05/24/2016 3:31:00 PM 100 mmHg 72 mmHg [...] 04/12/2015 12:00 AM Decadron, Per 1 Mg [facility]# [address]-08 Reviewed 05/01/2015 12:00 AM CAPILLARY BLOOD DRAW Reviewed 03/06/2015 12:00 AM CAPILLARY BLOOD DRAW Reviewed 05/07/2015 12:00 AM CAPILLARY BLOOD DRAW Reviewed 05/23/2015 12:00 AM Decadron, Per 1 Mg [facility]# [address]-16 Reviewed 05/29/2015 12:00 AM CAPILLARY BLOOD DRAW Reviewed 06/17/2015 12:00 AM EXTREMITY STUDY Returned 09/02/2015 12:00 AM Decadron, Per 1 Mg [facility]# [address]-52 Reviewed 09/02/2015 12:00 AM Rocephin 1 gram [facility]#5435-7386-36 Reviewed 09/02/2015 12:00 AM Toradol 60 Mg [facility]#2080-8402-72 Reviewed 09/26/2015 12:00 AM Decadron, Per 1 Mg [facility]# [address]-46 Reviewed 09/26/2015 12:00 AM Phenergan, Up to 50 Mg [facility]#2835-3618-11 Reviewed 02/20/2016 12:00 AM DRAINAGE OF SKIN ABSCESS Reviewed 02/10/2016 12:00 AM Phenergan 50mg Injection Reviewed 02/10/2016 12:00 AM THER/PROPH/DIAG INJ SC/IM Reviewed 03/25/2016 12:00 AM THERAPEUTIC PROPHYLACTIC/DX INJECTION SUBQ/IM Reviewed 03/25/2016 12:00 AM Decadron 8mg Injection, [facility] Medicaid Reviewed 03/25/2016 12:00 AM Depo-Medrol 80 Mg Injection, [facility] Medicaid Reviewed 03/25/2016 12:00 AM Rocephin 1 [...] 07/23/2014 12:00 AM Decadron, Per 1 Mg [facility]# [address]-71 Reviewed 07/23/2014 12:00 AM Depo-Medrol, Per 80 Mg [facility]#1002-7[address]-93 Reviewed 07/23/2014 12:00 AM Rocephin 1 gram [facility]#3513-6812-78 Reviewed 08/20/2014 12:00 AM CAPILLARY BLOOD DRAW Reviewed 08/29/2014 12:00 AM CAPILLARY BLOOD DRAW Reviewed 09/05/2014 12:00 AM CAPILLARY BLOOD DRAW Reviewed 09/13/2014 12:00 AM CAPILLARY BLOOD DRAW Reviewed 10/09/2014 12:00 AM Decadron, Per 1 Mg [facility]# [address]-20 Reviewed 10/09/2014 12:00 AM Toradol 60 Mg [facility]#4731-6854-23 Reviewed 10/09/2014 12:00 AM Phenergan, Up to 50 Mg [facility]#6507-9971-86 Reviewed 10/30/2014 12:00 AM CAPILLARY BLOOD DRAW [...] 2014 10:47AM Anxiety Mar 28 2014 10: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 Mar 28 2014 10:10AM [...] 2 to 3 May 16 2014 10:57AM [facility] use of anticoagulants May 20 2014 11:14AM DVT (deep venous thrombosis), left May 20 2014 11:14AM [facility] use of anticoagulants May 30 2014 7:44AM Atrial Fibrillation May 30 2014 7:44AM Deep vein thrombosis:history of May 30 2014 7:44AM [facility] use of anticoagulants Jun 10 2014 9:18AM Atrial Fibrillation Jun 10 2014 9:18AM Deep vein thrombosis:history of Jun 10 2014 9:18AM 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 Jun 12 2014 8:29AM [...] Intellectual disability Aug 06 2014 2:55PM 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 Aug 20 2014 1:24PM Atrial Fibrillation Aug 20 2014 1:24PM Deep vein thrombosis:history of Aug 20 2014 1:24PM [facility] use of anticoagulants Aug 29 2014 3:30PM Atrial Fibrillation Aug 29 2014 3:30PM Deep vein thrombosis:history of Aug 29 2014 3:30PM 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 Sep 05 2014 1:08PM [...] 2014 8:35AM Cervicalgia Oct 09 2014 8:35AM 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 Oct 30 2014 3:06PM Atrial Fibrillation Oct 30 2014 3:06PM Deep vein thrombosis:history of Oct 30 2014 3:06PM 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 Nov 07 2014 3:54PM [...] 2014 9:04AM Menorrhagia Jan 09 2015 11:30AM 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 Jan 13 2015 11:28AM Atrial Fibrillation Jan 13 2015 11:28AM Deep vein thrombosis:history of Jan 13 2015 11:28AM Menorrhagia with regular cycle Jan 27 2015 10:44AM Moderate Female pelvic pain Jan 27 2015 10:44AM Moderate Dysmenorrhea Jan 27 2015 10:44AM [facility] use of anticoagulants Feb 03 2015 1:34PM [...] to cognitive limitations Apr 23 2015 1:32PM [facility] use of anticoagulants May 01 2015 2:57PM Atrial Fibrillation May 01 2015 2:57PM Deep vein thrombosis:history of May 01 2015 2:57PM [facility] use of anticoagulants May 06 2015 3:28PM Atrial Fibrillation May 06 2015 3:28PM Deep vein thrombosis:history of May 06 2015 3:28PM 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 May 07 2015 9:50AM Atrial Fibrillation May 07 2015 9:50AM Deep vein thrombosis:history of May 07 2015 9:50AM Cough May 23 2015 10:51AM Bronchitis, Acute May 23 2015 10:51AM Post-nasal drainage May 23 2015 10:51AM Smoker unmotivated to quit May 23 2015 10:51AM [facility] use of anticoagulants May 29 2015 2:16PM [...] 3:32PM Gastroenteritis, acute May 24 2016 3:32PM Payers Insurance Name Company Name Plan Name Plan Number Policy Number Policy Group Number Start Date [facility] [id number] N/A History of Encounters Visit Date Visit Type Provider 05/24/2016 Office visit FRANCISCO JAVIER ESPINAL PA 05/05/2016 Office visit FRANCISCO JAVIER MORAN 04/13/2016 Office visit FRANCISCO JAVIER MORAN 03/30/2016 Office visit FRANCISCO JAVIER ESPINAL PA 03/25/2016 Office visit FRANCISCO JAVIER ESPINAL PA 02/24/2016 Office visit FRANCISCO JAVIER ESPINAL PA 02/20/2016 Office visit FRANCISCO JAVIER ESPINAL PA 02/10/2016 Office visit FRANCISCO JAVIER ESPINAL PA 01/26/2016 Office visit FRANCISCO JAVIER SEPINAL PA 01/08/2016 Office visit FRANCISCO JAVIER ESPINAL [...] Office visit FRANCISCO JAVIER ESPINAL PA 08/03/2014 [facility] Jermaine Chappell MD 07/23/2014 Office visit 07/23/2014 [...] Office visit FRANCISCO JAVIER ESPINAL PA 05/03/2014 [facility] Aruna Koehler MD 04/25/2014 Office visit FRANCISCO [...]
--- OUTSIDE RECORDS SUMMARY | 2017-05-11 13:19 | XMS REPORT ---
Author LENORE Yu [facility] eClinicalWorks Address Unknown Phone Unavailable Care Team Providers Care Abalone Diver Name Role Phone LENORE ALBERT Unavailable Allergies, Adverse Reactions, Alerts Substance [...] mention of status migrainosus 346.90 Active Assessment Dizziness 780.4 Active Assessment Abdominal pain 789.00 Active Problem Unspecified contraceptive management V25.9 Active Medications Medication Code System Code Instructions Start Date End Date Status Dosage Warfarin Sodium [facility] [address]-15 4 MG Orally Once a day 1 tablet Cyclobenzaprine HCl [facility] [address]-08 10 MG Orally Three times a day Oct 24, 2014 Nov 23, 2014 1 tablet Bentyl [facility] [address]-12 10 MG Orally Four times a day 1 capsule Citalopram Hydrobromide [facility] [address]-80 20 MG Orally Once a day 1 tablet BusPIRone HCl [facility] [address]-89 10 MG Orally Twice a day 1 tablet HydrOXYzine HCl [facility] [address]-78 25 MG Orally every 8 hrs 1 tablet as needed Xanax [facility] [address]-51 0.5 MG Orally PRN 1 tablet Procedures Procedure Coding System Code Date DRUG SCREEN NON TLC DEVICES CPT-4 11480 Nov 14, 2014 Office Visit, Est Pt., Level 3 CPT-4 06875 Nov 14, 2014 Vital Signs Date/Time: Nov 14, 2014 Temperature 98.7 F Weight 125.7 lbs Height 64 in BMI 21.57 Index Blood Pressure Diastolic 65 mmHg Blood Pressure Systolic 98 mmHg Cardiac Monitoring Heart Rate 82 bpm Results Name Result Date Reference Range Unit Abnormality Flag URINE DRUG SCREEN (IN HOUSE) Summary Purpose eClinicalWorks Submission
--- OUTSIDE RECORDS SUMMARY | 2017-05-11 13:20 | XMS REPORT ---
Author Author FRANCISCO JAVIER ESPINAL [facility] Address [address] [place], [place] [address] Care Team Providers Care Obstetrics Gynecology Md Name Role Phone FRANCISCO JAVIER ESPINAL PCP [...] per day citalopram 20 mg oral tablet 12/30/2014 take 2 tablets (40 mg) by oral route once daily ibuprofen 800 mg oral tablet 12/31/2014 take 1 tablet by oral route Q8H while on your cycle warfarin 4 mg oral tablet 02/24/2015 take 2 tablet (4 mg) by oral route once daily [place] 5-325 mg oral tablet 04/14/2015 take 1 tablet by oral route every 6 hours as needed for pain cyclobenzaprine 10 mg oral tablet 04/14/2015 take 1 tablet (10 mg) by oral route 3 times per day for 30 days Keflex 500 mg oral capsule 04/14/2015 Take one capsule 3 times a day Name Start Date Expiration Date SIG [...] 02/03/2015 12:00 AM CAPILLARY BLOOD DRAW Reviewed 03/28/2014 [...] [facility]# [address]-38 Reviewed 07/23/2014 12:00 AM Depo-Medrol, Per 80 Mg [facility]#6779-8780-69 Reviewed 07/23/2014 12:00 AM Rocephin 1 gram [facility]#1664-0435-06 Reviewed 08/20/2014 12:00 AM CAPILLARY BLOOD DRAW Reviewed 08/29/2014 12:00 AM CAPILLARY BLOOD DRAW Reviewed 09/05/2014 12:00 AM CAPILLARY BLOOD DRAW Reviewed 09/13/2014 12:00 AM CAPILLARY BLOOD DRAW Reviewed 10/09/2014 12:00 AM Decadron, Per 1 Mg [facility]# [address]-26 Reviewed 10/09/2014 12:00 AM Toradol 60 Mg [facility]#5411-6564-17 Reviewed 10/09/2014 12:00 AM Phenergan, Up to 50 Mg 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 May 30 2014 7:44AM Atrial Fibrillation May 30 2014 7:44AM Deep vein thrombosis:history of May 30 2014 7:44AM group home use of anticoagulants Jun 10 2014 [...] 2:55PM Intellectual disability Aug 06 2014 2:55PM group home use of anticoagulants Aug 20 2014 1:24PM Atrial Fibrillation Aug 20 2014 1:24PM Deep vein thrombosis:history of Aug 20 2014 1:24PM group home use of anticoagulants Aug 29 2014 3:30PM Atrial Fibrillation Aug 29 2014 3:30PM Deep vein thrombosis:history of Aug 29 2014 3:30PM group home use of anticoagulants Sep 05 2014 [...] 2014 8:35AM Cervicalgia Oct 09 2014 8:35AM 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 Oct [...] 2014 11:21AM Constipation Dec 06 2014 11:21AM group home use of anticoagulants Dec 12 2014 [...] 2014 9:04AM Menorrhagia Jan 09 2015 11:30AM group home use of anticoagulants Jan 13 2015 11:28AM Atrial Fibrillation Jan 13 2015 11:28AM Deep vein thrombosis:history of Jan 13 2015 11:28AM Menorrhagia with regular cycle Jan 27 2015 10:44AM Moderate Female pelvic pain Jan 27 2015 10:44AM Moderate Dysmenorrhea Jan 27 2015 10:44AM group home use of anticoagulants Feb 03 2015 1:34PM [...] to cognitive limitations Apr 23 2015 1:32PM Payers Insurance Name Company Name Plan Name Plan Number Policy Number Policy Group Number Start Date [facility] [id number] N/A History of Encounters Visit Date Visit Type Provider 04/23/2015 Office visit FRANCISCO JAVIER MORAN 04/14/2015 [...] Office visit 12/27/2014 Office visit Jessi Blake MILITARY PILOT 12/27/2014 Office visit FRANCISCO JAVIER ESPINAL PA [...] Office visit FRANCISCO JAVIER ESPINAL PA 08/03/2014 [facility] Jermaine Chappell MD 07/23/2014 Office [...] Office visit FRANCISCO JAVIER ESPINAL PA 05/03/2014 [facility] Jessi Koehler MD 04/25/2014 Office visit FRANCISCO JAVIER ESPINAL PA 04/01/2014 Office visit Jessi Blake MILITARY PILOT 03/28/2014 Office visit FRANCISCO JAVIER ESPINAL PA 02/26/2014 Office visit FRANCISCO JAVIER ESPINAL PA 05/20/2010 Office visit Francisco Javier Espinal PA-C 04/16/2009 Office visit Francisco Javier Espinal PA-C 01/24/2009 Office visit Tian Basilio MD 12/31/2008 Office visit Tian Basilio MD 12/23/2008 Office visit Tian Basilio MD 12/17/2008 [facility] Tian Basilio MD 12/13/2008 Office visit Tian Basilio MD 12/06/2008 Office visit Tian Basilio MD 11/29/2008 Office visit Tian Basilio MD 11/15/2008 Office visit Tian Basilio MD 11/01/2008 Office visit Tian Basilio MD 10/18/2008 Office visit Tian Basilio MD
--- OUTSIDE RECORDS SUMMARY | 2017-05-11 13:21 | XMS REPORT ---
Author Author FRANCISCO JAVIER ESPINAL [facility] Address [address] [place], [place] [address] Care Team Providers Care Butter Grader Name Role Phone FRANCISCO JAVIER ESPINAL PCP [...] TAKE ONE TABLET BY MOUTH TWICE DAILY [place] 5-325 mg oral tablet 02/20/2016 take 1 [...] 12 hours with food for 7 days Bactrim DS 800-160 mg oral tablet [...] HC BMI BSA BMI Percentile O2 Sat(%) 02/24/2016 2:05:00 PM 110 mmHg 70 mmHg [...] Decadron, Per 1 Mg [facility]# [address]-07 Reviewed 05/01/2015 12:00 AM CAPILLARY BLOOD DRAW Reviewed 03/06/2015 12:00 AM CAPILLARY BLOOD DRAW Reviewed 05/07/2015 12:00 AM CAPILLARY BLOOD DRAW Reviewed 05/23/2015 12:00 AM Decadron, Per 1 Mg [facility]# [address]-31 Reviewed 05/29/2015 12:00 AM CAPILLARY BLOOD DRAW Reviewed 06/17/2015 12:00 AM EXTREMITY STUDY Returned 09/02/2015 12:00 AM Decadron, Per 1 Mg [facility]# [address]-30 Reviewed 09/02/2015 12:00 AM Rocephin 1 gram [facility]#4812-3472-93 Reviewed 09/02/2015 12:00 AM Toradol 60 Mg [facility]#5180-7223-50 Reviewed 09/26/2015 12:00 AM Decadron, Per 1 Mg [facility]# [address]-96 Reviewed 09/26/2015 12:00 AM Phenergan, Up to 50 Mg [facility]#7288-6849-79 Reviewed 02/20/2016 12:00 AM DRAINAGE OF SKIN [...] Decadron, Per 1 Mg [facility]# [address]-85 Reviewed 07/23/2014 12:00 AM Depo-Medrol, Per 80 Mg [facility]#8111-7060-86 Reviewed 07/23/2014 12:00 AM Rocephin 1 gram [facility]#1767-3841-10 Reviewed 08/20/2014 12:00 AM CAPILLARY BLOOD DRAW Reviewed 08/29/2014 12:00 AM CAPILLARY BLOOD DRAW Reviewed 09/05/2014 12:00 AM CAPILLARY BLOOD DRAW Reviewed 09/13/2014 12:00 AM CAPILLARY BLOOD DRAW Reviewed 10/09/2014 12:00 AM Decadron, Per 1 Mg [facility]# [address]-63 Reviewed 10/09/2014 12:00 AM Toradol 60 Mg [facility]#6279-2380-96 Reviewed 10/09/2014 12:00 AM Phenergan, Up to 50 Mg [facility]#9329-9580-17 Reviewed 10/30/2014 12:00 AM CAPILLARY BLOOD DRAW [...] secsINR 1.9 PTT 36.80 secsCALLED TO/BY ARUNA ALBERT[facility] 12/30/2014 10:57 AM WBC 9.4 [...] of Aug 29 2014 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 [id number] N/A History of Encounters Visit Date Visit Type Provider 02/24/2016 Office visit FRANCISCO JAVIER MORAN 02/20/2016 [...] Office visit 12/27/2014 Office visit Aruna Albert FORENSIC PHOTOGRAPHER 12/27/2014 Office visit FRANCISCO JAVIER ESPINAL PA [...] Office visit FRANCISCO JAVIER ESPINAL PA 08/03/2014 [facility] Jermaine Chappell MD 07/23/2014 Office [...] Office visit FRANCISCO JAVIER ESPINAL PA 05/03/2014 [facility] Aruna Koehler MD 04/25/2014 Office visit FRANCISCO JAVIER ESPINAL PA 04/01/2014 Office visit Aruna Albert FORENSIC PHOTOGRAPHER 03/28/2014 Office visit FRANCISCO JAVIER ESPINAL PA 02/26/2014 Office visit FRANCISCO JAVIER MORAN 05/20/2010 Office visit Francisco Javier Espinal PA-C 04/16/2009 Office visit Francisco Javier Espinal PA-C 01/24/2009 Office visit Tian Basilio MD 12/31/2008 Office visit Tian Basilio MD 12/23/2008 Office visit Tian Basilio MD 12/17/2008 [facility] Tian Basilio MD 12/13/2008 Office visit Tian Basilio MD 12/06/2008 Office visit Tian Basilio MD 11/29/2008 Office visit Tian Basilio MD 11/15/2008 Office visit Tian Basilio MD 11/01/2008 Office visit Tian Basilio MD 10/18/2008 Office visit Tian Basilio MD
--- OUTSIDE RECORDS SUMMARY | 2017-05-11 13:22 | XMS REPORT ---
Author Author FRANCISCO JAVIER ESPINAL [facility] Address [address] [place], [place] [id number] Care Team Providers Care Co Founder & Ceo Name Role Phone FRANCISCO JAVIER ESPINAL PCP [...] (4 mg) by oral route once daily [place] 5-325 mg oral tablet 04/14/2015 take 1 [...] IF NEEDED Lasix 20 mg oral tablet 06/16/2015 take 1 tablet (20 mg) by oral [...] HC BMI BSA BMI Percentile O2 Sat(%) 06/10/2015 11:11:00 AM 128 mmHg 78 mmHg [...] CAPILLARY BLOOD DRAW Reviewed 04/12/2015 12:00 AM Artem Orona [address] [facility]# [address]-68 Reviewed 05/01/2015 12:00 AM CAPILLARY BLOOD DRAW Reviewed 03/06/2015 12:00 AM CAPILLARY BLOOD DRAW Reviewed 05/07/2015 12:00 AM CAPILLARY BLOOD DRAW Reviewed 05/23/2015 12:00 AM Decadron, Per [address] [facility]# [address]-45 Reviewed 05/29/2015 12:00 AM CAPILLARY BLOOD DRAW Reviewed 03/28/2014 [...] 12:00 AM Decadron, Per [address] [facility]# [address]-66 Reviewed 07/23/2014 12:00 AM Depo-Medrol, Per [address] [facility]#1182-9406-54 Reviewed 07/23/2014 12:00 AM Rocephin [address] [facility]#0364-7033-23 Reviewed 08/20/2014 12:00 AM CAPILLARY BLOOD DRAW Reviewed 08/29/2014 12:00 AM CAPILLARY BLOOD DRAW Reviewed 09/05/2014 12:00 AM CAPILLARY BLOOD DRAW Reviewed 09/13/2014 12:00 AM CAPILLARY BLOOD DRAW Reviewed 10/09/2014 12:00 AM Decadron, Per [address] [facility]# [address]-89 Reviewed 10/09/2014 12:00 AM Toradol [address] [facility]#7989-4746-36 Reviewed 10/09/2014 12:00 AM Phenergan, Up to [address] [facility]#1314-6786-94 Reviewed 10/30/2014 12:00 AM CAPILLARY BLOOD DRAW Reviewed Results Summary Data and Description Results 03/28/2014 3:47 PM GLUCOSE 76.0 mg/dLSODIUM 145.0 mmol/LPOTASSIUM 4.80 mmol/ LCHLORIDE 105.0 mmol/LCO2 25.0 mmol/LBUN 13.0 mg/dLCREATININE 0.70 mg/dLSGOT/ AST 14.0 IU/LSGPT/ALT 12.0 IU/LALK PHOS 72.0 IU/LTOTAL PROTEIN 7.60 g/dLALBUMIN 4.40 g/dLTOTAL BILI 0.20 mg/dLCALCIUM 10.0 mg/dLeGFR >60 mL/min/1.73 [id number] 241.0 mg/dLCHOLESTEROL 248.0 mg/dLHDL 51.0 mg/dLLDL (CAL[facility]) [...] 2014 10:47AM Anxiety Mar 28 2014 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 Mar 28 2014 10:10AM [...] venous thrombosis), left May 20 2014 11:14AM 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 May 30 2014 7:44AM Atrial Fibrillation May 30 2014 7:44AM Deep vein thrombosis:history of May 30 2014 7:44AM 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 Jun 10 2014 9:18AM Atrial Fibrillation Jun 10 2014 9:18AM Deep vein thrombosis:history of Jun 10 2014 9:18AM 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 Jun 12 2014 8:29AM [...] 2:55PM Intellectual disability Aug 06 2014 2: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 Aug 20 2014 1:24PM Atrial Fibrillation Aug 20 2014 1:24PM Deep vein thrombosis:history of Aug 20 2014 1:24PM 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 Aug 29 2014 3:30PM Atrial Fibrillation Aug 29 2014 3:30PM Deep vein thrombosis:history of Aug 29 2014 3:30PM 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 Sep 05 2014 1:08PM Atrial Fibrillation Sep 05 2014 1:08PM Deep vein thrombosis:history of Sep 05 2014 1:08PM [facility] use of anticoagulants Sep 13 2014 12:03PM Atrial Fibrillation Sep 13 2014 12:03PM Deep vein thrombosis:history of Sep 13 2014 12:03PM 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 Sep 05 2014 1:06PM [...] vein thrombosis:history of Oct 30 2014 3:06PM 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 Nov 07 2014 3:54PM Atrial Fibrillation Nov 07 2014 3:54PM Deep vein thrombosis:history of Nov 07 2014 3:54PM Cough Dec 02 2014 11:37AM Bronchitis, Acute Dec 02 2014 11:37AM Abdominal Pain, Generalized Dec 06 2014 11:21AM Constipation Dec 06 2014 11:21AM [facility] use of anticoagulants Dec 12 2014 9:25AM [...] 2014 9:04AM Menorrhagia Jan 09 2015 11:30AM 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 Jan 13 2015 11:28AM Atrial Fibrillation Jan 13 2015 11:28AM Deep vein thrombosis:history of Jan 13 2015 11:28AM Menorrhagia with regular cycle Jan 27 2015 10:44AM Moderate Female pelvic pain Jan 27 2015 10:44AM Moderate Dysmenorrhea Jan 27 2015 10:44AM 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 Feb 03 2015 1:34PM [...] to cognitive limitations Apr 23 2015 1:32PM [facility] use of anticoagulants May 01 2015 2:57PM Atrial Fibrillation May 01 2015 2:57PM Deep vein thrombosis:history of May 01 2015 2:57PM 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 May 06 2015 3:28PM Atrial Fibrillation May 06 2015 3:28PM Deep vein thrombosis:history of May 06 2015 3:28PM 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 May 07 2015 9:50AM Atrial Fibrillation May 07 2015 9:50AM Deep vein thrombosis:history of May 07 2015 9:50AM Cough May 23 2015 10:51AM Bronchitis, Acute May 23 2015 10:51AM Post-nasal drainage May 23 2015 10:51AM Smoker unmotivated to quit May 23 2015 10:51AM [facility] use of anticoagulants May 29 2015 2:16PM Atrial Fibrillation May 29 2015 2:16PM Deep vein thrombosis:history of May 29 2015 2:16PM Bilateral low back pain with sciatica, sciatica laterality unspecified Jun 10 2015 11:11AM History of DVT (deep vein thrombosis) Jun 10 2015 11:11AM 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 Jun 10 2015 11:11AM Payers Insurance Name Company Name Plan Name Plan Number Policy Number Policy Group Number Start Date [facility] [id number] N/A History of Encounters Visit Date Visit Type Provider 06/10/2015 Office visit FRANCISCO JAVIER MORAN 05/29/2015 Office visit FRANCISCO JAVIER MORAN 05/23/2015 Office visit FRANCISCO JAVIER MORAN 05/01/2015 Office visit FRANCISCO JAVIER MORAN 04/25/2015 Voided FRANCISCO JAVIER ESPINAL PA 04/23/2015 [facility] Jermaine Chappell [...] 05/06/2014 Office visit FRANCISCO JAVIER MORAN 05/03/2014 [facility] Jessi Koehler [...]
--- OUTSIDE RECORDS SUMMARY | 2017-05-11 13:22 | XMS REPORT | CCD ---
Author Author THOMAS VIRGEN Organization Unknown Address [address] [address] [address] [place], [place] [id number] Care Team Providers Care Laundry Or Dry Cleaners Counter Clerk Name Role Phone MARTÍNEZCLAUDE DO Attphys MARTÍNEZJHONR DO Prisurg Vital Signs Unknown or Not Available. Allergies Allergy Code Allergy Type Reaction Status No Known Drug Allergies 0 No known drug allergies Active Procedures Unknown or Not Available. History of Immunizations Unknown or Not Available. Problems Problem Code Start Date Resolved Date Status DVT of leg 593588419 05/03/2014 Active Results Unknown or Not Available. Active Medications Medication Code Dose Units Frequency Route Modification Start Date/Time busPIRone 10MG Oral Tablet [id number] 10 MILLIGRAMS THREE TIMES A DAY ORAL 05/04/2014 10:54 Prescription Detail 10 MILLIGRAMS ORAL THREE TIMES A DAY CeleXA 40MG Oral Tablet 981031 40 MILLIGRAMS DAILY ORAL 05/04/2014 10:54 Prescription Detail 40 MILLIGRAMS ORAL DAILY Coumadin 5MG Oral Tablet 932894 5 MILLIGRAMS COUMADIN AT 5:00 PM BY MOUTH 05/04/2014 10:54 Prescription Detail 5 MILLIGRAMS BY MOUTH COUMADIN AT 5:00 PM Dicyclomine HCl 10MG Oral Capsule 318871 10 MILLIGRAMS THREE TIMES A DAY ORAL 05/04/2014 10:54 Prescription Detail 10 MILLIGRAMS ORAL THREE TIMES A DAY HYDROcodone bitartrate-acetaminophen 5MG-325MG Oral Tablet 546444 1 EACH NEEDED EVERY 6 HR BY MOUTH 10:54 Prescription Detail 1 EACH BY MOUTH NEEDED EVERY 6 HR HydrOXYzine HCl 25MG Oral Tablet 553333 25 MILLIGRAMS FOUR TIMES A DAY ORAL 05/04/2014 10:54 Prescription Detail 25 MILLIGRAMS ORAL FOUR TIMES A DAY Lovenox 60MG/0.6ML Injection Solution [id number] 60 MILLIGRAMS EVERY 12 HOURS SUB Q 05/04/2014 10:54 Prescription Detail 60 MILLIGRAMS SUB Q EVERY 12 HOURS Medications Administered During Visit Unknown or Not Available. Encounters Encounter Diagnosis Diagnosis Code Start Date Abscess of vulva 23333640 10/16/2015 Social History Smoking Status Code Start Date End Date Current every day smoker 984659962 Patient Decision Aids Unknown or Not Available. Discharge Instructions You were admitted to [facility] on 10/16/2015 23:43 with a principal diagnosis of Abscess of vulva You were discharged from [facility] on 10/17/2015 00:20 Should you have any questions prior to discharge, please contact a member of your healthcare team. If you have left the hospital and have any questions, please contact your primary care physician. Chief Complaint and Reason For Visit Chief Complaint Date of Onset ABCESS Function Status Unknown or Not Available. Plan of Care Unknown or Not Available. Referral/Transition of Care Unknown or Not Available.
--- OUTSIDE RECORDS SUMMARY | 2017-05-11 13:24 | XMS REPORT ---
Author Author FRANCISCO JAVIER ESPINAL [facility] Address [address] [place], [place] [id number] Care Team Providers Care Data Entry Processor Name Role Phone FRANCISCO JAVIER ESPINAL PCP [...] (4 mg) by oral route once daily [place] 5-325 mg oral tablet 04/14/2015 take 1 [...] route once daily with the evening meal Name Start Date Expiration Date SIG Comments [...] 04/12/2015 12:00 AM Decadron, Per [address] [facility]# [address]-53 Reviewed 05/01/2015 12:00 AM CAPILLARY BLOOD DRAW Reviewed 03/06/2015 12:00 AM CAPILLARY BLOOD DRAW Reviewed 05/07/2015 12:00 AM CAPILLARY BLOOD DRAW Reviewed 05/23/2015 12:00 AM Decadron, Per [address] [facility]# [address]-29 Reviewed 05/29/2015 12:00 AM CAPILLARY BLOOD DRAW [...] 07/23/2014 12:00 AM Decadron, Per [address] [facility]# [address]-18 Reviewed 07/23/2014 12:00 AM Depo-Medrol, Per [address] [facility]#3785-3452-71 Reviewed 07/23/2014 12:00 AM Rocephin [address] [facility]#8135-8616-89 Reviewed 08/20/2014 12:00 AM CAPILLARY BLOOD DRAW Reviewed 08/29/2014 12:00 AM CAPILLARY BLOOD DRAW Reviewed 09/05/2014 12:00 AM CAPILLARY BLOOD DRAW Reviewed 09/13/2014 12:00 AM CAPILLARY BLOOD DRAW Reviewed 10/09/2014 12:00 AM Decadron, Per [address] [facility]# [address]-66 Reviewed 10/09/2014 12:00 AM Toradol [address] [facility]#6084-1246-03 Reviewed 10/09/2014 12:00 AM Phenergan, Up to [address] 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 May 20 2014 [...] vein thrombosis:history of Jun 10 2014 9:18AM 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 Jun 12 2014 [...] vein thrombosis:history of Sep 05 2014 1:08PM skilled nursing use of anticoagulants Sep 13 2014 12:03PM [...] 2014 8:35AM Cervicalgia Oct 09 2014 8:35AM 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 Oct 30 2014 [...] 2014 11:21AM Constipation Dec 06 2014 11:21AM 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 Dec 12 2014 [...] to cognitive limitations Apr 23 2015 1:32PM 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 May 01 2015 2:57PM [...] vein thrombosis:history of May 29 2015 2:16PM Payers Insurance Name Company Name Plan Name Plan Number Policy Number Policy Group Number Start Date [facility] [id number] N/A History of Encounters Visit Date Visit Type Provider 05/29/2015 Office visit FRANCISCO JAVIER MORAN 05/23/2015 Office visit FRANCISCO JAVIER MORAN 05/01/2015 Office visit FRANCISCO JAVIER MORAN 04/25/2015 Voided FRANCISCO JAVIER MORAN 04/23/2015 [facility] Jermaine Chappell MD 04/23/2015 Office visit FRANCISCO [...] Office visit 12/27/2014 Office visit Jessi Blake NURSE TRANSPLANT 12/27/2014 Office visit FRANCISCO JAVIER ESPINAL PA [...] Hospitals Jermaine Chappell MD 07/23/2014 Office visit 07/23/2014 Office visit FRANCISCO JAVIER ESPINLA PA 07/08/2014 Office visit FRANCISCO JAVIER ESPINAL [...] ESPINAL PA 04/01/2014 Office visit Jessi Blake NURSE TRANSPLANT 03/28/2014 Office visit FRANCISCO JAVIER ESPINAL PA [...]
--- OUTSIDE RECORDS SUMMARY | 2017-05-11 13:24 | XMS REPORT ---
Author Author [facility] Organization [facility] Address [address] [facility] [address] [place], [place] [address] Care Team Providers Care Master Merchandiser Name Role Phone PCP Unavailable Allergies and [...] by oral route 3 times per day Name Start Date Expiration [...] 08/29/2014 12:00 AM CAPILLARY BLOOD DRAW Reviewed Results Summary Data and Description Results 03/28/2014 3:47 PM GLUCOSE 76.0 mg/dLSODIUM 145.0 mmol/LPOTASSIUM 4.80 mmol/ LCHLORIDE 105.0 mmol/LCO2 25.0 mmol/LBUN 13.0 mg/dLCREATININE 0.70 mg/dLSGOT/ AST 14.0 IU/LSGPT/ALT 12.0 IU/LALK PHOS 72.0 IU/LTOTAL PROTEIN 7.60 g/dLALBUMIN 4.40 g/dLTOTAL BILI 0.20 mg/dLCALCIUM 10.0 mg/dLeGFR >60 mL/min/1.73 [id number] 241.0 mg/dLCHOLESTEROL 248.0 mg/dLHDL 51.0 mg/dLLDL (CALC) [...] 2014 10:47AM Anxiety Mar 28 2014 10:10AM long 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 care 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 worker use of drug Mar 28 2014 10:10AM [...] May 16 2014 10:57AM long term care social worker use of anticoagulants May 20 2014 11:14AM DVT (deep venous thrombosis), left May 20 2014 11:14AM long term care social worker use of anticoagulants May 30 2014 7:44AM Atrial Fibrillation May 30 2014 7:44AM Deep vein thrombosis:history of May 30 2014 7:44AM long term care social worker use of anticoagulants Jun 10 2014 9:18AM Atrial Fibrillation Jun 10 2014 9:18AM Deep vein thrombosis:history of Jun 10 2014 9:18AM long term care social worker use of anticoagulants Jun 12 2014 8:29AM [...] 2:55PM Intellectual disability Aug 06 2014 2:55PM long-term use of anticoagulants Aug 20 2014 1:24PM Atrial Fibrillation Aug 20 2014 1:24PM Deep vein thrombosis:history of Aug 20 2014 1:24PM long-term use of anticoagulants Aug 29 2014 3:30PM Atrial Fibrillation Aug 29 2014 3:30PM Deep vein thrombosis:history of Aug 29 2014 3:30PM Payers Not available. History of Encounters Visit [...] 05/06/2014 Office visit FRANCISCO JAVIER MORAN 05/03/2014 [facility] Jessi Koehler MD 04/25/2014 Office visit FRANCISCO JAVIER MORAN 04/01/2014 Office visit Jessi Blake DIRECTOR OF INSTRUMENTAL MUSIC 03/28/2014 Office visit FRANCISCO JAVIER MORAN 02/26/2014 [...]
--- OUTSIDE RECORDS SUMMARY | 2017-05-11 13:24 | XMS REPORT | CCD ---
Author Author THOMAS VIRGEN Unknown Address [address] [place] [address] Care Team Providers Care Computer Processing Scheduler Name Role Phone ADDIS CONTRERAS MD Attphys ADDIS CONTRERAS MD Prisurg Allergies Allergy Code Allergy Type Reaction Status No Known Drug Allergies 0 Drug allergy Active Active Medications Medication Code Dose Units Frequency Route Modification Start Date/Time busPIRone 10MG Oral Tablet 358878 10 MILLIGRAMS THREE TIMES A DAY ORAL 05/04/2014 10:54 Prescription Detail 10 MILLIGRAMS ORAL THREE TIMES A DAY CeleXA 40MG Oral Tablet 669235 40 MILLIGRAMS DAILY ORAL 05/04/2014 10:54 Prescription Detail 40 MILLIGRAMS ORAL DAILY Coumadin 5MG Oral Tablet 010747 5 MILLIGRAMS COUMADIN AT 5:00 PM BY MOUTH 05/04/2014 10:54 Prescription Detail 5 MILLIGRAMS BY MOUTH COUMADIN AT 5:00 PM Dicyclomine HCl 10MG Oral Capsule 418608 10 MILLIGRAMS THREE TIMES A DAY ORAL 05/04/2014 10:54 Prescription Detail 10 MILLIGRAMS ORAL THREE TIMES A DAY HYDROcodone bitartrate-acetaminophen 5MG-325MG Oral Tablet 831506 1 EACH NEEDED EVERY 6 HR BY MOUTH 10:54 Prescription Detail 1 EACH BY MOUTH NEEDED EVERY 6 HR HydrOXYzine HCl 25MG Oral Tablet 118909 25 MILLIGRAMS FOUR TIMES A DAY ORAL 05/04/2014 10:54 Prescription Detail 25 MILLIGRAMS ORAL FOUR TIMES A DAY Lovenox 60MG/0.6ML Injection Solution 926164 60 MILLIGRAMS EVERY 12 HOURS SUB Q 05/04/2014 10:54 Prescription Detail 60 MILLIGRAMS SUB Q EVERY 12 HOURS Problems Problem Code Start Date Resolved Date Status DVT of leg 902988644 05/03/2014 Active Procedures Unknown or Not Available. Results Unknown or Not Available. Function Status Unknown or Not Available. History of Immunizations Unknown or Not Available. Plan of Treatment Unknown or Not Available. Social History Smoking Status Code Start Date End Date Current every day smoker [id number] Vital Signs Unknown or Not Available. Function Status Unknown or Not Available. Goals Unknown or Not Available. ASSESSMENTS Unknown or Not Available. Health Concerns Section Unknown or Not Available.
--- OUTSIDE RECORDS SUMMARY | 2017-05-11 13:25 | XMS REPORT ---
Author Author [facility] Medical Staff Organization [facility] Address [address] [place], [place] [address] Phone [phone] Summary purpose TRANSITION OF CARE AUTO GENERATION [...] visit Relevant diagnostic tests and/or laboratory data No authorized results are available for this patient visit History of procedures No procedures recorded for [...]
--- OUTSIDE RECORDS SUMMARY | 2017-05-11 13:25 | XMS REPORT ---
Author Author FRANCISCO JAVIER ESPINAL [facility] Address [address] [place], [place] [address] Care Team Providers Care Diesel Instructor Name Role Phone FRANCISCO JAVIER ESPINAL PCP [...] once daily citalopram 20 mg oral tablet 12/30/2014 take 2 tablets (40 mg) by oral route once daily ibuprofen 800 mg oral tablet 12/31/2014 take 1 tablet by oral route Q8H while on your cycle cyclobenzaprine 10 mg oral tablet 01/13/2015 02/12/2015 take 1 tablet (10 mg ) by oral route 3 times per day for 30 days [place] 5-325 mg oral tablet 01/29/2015 take 1 tablet by oral route every [...] HC BMI BSA BMI Percentile O2 Sat(%) 01/27/2015 10:43:00 AM 130 mmHg 75 mmHg [...] AM COMPLETE CBC W/AUTO DIFF WBC Returned 01/13/2015 12:00 AM CAPILLARY BLOOD DRAW Reviewed [...] 07/23/2014 12:00 AM Decadron, Per 1 Mg [facility]# [address]-50 Reviewed 07/23/2014 12:00 AM Depo-Medrol, Per 80 Mg [facility]#3807-9162-78 Reviewed 07/23/2014 12:00 AM Rocephin 1 gram [facility]#7425-0269-43 Reviewed 08/20/2014 12:00 AM CAPILLARY BLOOD DRAW Reviewed 08/29/2014 12:00 AM CAPILLARY BLOOD DRAW Reviewed 09/05/2014 12:00 AM CAPILLARY BLOOD DRAW Reviewed 09/13/2014 12:00 AM CAPILLARY BLOOD DRAW Reviewed 10/09/2014 12:00 AM Decadron, Per 1 Mg [facility]# [address]-30 Reviewed 10/09/2014 12:00 AM Toradol 60 Mg [facility]#8126-3598-87 Reviewed 10/09/2014 12:00 AM Phenergan, Up to 50 Mg [facility]#8292-1552-68 Reviewed 10/30/2014 12:00 AM CAPILLARY BLOOD DRAW Reviewed Results Summary Data and Description Results 03/28/2014 3:47 PM GLUCOSE 76.0 mg/dLSODIUM 145.0 mmol/LPOTASSIUM 4.80 mmol/ LCHLORIDE 105.0 mmol/LCO2 25.0 mmol/LBUN 13.0 mg/dLCREATININE 0.70 mg/dLSGOT/ AST 14.0 IU/LSGPT/ALT 12.0 IU/LALK PHOS 72.0 IU/LTOTAL PROTEIN 7.60 g/dLALBUMIN 4.40 g/dLTOTAL BILI 0.20 mg/dLCALCIUM 10.0 mg/dLeGFR >60 mL/min/1.73 [id number] 241.0 mg/dLCHOLESTEROL 248.0 mg/dLHDL 51.0 mg/dLLDL (CALC) [...] 2014 10:47AM Anxiety Mar 28 2014 10:10AM 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 Mar 28 2014 10:10AM [...] to 3 May 16 2014 10:57AM exterminator termite use of 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 May 20 2014 11:14AM DVT (deep venous thrombosis), left May 20 2014 11:14AM exterminator termite use of 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 May 30 2014 7:44AM [...] thrombosis:history of Aug 20 2014 1:24PM exterminator termite use of anticoagulants Aug 29 2014 3:30PM Atrial Fibrillation Aug 29 2014 3:30PM Deep vein thrombosis:history of Aug 29 2014 3:30PM exterminator termite use of anticoagulants Sep 05 2014 1:08PM [...] vein thrombosis:history of Oct 30 2014 3:06PM prison use of anticoagulants Nov 07 2014 3:54PM Atrial Fibrillation Nov 07 2014 3:54PM Deep vein thrombosis:history of Nov 07 2014 3:54PM Cough Dec 02 2014 11:37AM Bronchitis, Acute Dec 02 2014 11:37AM Abdominal Pain, Generalized Dec 06 2014 11:21AM Constipation Dec 06 2014 11:21AM exterminator termite 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 Dec 12 2014 [...] 9:04AM Menorrhagia Jan 09 2015 11:30AM exterminator termite use of anticoagulants Jan 13 2015 11:28AM Atrial Fibrillation Jan 13 2015 11:28AM Deep vein thrombosis:history of Jan 13 2015 11:28AM Menorrhagia with regular cycle Jan 27 2015 10:44AM Moderate Female pelvic pain Jan 27 2015 10:44AM Moderate Dysmenorrhea Jan 27 2015 10:44AM prison use of anticoagulants Feb 03 2015 1:34PM Atrial Fibrillation Feb 03 2015 1:34PM Deep vein thrombosis:history of Feb 03 2015 1:34PM Payers Insurance Name Company Name Plan Name Plan Number Policy Number Policy Group Number Start Date [facility] [id number] N/A History of Encounters Visit Date Visit Type Provider 02/03/2015 Office visit FRANCISCO JAVIER MORAN 01/27/2015 [...] Office visit FRANCISCO JAVIER ESPINAL PA 08/03/2014 [facility] Jermaine Chappell MD 07/23/2014 Office visit [...] Office visit FRANCISCO JAVIER ESPINAL PA 05/03/2014 [facility] Jessi Koehler MD 04/25/2014 Office visit FRANCISC OJAVIER ESPINAL PA 04/01/2014 Office visit Jessi Blake APRN 03/28/2014 Office visit FRANCISCO JAVIER ESPINAL PA 02/26/2014 Office visit FRANCISCO JAVIER ESPINAL PA 05/20/2010 Office visit Francisco Javier Espinal PA-C 04/16/2009 Office visit Francisco Javier Espinal PA-C 01/24/2009 Office visit Tian Basilio MD 12/31/2008 Office visit Tian Basilio MD 12/23/2008 Office visit Tian Basilio MD 12/17/2008 [facility] Tian Basilio MD 12/13/2008 Office visit Tian Basilio MD 12/06/2008 Office visit Tian Basilio MD 11/29/2008 Office visit Tian Basilio MD 11/15/2008 Office visit Tian Basilio MD 11/01/2008 Office visit Tian Basilio MD 10/18/2008 Office visit Tian Basilio MD
[2017-05-11 13:26] LABS: ALANINE AMINOTRANSFERASE 9 U/L (0-55); ALBUMIN 4.1 GM/DL (3.2-4.5); ALKALINE PHOSPHATASE 59 U/L (40-136); BILIRUBIN,TOTAL 0.4 MG/DL (0.1-1.0); BUN/CREATININE RATIO 19; CALCIUM 9.7 MG/DL (8.5-10.1); CARBON DIOXIDE 24 MMOL/L (21-32); CHLORIDE 106 MMOL/L (98-107); CREATININE SERUM 0.72 MG/DL (0.60-1.30); GFR ESTIMATED > 60; GLUCOSE 95 MG/DL (70-105); POTASSIUM 4.2 MMOL/L (3.6-5.0); SODIUM 137 MMOL/L (135-145); TOTAL PROTEIN 6.6 GM/DL (6.4-8.2)
--- OUTSIDE RECORDS SUMMARY | 2017-05-11 13:27 | XMS REPORT ---
Author Author FRANCISCO JAVIER ESPINAL [facility] Address [address] [facility] [address] [place], [place] [address] Care Team Providers Care Precision Honer Name Role Phone FRANCISCO JAVIER ESPINAL PCP [...] oral route Q8H while on your cycle [place] 5-325 mg oral tablet 02/11/2015 take 1 tablet by oral route every 6 hours as needed for pain warfarin 4 mg oral tablet 02/24/2015 take 2 tablet (4 mg) by oral route once daily cyclobenzaprine 10 mg oral tablet 03/17/2015 04/16/2015 take 1 tablet (10 mg) by oral route 3 times per day for 30 days Keflex 500 mg oral capsule 04/01/2015 Take one capsule 3 times a day prednisone 20 mg oral tablet 04/09/2015 04/17/2015 4x2 days 3x2 days 2x2 days 1x2 days Name Start Date Expiration Date SIG [...] HC BMI BSA BMI Percentile O2 Sat(%) 04/09/2015 11:37:00 AM 118 mmHg 70 mmHg [...] 1 Mg [facility]# [address]-31 Reviewed 07/23/2014 12:00 AM Depo-Medrol, Per 80 Mg [facility]#3388-9253-54 Reviewed 07/23/2014 12:00 AM Rocephin 1 gram [facility]#1802-0061-01 Reviewed 08/20/2014 12:00 AM CAPILLARY BLOOD DRAW Reviewed 08/29/2014 12:00 AM CAPILLARY BLOOD DRAW Reviewed 09/05/2014 12:00 AM CAPILLARY BLOOD DRAW Reviewed 09/13/2014 12:00 AM CAPILLARY BLOOD DRAW Reviewed 10/09/2014 12:00 AM Decadron, Per 1 Mg [facility]# [address]-28 Reviewed 10/09/2014 12:00 AM Toradol 60 Mg [facility]#1885-3670-68 Reviewed 10/09/2014 12:00 AM Phenergan, Up to 50 Mg 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 Mar 28 2014 10:10AM [...] 2 to 3 May 16 2014 10:57AM USP use of anticoagulants May 20 2014 11:14AM DVT (deep venous thrombosis), left May 20 2014 11:14AM USP use of anticoagulants May 30 2014 7:44AM Atrial Fibrillation May 30 2014 7:44AM Deep vein thrombosis:history of May 30 2014 7:44AM 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 Jun 10 2014 9:18AM Atrial Fibrillation Jun 10 2014 9:18AM Deep vein thrombosis:history of Jun 10 2014 9:18AM 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 Jun 12 2014 8:29AM [...] 2:55PM Intellectual disability Aug 06 2014 2:55PM USP use of anticoagulants Aug 20 2014 1:24PM Atrial Fibrillation Aug 20 2014 1:24PM Deep vein thrombosis:history of Aug 20 2014 1:24PM USP use of anticoagulants Aug 29 2014 3:30PM Atrial Fibrillation Aug 29 2014 3:30PM Deep vein thrombosis:history of Aug 29 2014 3:30PM USP use of anticoagulants Sep 05 2014 1:08PM Atrial Fibrillation Sep 05 2014 1:08PM Deep vein thrombosis:history of Sep 05 2014 1:08PM 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 Sep 13 2014 12:03PM Atrial Fibrillation Sep 13 2014 12:03PM Deep vein thrombosis:history of Sep 13 2014 12:03PM USP use of anticoagulants Sep 05 2014 1:06PM Hip pain Sep 05 2014 1:06PM Neck pain Sep 05 2014 1:06PM History of DVT (deep vein thrombosis) Sep 05 2014 1:06PM Low Back Pain Oct 09 2014 8:35AM Migraine Oct 09 2014 8:35AM Depressive Disorder Oct 09 2014 8:35AM Nausea Oct 09 2014 8:35AM Cervicalgia Oct 09 2014 8:35AM USP use of anticoagulants Oct 30 2014 3:06PM Atrial Fibrillation Oct 30 2014 3:06PM Deep vein thrombosis:history of Oct 30 2014 3:06PM USP use of anticoagulants Nov 07 2014 3:54PM Atrial Fibrillation Nov 07 2014 3:54PM Deep vein thrombosis:history of Nov 07 2014 3:54PM Cough Dec 02 2014 11:37AM Bronchitis, Acute Dec 02 2014 11:37AM Abdominal Pain, Generalized Dec 06 2014 11:21AM Constipation Dec 06 2014 11:21AM 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 Dec 12 2014 9:25AM [...] Menorrhagia Jan 09 2015 11:30AM 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 Jan 13 2015 11:28AM Atrial Fibrillation Jan 13 2015 11:28AM Deep vein thrombosis:history of Jan 13 2015 11:28AM Menorrhagia with regular cycle Jan 27 2015 10:44AM Moderate Female pelvic pain Jan 27 2015 10:44AM Moderate Dysmenorrhea Jan 27 2015 10:44AM 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 Feb 03 2015 1:34PM Atrial Fibrillation Feb 03 2015 1:34PM Deep vein thrombosis:history of Feb 03 2015 1:34PM Mild Acute Sprain/Strain Apr 09 2015 11:39AM Hip joint painful on movement, left Apr 09 2015 11:39AM Mild Chronic Cognitive impairment Stable Apr 09 2015 11:39AM Payers Insurance Name Company Name Plan Name Plan Number Policy Number Policy Group Number Start Date [facility] [id number] N/A History of Encounters Visit Date Visit Type Provider 04/09/2015 Office visit FRANCISCO JAVIER MORAN 04/03/2015 [...] Office visit 12/27/2014 Office visit Jessi Blake SIGN MAINTENANCE 12/27/2014 Office visit FRANCISCO JAVIER ESPINAL PA [...] Office visit FRANCISCO JAVIER ESPINAL PA 08/03/2014 [facility] Jermaine Chappell MD [...] Office visit FRANCISCO JAVIER ESPINAL PA 05/03/2014 [facility] Jessi Koehler MD 04/25/2014 Office visit FRANCISCO JAVIER ESPINAL PA 04/01/2014 Office visit Jessi Blake SIGN MAINTENANCE 03/28/2014 Office visit FRANCISCO JAVIER ESPINAL PA [...]
--- OUTSIDE RECORDS SUMMARY | 2017-05-11 13:28 | XMS REPORT ---
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.42 Active Problem Excessive or frequent menstruation 626.2 Active Problem Unspecified contraceptive management V25.9 Active Problem Neck sprain and strain 847.[address] of occurrence, home E849.0 Active Problem Lumbago 724.2 Active Problem Abnormal involuntary movements 781.0 Active Problem Leukorrhea, not specified as infective 623.5 Active Problem Diarrhea 787.91 Active Problem Migraine, unspecified without mention of intractable migraine without mention of status migrainosus 346.90 Active Medications No Known Medications Results No Known Results Summary Purpose eClinicalWorks Submission
--- OUTSIDE RECORDS SUMMARY | 2017-05-11 13:28 | XMS REPORT ---
Author Author FRANCISCO JAVIER ESPINAL [facility] Address [address] [place], [place] [address] Care Team Providers Care Structural Steel Erector Name Role Phone FRANCISCO JAVIER ESPINAL PCP [...] 2 times per day for 30 days [place] 5-325 mg oral tablet 09/02/2015 take 1 [...] HC BMI BSA BMI Percentile O2 Sat(%) 01/08/2016 2:52:00 PM 110 mmHg 70 mmHg [...] 04/12/2015 12:00 AM Decadron, Per 1 Mg [facility]# [address]-69 Reviewed 05/01/2015 12:00 AM CAPILLARY BLOOD DRAW Reviewed 03/06/2015 12:00 AM CAPILLARY BLOOD DRAW Reviewed 05/07/2015 12:00 AM CAPILLARY BLOOD DRAW Reviewed 05/23/2015 12:00 AM Decadron, Per 1 Mg [facility]# [address]-45 Reviewed 05/29/2015 12:00 AM CAPILLARY BLOOD DRAW Reviewed 06/17/2015 12:00 AM EXTREMITY STUDY Returned 09/02/2015 12:00 AM Decadron, Per 1 Mg [facility]# [address]-68 Reviewed 09/02/2015 12:00 AM Rocephin 1 gram [facility]#0456-2175-34 Reviewed 09/02/2015 12:00 AM Toradol 60 Mg [facility]#2923-4857-19 Reviewed 09/26/2015 12:00 AM Decadron, Per 1 Mg [facility]# [address]-59 Reviewed 09/26/2015 12:00 AM Phenergan, Up to 50 Mg [facility]#5252-4531-36 Reviewed 03/28/2014 12:00 AM COMPLETE CBC W/AUTO [...] 07/23/2014 12:00 AM Decadron, Per 1 Mg [facility]# [address]-54 Reviewed 07/23/2014 12:00 AM Depo-Medrol, Per 80 Mg [facility]#9181-9760-33 Reviewed 07/23/2014 12:00 AM Rocephin 1 gram [facility]#2176-1856-73 Reviewed 08/20/2014 12:00 AM CAPILLARY BLOOD DRAW Reviewed 08/29/2014 12:00 AM CAPILLARY BLOOD DRAW Reviewed 09/05/2014 12:00 AM CAPILLARY BLOOD DRAW Reviewed 09/13/2014 12:00 AM CAPILLARY BLOOD DRAW Reviewed 10/09/2014 12:00 AM Decadron, Per 1 Mg [facility]# [address]-48 Reviewed 10/09/2014 12:00 AM Toradol 60 Mg [facility]#8292-5106-40 Reviewed 10/09/2014 12:00 AM Phenergan, Up to 50 Mg [facility]#7113-1472-06 Reviewed 10/30/2014 12:00 AM CAPILLARY BLOOD DRAW [...] secsINR 1.9 PTT 36.80 secsCALLED TO/BY ARUNA ALBERT/[facility] 12/30/2014 10:57 AM WBC [...] 2014 10:47AM Anxiety Mar 28 2014 10:10AM 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 operator use 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 Mar 28 2014 [...] 2 to 3 May 16 2014 10:57AM make up operator use of anticoagulants May 20 2014 11:14AM DVT (deep venous thrombosis), left May 20 2014 11:14AM alf use of anticoagulants May 30 2014 7:44AM Atrial Fibrillation May 30 2014 7:44AM Deep vein thrombosis:history of May 30 2014 7:44AM make up operator use of anticoagulants Jun 10 2014 [...] vein thrombosis:history of Sep 05 2014 1:08PM alf use of anticoagulants Sep 13 2014 12:03PM Atrial Fibrillation Sep 13 2014 12:03PM Deep vein thrombosis:history of Sep 13 2014 12:03PM make up operator use of anticoagulants Sep 05 2014 1:06PM Hip pain Sep 05 2014 1:06PM Neck pain Sep 05 2014 1:06PM History of DVT (deep vein thrombosis) Sep 05 2014 1:06PM Low Back Pain Oct 09 2014 8:35AM Migraine Oct 09 2014 8:35AM Depressive Disorder Oct 09 2014 8:35AM Nausea Oct 09 2014 8:35AM Cervicalgia Oct 09 2014 8:35AM make up operator use of anticoagulants Oct 30 2014 [...] 2014 11:21AM Constipation Dec 06 2014 11:21AM make up operator use of anticoagulants Dec 12 2014 [...] 2014 9:04AM Menorrhagia Jan 09 2015 11:30AM alf use of anticoagulants Jan 13 2015 11:28AM Atrial Fibrillation Jan 13 2015 11:28AM Deep vein thrombosis:history of Jan 13 2015 11:28AM Menorrhagia with regular cycle Jan 27 2015 10:44AM Moderate Female pelvic pain Jan 27 2015 10:44AM Moderate Dysmenorrhea Jan 27 2015 10:44AM make up operator use of anticoagulants Feb 03 2015 [...] to cognitive limitations Apr 23 2015 1:32PM make up operator use of anticoagulants May 01 2015 2:57PM Atrial Fibrillation May 01 2015 2:57PM Deep vein thrombosis:history of May 01 2015 2:57PM alf use of anticoagulants May 06 2015 3:28PM Atrial Fibrillation May 06 2015 3:28PM Deep vein thrombosis:history of May 06 2015 3:28PM alf use of anticoagulants May 07 2015 9:50AM Atrial Fibrillation May 07 2015 9:50AM Deep vein thrombosis:history of May 07 2015 9:50AM Cough May 23 2015 10:51AM Bronchitis, Acute May 23 2015 10:51AM Post-nasal drainage May 23 2015 10:51AM Smoker unmotivated to quit May 23 2015 10:51AM alf use of anticoagulants May 29 2015 2:16PM [...] to cognitive limitations Jan 08 2016 2:59PM Payers Insurance Name Company Name Plan Name Plan Number Policy Number Policy Group Number Start Date [facility] [id number] N/A History of Encounters Visit Date Visit Type Provider 01/08/2016 Office visit FRANCISCO JAVIER MORAN 11/25/2015 [...] Office visit 12/27/2014 Office visit Aruna Albert STAND UP FORKLIFT OPERATOR 12/27/2014 Office visit FRANCISCO JAVIER ESPINAL PA [...] Office visit FRANCISCO JAVIER ESPINAL PA 08/03/2014 [facility] Jermaine Chappell MD 07/23/2014 Office [...] Office visit FRANCISCO JAVIER ESPINAL PA 05/03/2014 [facility] Aruna Koehler MD 04/25/2014 Office visit FRANCISCO JAVIER ESPINAL PA 04/01/2014 Office visit Aruna Albert STAND UP FORKLIFT OPERATOR 03/28/2014 Office visit FRANCISCO JAVIER ESPINAL PA 02/26/2014 Office visit FRANCISCO JAVIER ESPINAL PA 05/20/2010 Office visit Francisco Javier Espinal PA-C 04/16/2009 Office visit Francisco Javier Espinal PA-C 01/24/2009 Office visit Tian Basilio MD 12/31/2008 Office visit Tian Basilio MD 12/23/2008 Office visit Tian Basilio MD 12/17/2008 [facility] Tian Basilio MD 12/13/2008 Office visit Tian Basilio MD 12/06/2008 Office visit Tian Basilio MD 11/29/2008 Office visit Tian Basilio MD 11/15/2008 Office visit Tian Basilio MD 11/01/2008 Office visit Tian Basilio MD 10/18/2008 Office visit Tian Basilio MD
--- OUTSIDE RECORDS SUMMARY | 2017-05-11 13:29 | XMS REPORT ---
Author Author [facility] Organization [facility] Address [address] [place], [place] [address] Care Team Providers Care Crusher Name Role Phone PCP Unavailable Allergies and [...] 08/20/2014 12:00 AM CAPILLARY BLOOD DRAW Reviewed Results Summary Data and Description Results 03/28/2014 3:47 PM GLUCOSE 76.0 mg/dLSODIUM 145.0 mmol/LPOTASSIUM 4.80 mmol/ LCHLORIDE 105.0 mmol/LCO2 25.0 mmol/LBUN 13.0 mg/dLCREATININE 0.70 mg/dLSGOT/ AST 14.0 IU/LSGPT/ALT 12.0 IU/LALK PHOS 72.0 IU/LTOTAL PROTEIN 7.60 g/dLALBUMIN 4.40 g/dLTOTAL BILI 0.20 mg/dLCALCIUM 10.0 mg/dLeGFR >60 mL/min/1.73 [id number] 241.0 mg/dLCHOLESTEROL 248.0 mg/dLHDL 51.0 mg/dLLDL (CALC) [...] Mar 28 2014 10:10AM 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 History of Encounters Visit Date Visit Type Provider 08/06/2014 Office visit FRANCISCO JAVIER MORAN 07/23/2014 Office visit FRANCISCO JAVIER MORAN 07/08/2014 Office visit FRANCISCO JAVIER MORAN 06/24/2014 Office visit FRANCISCO JAVIER MORAN 06/12/2014 Office visit FRANCISCO JAVIER MORAN 06/10/2014 Office visit FRANCISCO JAVIER MOARN 05/27/2014 Office visit FRANCISCO JAVIER MORAN 05/20/2014 Office visit FRANCISCO JAVIER MORAN 05/16/2014 Office visit FRANCISCO JAVIER MORAN 05/13/2014 Voided FRANCISCO JAVIER MORAN 05/06/2014 Office visit FRANCISCO JAVIER MORAN 05/03/2014 [facility] Jessi Koehler MD 04/25/2014 [...] Basilio MD 12/17/2008 [facility] Tian Basilio MD 12/13/2008 Office visit Tian Basilio MD 12/06/2008 Office visit Tian Basilio MD 11/29/2008 Office visit Tian Basilio MD 11/15/2008 Office visit Tian Basilio MD 11/01/2008 Office visit Tian Basilio MD 10/18/2008 Office visit Tian Basilio MD
--- OUTSIDE RECORDS SUMMARY | 2017-05-11 13:30 | XMS REPORT | CCD ---
Author Author THOMAS VIRGEN Unknown Address [address] [place] [address] Care Team Providers Care Claims Technician Name Role Phone ADDIS CONTRERAS MD Attphys ADDIS CONTRERAS MD Prisurg Allergies Allergy Code Allergy Type Reaction Status No Known Drug Allergies 0 Drug allergy Active Active Medications Medication Code Dose Units Frequency Route Modification Start Date/Time busPIRone 10MG Oral Tablet 765136 10 MILLIGRAMS THREE TIMES A DAY ORAL 05/04/2014 10:54 Prescription Detail 10 MILLIGRAMS ORAL THREE TIMES A DAY CeleXA 40MG Oral Tablet [id number] 40 MILLIGRAMS DAILY ORAL 05/04/2014 10:54 Prescription Detail 40 MILLIGRAMS ORAL DAILY Coumadin 5MG Oral Tablet [id number] 5 MILLIGRAMS COUMADIN AT 5:00 PM BY MOUTH 05/04/2014 10:54 Prescription Detail 5 MILLIGRAMS BY MOUTH COUMADIN AT 5:00 PM Dicyclomine HCl 10MG Oral Capsule 693144 10 MILLIGRAMS THREE TIMES A DAY ORAL 05/04/2014 10:54 Prescription Detail 10 MILLIGRAMS ORAL THREE TIMES A DAY HYDROcodone bitartrate-acetaminophen 5MG-325MG Oral Tablet [id number] 1 EACH NEEDED EVERY 6 HR BY MOUTH 10:54 Prescription Detail 1 EACH BY MOUTH NEEDED EVERY 6 HR HydrOXYzine HCl 25MG Oral Tablet [id number] 25 MILLIGRAMS FOUR TIMES A DAY ORAL 05/04/2014 10:54 Prescription Detail 25 MILLIGRAMS ORAL FOUR TIMES A DAY Lovenox 60MG/0.6ML Injection Solution [id number] 60 MILLIGRAMS EVERY 12 HOURS SUB Q 05/04/2014 10:54 Prescription Detail 60 MILLIGRAMS SUB Q EVERY 12 HOURS Problems Problem Code Start Date Resolved Date Status DVT of leg [id number] 05/03/2014 Active Procedures Unknown or Not Available. Results Unknown or Not Available. Function Status Unknown or Not Available. History of Immunizations Unknown or Not Available. Plan of Treatment Unknown or Not Available. Social History Smoking Status Code Start Date End Date Current every day smoker [id number] Vital Signs Unknown or Not Available. Function Status Unknown or Not Available. Goals Unknown or Not Available. ASSESSMENTS Unknown or Not Available. Health Concerns Section Unknown or Not Available.
--- OUTSIDE RECORDS SUMMARY | 2017-05-11 13:30 | XMS REPORT ---
Author Author Marielos Rosa Organization [facility] Address [address] [place], [place] [address] Care Team Providers Care Manager Construction Name Role Phone Marielos Rosa PCP Unavailable Allergies and Adverse Reactions Name Reaction Notes No known drug allergy Plan of Treatment Planned Activity Comments Planned Date Planned Time Plan/Goal ASSAY OF GONADOTROPIN (LH) 12/27/2014 12:00 AM SELF-MGMT EDUC & TRAIN 1 PT 12/27/2014 12:00 AM US EXAM PELVIC COMPLETE 01/03/2015 12:00 AM TRANSVAGINAL US NON-OB 01/03/2015 12:00 AM US EXAM PELVIC COMPLETE 12/30/2014 12:00 AM [...] 12/27/2014 12:00 AM THROMBOPLASTIN TIME PARTIAL Returned 12/30/2014 12:00 AM COMPLETE CBC W/AUTO [...] 12:00 AM Decadron, Per 1 Mg [facility]# [address]-96 Reviewed 07/23/2014 12:00 AM Depo-Medrol, Per 80 Mg [facility]#4775-6059-21 Reviewed 07/23/2014 12:00 AM Rocephin 1 gram [facility]#1197-8291-11 Reviewed 08/20/2014 12:00 AM CAPILLARY BLOOD DRAW Reviewed 08/29/2014 12:00 AM CAPILLARY BLOOD DRAW Reviewed 09/05/2014 12:00 AM CAPILLARY BLOOD DRAW Reviewed 09/13/2014 12:00 AM CAPILLARY BLOOD DRAW Reviewed 10/09/2014 12:00 AM Decadron, Per 1 Mg [facility]# [address]-02 Reviewed 10/09/2014 12:00 AM Toradol 60 Mg [facility]#5818-1446-53 Reviewed 10/09/2014 12:00 AM Phenergan, Up to 50 Mg [facility]#9552-2529-18 Reviewed 10/30/2014 12:00 AM CAPILLARY BLOOD DRAW Reviewed Results Summary Data and Description Results 03/28/2014 3:47 PM GLUCOSE 76.0 mg/dLSODIUM 145.0 mmol/LPOTASSIUM 4.80 mmol/ LCHLORIDE 105.0 mmol/LCO2 25.0 mmol/LBUN 13.0 mg/dLCREATININE 0.70 mg/dLSGOT/ AST 14.0 IU/LSGPT/ALT 12.0 IU/LALK PHOS 72.0 IU/LTOTAL PROTEIN 7.60 g/dLALBUMIN 4.40 g/dLTOTAL BILI 0.20 mg/dLCALCIUM 10.0 mg/dLeGFR >60 mL/min/1.73 [id number] 241.0 mg/dLCHOLESTEROL 248.0 mg/dLHDL 51.0 mg/dLLDL (CALC) [...] PROTIME 19.50 secsINR 1.9 PTT 36.80 secs History Of Immunizations Not available. 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 Mar 28 2014 10:10AM [...] venous thrombosis), left May 20 2014 11:14AM roasterman use of anticoagulants May 30 2014 7:44AM Atrial Fibrillation May 30 2014 7:44AM Deep vein thrombosis:history of May 30 2014 7:44AM long-term use of anticoagulants Jun 10 2014 9:18AM Atrial Fibrillation Jun 10 2014 9:18AM Deep vein thrombosis:history of Jun 10 2014 9:18AM roasterman use of anticoagulants Jun 12 2014 8:29AM [...] 2:55PM Intellectual disability Aug 06 2014 2:55PM roasterman use of anticoagulants Aug 20 2014 1:24PM Atrial Fibrillation Aug 20 2014 1:24PM Deep vein thrombosis:history of Aug 20 2014 1:24PM long-term use of anticoagulants Aug 29 2014 3:30PM Atrial Fibrillation Aug 29 2014 3:30PM Deep vein thrombosis:history of Aug 29 2014 3:30PM long-term use of anticoagulants Sep 05 2014 1:08PM Atrial Fibrillation Sep 05 2014 1:08PM Deep vein thrombosis:history of Sep 05 2014 1:08PM roasterman use of anticoagulants Sep 13 2014 12:03PM Atrial Fibrillation Sep 13 2014 12:03PM Deep vein thrombosis:history of Sep 13 2014 12:03PM long-term use of anticoagulants Sep 05 2014 1:06PM Hip pain Sep 05 2014 1:06PM Neck pain Sep 05 2014 1:06PM History of DVT (deep vein thrombosis) Sep 05 2014 1:06PM Low Back Pain Oct 09 2014 8:35AM Migraine Oct 09 2014 8:35AM Depressive Disorder Oct 09 2014 8:35AM Nausea Oct 09 2014 8:35AM Cervicalgia Oct 09 2014 8:35AM long-term use of anticoagulants Oct 30 2014 3:06PM Atrial Fibrillation Oct 30 2014 3:06PM Deep vein thrombosis:history of Oct 30 2014 3:06PM roasterman use of anticoagulants Nov 07 2014 3:54PM Atrial Fibrillation Nov 07 2014 3:54PM Deep vein thrombosis:history of Nov 07 2014 3:54PM Cough Dec 02 2014 11:37AM Bronchitis, Acute Dec 02 2014 11:37AM Abdominal Pain, Generalized Dec 06 2014 11:21AM Constipation Dec 06 2014 11:21AM long-term use of anticoagulants Dec 12 2014 9:25AM Atrial Fibrillation Dec 12 2014 9:25AM Deep vein thrombosis:history of Dec 12 2014 9:25AM Menorrhagia Dec 27 2014 10:50AM Menorrhagia Dec 27 2014 9:34AM Dysmenorrhea Dec 27 2014 9:34AM Menorrhagia Dec 30 2014 10:23AM Menorrhagia Dec 30 2014 9:38AM Payers Insurance Name Company Name Plan Name Plan Number Policy Number Policy Group Number Start Date [facility] [id number] N/A History of Encounters Visit Date Visit Type Provider 12/30/[address] Marielos Rosa MD 12/27/2014 Office visit Jessi Blake PUBLIC HEALTH SANITARIAN TECHNICIAN 12/27/2014 Office visit FRANCISCO JAVIER MORAN 12/12/2014 [...] Office visit FRANCISCO JAVIER ESPINAL PA 08/03/2014 [facility] Jermaine Chappell MD 07/23/2014 Office visit [...] Office visit FRANCISCO JAVIER ESPINAL PA 05/03/2014 [facility] Jessi Koehler MD 04/25/2014 Office visit [...] 12/23/2008 Office visit Tian Basilio MD 12/17/2008 [facility] Tian Basilio MD 12/13/2008 Office visit Tian Basilio MD 12/06/2008 Office visit Tian Basilio MD 11/29/2008 Office visit Tian Basilio MD 11/15/2008 Office visit Tain Basilio MD 11/01/2008 Office visit Tian Basilio MD 10/18/2008 Office visit Tian Basilio MD
--- OUTSIDE RECORDS SUMMARY | 2017-05-11 13:31 | XMS REPORT ---
Author Author FRANCISCO JAVIER ESPINAL [facility] Address [address] [place], [place] [address] Care Team Providers Care Business Management Analyst Name Role Phone FRANCISCO JAVIER ESPINAL [...] 12:00 AM Decadron, Per 1 Mg [facility]# [address]-05 Reviewed 07/23/2014 12:00 AM Depo-Medrol, Per 80 Mg [facility]#4177-6741-36 Reviewed 07/23/2014 12:00 AM Rocephin 1 gram [facility]#1854-6215-02 Reviewed 08/20/2014 12:00 AM CAPILLARY BLOOD DRAW Reviewed 08/29/2014 12:00 AM CAPILLARY BLOOD DRAW Reviewed 09/05/2014 12:00 AM CAPILLARY BLOOD DRAW Reviewed 09/13/2014 12:00 AM CAPILLARY BLOOD DRAW Reviewed 10/09/2014 12:00 AM Decadron, Per 1 Mg [facility]# [address]-17 Reviewed 10/09/2014 12:00 AM Toradol 60 Mg [facility]#2248-8671-67 Reviewed 10/09/2014 12:00 AM Phenergan, Up to 50 Mg [facility]#4374-7267-64 Reviewed 10/30/2014 12:00 AM CAPILLARY BLOOD DRAW Reviewed Results Summary Data and Description Results 03/28/2014 3:47 PM GLUCOSE 76.0 mg/dLSODIUM 145.0 mmol/LPOTASSIUM 4.80 mmol/ LCHLORIDE 105.0 mmol/LCO2 25.0 mmol/LBUN 13.0 mg/dLCREATININE 0.70 mg/dLSGOT/ AST 14.0 IU/LSGPT/ALT 12.0 IU/LALK PHOS 72.0 IU/LTOTAL PROTEIN 7.60 g/dLALBUMIN 4.40 g/dLTOTAL BILI 0.20 mg/dLCALCIUM 10.0 mg/dLeGFR >60 mL/min/1.73 [id number] 241.0 mg/dLCHOLESTEROL 248.0 mg/dLHDL 51.0 mg/dLLDL (CALC) [...] 2014 10:47AM Anxiety Mar 28 2014 10:10AM snf use of drug Mar 28 2014 10:10AM [...] 3 May 16 2014 10:57AM 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 May 20 2014 11:14AM DVT (deep venous thrombosis), left May 20 2014 11:14AM 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 May 30 2014 7:44AM Atrial Fibrillation May 30 2014 7:44AM Deep vein thrombosis:history of May 30 2014 7:44AM 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 Jun 10 2014 9:18AM Atrial Fibrillation Jun 10 2014 9:18AM Deep vein thrombosis:history of Jun 10 2014 9:18AM 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 Jun 12 2014 [...] disability Aug 06 2014 2:55PM 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 Aug 20 2014 1:24PM Atrial Fibrillation Aug 20 2014 1:24PM Deep vein thrombosis:history of Aug 20 2014 1:24PM snf use of anticoagulants Aug 29 2014 3:30PM Atrial Fibrillation Aug 29 2014 3:30PM Deep vein thrombosis:history of Aug 29 2014 3:30PM snf use of anticoagulants Sep 05 2014 1:08PM Atrial Fibrillation Sep 05 2014 1:08PM Deep vein thrombosis:history of Sep 05 2014 1:08PM snf use of anticoagulants Sep 13 2014 12:03PM Atrial Fibrillation Sep 13 2014 12:03PM Deep vein thrombosis:history of Sep 13 2014 12:03PM 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 History of Encounters Visit Date Visit Type Provider 10/30/2014 Office visit FRANCISCO JAVIER MORAN 10/18/2014 Office visit FRANCISCO JAVIER MORAN 10/09/2014 Office visit FRANCISCO JAVIER MORAN 10/04/2014 Voided FRANCISCO JAVIER MORAN 09/20/2014 Voided FRANCISCO JAVIER MORAN 09/13/2014 Office visit FRANCISCO JAVIER MORAN 09/05/2014 Office visit FRANCISCO JAVIER MORAN 08/06/2014 Office visit FRANCISCO JAVIER MORAN 07/23/2014 Office visit FRANCISCO JAVIER ESPINAL PA 07/08/2014 Office visit FRANCISCO JAVIER ESPINAL PA 06/24/2014 Office visit FRANCISCO JAVIER ESPINAL PA 06/12/2014 Office visit FRANCISCO JAVIER ESPINAL PA 06/10/2014 Office visit FRANCISCO JAVIER ESPINAL PA 05/27/2014 Office visit FRANCISCO JAVIER ESPINAL PA 05/20/2014 Office visit FRANCISCO JAVIER ESPINAL PA 05/16/2014 Office visit RFANCISCO JAVIER ESPINAL PA 05/13/2014 Voided FRANCISCO JAVIER ESPINAL PA 05/06/2014 Office visit FRANCISCO JAVIER ESPINAL PA 05/03/2014 [facility] Jessi Koehler MD 04/25/2014 Office visit [...]
--- OUTSIDE RECORDS SUMMARY | 2017-05-11 13:32 | XMS REPORT ---
Author Author FRANCISCO JAVIER ESPINAL [facility] Address [address] [address] [place], [place] [id number] Care Team Providers Care Gymnastics Instructor Name Role Phone FRANCISCO JAVIER ESPINAL [...] (4 mg) by oral route once daily [place] 5-325 mg oral tablet 04/14/2015 take 1 [...] [facility]# [id number] Reviewed 07/23/2014 12:00 AM Depo-Medrol, Per 80 Mg FORMERLY NAMED [facility]#[id number] Reviewed 07/23/2014 12:00 AM Rocephin 1 gram FORMERLY NAMED [facility]#[id number] Reviewed 08/20/2014 12:00 AM CAPILLARY BLOOD DRAW Reviewed 08/29/2014 12:00 AM CAPILLARY BLOOD DRAW Reviewed 09/05/2014 12:00 AM CAPILLARY BLOOD DRAW Reviewed 09/13/2014 12:00 AM CAPILLARY BLOOD DRAW Reviewed 10/09/2014 12:00 AM Decadron, Per 1 Mg FORMERLY NAMED [facility]# [id number] Reviewed 10/09/2014 12:00 AM Toradol 60 Mg FORMERLY NAMED [facility]#[id number] Reviewed 10/09/2014 12:00 AM Phenergan, Up to 50 Mg FORMERLY NAMED [facility]#[id number] Reviewed 10/30/2014 12:00 AM CAPILLARY BLOOD DRAW Reviewed Results Summary Data and Description Results 03/28/2014 3:47 PM GLUCOSE 76.0 mg/dLSODIUM 145.0 mmol/LPOTASSIUM 4.80 mmol/ LCHLORIDE 105.0 mmol/LCO2 25.0 mmol/LBUN 13.0 mg/dLCREATININE 0.70 mg/dLSGOT/ AST 14.0 IU/LSGPT/ALT 12.0 IU/LALK PHOS 72.0 IU/LTOTAL PROTEIN 7.60 g/dLALBUMIN 4.40 g/dLTOTAL BILI 0.20 mg/dLCALCIUM 10.0 mg/dLeGFR >60 mL/min/1.73 [id number] 241.0 mg/dLCHOLESTEROL 248.0 mg/dLHDL 51.0 mg/dLLDL (CALC) [...] 2014 10:47AM Anxiety Mar 28 2014 10:10AM 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 Mar 28 2014 10:10AM [...] 2 to 3 May 16 2014 10:57AM 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 May 20 2014 11:14AM DVT (deep venous thrombosis), left May 20 2014 11:14AM 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 May 30 2014 7:44AM Atrial Fibrillation May 30 2014 7:44AM Deep vein thrombosis:history of May 30 2014 7:44AM USP use of anticoagulants Jun 10 2014 9:18AM Atrial Fibrillation Jun 10 2014 9:18AM Deep vein thrombosis:history of Jun 10 2014 9:18AM USP use of anticoagulants Jun 12 2014 8:29AM [...] vein thrombosis:history of Sep 05 2014 1:08PM 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 Sep 13 2014 12:03PM Atrial Fibrillation Sep 13 2014 12:03PM Deep vein thrombosis:history of Sep 13 2014 12:03PM 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 Sep 05 2014 1:06PM Hip pain Sep 05 2014 1:06PM Neck pain Sep 05 2014 1:06PM History of DVT (deep vein thrombosis) Sep 05 2014 1:06PM Low Back Pain Oct 09 2014 8:35AM Migraine Oct 09 2014 8:35AM Depressive Disorder Oct 09 2014 8:35AM Nausea Oct 09 2014 8:35AM Cervicalgia Oct 09 2014 8:35AM 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 Oct 30 2014 3:06PM [...] 2014 11:21AM Constipation Dec 06 2014 11:21AM USP use of anticoagulants Dec 12 2014 9:25AM [...] 2014 9:04AM Menorrhagia Jan 09 2015 11:30AM USP use of anticoagulants Jan 13 2015 11:28AM Atrial Fibrillation Jan 13 2015 11:28AM Deep vein thrombosis:history of Jan 13 2015 11:28AM Menorrhagia with regular cycle Jan 27 2015 10:44AM Moderate Female pelvic pain Jan 27 2015 10:44AM Moderate Dysmenorrhea Jan 27 2015 10:44AM USP use of anticoagulants Feb 03 2015 1:34PM Atrial Fibrillation Feb 03 2015 1:34PM Deep vein thrombosis:history of Feb 03 2015 1:34PM Mild Acute Sprain/Strain Apr 09 2015 11:39AM Hip joint painful on movement, left Apr 09 2015 11:39AM Mild Chronic Cognitive impairment Stable Apr 09 2015 11:39AM Moderate Chronic Periodontal Disease Apr 14 2015 2:02PM Moderate Acute Toothache Apr 14 2015 2:02PM Payers Insurance Name Company Name Plan Name Plan Number Policy Number Policy Group Number Start Date [facility] [id number] N/A History of Encounters Visit Date Visit [...] visit FRANCISCO JAVIER ESPINAL PA 08/03/2014 [facility] Jermaine Chappell MD 07/23/2014 Office visit 07/23/2014 Office visit FRANCISCO JAVIER ESPINAL PA 07/08/2014 Office visit FRANCISCO JAVIER MORAN 06/24/2014 Office visit FRANCISCO JAVIER ESPINAL PA 06/12/2014 Office visit FRANCISCO JAVIER MORAN 06/10/2014 Office visit FRANCISCO JAVIER MORAN 05/27/2014 Office visit FRANCISCO JAVIER ESPINAL PA 05/20/2014 Office visit FRANCISCO JAVIER MORAN 05/16/2014 Office visit FRANCISCO JAVIER ESPINAL PA 05/13/2014 Voided FRANCISCO JAVIER MORAN 05/06/2014 Office visit FRANCISCO JAVIER ESPINAL PA 05/03/2014 [facility] Jessi Koehler MD 04/25/2014 Office [...] Office visit Tian Basilio MD 12/17/2008 [facility] Tian Basilio MD 12/13/2008 Office visit Tian Basilio MD 12/06/2008 Office visit Tian Basilio MD 11/29/2008 Office visit Tian Basilio MD 11/15/2008 Office visit Tian Basilio MD 11/01/2008 Office visit Tian Basilio MD 10/18/2008 Office visit Tian aBsilio MD
--- OUTSIDE RECORDS SUMMARY | 2017-05-11 13:33 | XMS REPORT ---
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 Name Role Phone Jessi Blake PCP Unavailable Allergies and Adverse Reactions Name Reaction Notes codeine sulfate Plan of Treatment Planned Activity Comments Planned Date Planned Time Plan/Goal CHORIONIC GONADOTROPIN TEST 12/27/2014 12:00 AM COMPLETE CBC W/AUTO DIFF WBC 12/27/2014 12:00 AM COMPREHEN METABOLIC PANEL 12/27/2014 12:00 AM ASSAY THYROID STIM HORMONE 12/27/2014 12:00 AM ASSAY OF GONADOTROPIN (FSH) 12/27/2014 12:00 AM ASSAY OF GONADOTROPIN (LH) 12/27/2014 12:00 AM ASSAY OF PROLACTIN 12/27/2014 12:00 AM Medications Active Name Start [...] Decadron, Per 1 Mg [facility]# [id number] Reviewed 07/23/2014 12:00 AM Depo-Medrol, Per 80 Mg [facility]#8639-9319-92 Reviewed 07/23/2014 12:00 AM Rocephin 1 gram [facility]#4791-7740-75 Reviewed 08/20/2014 12:00 AM CAPILLARY BLOOD DRAW Reviewed 08/29/2014 12:00 AM CAPILLARY BLOOD DRAW Reviewed 09/05/2014 12:00 AM CAPILLARY BLOOD DRAW Reviewed 09/13/2014 12:00 AM CAPILLARY BLOOD DRAW Reviewed 10/09/2014 12:00 AM Decadron, Per 1 Mg [facility]# [id number] Reviewed 10/09/2014 12:00 AM Toradol 60 Mg [facility]#[id number] Reviewed 10/09/2014 12:00 AM Phenergan, Up to 50 Mg [facility]#2809-1139-80 Reviewed 10/30/2014 12:00 AM CAPILLARY BLOOD DRAW Reviewed Results Summary Data and Description Results 03/28/2014 3:47 PM GLUCOSE 76.0 mg/dLSODIUM 145.0 mmol/LPOTASSIUM 4.80 mmol/ LCHLORIDE 105.0 mmol/LCO2 25.0 mmol/LBUN 13.0 mg/dLCREATININE 0.70 mg/dLSGOT/ AST 14.0 IU/LSGPT/ALT 12.0 IU/LALK PHOS 72.0 IU/LTOTAL PROTEIN 7.60 g/dLALBUMIN 4.40 g/dLTOTAL BILI 0.20 mg/dLCALCIUM 10.0 mg/dLeGFR >60 mL/min/1.73 [id number] 241.0 mg/dLCHOLESTEROL 248.0 mg/dLHDL 51.0 mg/dLLDL (CALC) [...] 2 to 3 May 16 2014 10:57AM 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 May 20 2014 11:14AM DVT (deep venous thrombosis), left May 20 2014 11:14AM 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 May 30 2014 7:44AM Atrial Fibrillation May 30 2014 7:44AM Deep vein thrombosis:history of May 30 2014 7:44AM prison use of anticoagulants Jun 10 2014 9:18AM Atrial Fibrillation Jun 10 2014 9:18AM Deep vein thrombosis:history of Jun 10 2014 9:18AM 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 Jun 12 2014 8:29AM [...] 2:55PM Intellectual disability Aug 06 2014 2:55PM 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 Aug 20 2014 1:24PM Atrial Fibrillation Aug 20 2014 1:24PM Deep vein thrombosis:history of Aug 20 2014 1:24PM 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 Aug 29 2014 3:30PM Atrial Fibrillation Aug 29 2014 3:30PM Deep vein thrombosis:history of Aug 29 2014 3:30PM prison use of anticoagulants Sep 05 2014 1:08PM Atrial Fibrillation Sep 05 2014 1:08PM Deep vein thrombosis:history of Sep 05 2014 1:08PM 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 Sep 13 2014 12:03PM Atrial Fibrillation Sep 13 2014 12:03PM Deep vein thrombosis:history of Sep 13 2014 12:03PM 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 Sep 05 2014 1:06PM [...] vein thrombosis:history of Oct 30 2014 3:06PM 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 Nov 07 2014 3:54PM Atrial Fibrillation Nov 07 2014 3:54PM Deep vein thrombosis:history of Nov 07 2014 3:54PM Cough Dec 02 2014 11:37AM Bronchitis, Acute Dec 02 2014 11:37AM Abdominal Pain, Generalized Dec 06 2014 11:21AM Constipation Dec 06 2014 11:21AM 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..] Office visit FRANCISCO JAVIER ESPINAL PA 05/03/2014 [facility] Jessi Koehler MD 04/25/2014 Office [...] 12/23/2008 Office visit Tian Basilio MD 12/17/2008 [facility] Tian Basilio MD 12/13/2008 Office visit Tian Basilio MD 12/06/2008 Office visit Tian Basilio MD 11/29/2008 Office visit Tian Basilio MD 11/15/2008 Office visit Tian Basilio MD 11/01/2008 Office visit Tian Basilio MD 10/18/2008 Office visit Tian Basilio MD
--- OUTSIDE RECORDS SUMMARY | 2017-05-11 13:35 | XMS REPORT ---
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# [id number] Reviewed 05/01/2015 12:00 AM CAPILLARY BLOOD DRAW Reviewed 03/06/2015 12:00 AM CAPILLARY BLOOD DRAW Reviewed 05/07/2015 12:00 AM CAPILLARY BLOOD DRAW Reviewed 05/23/2015 12:00 AM Decadron, Per [address] [facility]# [id number] Reviewed 05/29/2015 12:00 AM CAPILLARY BLOOD DRAW Reviewed 06/17/2015 12:00 AM EXTREMITY STUDY Returned 09/02/2015 12:00 AM Decadron, Per [address] [facility]# [address]-58 Reviewed 09/02/2015 12:00 AM Rocephin [address] [facility]#1035-6914-04 Reviewed 09/02/2015 12:[address] [facility]#[id number] Reviewed 09/26/2015 12:00 AM Decadron, Per [address] [facility]# [address]-76 Reviewed 09/26/2015 12:00 AM Phenergan, Up to [address] [facility]#6508-3823-89 Reviewed 02/20/2016 12:00 AM DRAINAGE OF SKIN ABSCESS Reviewed 02/10/2016 12:00 AM Phenergan 50mg Injection Reviewed 02/10/2016 12:00 AM THER/PROPH/DIAG INJ SC/IM Reviewed 03/25/2016 12:00 AM THERAPEUTIC PROPHYLACTIC/DX INJECTION SUBQ/IM Reviewed 03/25/2016 12:00 AM Decadron 8mg Injection, [facility] Medicaid Reviewed 03/25/2016 12:00 AM Depo-Medrol 80 Mg Injection, [facility] Medicaid Reviewed 03/25/2016 12:00 AM Rocephin 1 gram Injection, [facility] Medicaid Reviewed 03/29/2016 12:00 AM THER/PROPH/DIAG INJ SC/IM Reviewed 03/29/2016 12:00 AM Decadron 8mg Injection Reviewed 03/29/2016 12:00 AM Depo-Medrol 80mg Injection Reviewed 03/29/2016 12:00 AM Rocephin 1 gram Injection Reviewed 03/27/2016 12:00 AM BEHAV CHNG SMOKING 3-10 MIN Reviewed 03/30/2016 12:00 AM Toradol 60 Mg Injection, [facility] Medicaid Reviewed 03/30/2016 12:00 AM Phenergan 50mg [...] 07/23/2014 12:00 AM Decadron, Per [address] [facility]# [id number] Reviewed 07/23/2014 12:00 AM Depo-Medrol, Per [address] [facility]#3880-4143-89 Reviewed 07/23/2014 12:00 AM Rocephin [address] [facility]#6828-4776-67 Reviewed 08/20/2014 12:00 AM CAPILLARY BLOOD DRAW Reviewed 08/29/2014 12:00 AM CAPILLARY BLOOD DRAW Reviewed 09/05/2014 12:00 AM CAPILLARY BLOOD DRAW Reviewed 09/13/2014 12:00 AM CAPILLARY BLOOD DRAW Reviewed 10/09/2014 12:00 AM Decadron, Per [address] [facility]# [id number] Reviewed 10/09/2014 12:00 AM Torad[address] [facility]#5542-6013-62 Reviewed 10/09/2014 12:00 AM Phenergan, Up to [address] 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 Mar 28 2014 [...] 2 to 3 May 16 2014 10:57AM nursing home use of anticoagulants May 20 2014 11:14AM DVT (deep venous thrombosis), left May 20 2014 11:14AM nursing home use of anticoagulants May 30 2014 7:44AM Atrial Fibrillation May 30 2014 7:44AM Deep vein thrombosis:history of May 30 2014 7:44AM nursing home use of anticoagulants Jun 10 2014 9:18AM Atrial Fibrillation Jun 10 2014 9:18AM Deep vein thrombosis:history of Jun 10 2014 9:18AM nursing home use of anticoagulants Jun 12 2014 [...] 2:55PM Intellectual disability Aug 06 2014 2:55PM nursing home use of anticoagulants Aug 20 2014 1:24PM Atrial Fibrillation Aug 20 2014 1:24PM Deep vein thrombosis:history of Aug 20 2014 1:24PM 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 Aug 29 2014 3:30PM Atrial Fibrillation Aug 29 2014 3:30PM Deep vein thrombosis:history of Aug 29 2014 3:30PM 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 Sep 05 2014 1:08PM Atrial Fibrillation Sep 05 2014 1:08PM Deep vein thrombosis:history of Sep 05 2014 1:08PM 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 Sep 13 2014 12:03PM Atrial Fibrillation Sep 13 2014 12:03PM Deep vein thrombosis:history of Sep 13 2014 12:03PM 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 Sep 05 2014 1:06PM Hip pain Sep 05 2014 1:06PM Neck pain Sep 05 2014 1:06PM History of DVT (deep vein thrombosis) Sep 05 2014 1:06PM Low Back Pain Oct 09 2014 8:35AM Migraine Oct 09 2014 8:35AM Depressive Disorder Oct 09 2014 8:35AM Nausea Oct 09 2014 8:35AM Cervicalgia Oct 09 2014 8:35AM nursing home use of anticoagulants Oct 30 2014 3:06PM [...] 2014 11:21AM Constipation Dec 06 2014 11:21AM nursing home use of anticoagulants Dec 12 2014 [...] 10:44AM Moderate Dysmenorrhea Jan 27 2015 10:44AM nursing home use of anticoagulants Feb 03 2015 [...] vein thrombosis:history of May 01 2015 2:57PM 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 May 06 2015 3:28PM Atrial Fibrillation May 06 2015 3:28PM Deep vein thrombosis:history of May 06 2015 3:28PM nursing home use of anticoagulants May 07 2015 [...] 2016 1:11PM Bruise Jun 08 2016 1:11PM nursing home current use of anticoagulant Jun 08 2016 1:11PM Anxiety about health Jun 08 2016 1:11PM Pelvic pain in female Jun 21 2016 11:44AM Incisional hernia without mention of obstruction or gangrene Jun 21 2016 11: 44AM Payers Insurance Name Company Name Plan Name Plan Number Policy Number Policy Group Number Start Date [facility] [id number] N/A History of Encounters Visit Date Visit [...] JAVIER MORAN 02/10/2016 Office visit FRANCISCO JAVIER ESPINAL PA [...] visit FRANCISCO JAVIER ESPINAL PA 05/03/2014 [facility] Aruna Koehler MD 04/25/2014 Office visit FRANCISCO JAVIER ESPNIAL PA 04/01/2014 Office visit Aruna Albert APRN 03/28/2014 Office visit FRANCISCO JAVIER ESPINAL PA 02/26/2014 Office visit FRANCISCO JAVIER ESPINAL PA 05/20/2010 Office visit Francisco Javier Espinal PA-C 04/16/2009 Office visit Francisco Javier Espinal PA-C 01/24/2009 Office visit Tian Basilio MD 12/31/2008 Office visit Tian Basilio MD 12/23/2008 Office visit Tian Basilio MD 12/17/2008 [facility] Tian Basilio MD 12/13/2008 Office visit Tian Basilio MD 12/06/2008 Office visit Tian Basilio MD 11/29/2008 Office visit Tian Basilio MD 11/15/2008 Office visit Tian Basilio MD 11/01/2008 Office visit Tian Basilio MD 10/18/2008 Office visit Tian Basilio MD
--- OUTSIDE RECORDS SUMMARY | 2017-05-11 13:36 | XMS REPORT ---
Author Author FRANCISCO JAVIER ESPINAL [facility] Address [address] [place], [place] [address] Care Team Providers Care Porcelain Enameling Supervisor Name Role Phone FRANCISCO JAVIER ESPINAL [...] 3 times per day for 30 days [place] 5-325 mg oral tablet 01/29/2015 take 1 [...] 01/13/2015 12:00 AM CAPILLARY BLOOD DRAW Reviewed 03/28/2014 [...] 07/23/2014 12:00 AM Decadron, Per 1 Mg [facility]# [address]-83 Reviewed 07/23/2014 12:00 AM Depo-Medrol, Per 80 Mg [facility]#5087-6104-50 Reviewed 07/23/2014 12:00 AM Rocephin 1 gram [facility]#6468-4933-39 Reviewed 08/20/2014 12:00 AM CAPILLARY BLOOD DRAW Reviewed 08/29/2014 12:00 AM CAPILLARY BLOOD DRAW Reviewed 09/05/2014 12:00 AM CAPILLARY BLOOD DRAW Reviewed 09/13/2014 12:00 AM CAPILLARY BLOOD DRAW Reviewed 10/09/2014 12:00 AM Decadron, Per 1 Mg [facility]# [address]-11 Reviewed 10/09/2014 12:00 AM Toradol 60 Mg [facility]#5089-4614-81 Reviewed 10/09/2014 12:00 AM Phenergan, Up to 50 Mg [facility]#7211-2363-71 Reviewed 10/30/2014 12:00 AM CAPILLARY BLOOD DRAW Reviewed Results Summary Data and Description Results 03/28/2014 3:47 PM GLUCOSE 76.0 mg/dLSODIUM 145.0 mmol/LPOTASSIUM 4.80 mmol/ LCHLORIDE 105.0 mmol/LCO2 25.0 mmol/LBUN 13.0 mg/dLCREATININE 0.70 mg/dLSGOT/ AST 14.0 IU/LSGPT/ALT 12.0 IU/LALK PHOS 72.0 IU/LTOTAL PROTEIN 7.60 g/dLALBUMIN 4.40 g/dLTOTAL BILI 0.20 mg/dLCALCIUM 10.0 mg/dLeGFR >60 mL/min/1.73 [id number] 241.0 mg/dLCHOLESTEROL 248.0 mg/dLHDL 51.0 mg/dLLDL (CALC) [...] 2014 10:47AM Anxiety Mar 28 2014 10:10AM [facility] use of drug Mar 28 2014 10:10AM [...] thrombosis:history of May 30 2014 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 Jun 10 2014 [...] 8:35AM Cervicalgia Oct 09 2014 8:35AM 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 Oct 30 2014 3:06PM Atrial Fibrillation Oct 30 2014 3:06PM Deep vein thrombosis:history of Oct 30 2014 3:06PM [facility] use of anticoagulants Nov 07 2014 3:54PM [...] 2014 9:04AM Menorrhagia Jan 09 2015 11:30AM [facility] use of anticoagulants Jan 13 2015 11:28AM Atrial Fibrillation Jan 13 2015 11:28AM Deep vein thrombosis:history of Jan 13 2015 11:28AM Menorrhagia with regular cycle Jan 27 2015 10:44AM Moderate Female pelvic pain Jan 27 2015 10:44AM Moderate Dysmenorrhea Jan 27 2015 10:44AM Payers Insurance Name Company Name Plan Name Plan Number Policy Number Policy Group Number Start Date [facility] [id number] N/A History of Encounters Visit Date Visit Type Provider 01/27/2015 Office visit FRANCISCO JAVIER MORAN 01/13/2015 [...] JAVIER MORAN 09/13/2014 Office visit FRANCISCO JAVIER ESPINAL PA [...] Office visit FRANCISCO JAVIER ESPINAL PA 05/03/2014 [facility] Jessi Koehler MD 04/25/2014 Office visit FRANCISCO JAVIER ESPINAL PA 04/01/2014 Office visit Jessi Blake APRN 03/28/2014 Office visit FRANCISCO AJVIER ESPINAL PA 02/26/2014 Office visit FRANCISCO JAVIER ESPINAL PA 05/20/2010 Office visit Francisco Javier Espinal PA-C 04/16/2009 Office visit Francisco Javier Espinal PA-C 01/24/2009 Office visit Tian Basilio MD 12/31/2008 Office visit Tian Basilio MD 12/23/2008 Office visit Tian Basilio MD 12/17/2008 [facility] Tian Basilio MD 12/13/2008 Office visit Tian Basilio MD 12/06/2008 Office visit Tian Basilio MD 11/29/2008 Office visit Tian Basilio MD 11/15/2008 Office visit Tian Basilio MD 11/01/2008 Office visit Tian Basilio MD 10/18/2008 Office visit Tian Basilio MD
--- OUTSIDE RECORDS SUMMARY | 2017-05-11 13:36 | XMS REPORT ---
Author Author [facility] [employer] [facility] Medical Staff Organization [facility] Address [address], [place] [address] Phone [phone] Summary purpose TRANSITION OF CARE AUTO GENERATION Chief Complaint and Reason for Visit Admit Diagnosis 1 D&C HYSTEROSCOPY HTA Problem list No authorized problems tracked for continuity of care are available for this visit. Encounters No authorized problems tracked for encounter diagnoses are available for this visit. Medications Discharge Medications Status Medication Directions Current buspirone 10 mg tablet 1 tab(s) oral As Needed anxiety Current citalopram 20 mg tablet 1 tab(s) oral Daily depression Current cyclobenzaprine 10 mg Tab 1 tab(s) oral 3 xDaily As Needed back pain Current Hydrocodone-Acetaminophen (VICODIN) 5-325 mg: tablet 1 tab(s) oral Give PO Q4 Hours As Needed for PAIN Current hydroxyzine HCl 25 mg tablet 1 tab(s) oral 4 xDaily 11-03-16 anxiety Current Multiple Vitamin tablet 1 tab(s) oral Daily Current naproxen sodium 550 mg tablet 1 tab(s) oral As Needed Menstrual pain Current warfarin 4 mg tablet 1 tab(s) oral Daily day 1 4mg, day 2 6mg, day 3 6mg repeat. hx DVT Allergies, adverse reactions, alerts Allergen Category Ingredient Status Reaction Severity Onset Codeine Drug Allergy Codeine Confirmed but Inactive No known drug allergies No known drug allergies No known drug allergies Confirmed or Verified Immunizations No immunizations recorded for this patient visit Relevant diagnostic tests and/or laboratory data RESULTS Routine Urinalysis [id number]:00 Result Normal Range Units Color YELLOW Clarity Hazy Specific Agness 1.010 1.003-1.035 pH 7.0 4.5-8.0 Glucose NEGATIVE Bilirubin NEGATIVE Ketones NEGATIVE Protein NEGATIVE Urobilinogen 0.2 0-0.2 E.U./dL Nitrites NEGATIVE Blood NEGATIVE Leukocytes NEGATIVE WBCs 0-5 RBCs 0-5 Squamous Epithelial Few Transitional Epithelial Cells Few Coagulation [id number]:34:00 Result Normal Range Units PT H 22.0 9.1-12.0 Seconds INR H 2.1 0.8-1.2 Chemistry :20:00 Result Normal Range Units Sodium 141 134-145 mEq/l Potassium 4.2 3.5-5.1 mEq/l Chloride 104 98-107 mEq/l CO2 26.9 22-28 mEq/l Glucose 77 70-105 mg/dl BUN 9 7-18 mg/dl Creatinine 0.77 0.6-1.0 mg/dl Calcium 9.6 8.4-10.2 mg/dl TP - Total Protein 7.4 6.0-8.3 g/dl Albumin 3.9 3.5-5 g/dl Bilirubin - Total 0.2 0.1-1.0 mg/dl AST 23 10-42 IU/L ALT 18 12-65 IU/L ALP H 84 25-72 IU/L Osmolality L 278.8 280-300 mOsm/L Albumin/Globulin Ratio 1.1 0-8 Anion GAP 10.1 8-16 BUN/Creatinine Ratio 11.7 10-20 Estimated GFR 87 >=60 mL/min/1.7 Hematology :20:00 Result Normal Range Units WBC 9.2 4.8-10.8 103/uL RBC 5.1 4.2-5.4 106/uL HGB 14.3 12.0-16.0 g/dl HCT 43.6 36.9-47.0 % MCV 85.8 81-99 FL MCH 28.1 27-31 pg MCHC L 32.8 33-37 g/dl RDW 14.9 11.5-15.5 % PLT 325 130-400 103/uL MPV 9.4 7.3-10.4 FL Neutro % 56.0 40-70 % Lymph % 37.2 20-40 % [place] % 4.3 0-10.0 % Eos % 1.6 0-7.0 % Baso % 0.7 0-2 % Neutro # 5.2 1.5-7.5 103/uL Lymph # 3.4 0.9-4.0 103/uL [place] # 0.4 0-0.8 103/uL Eos # 0.2 0-0.6 103/uL Baso # 0.1 0-0.1 103/uL Special Chemistry :34:00 Result Normal Range Units HCG (Qualitative) Negative Body Fluid :40:00 Result Normal Range Units pH 7.0 4.5-8.0 Radiology Results [id number]:20:00 Result Normal Range Units MPV 9.4 7.3-10.4 FL History of procedures Procedure Code Code Type Description Date Performed Performing Physician 46680 CPT-4 COMPLETE CBC W/AUTO DIFF WBC 03-20-2015 CANDELARIA CASEY 43897 CPT-4 COMPREHEN METABOLIC PANEL 03-20-2015 CANDELARIA JACINTO Functional status Functional Status Finding Observation Time Hearing Prob Loc none [id number] Vision Problems yes :46 Vision Correct Dev glasses Comment: For driving :46 Ambulation Asst Dev none [id number]:46 Range of Motion full :35 Muscle Strength RUE 5 ROM full resist [id number]:35 Muscle Strength RLE 5 ROM full resist [id number]:35 Muscle Strength LUE 5 ROM full resist [id number]:35 Muscle Strength LLE 5 ROM full resist 58-66-881610:35 Transfers assist x 1 [id number]:35 Ambulation in room :35 Balance unsteady [id number]:35 Bathing Assistance none [id number]:46 Eating Assistance none [id number]:46 Dressing Assistance none :46 Toileting Assistance none :46 Transfer Assistance none :46 Decline Slf Care/Mob no [id number]:46 Phys Cond Stable yes [id number]:46 Nutrition normal :35 Diet regular :35 Oral Cavity moist and intact :35 Teeth missing (specify) [id number]:35 Dental Hygiene good [id number]:35 Abdomen Appearance round [id number]:35 Abdomen soft 69-47-039575:35 Bowel Sounds present :35 NG Tube no [id number]:35 Feeding Tube none [id number]:35 Ardon no :35 Cont Bladder Irr no :35 Ostomy no :35 Stool normal :35 Urination normal :35 Quality sym/unlabored :35 Cough absent :35 Secretions no :35 Breath Sounds RUL clear :35 Breath Sounds RML clear :35 Breath Sounds RLL clear :35 Breath Sounds DERIAN clear :35 Breath Sounds LLL clear :35 Airway natural :35 Chest Tube no :35 Oxygen no :35 C-PAP no :35 BI-PAP no :35 Temp >100.4 no :35 Temp <96.8 no :35 Chills with rigors no :35 HR > 90bpm yes :35 Respirations > 20 no :35 Systolic <90 no :35 headache stiff neck no :35 WBC > 86832 no :35 WBC < 4000 no :35 Rapid Resp no :35 IV Site Location L hand :25 IV Type peripheral :25 IV Site Information discontinued [id number]:25 IV Site Start Attmpt 1 times :35 IV Site Ozzy 18 :25 IV Site Appearance WNL :25 IV Site Color clear :25 IV Site Patent yes :25 Dressing Type occlusive :25 Nursing Note pt dismissed from the unit at this time. pt in stable condition to go home. discharge paperwork in hand and personal belongings taken with. no questions about home instructions. pt's to drive her home. :35 Cognitive Status Finding Observation Time Learning Ability comprehends well :30 Neurological yes :30 Psychological yes :30 Physical no [id number]:30 Hearing no :30 Wool Sorter Needed no :30 Sign Language no :30 Emotional yes :30 Vision yes :30 Laguage no :30 Financial no [id number]:30 Vital signs Type Value Date Respiration Rate 18breaths per minute :00 Pulse 95beats per minute :00 Oxygen Saturation 95% :00 BP Systolic 112mmHg :00 BP Diastolic 75mmHg :00 Temperature 97.9F 60-13-371013:35 Height 64inches 32-02-297604:40 Weight 139LB 94-19-695609:40 Social history Type Value Smoking Status CURRENT EVERY DAY SMOKER Treatment Plan No treatment plan text is available for this visit. Hospital discharge instructions Discharge Date/Time 03/24/15 1135 Accompanied By Kelby Peraza spouse/signif other Dismissal Condition good Disposition on DC home Valuables yes Valuable Type billfold/purse DC Inst/Educ Give yes Exit Care Educ Given yes Med/Side Effects Rev yes PNE Vac Never Flu Vac Never Tetanus Vac Unknown Diet Explained yes Follow up appt already scheduled Follow Up Appt D/T 04/08/15 1030
--- OUTSIDE RECORDS SUMMARY | 2017-05-11 13:38 | XMS REPORT ---
Author Author FRANCISCO JAVIER ESPINAL [facility] Address [address] [place], [place] [address] Care Team Providers Care Department Administrator Name Role Phone FRANCISCO JAVIER ESPINAL PCP [...] 2 times per day for 30 days [place] 5-325 mg oral tablet 09/02/2015 take 1 [...] TAKE ONE TABLET BY MOUTH TWICE DAILY Name Start Date Expiration Date SIG [...] Per 1 Mg [facility]# [address]-05 Reviewed 05/01/2015 12:00 AM CAPILLARY BLOOD DRAW Reviewed 03/06/2015 12:00 AM CAPILLARY BLOOD DRAW Reviewed 05/07/2015 12:00 AM CAPILLARY BLOOD DRAW Reviewed 05/23/2015 12:00 AM Decadron, Per 1 Mg [facility]# [address]-98 Reviewed 05/29/2015 12:00 AM CAPILLARY BLOOD DRAW Reviewed 06/17/2015 12:00 AM EXTREMITY STUDY Returned 09/02/2015 12:00 AM Decadron, Per 1 Mg [facility]# [address]-70 Reviewed 09/02/2015 12:00 AM Rocephin 1 gram [facility]#0848-0711-44 Reviewed 09/02/2015 12:00 AM Toradol 60 Mg [facility]#9031-3741-17 Reviewed 09/26/2015 12:00 AM Decadron, Per 1 Mg [facility]# [address]-29 Reviewed 09/26/2015 12:00 AM Phenergan, Up to 50 Mg [facility]#6232-2643-56 Reviewed 02/10/2016 12:00 AM Phenergan 50mg Injection [...] Per 1 Mg [facility]# [address]-56 Reviewed 07/23/2014 12:00 AM Depo-Medrol, Per 80 Mg [facility]#6173-9637-19 Reviewed 07/23/2014 12:00 AM Rocephin 1 gram [facility]#9628-4877-46 Reviewed 08/20/2014 12:00 AM CAPILLARY BLOOD DRAW Reviewed 08/29/2014 12:00 AM CAPILLARY BLOOD DRAW Reviewed 09/05/2014 12:00 AM CAPILLARY BLOOD DRAW Reviewed 09/13/2014 12:00 AM CAPILLARY BLOOD DRAW Reviewed 10/09/2014 12:00 AM Decadron, Per 1 Mg [facility]# [address]-74 Reviewed 10/09/2014 12:00 AM Toradol 60 Mg [facility]#3538-1712-77 Reviewed 10/09/2014 12:00 AM Phenergan, Up to 50 Mg [facility]#2414-7947-00 Reviewed 10/30/2014 12:00 AM CAPILLARY BLOOD DRAW [...] 1.9 PTT 36.80 secsCALLED TO/BY ARUNA ALBERT/[facility] 12/30/2014 10:57 AM WBC 9.4 [...] 2014 10:47AM Anxiety Mar 28 2014 10:10AM 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 Mar 28 2014 10:10AM [...] 2 to 3 May 16 2014 10:57AM 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 May 20 2014 11:14AM DVT (deep venous thrombosis), left May 20 2014 11:14AM [facility]P use of anticoagulants May 30 2014 7:44AM Atrial Fibrillation May 30 2014 7:44AM Deep vein thrombosis:history of May 30 2014 7:44AM 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 Jun 10 2014 9:18AM Atrial Fibrillation Jun 10 2014 9:18AM Deep vein thrombosis:history of Jun 10 2014 9:18AM 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 Jun 12 2014 8:29AM [...] 2:55PM Intellectual disability Aug 06 2014 2:55PM 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 Aug 20 2014 1:24PM Atrial Fibrillation Aug 20 2014 1:24PM Deep vein thrombosis:history of Aug 20 2014 1:24PM 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 Aug 29 2014 3:30PM Atrial Fibrillation Aug 29 2014 3:30PM Deep vein thrombosis:history of Aug 29 2014 3:30PM 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 Sep 05 2014 1:08PM Atrial Fibrillation Sep 05 2014 1:08PM Deep vein thrombosis:history of Sep 05 2014 1:08PM 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 Sep 13 2014 12:03PM [...] vein thrombosis:history of Oct 30 2014 3:06PM 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 Nov 07 2014 3:54PM Atrial Fibrillation Nov 07 2014 3:54PM Deep vein thrombosis:history of Nov 07 2014 3:54PM Cough Dec 02 2014 11:37AM Bronchitis, Acute Dec 02 2014 11:37AM Abdominal Pain, Generalized Dec 06 2014 11:21AM Constipation Dec 06 2014 11:21AM 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 Dec 12 2014 9:25AM [...] 10:44AM Moderate Dysmenorrhea Jan 27 2015 10:44AM 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 Feb 03 2015 1:34PM [...] to cognitive limitations Apr 23 2015 1:32PM 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 May 01 2015 2:57PM Atrial Fibrillation May 01 2015 2:57PM Deep vein thrombosis:history of May 01 2015 2:57PM 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 May 06 2015 3:28PM Atrial Fibrillation May 06 2015 3:28PM Deep vein thrombosis:history of May 06 2015 3:28PM 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 May 07 2015 9:50AM Atrial Fibrillation May 07 2015 9:50AM Deep vein thrombosis:history of May 07 2015 9:50AM Cough May 23 2015 10:51AM Bronchitis, Acute May 23 2015 10:51AM Post-nasal drainage May 23 2015 10:51AM Smoker unmotivated to quit May 23 2015 10:51AM 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 May 29 2015 2:16PM [...] other specified site Feb 20 2016 11:02AM Payers Insurance Name Company Name Plan Name Plan Number Policy Number Policy Group Number Start Date [facility] [id number] N/A History of Encounters Visit Date Visit [...] 04/25/2015 Voided FRANCISCO JAVIER ESPINAL PA 04/23/2015 [facility] Jermaine Chappell MD 04/23/2015 Office visit [...] Office visit FRANCISCO JAVIER ESPINAL PA 08/03/2014 [facility] Jermaine Chappell MD 07/23/2014 Office [...] Office visit FRANCISCO JAVIER ESPINAL PA 05/03/2014 [facility] Aruna Koehler MD 04/25/2014 Office [...]
--- OUTSIDE RECORDS SUMMARY | 2017-05-11 13:39 | XMS REPORT ---
Author Author FRANCISCO JAVIER ESPINAL [facility] Address [address] [place], [place] [address] Care Team Providers Care Simulation Educator Name Role Phone FRANCISCO JAVIER ESPINAL PCP Unavailable Allergies and Adverse Reactions Name Reaction Notes No known drug allergy Plan of Treatment Planned Activity Comments Planned Date Planned Time Plan/Goal EXTREMITY STUDY 06/17/2015 12:00 AM Medications Active Name Start Date [...] (4 mg) by oral route once daily [place] 5-325 mg oral tablet 04/14/2015 take 1 [...] 04/12/2015 12:00 AM Artem [place] 1 Mg [facility]# [address]-28 Reviewed 05/01/2015 12:00 AM CAPILLARY BLOOD DRAW Reviewed 03/06/2015 12:00 AM CAPILLARY BLOOD DRAW Reviewed 05/07/2015 12:00 AM CAPILLARY BLOOD DRAW Reviewed 05/23/2015 12:00 AM Decadron, Per 1 Mg [facility]# [address]-39 Reviewed 05/29/2015 12:00 AM CAPILLARY BLOOD DRAW [...] 07/23/2014 12:00 AM Decadron, Per 1 Mg [facility]# [address]-99 Reviewed 07/23/2014 12:00 AM Depo-Medrol, Per 80 Mg [facility]#2625-0574-26 Reviewed 07/23/2014 12:00 AM Rocephin 1 gram [facility]#4698-8288-02 Reviewed 08/20/2014 12:00 AM CAPILLARY BLOOD DRAW Reviewed 08/29/2014 12:00 AM CAPILLARY BLOOD DRAW Reviewed 09/05/2014 12:00 AM CAPILLARY BLOOD DRAW Reviewed 09/13/2014 12:00 AM CAPILLARY BLOOD DRAW Reviewed 10/09/2014 12:00 AM Decadron, Per 1 Mg [facility]# [address]-71 Reviewed 10/09/2014 12:00 AM Toradol 60 Mg [facility]#4525-8054-48 Reviewed 10/09/2014 12:00 AM Phenergan, Up to 50 Mg [facility]#7017-7334-60 Reviewed 10/30/2014 12:00 AM CAPILLARY BLOOD DRAW Reviewed Results Summary Data and Description Results 03/28/2014 3:47 PM GLUCOSE 76.0 mg/dLSODIUM 145.0 mmol/LPOTASSIUM 4.80 mmol/ LCHLORIDE 105.0 mmol/LCO2 25.0 mmol/LBUN 13.0 mg/dLCREATININE 0.70 mg/dLSGOT/ AST 14.0 IU/LSGPT/ALT 12.0 IU/LALK PHOS 72.0 IU/LTOTAL PROTEIN 7.60 g/dLALBUMIN 4.40 g/dLTOTAL BILI 0.20 mg/dLCALCIUM 10.0 mg/dLeGFR >60 mL/min/1.73 [id number] 241.0 mg/dLCHOLESTEROL 248.0 mg/dLHDL 51.0 mg/dLLDL (CALC) [...] 2014 10:47AM Anxiety Mar 28 2014 10:10AM 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 Mar 28 2014 10:10AM [...] venous thrombosis), left May 20 2014 11:14AM 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 May 30 2014 7:44AM Atrial Fibrillation May 30 2014 7:44AM Deep vein thrombosis:history of May 30 2014 7:44AM 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 Jun 10 2014 9:18AM [...] vein thrombosis:history of Aug 20 2014 1:24PM 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 Aug 29 2014 3:30PM Atrial Fibrillation Aug 29 2014 3:30PM Deep vein thrombosis:history of Aug 29 2014 3:30PM group home use of anticoagulants Sep 05 2014 1:08PM Atrial Fibrillation Sep 05 2014 1:08PM Deep vein thrombosis:history of Sep 05 2014 1:08PM 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 Sep 13 2014 12:03PM Atrial Fibrillation Sep 13 2014 12:03PM Deep vein thrombosis:history of Sep 13 2014 12:03PM group home use of anticoagulants Sep 05 2014 1:06PM Hip pain Sep 05 2014 1:06PM Neck pain Sep 05 2014 1:06PM History of DVT (deep vein thrombosis) Sep 05 2014 1:06PM Low Back Pain Oct 09 2014 8:35AM Migraine Oct 09 2014 8:35AM Depressive Disorder Oct 09 2014 8:35AM Nausea Oct 09 2014 8:35AM Cervicalgia Oct 09 2014 8:35AM group home use of anticoagulants Oct 30 2014 3:06PM Atrial Fibrillation Oct 30 2014 3:06PM Deep vein thrombosis:history of Oct 30 2014 3:06PM group home use of anticoagulants Nov 07 2014 3:54PM Atrial Fibrillation Nov 07 2014 3:54PM Deep vein thrombosis:history of Nov 07 2014 3:54PM Cough Dec 02 2014 11:37AM Bronchitis, Acute Dec 02 2014 11:37AM Abdominal Pain, Generalized Dec 06 2014 11:21AM Constipation Dec 06 2014 11:21AM 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 Dec 12 2014 9:25AM [...] 2014 9:04AM Menorrhagia Jan 09 2015 11:30AM 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 Jan 13 2015 11:28AM [...] to cognitive limitations Apr 23 2015 1:32PM 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 May 01 2015 2:57PM Atrial Fibrillation May 01 2015 2:57PM Deep vein thrombosis:history of May 01 2015 2:57PM 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 May 06 2015 3:28PM Atrial Fibrillation May 06 2015 3:28PM Deep vein thrombosis:history of May 06 2015 3:28PM group home use of anticoagulants May 07 2015 9:50AM Atrial Fibrillation May 07 2015 9:50AM Deep vein thrombosis:history of May 07 2015 9:50AM Cough May 23 2015 10:51AM Bronchitis, Acute May 23 2015 10:51AM Post-nasal drainage May 23 2015 10:51AM Smoker unmotivated to quit May 23 2015 10:51AM 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 May 29 2015 2:16PM [...] (deep vein thrombosis) Jun 17 2015 1:36PM Payers Insurance Name Company Name Plan Name Plan Number Policy Number Policy Group Number Start Date [facility] [id number] N/A History of Encounters Visit Date Visit Type Provider 06/17/2015 Office visit FRANCISCO JAVIER ESPINAL PA 06/10/2015 Office visit FRANCISCO JAVIER ESPINAL PA 05/29/2015 Office visit FRANCISCO JAVIER ESPINAL PA 05/23/2015 Office visit FRANCISCO JAVIER ESPINAL PA 05/01/2015 Office visit FRANCISCO JAVIER ESPINAL PA 04/25/2015 Voided FRANCISCO JAVIER ESPINAL PA 04/23/2015 [facility] Jermaine Chappell MD 04/23/2015 Office [...] Office visit FRANCISCO JAVIER ESPINAL PA 08/03/2014 [facility] Jermaine Chappell MD 07/23/2014 Office visit 07/23/2014 Office visit FRANCISCO JAVIER ESPINAL PA 07/08/2014 Office visit FRANCISCO JAVIER ESPINAL PA 06/24/2014 Office visit FRANCISCO JAVIER ESPINLA PA 06/12/2014 Office visit FRANCISCO JAVIER ESPINAL PA 06/10/2014 Office visit FRANCISCO JAVIER ESPINAL PA 05/27/2014 Office visit FRANCISCO JAVIER ESPINAL PA 05/20/2014 Office visit FRANCISCO JAVIER ESPINAL PA 05/16/2014 Office visit FRANCISCO JAVIER ESPINAL PA 05/13/2014 Voided FRANCISCO JAVIER ESPINAL PA 05/06/2014 Office visit FRANCISCO JAVIER ESPINAL PA 05/03/2014 [facility] Jessi Koehler MD 04/25/2014 Office [...] 12/23/2008 Office visit Tian Basilio MD 12/17/2008 [facility] Tian Basilio MD 12/13/2008 Office visit Tian Basilio MD 12/06/2008 Office visit Tian Basilio MD 11/29/2008 Office visit Tian Basilio MD 11/15/2008 Office visit Tian Basilio MD 11/01/2008 Office visit Tian Basilio MD 10/18/2008 Office visit Tian Basilio MD
--- OUTSIDE RECORDS SUMMARY | 2017-05-11 13:41 | XMS REPORT ---
Author Author FRANCISCO JAVIER ESPINAL [facility] Address [address] [place], [place] [address] Care Team Providers Care Manager Athletics Name Role Phone FRANCISCO JAVIER ESPINAL PCP [...] (20 mg) by oral route once daily [place] 5-325 mg oral tablet 06/27/2015 take 1 [...] HC BMI BSA BMI Percentile O2 Sat(%) 06/27/2015 9:08:00 AM 128 mmHg 70 mmHg [...] 04/12/2015 12:00 AM Decadron, Per 1 Mg [facility]# [address]-72 Reviewed 05/01/2015 12:00 AM CAPILLARY BLOOD DRAW Reviewed 03/06/2015 12:00 AM CAPILLARY BLOOD DRAW Reviewed 05/07/2015 12:00 AM CAPILLARY BLOOD DRAW Reviewed 05/23/2015 12:00 AM Decadron, Per 1 Mg [facility]# [address]-50 Reviewed 05/29/2015 12:00 AM CAPILLARY BLOOD DRAW [...] 07/23/2014 12:00 AM Decadron, Per 1 Mg [facility]# [address]-45 Reviewed 07/23/2014 12:00 AM Depo-Medrol, Per 80 Mg [facility]#6748-6640-18 Reviewed 07/23/2014 12:00 AM Rocephin 1 gram [facility]#8100-2367-32 Reviewed 08/20/2014 12:00 AM CAPILLARY BLOOD DRAW Reviewed 08/29/2014 12:00 AM CAPILLARY BLOOD DRAW Reviewed 09/05/2014 12:00 AM CAPILLARY BLOOD DRAW Reviewed 09/13/2014 12:00 AM CAPILLARY BLOOD DRAW Reviewed 10/09/2014 12:00 AM Decadron, Per 1 Mg [facility]# [address]-43 Reviewed 10/09/2014 12:00 AM Toradol 60 Mg [facility]#6468-0529-05 Reviewed 10/09/2014 12:00 AM Phenergan, Up to 50 Mg [facility]#8780-8352-52 Reviewed 10/30/2014 12:00 AM CAPILLARY BLOOD DRAW Reviewed Results Summary Data and Description Results 03/28/2014 3:47 PM GLUCOSE 76.0 mg/dLSODIUM 145.0 mmol/LPOTASSIUM 4.80 mmol/ LCHLORIDE 105.0 mmol/LCO2 25.0 mmol/LBUN 13.0 mg/dLCREATININE 0.70 mg/dLSGOT/ AST 14.0 IU/LSGPT/ALT 12.0 IU/LALK PHOS 72.0 IU/LTOTAL PROTEIN 7.60 g/dLALBUMIN 4.40 g/dLTOTAL BILI 0.20 mg/dLCALCIUM 10.0 mg/dLeGFR >60 mL/min/1.73 [id number] 241.0 mg/dLCHOLESTEROL 248.0 mg/dLHDL 51.0 mg/dLLDL (CALC) [...] venous thrombosis), left May 20 2014 11:14AM residential use of anticoagulants May 30 2014 7:44AM Atrial Fibrillation May 30 2014 7:44AM Deep vein thrombosis:history of May 30 2014 7:44AM residential use of anticoagulants Jun 10 2014 9:18AM Atrial Fibrillation Jun 10 2014 9:18AM Deep vein thrombosis:history of Jun 10 2014 9:18AM 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 Jun 12 2014 8:29AM [...] 2:55PM Intellectual disability Aug 06 2014 2:55PM residential use of anticoagulants Aug 20 2014 1:24PM Atrial Fibrillation Aug 20 2014 1:24PM Deep vein thrombosis:history of Aug 20 2014 1:24PM residential use of anticoagulants Aug 29 2014 3:30PM Atrial Fibrillation Aug 29 2014 3:30PM Deep vein thrombosis:history of Aug 29 2014 3:30PM 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 Sep 05 2014 1:08PM [...] 2014 11:21AM Constipation Dec 06 2014 11:21AM 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 Dec 12 2014 9:25AM [...] 2014 9:04AM Menorrhagia Jan 09 2015 11:30AM 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 Jan 13 2015 11:28AM Atrial Fibrillation Jan 13 2015 11:28AM Deep vein thrombosis:history of Jan 13 2015 11:28AM Menorrhagia with regular cycle Jan 27 2015 10:44AM Moderate Female pelvic pain Jan 27 2015 10:44AM Moderate Dysmenorrhea Jan 27 2015 10:44AM residential use of anticoagulants Feb 03 2015 1:34PM [...] vein thrombosis:history of May 06 2015 3:28PM 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 May 07 2015 9:50AM Atrial Fibrillation May 07 2015 9:50AM Deep vein thrombosis:history of May 07 2015 9:50AM Cough May 23 2015 10:51AM Bronchitis, Acute May 23 2015 10:51AM Post-nasal drainage May 23 2015 10:51AM Smoker unmotivated to quit May 23 2015 10:51AM residential use of anticoagulants May 29 2015 2:16PM [...] Restless leg syndrome Jun 27 2015 9:09AM Payers Insurance Name Company Name Plan Name Plan Number Policy Number Policy Group Number Start Date [facility] [id number] N/A History of Encounters Visit Date Visit Type Provider 06/27/2015 Office visit FRANCISCO JAVIER MORAN 06/17/2015 Office visit FRANCISCO JAVIER MORAN 06/10/2015 Office visit FRANCISCO JAVIER MORAN 05/29/2015 Office visit FRANCISCO JAVIER MORAN 05/23/2015 Office visit FRANCISCO JAVIER MORAN 05/01/2015 Office visit FRANCISCO JAVIER MORAN 04/25/2015 Voided FRANCISCO JAVIER MORAN 04/23/2015 [facility] Mercedes Chappell MD 04/23/2015 Office visit FRANCISCO [...] 12/27/2014 Office visit 12/27/2014 Office visit Jessi Blkae APRN 12/27/2014 Office visit FRANCISCO JAVIER MORAN [...] Office visit FRANCISCO JAVIER ESPINAL PA 05/03/2014 [facility] Jessi Koehler MD 04/25/2014 [...] 12/23/2008 Office visit Tian Basilio MD 12/17/2008 [facility] Tian Basilio MD 12/13/2008 Office visit Tian Basilio MD 12/06/2008 Office visit Tian Basilio MD 11/29/2008 Office visit Tian Basilio MD 11/15/2008 Office visit Tian Basilio MD 11/01/2008 Office visit Tian Basilio MD 10/18/2008 Office visit Tian Basilio MD
--- OUTSIDE RECORDS SUMMARY | 2017-05-11 13:43 | XMS REPORT ---
Author Author FRANCISCO JAVIER ESPINAL [facility] Address [address] [place], [place] [address] Care Team Providers Care Microstrategy Bi Developer Name Role Phone FRANCISCO JAVIER ESPINAL PCP [...] 2 times a day for 10 days [place] 5-325 mg oral tablet 02/20/2016 take 1 [...] Decadron, Per 1 Mg [facility]# [address]-00 Reviewed 05/01/2015 12:00 AM CAPILLARY BLOOD DRAW Reviewed 03/06/2015 12:00 AM CAPILLARY BLOOD DRAW Reviewed 05/07/2015 12:00 AM CAPILLARY BLOOD DRAW Reviewed 05/23/2015 12:00 AM Decadron, Per 1 Mg [facility]# [address]-29 Reviewed 05/29/2015 12:00 AM CAPILLARY BLOOD DRAW Reviewed 06/17/2015 12:00 AM EXTREMITY STUDY Returned 09/02/2015 12:00 AM Decadron, Per 1 Mg [facility]# [address]-57 Reviewed 09/02/2015 12:00 AM Rocephin 1 gram [facility]#9416-1666-09 Reviewed 09/02/2015 12:00 AM Toradol 60 Mg [facility]#1549-0353-92 Reviewed 09/26/2015 12:00 AM Decadron, Per 1 Mg [facility]# [address]-22 Reviewed 09/26/2015 12:00 AM Phenergan, Up to 50 Mg [facility]#6496-6024-37 Reviewed 02/10/2016 12:00 AM Phenergan 50mg Injection [...] Decadron, Per 1 Mg [facility]# [address]-77 Reviewed 07/23/2014 12:00 AM Depo-Medrol, Per 80 Mg [facility]#2580-9828-79 Reviewed 07/23/2014 12:00 AM Rocephin 1 gram [facility]#8439-9628-44 Reviewed 08/20/2014 12:00 AM CAPILLARY BLOOD DRAW Reviewed 08/29/2014 12:00 AM CAPILLARY BLOOD DRAW Reviewed 09/05/2014 12:00 AM CAPILLARY BLOOD DRAW Reviewed 09/13/2014 12:00 AM CAPILLARY BLOOD DRAW Reviewed 10/09/2014 12:00 AM Decadron, Per 1 Mg [facility]# [address]-98 Reviewed 10/09/2014 12:00 AM Toradol 60 Mg [facility]#7893-6075-45 Reviewed 10/09/2014 12:00 AM Phenergan, Up to 50 Mg [facility]#0403-0016-03 Reviewed 10/30/2014 12:00 AM CAPILLARY BLOOD DRAW [...] secsINR 1.9 PTT 36.80 secsCALLED TO/BY ARUNA ALBETR/[facility] 12/30/2014 10:57 AM WBC 9.4 RBC [...] to 3 May 16 2014 10:57AM 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 May 20 2014 [...] thrombosis:history of Aug 20 2014 1:24PM 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 Aug 29 2014 3:30PM Atrial Fibrillation Aug 29 2014 3:30PM Deep vein thrombosis:history of Aug 29 2014 3:30PM 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 Sep 05 2014 [...] 2014 8:35AM Cervicalgia Oct 09 2014 8:35AM 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 Oct 30 2014 3:06PM Atrial Fibrillation Oct 30 2014 3:06PM Deep vein thrombosis:history of Oct 30 2014 3:06PM 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 Nov 07 2014 3:54PM Atrial Fibrillation Nov 07 2014 3:54PM Deep vein thrombosis:history of Nov 07 2014 3:54PM Cough Dec 02 2014 11:37AM Bronchitis, Acute Dec 02 2014 11:37AM Abdominal Pain, Generalized Dec 06 2014 11:21AM Constipation Dec 06 2014 11:21AM 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 Dec 12 2014 [...] Moderate Dysmenorrhea Jan 27 2015 10:44AM 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 Feb 03 2015 [...] to cognitive limitations Apr 23 2015 1:32PM [facility] use of anticoagulants May 01 2015 2:57PM Atrial Fibrillation May 01 2015 2:57PM Deep vein thrombosis:history of May 01 2015 2:57PM [facility] use of anticoagulants May 06 2015 3:28PM Atrial Fibrillation May 06 2015 3:28PM Deep vein thrombosis:history of May 06 2015 3:28PM 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
--- OUTSIDE RECORDS SUMMARY | 2017-05-11 13:44 | XMS REPORT ---
Author Author FRANCISCO JAVIER ESPINAL [facility] Address [address] [place], [place] [id number] Care Team Providers Care Volunteer Services Manager Name Role Phone FRANCISCO JAVIER ESPINAL PCP [...] TAKE ONE TABLET BY MOUTH TWICE DAILY [place] 5-325 mg oral tablet 02/20/2016 take 1 [...] 12:00 AM Decadron, Per 1 Mg [facility]# [address]-22 Reviewed 05/01/2015 12:00 AM CAPILLARY BLOOD DRAW Reviewed 03/06/2015 12:00 AM CAPILLARY BLOOD DRAW Reviewed 05/07/2015 12:00 AM CAPILLARY BLOOD DRAW Reviewed 05/23/2015 12:00 AM Decadron, Per 1 Mg [facility]# [address]-72 Reviewed 05/29/2015 12:00 AM CAPILLARY BLOOD DRAW Reviewed 06/17/2015 12:00 AM EXTREMITY STUDY Returned 09/02/2015 12:00 AM Decadron, Per 1 Mg [facility]# [address]-69 Reviewed 09/02/2015 12:00 AM Rocephin 1 gram [facility]#0450-2424-73 Reviewed 09/02/2015 12:00 AM Toradol 60 Mg [facility]#3842-3093-59 Reviewed 09/26/2015 12:00 AM Decadron, Per 1 Mg [facility]# [address]-98 Reviewed 09/26/2015 12:00 AM Phenergan, Up to 50 Mg [facility]#0253-1592-70 Reviewed 02/20/2016 12:00 AM DRAINAGE OF SKIN ABSCESS Reviewed 02/10/2016 12:00 AM Phenergan 50mg Injection Reviewed 02/10/2016 12:00 AM THER/PROPH/DIAG INJ SC/IM Reviewed 03/25/2016 12:00 AM THERAPEUTIC PROPHYLACTIC/DX INJECTION SUBQ/IM Reviewed 03/25/2016 12:00 AM Decadron 8mg Injection, [facility] Medicaid Reviewed 03/25/2016 12:00 AM Depo-Medrol 80 Mg Injection, [facility] Medicaid Reviewed 03/25/2016 12:00 AM Rocephin 1 gram Injection, [facility] Medicaid Reviewed 03/28/2014 12:00 AM COMPLETE CBC [...] 12:00 AM Decadron, Per 1 Mg [facility]# [address]-10 Reviewed 07/23/2014 12:00 AM Depo-Medrol, Per 80 Mg [facility]#0060-4697-98 Reviewed 07/23/2014 12:00 AM Rocephin 1 gram [facility]#2271-7722-09 Reviewed 08/20/2014 12:00 AM CAPILLARY BLOOD DRAW Reviewed 08/29/2014 12:00 AM CAPILLARY BLOOD DRAW Reviewed 09/05/2014 12:00 AM CAPILLARY BLOOD DRAW Reviewed 09/13/2014 12:00 AM CAPILLARY BLOOD DRAW Reviewed 10/09/2014 12:00 AM Decadron, Per 1 Mg [facility]# [address]-55 Reviewed 10/09/2014 12:00 AM Toradol 60 Mg [facility]#8754-3443-60 Reviewed 10/09/2014 12:00 AM Phenergan, Up to 50 Mg [facility]#5938-1286-44 Reviewed 10/30/2014 12:00 AM CAPILLARY BLOOD DRAW [...] secsINR 1.9 PTT 36.80 secsCALLED TO/BY ARUNA ALBERT/[facility] 12/30/2014 10:57 AM WBC 9.4 RBC [...] 2014 10:47AM Anxiety Mar 28 2014 10:10AM [facility] use of drug Mar 28 2014 10:10AM [...] 2 to 3 May 16 2014 10:57AM 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 May 20 2014 11:14AM DVT (deep venous thrombosis), left May 20 2014 11:14AM [facility] use of anticoagulants May 30 2014 7:44AM Atrial Fibrillation May 30 2014 7:44AM Deep vein thrombosis:history of May 30 2014 7:44AM [facility] use of anticoagulants Jun 10 2014 9:18AM Atrial Fibrillation Jun 10 2014 9:18AM Deep vein thrombosis:history of Jun 10 2014 9:18AM [facility] use of anticoagulants Jun 12 2014 8:29AM [...] vein thrombosis:history of Aug 20 2014 1:24PM 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 Aug 29 2014 3:30PM Atrial Fibrillation Aug 29 2014 3:30PM Deep vein thrombosis:history of Aug 29 2014 3:30PM 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 Sep 05 2014 1:08PM Atrial Fibrillation Sep 05 2014 1:08PM Deep vein thrombosis:history of Sep 05 2014 1:08PM 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 Sep 13 2014 12:03PM Atrial Fibrillation Sep 13 2014 12:03PM Deep vein thrombosis:history of Sep 13 2014 12:03PM 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 Sep 05 2014 1:06PM Hip pain Sep 05 2014 1:06PM Neck pain Sep 05 2014 1:06PM History of DVT (deep vein thrombosis) Sep 05 2014 1:06PM Low Back Pain Oct 09 2014 8:35AM Migraine Oct 09 2014 8:35AM Depressive Disorder Oct 09 2014 8:35AM Nausea Oct 09 2014 8:35AM Cervicalgia Oct 09 2014 8:35AM 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 Oct 30 2014 3:06PM Atrial Fibrillation Oct 30 2014 3:06PM Deep vein thrombosis:history of Oct 30 2014 3:06PM 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 Nov 07 2014 3:54PM Atrial Fibrillation Nov 07 2014 3:54PM Deep vein thrombosis:history of Nov 07 2014 3:54PM Cough Dec 02 2014 11:37AM Bronchitis, Acute Dec 02 2014 11:37AM Abdominal Pain, Generalized Dec 06 2014 11:21AM Constipation Dec 06 2014 11:21AM 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 Dec 12 2014 [...] 2014 9:04AM Menorrhagia Jan 09 2015 11:30AM 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 Jan 13 2015 11:28AM Atrial Fibrillation Jan 13 2015 11:28AM Deep vein thrombosis:history of Jan 13 2015 11:28AM Menorrhagia with regular cycle Jan 27 2015 10:44AM Moderate Female pelvic pain Jan 27 2015 10:44AM Moderate Dysmenorrhea Jan 27 2015 10:44AM [facility] use of anticoagulants Feb 03 2015 1:34PM [...] vein thrombosis:history of May 01 2015 2:57PM [facility] use of anticoagulants May 06 2015 3:28PM Atrial Fibrillation May 06 2015 3:28PM Deep vein thrombosis:history of May 06 2015 3:28PM 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 May 07 2015 [...] vomiting with nausea Mar 30 2016 11:51AM Payers Insurance Name Company Name Plan Name Plan Number Policy Number Policy Group Number Start Date [facility] [id number] N/A History of Encounters Visit Date Visit [...] Office visit 12/27/2014 Office visit Aruna Albert COMPUTATIONAL SCIENTIST 12/27/2014 Office visit FRANCISCO JAVIER ESPINAL PA 12/12/2014 Office visit FRANCISCO JAVIER ESPINAL PA 12/06/2014 Office visit FRANCISCO JAVIER ESPINAL PA 12/02/2014 Office visit FRANCISCO JAVIER ESPINAL PA 10/30/2014 Office visit FRANCISCO JAVIER ESPINAL PA 10/18/2014 Office visit FRANCISCO JAVIER ESPINAL PA 10/09/2014 Office visit FRANICSCO JAVIER ESPINAL PA 10/04/2014 Voided FRANCISCO JAVIER ESPINAL PA 09/20/2014 Voided FRANCISCO JAVIER ESPINAL PA 09/13/2014 Office visit FRANCISCO JAVIER ESPINAL PA 09/05/2014 Office visit 09/05/2014 Office visit FRANCISCO JAVIER ESPINAL PA 08/06/2014 Office visit FRANCISCO JAVIER ESPINAL PA 08/03/2014 [facility] Jermiane Chappell MD 07/23/2014 Office visit 07/23/2014 Office [...] Office visit FRANCISCO JAVIER ESPINAL PA 05/03/2014 [facility] Aruna Koehler MD 04/25/2014 Office visit FRANCISCO JAVIER ESPINAL PA 04/01/2014 Office visit Aruna Albert COMPUTATIONAL SCIENTIST 03/28/2014 Office visit FRANCISCO JAVIER ESPINAL PA 02/26/2014 Office visit FRANCISCO JAVIER ESPINAL PA 05/20/2010 Office visit Francisco Javier Espinal PA-C 04/16/2009 Office visit Francisco Javier Espinal PA-C 01/24/2009 Office visit Tian Basilio MD 12/31/2008 Office visit Tian Basilio MD 12/23/2008 Office visit Tian Basilio MD 12/17/2008 [facility] Tian Basilio MD 12/13/2008 Office visit Tian Basilio MD 12/06/2008 Office visit Tian Basilio MD 11/29/2008 Office visit Tian Basilio MD 11/15/2008 Office visit Tian Basilio MD 11/01/2008 Office visit Tian Basilio MD 10/18/2008 Office visit Tian Basilio MD
--- OUTSIDE RECORDS SUMMARY | 2017-05-11 13:45 | XMS REPORT ---
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 May 20 2014 11:14AM DVT (deep venous thrombosis), left May 20 2014 11:14AM [facility] use of anticoagulants May 30 2014 7:44AM Atrial Fibrillation May 30 2014 7:44AM Deep vein thrombosis:history of May 30 2014 7:44AM 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 Jun 10 2014 9:18AM [...] 2:55PM Intellectual disability Aug 06 2014 2:55PM 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 Aug 20 2014 1:24PM Atrial Fibrillation Aug 20 2014 1:24PM Deep vein thrombosis:history of Aug 20 2014 1:24PM [facility] use of anticoagulants Aug 29 2014 3:30PM Atrial Fibrillation Aug 29 2014 3:30PM Deep vein thrombosis:history of Aug 29 2014 3:30PM 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 History of Encounters Visit Date Visit Type Provider 09/13/2014 Office visit FRANCISC OJAVIER MORAN 09/05/2014 Office visit FRANCISCO JAVIER ESPINAL PA 08/06/2014 Office visit FRANCISCO JAVIER ESPINAL PA 07/23/2014 Office visit FRANCISCO JAVIER MORAN 07/08/2014 Office visit FRANCISCO JAVIER MORAN 06/24/2014 Office visit FRANCISCO JAVIER ESPINAL PA 06/12/2014 Office visit FRANCISCO JAVIER ESPINAL PA 06/10/2014 Office visit FRANCISCO JAVIER ESPINAL PA 05/27/2014 Office visit FRANCISCO JAVIER MORAN 05/20/2014 Office visit FRANCISCO JAVIER MORAN 05/16/2014 Office visit FRANCISCO JAVIER ESPINAL PA 05/13/2014 Voided FRANCISCO JAVIER ESPINAL PA 05/06/2014 Office visit FRANCISCO JAVIER MORAN 05/03/2014 [facility] Jessi Koehler MD 04/25/2014 Office visit FRANCISCO JAVIER MORAN 04/01/2014 Office visit Jessi Blake APRN 03/28/2014 Office visit FRANCISCO JAVIER MORAN 02/26/2014 Office visit FRANCISCO JAVIER MORAN 05/20/2010 Office visit Francisco Javier Espinal PA-C 04/16/2009 Office visit Francisco Javier Espinal PA-C 01/24/2009 Office visit Tian Basilio MD 12/31/2008 Office visit Tian Basilio MD 12/23/2008 Office visit Tian Basilio MD 12/17/2008 [facility] Tian Basilio MD 12/13/2008 Office visit Tian Basilio MD 12/06/2008 Office visit Tian Basilio MD 11/29/2008 Office visit Tian Basilio MD 11/15/2008 Office visit Tian Basilio MD 11/01/2008 Office visit Tian Basilio MD 10/18/2008 Office visit Tian Basilio MD
--- OUTSIDE RECORDS SUMMARY | 2017-05-11 13:48 | XMS REPORT ---
Author Author FRANCISCO JAVIER ESPINAL [facility] Address [address] [place], [place] [address] Care Team Providers Care Flight Steward Name Role Phone FRANCISCO JAVIER ESPINAL PCP [...] ONE TABLET BY MOUTH THREE TIMES DAILY [place] 5-325 mg oral tablet 02/20/2016 05/15/2016 take [...] Mg [facility]# [address]-75 Reviewed 05/01/2015 12:00 AM CAPILLARY BLOOD DRAW Reviewed 03/06/2015 12:00 AM CAPILLARY BLOOD DRAW Reviewed 05/07/2015 12:00 AM CAPILLARY BLOOD DRAW Reviewed 05/23/2015 12:00 AM Decadron, Per 1 Mg [facility]# [address]-99 Reviewed 05/29/2015 12:00 AM CAPILLARY BLOOD DRAW Reviewed 06/17/2015 12:00 AM EXTREMITY STUDY Returned 09/02/2015 12:00 AM Decadron, Per 1 Mg [facility]# [address]-88 Reviewed 09/02/2015 12:00 AM Rocephin 1 gram [facility]#8433-8290-82 Reviewed 09/02/2015 12:00 AM Toradol 60 Mg [facility]#0202-7055-24 Reviewed 09/26/2015 12:00 AM Decadron, Per 1 Mg [facility]# [address]-45 Reviewed 09/26/2015 12:00 AM Phenergan, Up to 50 Mg [facility]#5164-7349-06 Reviewed 02/20/2016 12:00 AM DRAINAGE OF SKIN ABSCESS Reviewed 02/10/2016 12:00 AM Phenergan 50mg Injection Reviewed 02/10/2016 12:00 AM THER/PROPH/DIAG INJ SC/IM Reviewed 03/25/2016 12:00 AM THERAPEUTIC PROPHYLACTIC/DX INJECTION SUBQ/IM Reviewed 03/25/2016 12:00 AM Decadron 8mg Injection, [facility] Medicaid Reviewed 03/25/2016 12:00 AM Depo-Medrol 80 Mg Injection, [facility] Medicaid Reviewed 03/25/2016 12:00 AM Rocephin 1 gram Injection, [facility] Medicaid Reviewed 03/29/2016 12:00 AM THER/PROPH/DIAG INJ SC/IM Reviewed 03/29/2016 12:00 AM Decadron 8mg Injection Reviewed 03/29/2016 12:00 AM Depo-Medrol 80mg Injection Reviewed 03/29/2016 12:00 AM Rocephin 1 gram Injection Reviewed 03/27/2016 12:00 AM BEHAV CHNG SMOKING 3-10 MIN Reviewed 03/30/2016 12:00 AM Toradol 60 Mg Injection, [facility] Medicaid Reviewed 03/30/2016 12:00 AM Phenergan 50mg Injection, [facility] Medicaid Reviewed 04/17/2016 12:00 AM [...] 01/26/2017 12:00 AM Decadron 8mg Injection Reviewed 01/26/2017 12:00 AM Depo-Medrol 80mg Injection Reviewed 01/26/2017 12:00 AM Rocephin 1 gram Injection Reviewed 03/28/2014 12:00 AM COMPLETE CBC [...] Mg [facility]# [address]-04 Reviewed 07/23/2014 12:00 AM Depo-Medrol, Per 80 Mg [facility]#7137-9549-74 Reviewed 07/23/2014 12:00 AM Rocephin 1 gram [facility]#9877-1685-00 Reviewed 08/20/2014 12:00 AM CAPILLARY BLOOD DRAW Reviewed 08/29/2014 12:00 AM CAPILLARY BLOOD DRAW Reviewed 09/05/2014 12:00 AM CAPILLARY BLOOD DRAW Reviewed 09/13/2014 12:00 AM CAPILLARY BLOOD DRAW Reviewed 10/09/2014 12:00 AM Decadron, Per 1 Mg [facility]# [address]-96 Reviewed 10/09/2014 12:00 AM Toradol 60 Mg [facility]#6603-2368-89 Reviewed 10/09/2014 12:00 AM Phenergan, Up to 50 Mg [facility]#5077-1484-11 Reviewed 10/30/2014 12:00 AM CAPILLARY BLOOD DRAW [...] secsINR 1.9 PTT 36.80 secsCALLED TO/BY ARUNA ALBERT/[facility] 12/30/2014 10:57 AM WBC 9.4 RBC 4.41 [...] 2014 10:47AM Anxiety Mar 28 2014 10:10AM longterm use of drug Mar 28 2014 10:10AM [...] to 3 May 16 2014 10:57AM 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 May 20 2014 11:14AM DVT (deep venous thrombosis), left May 20 2014 11:14AM 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 May 30 2014 7:44AM Atrial Fibrillation May 30 2014 7:44AM Deep vein thrombosis:history of May 30 2014 7:44AM longterm use of anticoagulants Jun 10 2014 9:18AM Atrial Fibrillation Jun 10 2014 9:18AM Deep vein thrombosis:history of Jun 10 2014 9:18AM 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 Jun 12 2014 8:29AM [...] Intellectual disability Aug 06 2014 2:55PM 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 Aug 20 2014 1:24PM Atrial Fibrillation Aug 20 2014 1:24PM Deep vein thrombosis:history of Aug 20 2014 1:24PM longterm use of anticoagulants Aug 29 2014 3:30PM Atrial Fibrillation Aug 29 2014 3:30PM Deep vein thrombosis:history of Aug 29 2014 3:30PM longterm use of anticoagulants Sep 05 2014 1:08PM Atrial Fibrillation Sep 05 2014 1:08PM Deep vein thrombosis:history of Sep 05 2014 1:08PM 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 Sep 13 2014 12:03PM Atrial Fibrillation Sep 13 2014 12:03PM Deep vein thrombosis:history of Sep 13 2014 12:03PM longterm use of anticoagulants Sep 05 2014 1:06PM Hip pain Sep 05 2014 1:06PM Neck pain Sep 05 2014 1:06PM History of DVT (deep vein thrombosis) Sep 05 2014 1:06PM Low Back Pain Oct 09 2014 8:35AM Migraine Oct 09 2014 8:35AM Depressive Disorder Oct 09 2014 8:35AM Nausea Oct 09 2014 8:35AM Cervicalgia Oct 09 2014 8:35AM longterm use of anticoagulants Oct 30 2014 3:06PM Atrial Fibrillation Oct 30 2014 3:06PM Deep vein thrombosis:history of Oct 30 2014 3:06PM 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 Nov 07 2014 3:54PM Atrial Fibrillation Nov 07 2014 3:54PM Deep vein thrombosis:history of Nov 07 2014 3:54PM Cough Dec 02 2014 11:37AM Bronchitis, Acute Dec 02 2014 11:37AM Abdominal Pain, Generalized Dec 06 2014 11:21AM Constipation Dec 06 2014 11:21AM 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 Dec 12 2014 9:25AM [...] 2014 9:04AM Menorrhagia Jan 09 2015 11:30AM longterm use of anticoagulants Jan 13 2015 11:28AM Atrial Fibrillation Jan 13 2015 11:28AM Deep vein thrombosis:history of Jan 13 2015 11:28AM Menorrhagia with regular cycle Jan 27 2015 10:44AM Moderate Female pelvic pain Jan 27 2015 10:44AM Moderate Dysmenorrhea Jan 27 2015 10:44AM 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 Feb 03 2015 1:34PM [...] to cognitive limitations Apr 23 2015 1:32PM 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 May 01 2015 2:57PM Atrial Fibrillation May 01 2015 2:57PM Deep vein thrombosis:history of May 01 2015 2:57PM longterm use of anticoagulants May 06 2015 3:28PM Atrial Fibrillation May 06 2015 3:28PM Deep vein thrombosis:history of May 06 2015 3:28PM 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 May 07 2015 9:50AM Atrial Fibrillation May 07 2015 9:50AM Deep vein thrombosis:history of May 07 2015 9:50AM Cough May 23 2015 10:51AM Bronchitis, Acute May 23 2015 10:51AM Post-nasal drainage May 23 2015 10:51AM Smoker unmotivated to quit May 23 2015 10:51AM longterm use of anticoagulants May 29 2015 2:16PM [...] 2016 1:11PM Bruise Jun 08 2016 1:11PM terminal superintendent current use of anticoagulant Jun 08 2016 [...] Policy Number Policy Group Number Start Date [facility] [id number] N/A History of Encounters Visit Date Visit [...] ESPINAL PA 05/24/2016 Office visit FRANCISCO JAVIER ESPINAL PA 05/05/2016 Office visit FRANCISCO JAVIER ESPINAL PA 04/13/2016 Office visit FRANCISCO JAVIER ESPINAL PA 03/30/2016 Office visit FRANCISCO JAVIER ESPINAL [...] Office visit FRANCISCO JAVIER ESPINAL PA 08/03/2014 [facility] Jermaine Chappell MD 07/23/2014 Office visit 07/23/2014 Office visit FRANCISCO JAVIER ESPINAL PA 07/08/2014 Office visit FRANCISCO JAVIER MORAN 06/24/2014 Office visit FRANCISCO JAVIER MORAN 06/12/2014 Office visit FRANCISCO JAVIER ESPINAL PA 06/10/2014 Office visit FRANCISCO JAVIER ESPINAL PA 05/27/2014 Office visit FRANCISCO JAVIER MORAN 05/20/2014 Office visit FRANCISCO JAVIER ESPINAL PA 05/16/2014 Office visit FRANCISCO JAVIER ESPINAL PA 05/13/2014 Voided FRANCISCO JAVIER ESPINAL PA 05/06/2014 Office visit FRANCISCO JAVIER ESPINAL PA 05/03/2014 [facility] Aruna Koehler [...]
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
--- OUTSIDE RECORDS SUMMARY | 2017-05-11 13:50 | XMS REPORT ---
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 Name Role Phone FRANCISCO JAVIER ESPINAL PCP [...] ONE TABLET BY MOUTH THREE TIMES DAILY [place] 5-325 mg oral tablet 02/20/2016 05/15/2016 take [...] HC BMI BSA BMI Percentile O2 Sat(%) 06/24/2016 3:50:00 PM 118 mmHg 86 mmHg [...] 12:00 AM Decadron, Per 1 Mg [facility]# [address]-16 Reviewed 05/01/2015 12:00 AM CAPILLARY BLOOD DRAW Reviewed 03/06/2015 12:00 AM CAPILLARY BLOOD DRAW Reviewed 05/07/2015 12:00 AM CAPILLARY BLOOD DRAW Reviewed 05/23/2015 12:00 AM Decadron, Per 1 Mg [facility]# [address]-14 Reviewed 05/29/2015 12:00 AM CAPILLARY BLOOD DRAW Reviewed 06/17/2015 12:00 AM EXTREMITY STUDY Returned 09/02/2015 12:00 AM Decadron, Per 1 Mg [facility]# [address]-73 Reviewed 09/02/2015 12:00 AM Rocephin 1 gram [facility]#0417-8217-43 Reviewed 09/02/2015 12:00 AM Toradol 60 Mg [facility]#5026-6975-74 Reviewed 09/26/2015 12:00 AM Decadron, Per 1 Mg [facility]# [address]-91 Reviewed 09/26/2015 12:00 AM Phenergan, Up to 50 Mg [facility]#5023-7659-59 Reviewed 02/20/2016 12:00 AM DRAINAGE OF SKIN ABSCESS Reviewed 02/10/2016 12:00 AM Phenergan 50mg Injection Reviewed 02/10/2016 12:00 AM THER/PROPH/DIAG INJ SC/IM Reviewed 03/25/2016 12:00 AM THERAPEUTIC PROPHYLACTIC/DX INJECTION SUBQ/IM Reviewed 03/25/2016 12:00 AM Decadron 8mg Injection, [facility] Medicaid Reviewed 03/25/2016 12:00 AM Depo-Medrol 80 Mg Injection, [facility] Medicaid Reviewed 03/25/2016 12:00 AM Rocephin 1 gram Injection, [facility] Medicaid Reviewed 03/29/2016 12:00 AM THER/PROPH/DIAG INJ SC/IM Reviewed 03/29/2016 12:00 AM Decadron 8mg Injection Reviewed 03/29/2016 12:00 AM Depo-Medrol 80mg Injection Reviewed 03/29/2016 12:00 AM Rocephin 1 gram Injection Reviewed 03/27/2016 12:00 AM BEHAV CHNG SMOKING 3-10 MIN Reviewed 03/30/2016 12:00 AM Toradol 60 Mg Injection, [facility] Medicaid Reviewed 03/30/2016 12:00 AM Phenergan 50mg Injection, [facility] Medicaid Reviewed 04/17/2016 12:00 AM THERAPEUTIC PROPHYLACTIC/DX [...] 12:00 AM Decadron, Per 1 Mg [facility]# [address]-33 Reviewed 07/23/2014 12:00 AM Depo-Medrol, Per 80 Mg [facility]#1970-56[address]-61 Reviewed 07/23/2014 12:00 AM Rocephin 1 gram [facility]#1356-8735-90 Reviewed 08/20/2014 12:00 AM CAPILLARY BLOOD DRAW Reviewed 08/29/2014 12:00 AM CAPILLARY BLOOD DRAW Reviewed 09/05/2014 12:00 AM CAPILLARY BLOOD DRAW Reviewed 09/13/2014 12:00 AM CAPILLARY BLOOD DRAW Reviewed 10/09/2014 12:00 AM Decadron, Per 1 Mg [facility]# [address]-71 Reviewed 10/09/2014 12:00 AM Toradol 60 Mg [facility]#9303-2199-24 Reviewed 10/09/2014 12:00 AM Phenergan, Up to 50 Mg [facility]#0115[address]11[address]-68 Reviewed 10/30/2014 12:00 AM CAPILLARY BLOOD DRAW [...] secsINR 1.9 PTT 36.80 secsCALLED TO/BY ARUNA ALBERT/[facility] 12/30/2014 10:57 AM WBC 9.4 RBC 4.41 [...] Jan 09 2015 11:30AM 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 Jan 13 2015 11:28AM Atrial Fibrillation Jan 13 2015 11:28AM Deep vein thrombosis:history of Jan 13 2015 11:28AM Menorrhagia with regular cycle Jan 27 2015 10:44AM Moderate Female pelvic pain Jan 27 2015 10:44AM Moderate Dysmenorrhea Jan 27 2015 10:44AM 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 Feb 03 2015 1:34PM [...] vein thrombosis:history of May 06 2015 3:28PM [facility] use of anticoagulants May 07 2015 9:50AM [...] 2016 1:11PM Bruise Jun 08 2016 1:11PM [facility] current use of anticoagulant Jun 08 2016 1:11PM Anxiety about health Jun 08 2016 1:11PM Pelvic pain in female Jun 21 2016 11:44AM Incisional hernia without mention of obstruction or gangrene Jun 21 2016 11: 44AM Severe Acute Incisional hernia of anterior abdominal wall without obstruction or gangrene Unresponsive to treatment Jun 22 2016 3:16PM Severe Acute Thrombophlebitis Jun 24 2016 3:51PM Payers Insurance Name Company Name Plan Name Plan Number Policy Number Policy Group Number Start Date [facility] [id number] N/A History of Encounters Visit Date Visit Type Provider 06/24/2016 Office visit FRANCISCO JAVIER MORAN 06/21/2016 [...] 04/25/2015 Voided FRANCISCO JAVIER ESPINAL PA 04/23/2015 [facility] Mercedes Chappell MD 04/23/2015 Office visit [...] Office visit 12/27/2014 Office visit Aruna Albert CAUSTIC LOADER 12/27/2014 Office visit FRANCISCO JAVIER ESPINAL PA [...] Office visit FRANCISCO JAVIER ESPINAL PA 08/03/2014 [facility] Mercedes Chappell MD 07/23/2014 Office visit 07/23/2014 Office [...] Office visit FRANCISCO JAVIER ESPINAL PA 05/03/2014 [facility] Aruna Koehler MD 04/25/2014 Office visit FRANCISCO JAVIER ESPINAL PA 04/01/2014 Office visit Aruna Albert CAUSTIC LOADER 03/28/2014 Office visit FRANCISCO JAVIER ESPINAL PA 02/26/2014 Office visit FRANCISCO JAVIER ESPINAL PA 05/20/2010 Office visit Francisco Javier Espinal PA-C 04/16/2009 Office visit Francisco Javier Espinal PA-C 01/24/2009 Office visit Tian Basilio MD 12/31/2008 Office visit Tian Basilio MD 12/23/2008 Office visit Tian Basilio MD 12/17/2008 [facility] Tian Basilio MD 12/13/2008 Office visit Tian Basilio MD 12/06/2008 Office visit Tian Basilio MD 11/29/2008 Office visit Tian Basilio MD 11/15/2008 Office visit Tian Basilio MD 11/01/2008 Office visit Tian Basilio MD 10/18/2008 Office visit Tian Basilio MD
--- OUTSIDE RECORDS SUMMARY | 2017-05-11 13:52 | XMS REPORT ---
Author Author FRANCISCO JAVIER ESPINAL [facility] Address [address] [place], [place] [address] Care Team Providers Care Book Reviewer Name Role Phone FRANCISCO JAVIER ESPINAL PCP [...] 3 times per day PRN muscle spasm pantoprazole 40 mg oral tablet,delayed release (DR/EC) [...] 3 times per day for 30 days Xanax 0.5 mg oral tablet 09/27/2016 10/27/2016 1/2 to 1 twice daily as needed for anxiety must last 30 days Zofran ODT 4 mg oral tablet,disintegrating 09/27/2016 1 every 4 hrs as needed for nausea not to exceed 4 in 24 hrs Name Start Date Expiration Date SIG Comments [...] ONE TABLET BY MOUTH THREE TIMES DAILY [place] 5-325 mg oral tablet 02/20/2016 05/15/2016 take [...] HC BMI BSA BMI Percentile O2 Sat(%) 09/27/2016 3:41:00 PM 108 mmHg 70 mmHg 70 bpm 16 rpm 98.2 F 122 lbs 64 in 20.94 kg/m2 1.58 m2 98 % 09/02/2016 4:06:00 PM 105 mmHg 68 mmHg 70 bpm 16 rpm 16 F 126 lbs 64 in 21.6276 kg/m 1.6065 m 98 % 08/09/2016 11:12:00 AM 110 mmHg [...] 04/12/2015 12:00 AM Decadron, Per 1 Mg [facility]# [address]-56 Reviewed 05/01/2015 12:00 AM CAPILLARY BLOOD DRAW Reviewed 03/06/2015 12:00 AM CAPILLARY BLOOD DRAW Reviewed 05/07/2015 12:00 AM CAPILLARY BLOOD DRAW Reviewed 05/23/2015 12:00 AM Decadron, Per 1 Mg [facility]# [address]-61 Reviewed 05/29/2015 12:00 AM CAPILLARY BLOOD DRAW Reviewed 06/17/2015 12:00 AM EXTREMITY STUDY Returned 09/02/2015 12:00 AM Decadron, Per 1 Mg [facility]# [address]-20 Reviewed 09/02/2015 12:00 AM Rocephin 1 gram [facility]#1126-0077-68 Reviewed 09/02/2015 12:00 AM Toradol 60 Mg [facility]#1307-5695-10 Reviewed 09/26/2015 12:00 AM Decadron, Per 1 Mg [facility]# [address]-88 Reviewed 09/26/2015 12:00 AM Phenergan, Up to 50 Mg [facility]#4398-0901-69 Reviewed 02/20/2016 12:00 AM DRAINAGE OF SKIN ABSCESS Reviewed 02/10/2016 12:00 AM Phenergan 50mg Injection Reviewed 02/10/2016 12:00 AM THER/PROPH/DIAG INJ SC/IM Reviewed 03/25/2016 12:00 AM THERAPEUTIC PROPHYLACTIC/DX INJECTION SUBQ/IM Reviewed 03/25/2016 12:00 AM Decadron 8mg Injection, [facility] Medicaid Reviewed 03/25/2016 12:00 AM Depo-Medrol 80 Mg Injection, [facility] Medicaid Reviewed 03/25/2016 12:00 AM Rocephin 1 gram Injection, [facility] Medicaid Reviewed 03/29/2016 12:00 AM THER/PROPH/DIAG [...] 07/23/2014 12:00 AM Decadron, Per 1 Mg [facility]# [address]-28 Reviewed 07/23/2014 12:00 AM Depo-Medrol, Per 80 Mg [facility]#4628-6296-77 Reviewed 07/23/2014 12:00 AM Rocephin 1 gram [facility]#4126-2564-15 Reviewed 08/20/2014 12:00 AM CAPILLARY BLOOD DRAW Reviewed 08/29/2014 12:00 AM CAPILLARY BLOOD DRAW Reviewed 09/05/2014 12:00 AM CAPILLARY BLOOD DRAW Reviewed 09/13/2014 12:00 AM CAPILLARY BLOOD DRAW Reviewed 10/09/2014 12:00 AM Decadron, Per 1 Mg [facility]# [address]-67 Reviewed 10/09/2014 12:00 AM Toradol 60 Mg [facility]#5804-4462-67 Reviewed 10/09/2014 12:00 AM Phenergan, Up to 50 Mg [facility]#3350-6520-98 Reviewed 10/30/2014 12:00 AM CAPILLARY BLOOD DRAW [...] 1.9 PTT 36.80 secsCALLED TO/BY ARUNA ALBERT/[facility] 12/30/2014 10:57 AM WBC 9.4 RBC [...] 10:47AM Anxiety Mar 28 2014 10:10AM manager long term care use of drug Mar [...] to 3 May 16 2014 10:57AM 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 May 20 2014 11:14AM DVT (deep venous thrombosis), left May 20 2014 11:14AM 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 May 30 2014 7:44AM Atrial Fibrillation May 30 2014 7:44AM Deep vein thrombosis:history of May 30 2014 7:44AM 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 Jun 10 2014 9:18AM Atrial Fibrillation Jun 10 2014 9:18AM Deep vein thrombosis:history of Jun 10 2014 9:18AM halfway use of anticoagulants Jun 12 2014 8:29AM [...] 2:55PM Intellectual disability Aug 06 2014 2:55PM halfway use of anticoagulants Aug 20 2014 1:24PM Atrial Fibrillation Aug 20 2014 1:24PM Deep vein thrombosis:history of Aug 20 2014 1:24PM 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 Aug 29 2014 3:30PM Atrial Fibrillation Aug 29 2014 3:30PM Deep vein thrombosis:history of Aug 29 2014 3:30PM halfway use of anticoagulants Sep 05 2014 1:08PM Atrial Fibrillation Sep 05 2014 1:08PM Deep vein thrombosis:history of Sep 05 2014 1:08PM halfway use of anticoagulants Sep 13 2014 12:03PM Atrial Fibrillation Sep 13 2014 12:03PM Deep vein thrombosis:history of Sep 13 2014 12:03PM halfway use of anticoagulants Sep 05 2014 1:06PM Hip pain Sep 05 2014 1:06PM Neck pain Sep 05 2014 1:06PM History of DVT (deep vein thrombosis) Sep 05 2014 1:06PM Low Back Pain Oct 09 2014 8:35AM Migraine Oct 09 2014 8:35AM Depressive Disorder Oct 09 2014 8:35AM Nausea Oct 09 2014 8:35AM Cervicalgia Oct 09 2014 8:35AM 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 Oct 30 2014 3:06PM Atrial Fibrillation Oct 30 2014 3:06PM Deep vein thrombosis:history of Oct 30 2014 3:06PM 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 Nov 07 2014 3:54PM Atrial Fibrillation Nov 07 2014 3:54PM Deep vein thrombosis:history of Nov 07 2014 3:54PM Cough Dec 02 2014 11:37AM Bronchitis, Acute Dec 02 2014 11:37AM Abdominal Pain, Generalized Dec 06 2014 11:21AM Constipation Dec 06 2014 11:21AM halfway use of anticoagulants Dec 12 2014 9:25AM [...] 2014 9:04AM Menorrhagia Jan 09 2015 11:30AM halfway use of anticoagulants Jan 13 2015 11:28AM Atrial Fibrillation Jan 13 2015 11:28AM Deep vein thrombosis:history of Jan 13 2015 11:28AM Menorrhagia with regular cycle Jan 27 2015 10:44AM Moderate Female pelvic pain Jan 27 2015 10:44AM Moderate Dysmenorrhea Jan 27 2015 10:44AM 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 Feb 03 2015 [...] to cognitive limitations Apr 23 2015 1:32PM halfway use of anticoagulants May 01 2015 2:57PM Atrial Fibrillation May 01 2015 2:57PM Deep vein thrombosis:history of May 01 2015 2:57PM 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 May 06 2015 3:28PM Atrial Fibrillation May 06 2015 3:28PM Deep vein thrombosis:history of May 06 2015 3:28PM 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 May 07 2015 9:50AM Atrial Fibrillation May 07 2015 9:50AM Deep vein thrombosis:history of May 07 2015 9:50AM Cough May 23 2015 10:51AM Bronchitis, Acute May 23 2015 10:51AM Post-nasal drainage May 23 2015 10:51AM Smoker unmotivated to quit May 23 2015 10:51AM 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 May 29 2015 [...] 2016 1:11PM Bruise Jun 08 2016 1:11PM manager long term care current use of anticoagulant Jun 08 2016 [...] vomiting type Sep 27 2016 3 :42PM Payers Insurance Name Company Name Plan Name Plan Number Policy Number Policy Group Number Start Date [facility] [id number] N/A History of Encounters Visit Date Visit Type Provider 09/27/2016 Office visit FRANCISCO JAVIER MORAN 09/02/2016 [...] 12/27/2014 Office visit 12/27/2014 Office visit Aruna lAbert APRN 12/27/2014 Office visit FRANCISCO JAVIER MORAN [...] Office visit FRANCISCO JAVIER ESPINAL PA 05/03/2014 [facility] Aruna Koehler MD 04/25/2014 [...] 12/23/2008 Office visit Tian Basilio MD 12/17/2008 [facility] Tian Basilio MD 12/13/2008 Office visit Tian Basilio MD 12/06/2008 Office visit Tian Basilio MD 11/29/2008 Office visit Tian Basilio MD 11/15/2008 Office visit Tian Basilio MD 11/01/2008 Office visit Tian Basilio MD 10/18/2008 Office visit Tian Basilio MD
--- OUTSIDE RECORDS SUMMARY | 2017-05-11 13:53 | XMS REPORT ---
Author Author [facility] Medical Staff Organization [facility] Address [address] [place], [place] [address] Phone [phone] Summary purpose TRANSITION OF CARE AUTO GENERATION [...] tests and/or laboratory data RESULTS Routine Urinalysis [id number]:40:00 Result Normal Range Units Color YELLOW Clarity Hazy Specific [place] 1.010 1.003-1.035 pH 7.0 4.5-8.0 Glucose NEGATIVE Bilirubin NEGATIVE Ketones NEGATIVE Protein NEGATIVE Urobilinogen 0.2 0-0.2 E.U./dL Nitrites NEGATIVE Blood NEGATIVE Leukocytes NEGATIVE WBCs 0-5 RBCs 0-5 Squamous Epithelial Few Transitional Epithelial Cells Few Coagulation [id number]:34:00 Result Normal Range Units PT H 22.0 [...] 40-70 % Lymph % 37.2 20-40 % Anderson % 4.3 0-10.0 % Eos % 1.6 0-7.0 % Baso % 0.7 0-2 % Neutro # 5.2 1.5-7.5 103/uL Lymph # 3.4 0.9-4.0 103/uL Anderson # 0.4 0-0.8 103/uL Eos # 0.2 0-0.6 103/uL Baso # 0.1 0-0.1 103/uL Special Chemistry :34:00 Result Normal Range Units HCG (Qualitative) Negative Body Fluid :40:00 Result Normal Range Units pH 7.0 4.5-8.0 Radiology Results [id number]:20:00 Result Normal Range Units MPV 9.4 7.3-10.4 FL History of procedures Procedure Code Code Type Description Date Performed Performing Physician 91494 CPT-4 COMPLETE CBC W/AUTO DIFF WBC 03-20-2015 CANDELARIA CASEY 70021 CPT-4 COMPREHEN METABOLIC PANEL 03-20-2015 CANDELARIA JACINTO Functional status Functional Status Finding Observation Time Hearing Prob Loc none [id number]:46 Vision Problems yes :46 Vision Correct Dev glasses Comment: For driving :46 Ambulation Asst Dev none 23-50-057925:46 Range of Motion full :35 Muscle Strength RUE 5 ROM full resist 21-03-491242:35 Muscle Strength RLE 5 ROM full resist 74-94-383012:35 Muscle Strength LUE 5 ROM full resist 72-00-019816:35 Muscle Strength LLE 5 ROM full resist 51-24-669904:35 Transfers assist x 1 34-45-769707:35 Ambulation in room :35 Balance unsteady 69-87-421453:35 Bathing Assistance none 75-37-598248:46 Eating Assistance none 11-20-737361:46 Dressing Assistance none :46 Toileting Assistance none :46 Transfer Assistance none :46 Decline Slf Care/Mob no 03-64-876391:46 Phys Cond Stable yes 68-55-005294:46 Nutrition normal :35 Diet regular :35 Oral Cavity moist and intact :35 Teeth missing (specify) 26-52-145268:35 Dental Hygiene good 99-03-968315:35 Abdomen Appearance round 90-25-514398:35 Abdomen soft 29-44-397867:35 Bowel Sounds present :35 NG Tube no 07-35-609753:35 Feeding Tube none 01-67-555618:35 Ardon no :35 Cont Bladder Irr no [...] headache stiff neck no :35 WBC > 63244 no :35 WBC < 4000 no :35 Rapid Resp no :35 IV Site Location L hand :25 IV Type peripheral :25 IV Site Information discontinued [id number]:25 IV Site Start Attmpt 1 times :35 [...] yes :30 Psychological yes :30 Physical no 56-70-990013:30 Hearing no :30 Acid Polymerization Operator Needed no :30 Sign Language no :30 Emotional yes :30 Vision yes :30 [place] no :30 Financial no 45-24-357154:30 Vital signs Type Value Date Respiration Rate 18breaths per minute :00 Pulse 95beats per minute :00 Oxygen Saturation 95% :00 BP Systolic 112mmHg :00 BP Diastolic 75mmHg :00 Temperature 97.9F 92-71-934443:35 Height 64inches 82-39-400401:40 Weight 139LB 49-29-045846:40 Social history Type Value Smoking Status CURRENT [...]
--- OUTSIDE RECORDS SUMMARY | 2017-05-11 13:54 | XMS REPORT ---
Author Author FRANCISCO JAVIER ESPINAL [facility] Address [address] [place], [place] [address] Care Team Providers Care Student Success Coach Name Role Phone FRANCISCO JAVIER ESPINAL PCP [...] 24 hours cyclobenzaprine 10 mg oral tablet 12/12/2014 01/11/2015 take 1 tablet (10 mg ) by oral route 3 times per day for 30 days Discontinued [...] Decadron, Per 1 Mg [facility]# [address]-56 Reviewed 07/23/2014 12:00 AM Depo-Medrol, Per 80 Mg [facility]#2483-7331-95 Reviewed 07/23/2014 12:00 AM Rocephin 1 gram [facility]#6512-3958-98 Reviewed 08/20/2014 12:00 AM CAPILLARY BLOOD DRAW Reviewed 08/29/2014 12:00 AM CAPILLARY BLOOD DRAW Reviewed 09/05/2014 12:00 AM CAPILLARY BLOOD DRAW Reviewed 09/13/2014 12:00 AM CAPILLARY BLOOD DRAW Reviewed 10/09/2014 12:00 AM Decadron, Per 1 Mg [facility]# [address]-57 Reviewed 10/09/2014 12:00 AM Toradol 60 Mg [facility]#7201-0758-95 Reviewed 10/09/2014 12:00 AM Phenergan, Up to 50 Mg [facility]#4971-5506-34 Reviewed 10/30/2014 12:00 AM CAPILLARY BLOOD DRAW Reviewed Results Summary Data and Description Results 03/28/2014 3:47 PM GLUCOSE 76.0 mg/dLSODIUM 145.0 mmol/LPOTASSIUM 4.80 mmol/ LCHLORIDE 105.0 mmol/LCO2 25.0 mmol/LBUN 13.0 mg/dLCREATININE 0.70 mg/dLSGOT/ AST 14.0 IU/LSGPT/ALT 12.0 IU/LALK PHOS 72.0 IU/LTOTAL PROTEIN 7.60 g/dLALBUMIN 4.40 g/dLTOTAL BILI 0.20 mg/dLCALCIUM 10.0 mg/dLeGFR >60 mL/min/1.73 [id number] 241.0 mg/dLCHOLESTEROL 248.0 mg/dLHDL 51.0 mg/dLLDL (CALC) [...] 2014 10:47AM Anxiety Mar 28 2014 10:10AM detention use of drug Mar 28 2014 10:10AM [...] 2 to 3 May 16 2014 10:57AM detention use of anticoagulants May 20 2014 11:14AM DVT (deep venous thrombosis), left May 20 2014 11:14AM detention use of anticoagulants May 30 2014 7:44AM Atrial Fibrillation May 30 2014 7:44AM Deep vein thrombosis:history of May 30 2014 7:44AM detention use of anticoagulants Jun 10 2014 9:18AM Atrial Fibrillation Jun 10 2014 9:18AM Deep vein thrombosis:history of Jun 10 2014 9:18AM detention use of anticoagulants Jun 12 2014 8:29AM [...] 2:55PM Intellectual disability Aug 06 2014 2:55PM 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 Aug 20 2014 1:24PM Atrial Fibrillation Aug 20 2014 1:24PM Deep vein thrombosis:history of Aug 20 2014 1:24PM detention use of anticoagulants Aug 29 2014 3:30PM Atrial Fibrillation Aug 29 2014 3:30PM Deep vein thrombosis:history of Aug 29 2014 3:30PM detention use of anticoagulants Sep 05 2014 1:08PM Atrial Fibrillation Sep 05 2014 1:08PM Deep vein thrombosis:history of Sep 05 2014 1:08PM detention use of anticoagulants Sep 13 2014 12:03PM Atrial Fibrillation Sep 13 2014 12:03PM Deep vein thrombosis:history of Sep 13 2014 12:03PM 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 Sep 05 2014 1:06PM Hip pain Sep 05 2014 1:06PM Neck pain Sep 05 2014 1:06PM History of DVT (deep vein thrombosis) Sep 05 2014 1:06PM Low Back Pain Oct 09 2014 8:35AM Migraine Oct 09 2014 8:35AM Depressive Disorder Oct 09 2014 8:35AM Nausea Oct 09 2014 8:35AM Cervicalgia Oct 09 2014 8:35AM 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 Oct 30 2014 3:06PM Atrial Fibrillation Oct 30 2014 3:06PM Deep vein thrombosis:history of Oct 30 2014 3:06PM 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 Nov 07 2014 3:54PM Atrial Fibrillation Nov 07 2014 3:54PM Deep vein thrombosis:history of Nov 07 2014 3:54PM Cough Dec 02 2014 11:37AM Bronchitis, Acute Dec 02 2014 11:37AM Abdominal Pain, Generalized Dec 06 2014 11:21AM Constipation Dec 06 2014 11:21AM detention use of anticoagulants Dec 12 2014 9:25AM [...] 2014 9:04AM Menorrhagia Jan 09 2015 11:30AM detention use of anticoagulants Jan 13 2015 11:28AM Atrial Fibrillation Jan 13 2015 11:28AM Deep vein thrombosis:history of Jan 13 2015 11:28AM Payers Insurance Name Company Name Plan Name Plan Number Policy Number Policy Group Number Start Date [facility] [id number] N/A History of Encounters Visit Date Visit Type Provider 01/13/2015 Office visit FRANCISCO JAVIER MORAN 01/09/2015 [...] 08/03/2014 Akosua Chappell MD 07/23/2014 Office visit FRANCISCO JAVIER [...] Office visit FRANCISCO JAVIER ESPINAL PA 05/03/2014 [facility] Jessi Koehler MD 04/25/2014 Office visit [...]
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
--- OUTSIDE RECORDS SUMMARY | 2017-05-11 13:55 | XMS REPORT ---
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 Name Role Phone Marielos Rosa PCP Unavailable [...] Decadron, Per 1 Mg [facility]# [address]-56 Reviewed 07/23/2014 12:00 AM Depo-Medrol, Per 80 Mg [facility]#3354-1875-09 Reviewed 07/23/2014 12:00 AM Rocephin 1 gram [facility]#7026-5783-19 Reviewed 08/20/2014 12:00 AM CAPILLARY BLOOD DRAW Reviewed 08/29/2014 12:00 AM CAPILLARY BLOOD DRAW Reviewed 09/05/2014 12:00 AM CAPILLARY BLOOD DRAW Reviewed 09/13/2014 12:00 AM CAPILLARY BLOOD DRAW Reviewed 10/09/2014 12:00 AM Decadron, Per 1 Mg [facility]# [address]-45 Reviewed 10/09/2014 12:00 AM Toradol 60 Mg [facility]#4704-2503-97 Reviewed 10/09/2014 12:00 AM Phenergan, Up to 50 Mg [facility]#3301-3474-22 Reviewed 10/30/2014 12:00 AM CAPILLARY BLOOD DRAW Reviewed Results Summary Data and Description Results 03/28/2014 3:47 PM GLUCOSE 76.0 mg/dLSODIUM 145.0 mmol/LPOTASSIUM 4.80 mmol/ LCHLORIDE 105.0 mmol/LCO2 25.0 mmol/LBUN 13.0 mg/dLCREATININE 0.70 mg/dLSGOT/ AST 14.0 IU/LSGPT/ALT 12.0 IU/LALK PHOS 72.0 IU/LTOTAL PROTEIN 7.60 g/dLALBUMIN 4.40 g/dLTOTAL BILI 0.20 mg/dLCALCIUM 10.0 mg/dLeGFR >60 mL/min/1.73 [id number] 241.0 mg/dLCHOLESTEROL 248.0 mg/dLHDL 51.0 mg/dLLDL (CALC) [...] 2014 10:47AM Anxiety Mar 28 2014 10:10AM cover cutter use of drug Mar 28 2014 10:10AM [...] 2 to 3 May 16 2014 10:57AM halfway use of anticoagulants May 20 2014 11:14AM DVT (deep venous thrombosis), left May 20 2014 11:14AM halfway use of anticoagulants May 30 2014 7:44AM Atrial Fibrillation May 30 2014 7:44AM Deep vein thrombosis:history of May 30 2014 7:44AM cover cutter use of anticoagulants Jun 10 2014 9:18AM [...] vein thrombosis:history of Aug 20 2014 1:24PM cover cutter use of anticoagulants Aug 29 2014 3:30PM Atrial Fibrillation Aug 29 2014 3:30PM Deep vein thrombosis:history of Aug 29 2014 3:30PM halfway use of anticoagulants Sep 05 2014 1:08PM Atrial Fibrillation Sep 05 2014 1:08PM Deep vein thrombosis:history of Sep 05 2014 1:08PM cover cutter use of anticoagulants Sep 13 2014 12:03PM [...] 2014 8:35AM Cervicalgia Oct 09 2014 8:35AM halfway use of anticoagulants Oct 30 2014 3:06PM Atrial Fibrillation Oct 30 2014 3:06PM Deep vein thrombosis:history of Oct 30 2014 3:06PM cover cutter use of anticoagulants Nov 07 2014 3:54PM [...] 2014 9:04AM Dysmenorrhea Dec 27 2014 9:04AM Payers Insurance Name Company Name Plan Name Plan Number Policy Number Policy Group Number Start Date [facility] [id number] N/A History of Encounters Visit Date Visit Type Provider 12/30/[address] Marielos Rosa MD 12/27/2014 Office visit Jessi Blake BLENDER OPERATOR 12/27/2014 Office visit FRANCISCO JAVIER ESPINAL PA 12/12/2014 Office visit FRANCISCO JAVIER MORAN 12/06/2014 Office visit FRANCISCO JAVIER MORAN 12/02/2014 Office visit FRANCISCO JAVIER MORAN 10/30/2014 Office visit FRANCISCO JAVIER MORAN 10/18/2014 Office visit FRANCISCO JAVIER ESPINAL PA 10/09/2014 Office visit FRANCISCO JAVIER MORAN 10/04/2014 Voided FRANCISCO JAVIER MORAN 09/20/2014 Voided FRANCISCO JAVIER ESPINAL PA 09/13/2014 Office visit FRANCISCO JAVIER MORAN 09/05/2014 Office visit FRANCISCO JAVIER MORAN 08/06/2014 Office visit FRANCISCO JAVIER MORAN 08/03/2014 [facility] Jermaine Chappell MD 07/23/2014 Office visit FRANCISCO [...] 05/06/2014 Office visit FRANCISCO JAVIER MORAN 05/03/2014 [facility] Jessi Koehler MD 04/25/2014 Office visit FRANCISCO JAVIER ESPINAL PA 04/01/2014 Office visit Jessi Blake BLENDER OPERATOR 03/28/2014 Office visit FRANCISCO JAVIER ESPINAL PA 02/26/2014 Office visit FRANCISCO JAVIER MORAN 05/20/2010 Office visit Francisco Javier Espinal PA-C 04/16/2009 Office visit Francisco Javier Espinal PA-C 01/24/2009 Office visit Tian Basilio MD 12/31/2008 Office visit Tian Basilio MD 12/23/2008 Office visit Tian Basilio MD 12/17/2008 [facility] Tian Basilio MD 12/13/2008 Office visit Tian Basilio MD 12/06/2008 Office visit Tian Basilio MD 11/29/2008 Office visit Tian Basiloi MD 11/15/2008 Office visit Tian Basilio MD 11/01/2008 Office visit Tian Basilio MD 10/18/2008 Office visit Tian Basilio MD
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
[2017-05-11] MEDS ORDERED: KETOROLAC 30 MG/ML VIAL IVP ONE (14:15)
[2017-05-11] MEDS ORDERED: ORPHENADRINE 60 MG/2 ML (NORFLEX) AMP IV ONE (14:15)
[2017-05-11 14:39] LABS: AMPHETAMINE SCREEN, URINE NEGATIVE (NEGATIVE); BARBITURATE SCREEN URINE NEGATIVE (NEGATIVE); BENZODIAZEPINES SCREEN URINE POSITIVE (NEGATIVE); CANNABINOID SCREEN, URINE POSITIVE (NEGATIVE); COCAINE SCREEN URINE NEGATIVE (NEGATIVE); METHADONE STAT NEGATIVE (NEGATIVE); METHAMPHETAMINE SCREEN URINE S POSITIVE (NEGATIVE); OPIATE SCREEN URINE NEGATIVE (NEGATIVE); OXYCODONE STAT NEGATIVE (NEGATIVE); PROPOXYPHENE STAT NEGATIVE (NEGATIVE); TRICYCLIC ANTIDEPRESSANTS SCRE NEGATIVE (NEGATIVE)
[2017-05-11 14:42] LABS: BILIRUBIN,URINE NEGATIVE (NEGATIVE); CLARITY,URINE CLEAR; COLOR,URINE YELLOW; GLUCOSE, URINE (UA) NEGATIVE (NEGATIVE); KETONES,URINE NEGATIVE (NEGATIVE); LEUKOCYTE ESTERASE ,URINE NEGATIVE (NEGATIVE); NITRITE,URINE NEGATIVE (NEGATIVE); PH,URINE 6 (5-9); PROTEIN,URINE NEGATIVE (NEGATIVE); UROBILINOGEN,URINE NORMAL (NORMAL)
[2017-05-11 14:57] VITALS: BP 102/65
[2017-05-11 15:01] LABS: BACTERIA,URINE TRACE /HPF
== END 2017-05-11 14:57 | disposition home or self-care (01) ==
LOC: EDUNIT# 12:26 → ER 12:28
DX: S39.011A Strain of muscle, fascia and tendon of abdomen, initial encounter (principal); F41.9 Anxiety disorder, unspecified; F32.9 Major depressive disorder, single episode, unspecified; R40.2142 Coma scale, eyes open, spontaneous, at arrival to emergency department; R40.2252 Coma scale, best verbal response, oriented, at arrival to emergency department; R40.2362 Coma scale, best motor response, obeys commands, at arrival to emergency department; Z87.42 Personal history of other diseases of the female genital tract; Z79.01 Long term (current) use 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; Z98.51 Tubal ligation status; Z88.5 Allergy status to narcotic agent; Z79.52 Long term (current) use of systemic steroids; V49.40XA Driver injured in collision with unspecified motor vehicles in traffic accident, initial encounter; Y92.411 Interstate highway as the place of occurrence of the external cause
CPT/HCPCS: 36415; 70450; 72125; 72131; 73552; 73562; 73590; 74177; 80053; 80306; 81000; 85025; 96374; 96375